=== PATIENT | male | born 1970 | race African-American/Black ===

== ENCOUNTER 2020-08-20 17:23 | Emergency (ER) | payer MEDICAID, SELFPAY ==
[2020-08-20 17:31] VITALS: BP 126/77; PULSE 124; RESP 17; O2SAT 98
--- NOTE | 2020-08-20 17:53 | XRR_ITS ---
PROCEDURE INFORMATION: Exam: XR Chest Exam date and time: 08/20/2020 5:56 PM Age: 49 years old Clinical indication: Cough and dyspnea; Additional info: Dyspnea/cough TECHNIQUE: Imaging protocol: XR of the chest. Views: 1 view. COMPARISON: CR Chest 1 [place] [id number] 09/06/2016 5:40 AM FINDINGS: Lungs: Well inflated and clear. Pleural spaces: Unremarkable. No pleural effusion. No pneumothorax. Heart/Mediastinum: The cardiac shadow is normal in size. Bones/joints: No acute abnormality. XR/XR chest 1V portable [id number] IMPRESSION: No acute findings.
--- NOTE | 2020-08-20 17:53 | ECG_ITS ---
[facility] Test Date: 2020-08-20 Pat Name: Alessandro Bradshaw Department: Room: Gender: Male [employer]: : 1970 Requested By: Harry Hendrickson Order Number: [id number] Gagan MD: Shawn Lee M.D. Measurements Intervals [place] Rate: 106 P: 72 IA: 144 QRS: -44 QRSD: 108 T: 68 QT: 380 QTc: 505 Interpretive Statements SINUS TACHYCARDIA LEFT AXIS DEVIATION [QRS AXIS < -30] Compared to ECG 09/06/2016 12:01:06 Left-axis deviation now present Sinus rhythm no longer present Myocardial infarct finding no longer present Electronically Signed On 08-22-2020 8:00:27 CDT by Shawn Lee M.D. [email or web address]
--- NOTE | 2020-08-20 17:54 | ED_ITS ---
Documented by User: Harry Cárdenas DO 08/27/20 06:17 HPI - Altered Mental Status General: Chief Complaint: Altered Mental Status Stated Complaint: STROKE SYS Time Seen by Provider: 08/20/20 17:35 History of Present Illness: HPI narrative: 49-year-old black male presents emergency room with altered mental status he is confused he is unable to answer any questions he has no focal neurologic deficits he was dropped off evidently by someone else who thought he had a stroke. But he is able to walk to the room he is able to answer some questions. He is very disoriented. I have previously met this man in my office practice I took care of his mother he was able to tell me his mother's name correctly. MD complaint: altered mental status and confusion Onset (ago): hour(s) Severity: moderate Consistency of symptoms: Getting Worse Associated symptoms: Deny auditory hallucinations, visual hallucinations, delusions, depression, homicidal ideation, racing thoughts or suicidal ideation Review of Systems General: Reports: ROS unobtainable due to mental status Psych: Denies: depression, visual hallucinations, auditory hallucinations, suicidal ideation or homicidal ideation Physical Exam Const: COMMON NORMALS: no acute distress GENERAL APPEARANCE: cooperative and comfortable HENMT: COMMON NORMALS: normocephalic, atraumatic and hearing grossly normal bilaterally HEAD & SCALP: normocephalic and atraumatic Eye: COMMON NORMALS: Equal, round and reactive pupils present, EOMs intact bilaterally, conjunctivae normal and no scleral icterus CONJUNCTIVA: Yes conjunctivae normal PUPIL: Yes Equal, round and reactive pupils present Neck/C-Spine: COMMON NORMALS: full ROM, no lymphadenopathy, supple and no JVD Lymph: LYMPHATIC: no lymphadenopathy noted and no lymphedema noted Resp: COMMON NORMALS: normal respiratory effort, No retractions, No use of accessory muscles and clear to auscultation bilaterally AUSCULTATION: clear to auscultation bilaterally Cardio: COMMON NORMALS: no JVD, regular rate, regular rhythm and No murmurs present (Cardio) RATE: regular rate RHYTHM: regular rhythm GI: COMMON NORMALS: Soft to palpation and No hepatosplenomegaly present AUSCULTATION: Yes normoactive bowel sounds PALPATION: Yes Soft to palpation, No Tenderness to palpation present (GI), No Guarding due to palpation present (GI) and Yes No hepatosplenomegaly present Extremity: COMMON NORMALS: normal to inspection, capillary refill normal, no clubbing, cyanosis or edema, no calf tenderness and no pedal edema Psych: THOUGHT CONTENT: No delusions Skin: COMMON NORMALS: no rashes or lesions noted GENERAL SKIN EXAM: no rashes or lesions noted Course Vital Signs: Vital signs: Vital Signs Temperature 98.3 F 08/21/20 00:27 Pulse Rate 102 H 08/21/20 00:27 Respiratory Rate 16 08/21/20 00:27 Blood Pressure 122/93 08/21/20 00:27 Pulse Oximetry 96 08/21/20 00:27 MDM - Altered Mental Status MDM Narrative: Medical decision making narrative: Turned over to Dr. Gtz at change of shift Lab Data: Labs: Lab Results 08/20/20 08/20/20 08/20/20 Range/Units 18:15 18:17 18:17 WBC 5.6 (4.0-10.0) 10^3/ uL RBC 5.85 H (4.1-5.3) 10^6/u L Hgb 15.9 (11.7-16.6) g/dL Hct 49.2 (42.0-52.0) % MCV 84.1 (80-94) fL MCH 27.2 L (28.0-34.0) pg MCHC 32.3 (30.0-36.0) g/dL RDW 13.2 (12.1-15.1) % Plt Count 212 (130-400) 10^3/c mm MPV 13.8 H (7.4-10.4) fL Neut % (Auto) 67.6 % Lymph % (Auto) 16.7 % Monona % (Auto) 14.4 % Eos % (Auto) 0.0 % Baso % (Auto) 0.9 % Neut # (Auto) 3.76 (1.8-7.7) 10^3/u L Lymph # (Auto) 0.9 (0.8-4.8) 10^3/u L Monona # (Auto) 0.8 (0.2-0.9) 10^3/u L Eos # (Auto) 0.0 (0.0-0.8) 10^3/u L Baso # (Auto) 0.1 (0.0-0.1) 10^3/u L Nucleated RBC % (a uto) 0 % Nucleated RBCs # 0.0 /100WBC Specimen Type Arterial Sample Site Radial, left ABG pH 7.42 (7.35-7.45) ABG pCO2 34.6 L (35-45) mmHg ABG pO2 77.0 L (80.0-100.0) mmH g ABG HCO3 22.2 (22-26) mmol/L ABG O2 Saturation 95.8 ABG Base Excess -1.6 (-2.0-2.0) mmol/ L Glenn Test Pos A-a O2 Gradient 3.6 L (5-10) mmHg Hematocrit 49.4 (42-52) % Hgb O2 Saturation 94.6 L (95-100) % Carboxyhemoglobin 0.5 (0.4-20.1) %THgb Methemoglobin 0.8 (0.4-1.5) % Total Hemoglobin 16.1 (14-18) g/dL Sodium 150.0 H 144 (131-143) mmol/L Potassium 3.7 4.1 (3.5-5.0) mmol/L Glucose 117.0 H 111 (70-115) mg/dL Ionized Calcium 1.2 (1.1-1.4) mmol/L O2 Delivery Device Room air FiO2 21.0 % Insulation Nozzleman ID Cak Chloride 108 H (98-107) mmol/L Carbon Dioxide 20 L (22-29) mmol/L Anion Gap 20.1 H (5-19) BUN 25 H (6-20) mg/dL Creatinine 1.7 H (0.7-1.2) mg/dL GFR Calculation 51.7 L (90-130) mL/min Calculated Osmolal ity 303 H (285-295) mOsm/k g Calcium 9.6 (8.5-10.5) mg/dL Magnesium 2.3 (1.7-2.3) mg/dL Total Bilirubin 1.4 H (0.15-1.2) mg/dL AST 80 H (0-40) U/L ALT 38 (0-41) U/L Alkaline Phosphata se 89 (40-130) IU/L Ammonia (16-60) umol/L Total Protein 7.8 (6.6-8.7) g/dL Albumin 4.6 (3.5-5.2) g/dL Globulin 3.2 (1.3-4.6) g/dL Lipase 100 H (13-60) U/L Urine Color (Yellow) Urine Appearance (CLEAR) Urine pH (5-7) Ur Specific Gravit y (1.005-1.030) Urine Protein (Negative) Urine Glucose (UA) (Normal) Urine Ketones (Negative) Urine Blood (Negative) Urine Nitrate (Negative) Urine Bilirubin (Negative) Urine Urobilinogen (Negative) mg/dL Ur Leukocyte Tyesha ase (Negative) Urine RBC (0-2) /hpf Urine WBC (0-5) /hpf Ur Squamous Epith Cells (0-5) /hpf Amorphous Sediment Urine Bacteria (NONE) /hpf Hyaline Casts /lpf Salicylates < 0.3 L (3-10) mg/dL Urine Opiates Scre en (Negative) ng/mL Acetaminophen < 5.0 L (10-30) ug/mL Ur Barbiturates Sc reen (Negative) ng/mL Ur Phencyclidine S crn (Negative) ng/mL Ur Amphetamines Sc reen (Negative) ng/mL U Benzodiazepines Scrn (Negative) ng/mL Urine Cocaine Scre en (Negative) ng/mL U Marijuana (THC) Screen (Negative) ng/mL Ethyl Alcohol < 10 (0-10) mg/dL SARS-CoV-2 Ag (Rap id) (Negative) 08/20/20 08/20/20 08/20/20 Range/Units 18:40 21:49 21:49 WBC (4.0-10.0) 10^3/ uL RBC (4.1-5.3) 10^6/u L Hgb (11.7-16.6) g/dL Hct (42.0-52.0) % MCV (80-94) fL MCH (28.0-34.0) pg MCHC (30.0-36.0) g/dL RDW (12.1-15.1) % Plt Count (130-400) 10^3/c mm MPV (7.4-10.4) fL Neut % (Auto) % Lymph % (Auto) % Monona % (Auto) % Eos % (Auto) % Baso % (Auto) % Neut # (Auto) (1.8-7.7) 10^3/u L Lymph # (Auto) (0.8-4.8) 10^3/u L Monona # (Auto) (0.2-0.9) 10^3/u L Eos # (Auto) (0.0-0.8) 10^3/u L Baso # (Auto) (0.0-0.1) 10^3/u L Nucleated RBC % (a uto) % Nucleated RBCs # /100WBC Specimen Type Sample Site ABG pH (7.35-7.45) ABG pCO2 (35-45) mmHg ABG pO2 (80.0-100.0) mmH g ABG HCO3 (22-26) mmol/L ABG O2 Saturation ABG Base Excess (-2.0-2.0) mmol/ L Glenn Test A-a O2 Gradient (5-10) mmHg Hematocrit (42-52) % Hgb O2 Saturation (95-100) % Carboxyhemoglobin (0.4-20.1) %THgb Methemoglobin (0.4-1.5) % Total Hemoglobin (14-18) g/dL Sodium (131-143) mmol/L Potassium (3.5-5.0) mmol/L Glucose (70-115) mg/dL Ionized Calcium (1.1-1.4) mmol/L O2 Delivery Device FiO2 % Insulation Nozzleman ID Chloride (98-107) mmol/L Carbon Dioxide (22-29) mmol/L Anion Gap (5-19) BUN (6-20) mg/dL Creatinine (0.7-1.2) mg/dL GFR Calculation (90-130) mL/min Calculated Osmolal ity (285-295) mOsm/k g Calcium (8.5-10.5) mg/dL Magnesium (1.7-2.3) mg/dL Total Bilirubin (0.15-1.2) mg/dL AST (0-40) U/L ALT (0-41) U/L Alkaline Phosphata se (40-130) IU/L Ammonia 35 (16-60) umol/L Total Protein (6.6-8.7) g/dL Albumin (3.5-5.2) g/dL Globulin (1.3-4.6) g/dL Lipase (13-60) U/L Urine Color Dark yellow (Yellow) Urine Appearance Hazy A (CLEAR) Urine pH 5 (5-7) Ur Specific Gravit y 1.030 (1.005-1.030) Urine Protein 1+ H (Negative) Urine Glucose (UA) Norm (Normal) Urine Ketones 1+ H (Negative) Urine Blood 2+ H (Negative) Urine Nitrate Negative (Negative) Urine Bilirubin 1+ H (Negative) Urine Urobilinogen 4 H (Negative) mg/dL Ur Leukocyte Tyseha ase Negative (Negative) Urine RBC 5-10 H (0-2) /hpf Urine WBC 0-4 H (0-5) /hpf Ur Squamous Epith Cells 0-4 H (0-5) /hpf Amorphous Sediment Not Reportable Urine Bacteria 1+ H (NONE) /hpf Hyaline Casts 15-25 H /lpf Salicylates (3-10) mg/dL Urine Opiates Scre en Negative (Negative) ng/mL Acetaminophen (10-30) ug/mL Ur Barbiturates Sc reen Negative (Negative) ng/mL Ur Phencyclidine S crn Negative (Negative) ng/mL Ur Amphetamines Sc reen Positive H (Negative) ng/mL U Benzodiazepines Scrn Negative (Negative) ng/mL Urine Cocaine Scre en Negative (Negative) ng/mL U Marijuana (THC) Screen Negative (Negative) ng/mL Ethyl Alcohol (0-10) mg/dL SARS-CoV-2 Ag (Rap id) (Negative) 08/20/20 Range/Units 22:00 WBC (4.0-10.0) 10^3/ uL RBC (4.1-5.3) 10^6/u L Hgb (11.7-16.6) g/dL Hct (42.0-52.0) % MCV (80-94) fL MCH (28.0-34.0) pg MCHC (30.0-36.0) g/dL RDW (12.1-15.1) % Plt Count (130-400) 10^3/c mm MPV (7.4-10.4) fL Neut % (Auto) % Lymph % (Auto) % Monona % (Auto) % Eos % (Auto) % Baso % (Auto) % Neut # (Auto) (1.8-7.7) 10^3/u L Lymph # (Auto) (0.8-4.8) 10^3/u L Monona # (Auto) (0.2-0.9) 10^3/u L Eos # (Auto) (0.0-0.8) 10^3/u L Baso # (Auto) (0.0-0.1) 10^3/u L Nucleated RBC % (a uto) % Nucleated RBCs # /100WBC Specimen Type Sample Site ABG pH (7.35-7.45) ABG pCO2 (35-45) mmHg ABG pO2 (80.0-100.0) mmH g ABG HCO3 (22-26) mmol/L ABG O2 Saturation ABG Base Excess (-2.0-2.0) mmol/ L Glenn Test A-a O2 Gradient (5-10) mmHg Hematocrit (42-52) % Hgb O2 Saturation (95-100) % Carboxyhemoglobin (0.4-20.1) %THgb Methemoglobin (0.4-1.5) % Total Hemoglobin (14-18) g/dL Sodium (131-143) mmol/L Potassium (3.5-5.0) mmol/L Glucose (70-115) mg/dL Ionized Calcium (1.1-1.4) mmol/L O2 Delivery Device FiO2 % Insulation Nozzleman ID Chloride (98-107) mmol/L Carbon Dioxide (22-29) mmol/L Anion Gap (5-19) BUN (6-20) mg/dL Creatinine (0.7-1.2) mg/dL GFR Calculation (90-130) mL/min Calculated Osmolal ity (285-295) mOsm/k g Calcium (8.5-10.5) mg/dL Magnesium (1.7-2.3) mg/dL Total Bilirubin (0.15-1.2) mg/dL AST (0-40) U/L ALT (0-41) U/L Alkaline Phosphata se (40-130) IU/L Ammonia (16-60) umol/L Total Protein (6.6-8.7) g/dL Albumin (3.5-5.2) g/dL Globulin (1.3-4.6) g/dL Lipase (13-60) U/L Urine Color (Yellow) Urine Appearance (CLEAR) Urine pH (5-7) Ur Specific Gravit y (1.005-1.030) Urine Protein (Negative) Urine Glucose (UA) (Normal) Urine Ketones (Negative) Urine Blood (Negative) Urine Nitrate (Negative) Urine Bilirubin (Negative) Urine Urobilinogen (Negative) mg/dL Ur Leukocyte Tyesha ase (Negative) Urine RBC (0-2) /hpf Urine WBC (0-5) /hpf Ur Squamous Epith Cells (0-5) /hpf Amorphous Sediment Urine Bacteria (NONE) /hpf Hyaline Casts /lpf Salicylates (3-10) mg/dL Urine Opiates Scre en (Negative) ng/mL Acetaminophen (10-30) ug/mL Ur Barbiturates Sc reen (Negative) ng/mL Ur Phencyclidine S crn (Negative) ng/mL Ur Amphetamines Sc reen (Negative) ng/mL U Benzodiazepines Scrn (Negative) ng/mL Urine Cocaine Scre en (Negative) ng/mL U Marijuana (THC) Screen (Negative) ng/mL Ethyl Alcohol (0-10) mg/dL SARS-CoV-2 Ag (Rap id) Negative (Negative) Discharge Plan Discharge Patient Disposition: Home Clinical Impression: Dehydration, Methamphetamine abuse Altered mental status Qualifiers: Altered mental status type: transient alteration of awareness Qualified Code(s): R40.4 - Transient alteration of awareness Condition: Stable Prescriptions: No Action Advair Diskus 500-50 mcg/dose Blister With Device 1 inh INHALATION BID RF: 0 fluticasone propionate 50 mcg/actuation [place],Suspension 1 spray INTRANASAL BID PRN (Reason: Allergy Symptoms) RF: 0 Discharge Orders: Discharge ED (Routine); Ordered 08/20/20 Ordered By: Craig Tariq Discharge Diet: Advance as tolerated Discharge Activity: Resume usual activity Patient Instructions: Opioid Safety Activity Restrictions/Additional Instructions: Increase noncaffeine/nonalcoholic fluids. Follow-up with your primary care physician. Discontinue use of any illegal drugs. Coding Level of Care Code ED Manager Sustainability for Gaelg Fwd Exam Comprehensive Documented by User: Craig Tariq 08/20/20 19:21 HPI - Altered Mental Status General: Chief Complaint: Altered Mental Status Stated Complaint: STROKE SYS Time Seen by Provider: 08/20/20 17:35 History of Present Illness: HPI narrative: Discussed with Dr. Cárdenas. Chart reviewed. Patient was noted to be talking on the phone. The nurses stated that he seemed to be making sense. I went back and and reevaluated the patient. He was able to answer most of the questions appropriately. He continues to follow commands. Patient states he is not in any pain. He denies fever or chills. He states that he is not having any trouble breathing or cough at this time. States he does have a history of asthma. Patient does admit that he drinks a lot of alcohol. He also admits at times he does methamphetamines. Patient states that he has done methamphetamines in the past 1-2 days. Course Vital Signs: Vital signs: Vital Signs Temperature 98.3 F 08/21/20 00:27 Pulse Rate 102 H 08/21/20 00:27 Respiratory Rate 16 08/21/20 00:27 Blood Pressure 122/93 08/21/20 00:27 Pulse Oximetry 96 08/21/20 00:27 MDM - Altered Mental Status Lab Data: Labs: Lab Results 08/20/20 08/20/20 08/20/20 Range/Units 18:15 18:17 18:17 WBC 5.6 (4.0-10.0) 10^3/ uL RBC 5.85 H (4.1-5.3) 10^6/u L Hgb 15.9 (11.7-16.6) g/dL Hct 49.2 (42.0-52.0) % MCV 84.1 (80-94) fL MCH 27.2 L (28.0-34.0) pg MCHC 32.3 (30.0-36.0) g/dL RDW 13.2 (12.1-15.1) % Plt Count 212 (130-400) 10^3/c mm MPV 13.8 H (7.4-10.4) fL Neut % (Auto) 67.6 % Lymph % (Auto) 16.7 % Monona % (Auto) 14.4 % Eos % (Auto) 0.0 % Baso % (Auto) 0.9 % Neut # (Auto) 3.76 (1.8-7.7) 10^3/u L Lymph # (Auto) 0.9 (0.8-4.8) 10^3/u L Monona # (Auto) 0.8 (0.2-0.9) 10^3/u L Eos # (Auto) 0.0 (0.0-0.8) 10^3/u L Baso # (Auto) 0.1 (0.0-0.1) 10^3/u L Nucleated RBC % (a uto) 0 % Nucleated RBCs # 0.0 /100WBC Specimen Type Arterial Sample Site Radial, left ABG pH 7.42 (7.35-7.45) ABG pCO2 34.6 L (35-45) mmHg ABG pO2 77.0 L (80.0-100.0) mmH g ABG HCO3 22.2 (22-26) mmol/L ABG O2 Saturation 95.8 ABG Base Excess -1.6 (-2.0-2.0) mmol/ L Glenn Test Pos A-a O2 Gradient 3.6 L (5-10) mmHg Hematocrit 49.4 (42-52) % Hgb O2 Saturation 94.6 L (95-100) % Carboxyhemoglobin 0.5 (0.4-20.1) %THgb Methemoglobin 0.8 (0.4-1.5) % Total Hemoglobin 16.1 (14-18) g/dL Sodium 150.0 H 144 (131-143) mmol/L Potassium 3.7 4.1 (3.5-5.0) mmol/L Glucose 117.0 H 111 (70-115) mg/dL Ionized Calcium 1.2 (1.1-1.4) mmol/L O2 Delivery Device Room air FiO2 21.0 % Insulation Nozzleman ID Cak Chloride 108 H (98-107) mmol/L Carbon Dioxide 20 L (22-29) mmol/L Anion Gap 20.1 H (5-19) BUN 25 H (6-20) mg/dL Creatinine 1.7 H (0.7-1.2) mg/dL GFR Calculation 51.7 L (90-130) mL/min Calculated Osmolal ity 303 H (285-295) mOsm/k g Calcium 9.6 (8.5-10.5) mg/dL Magnesium 2.3 (1.7-2.3) mg/dL Total Bilirubin 1.4 H (0.15-1.2) mg/dL AST 80 H (0-40) U/L ALT 38 (0-41) U/L Alkaline Phosphata se 89 (40-130) IU/L Ammonia (16-60) umol/L Total Protein 7.8 (6.6-8.7) g/dL Albumin 4.6 (3.5-5.2) g/dL Globulin 3.2 (1.3-4.6) g/dL Lipase 100 H (13-60) U/L Urine Color (Yellow) Urine Appearance (CLEAR) Urine pH (5-7) Ur Specific Gravit y (1.005-1.030) Urine Protein (Negative) Urine Glucose (UA) (Normal) Urine Ketones (Negative) Urine Blood (Negative) Urine Nitrate (Negative) Urine Bilirubin (Negative) Urine Urobilinogen (Negative) mg/dL Ur Leukocyte Tyesha ase (Negative) Urine RBC (0-2) /hpf Urine WBC (0-5) /hpf Ur Squamous Epith Cells (0-5) /hpf Amorphous Sediment Urine Bacteria (NONE) /hpf Hyaline Casts /lpf Salicylates < 0.3 L (3-10) mg/dL Urine Opiates Scre en (Negative) ng/mL Acetaminophen < 5.0 L (10-30) ug/mL Ur Barbiturates Sc reen (Negative) ng/mL Ur Phencyclidine S crn (Negative) ng/mL Ur Amphetamines Sc reen (Negative) ng/mL U Benzodiazepines Scrn (Negative) ng/mL Urine Cocaine Scre en (Negative) ng/mL U Marijuana (THC) Screen (Negative) ng/mL Ethyl Alcohol < 10 (0-10) mg/dL SARS-CoV-2 Ag (Rap id) (Negative) 08/20/20 08/20/20 08/20/20 Range/Units 18:40 21:49 21:49 WBC (4.0-10.0) 10^3/ uL RBC (4.1-5.3) 10^6/u L Hgb (11.7-16.6) g/dL Hct (42.0-52.0) % MCV (80-94) fL MCH (28.0-34.0) pg MCHC (30.0-36.0) g/dL RDW (12.1-15.1) % Plt Count (130-400) 10^3/c mm MPV (7.4-10.4) fL Neut % (Auto) % Lymph % (Auto) % Monona % (Auto) % Eos % (Auto) % Baso % (Auto) % Neut # (Auto) (1.8-7.7) 10^3/u L Lymph # (Auto) (0.8-4.8) 10^3/u L Monona # (Auto) (0.2-0.9) 10^3/u L Eos # (Auto) (0.0-0.8) 10^3/u L Baso # (Auto) (0.0-0.1) 10^3/u L Nucleated RBC % (a uto) % Nucleated RBCs # /100WBC Specimen Type Sample Site ABG pH (7.35-7.45) ABG pCO2 (35-45) mmHg ABG pO2 (80.0-100.0) mmH g ABG HCO3 (22-26) mmol/L ABG O2 Saturation ABG Base Excess (-2.0-2.0) mmol/ L Glenn Test A-a O2 Gradient (5-10) mmHg Hematocrit (42-52) % Hgb O2 Saturation (95-100) % Carboxyhemoglobin (0.4-20.1) %THgb Methemoglobin (0.4-1.5) % Total Hemoglobin (14-18) g/dL Sodium (131-143) mmol/L Potassium (3.5-5.0) mmol/L Glucose (70-115) mg/dL Ionized Calcium (1.1-1.4) mmol/L O2 Delivery Device FiO2 % Insulation Nozzleman ID Chloride (98-107) mmol/L Carbon Dioxide (22-29) mmol/L Anion Gap (5-19) BUN (6-20) mg/dL Creatinine (0.7-1.2) mg/dL GFR Calculation (90-130) mL/min Calculated Osmolal ity (285-295) mOsm/k g Calcium (8.5-10.5) mg/dL Magnesium (1.7-2.3) mg/dL Total Bilirubin (0.15-1.2) mg/dL AST (0-40) U/L ALT (0-41) U/L Alkaline Phosphata se (40-130) IU/L Ammonia 35 (16-60) umol/L Total Protein (6.6-8.7) g/dL Albumin (3.5-5.2) g/dL Globulin (1.3-4.6) g/dL Lipase (13-60) U/L Urine Color Dark yellow (Yellow) Urine Appearance Hazy A (CLEAR) Urine pH 5 (5-7) Ur Specific Gravit y 1.030 (1.005-1.030) Urine Protein 1+ H (Negative) Urine Glucose (UA) Norm (Normal) Urine Ketones 1+ H (Negative) Urine Blood 2+ H (Negative) Urine Nitrate Negative (Negative) Urine Bilirubin 1+ H (Negative) Urine Urobilinogen 4 H (Negative) mg/dL Ur Leukocyte Tyesha ase Negative (Negative) Urine RBC 5-10 H (0-2) /hpf Urine WBC 0-4 H (0-5) /hpf Ur Squamous Epith Cells 0-4 H (0-5) /hpf Amorphous Sediment Not Reportable Urine Bacteria 1+ H (NONE) /hpf Hyaline Casts 15-25 H /lpf Salicylates (3-10) mg/dL Urine Opiates Scre en Negative (Negative) ng/mL Acetaminophen (10-30) ug/mL Ur Barbiturates Sc reen Negative (Negative) ng/mL Ur Phencyclidine S crn Negative (Negative) ng/mL Ur Amphetamines Sc reen Positive H (Negative) ng/mL U Benzodiazepines Scrn Negative (Negative) ng/mL Urine Cocaine Scre en Negative (Negative) ng/mL U Marijuana (THC) Screen Negative (Negative) ng/mL Ethyl Alcohol (0-10) mg/dL SARS-CoV-2 Ag (Rap id) (Negative) 08/20/20 Range/Units 22:00 WBC (4.0-10.0) 10^3/ uL RBC (4.1-5.3) 10^6/u L Hgb (11.7-16.6) g/dL Hct (42.0-52.0) % MCV (80-94) fL MCH (28.0-34.0) pg MCHC (30.0-36.0) g/dL RDW (12.1-15.1) % Plt Count (130-400) 10^3/c mm MPV (7.4-10.4) fL Neut % (Auto) % Lymph % (Auto) % Monona % (Auto) % Eos % (Auto) % Baso % (Auto) % Neut # (Auto) (1.8-7.7) 10^3/u L Lymph # (Auto) (0.8-4.8) 10^3/u L Monona # (Auto) (0.2-0.9) 10^3/u L Eos # (Auto) (0.0-0.8) 10^3/u L Baso # (Auto) (0.0-0.1) 10^3/u L Nucleated RBC % (a uto) % Nucleated RBCs # /100WBC Specimen Type Sample Site ABG pH (7.35-7.45) ABG pCO2 (35-45) mmHg ABG pO2 (80.0-100.0) mmH g ABG HCO3 (22-26) mmol/L ABG O2 Saturation ABG Base Excess (-2.0-2.0) mmol/ L Glenn Test A-a O2 Gradient (5-10) mmHg Hematocrit (42-52) % Hgb O2 Saturation (95-100) % Carboxyhemoglobin (0.4-20.1) %THgb Methemoglobin (0.4-1.5) % Total Hemoglobin (14-18) g/dL Sodium (131-143) mmol/L Potassium (3.5-5.0) mmol/L Glucose (70-115) mg/dL Ionized Calcium (1.1-1.4) mmol/L O2 Delivery Device FiO2 % Insulation Nozzleman ID Chloride (98-107) mmol/L Carbon Dioxide (22-29) mmol/L Anion Gap (5-19) BUN (6-20) mg/dL Creatinine (0.7-1.2) mg/dL GFR Calculation (90-130) mL/min Calculated Osmolal ity (285-295) mOsm/k g Calcium (8.5-10.5) mg/dL Magnesium (1.7-2.3) mg/dL Total Bilirubin (0.15-1.2) mg/dL AST (0-40) U/L ALT (0-41) U/L Alkaline Phosphata se (40-130) IU/L Ammonia (16-60) umol/L Total Protein (6.6-8.7) g/dL Albumin (3.5-5.2) g/dL Globulin (1.3-4.6) g/dL Lipase (13-60) U/L Urine Color (Yellow) Urine Appearance (CLEAR) Urine pH (5-7) Ur Specific Gravit y (1.005-1.030) Urine Protein (Negative) Urine Glucose (UA) (Normal) Urine Ketones (Negative) Urine Blood (Negative) Urine Nitrate (Negative) Urine Bilirubin (Negative) Urine Urobilinogen (Negative) mg/dL Ur Leukocyte Tyesha ase (Negative) Urine RBC (0-2) /hpf Urine WBC (0-5) /hpf Ur Squamous Epith Cells (0-5) /hpf Amorphous Sediment Urine Bacteria (NONE) /hpf Hyaline Casts /lpf Salicylates (3-10) mg/dL Urine Opiates Scre en (Negative) ng/mL Acetaminophen (10-30) ug/mL Ur Barbiturates Sc reen (Negative) ng/mL Ur Phencyclidine S crn (Negative) ng/mL Ur Amphetamines Sc reen (Negative) ng/mL U Benzodiazepines Scrn (Negative) ng/mL Urine Cocaine Scre en (Negative) ng/mL U Marijuana (THC) Screen (Negative) ng/mL Ethyl Alcohol (0-10) mg/dL SARS-CoV-2 Ag (Rap id) Negative (Negative) Discharge Plan Discharge Patient Disposition: Home Clinical Impression: Dehydration, Methamphetamine abuse Altered mental status Qualifiers: Altered mental status type: transient alteration of awareness Qualified Code(s): R40.4 - Transient alteration of awareness Condition: Stable Prescriptions: No Action Advair Diskus 500-50 mcg/dose Blister With Device 1 inh INHALATION BID RF: 0 fluticasone propionate 50 mcg/actuation [place],Suspension 1 spray INTRANASAL BID PRN (Reason: Allergy Symptoms) RF: 0 Discharge Orders: Discharge ED (Routine); Ordered 08/20/20 Ordered By: Craig Tariq Discharge Diet: Advance as tolerated Discharge Activity: Resume usual activity Patient Instructions: Opioid Safety Activity Restrictions/Additional Instructions: Increase noncaffeine/nonalcoholic fluids. Follow-up with your primary care physician. Discontinue use of any illegal drugs. Coding Level of Care Code ED Manager Sustainability for Chg Fwd Exam Comprehensive
[2020-08-20 18:18] VITALS: BP 129/81; PULSE 119; RESP 18; O2SAT 96
[2020-08-20] MEDS: LORazepam 2 mg/mL INJ 1 mL 1 MG IVP (18:23)
[2020-08-20 18:26] LABS: Basophils # 0.1 10^3/uL (0.0-0.1); Basophils % 0.9 %; Hematocrit 49.2 % (42.0-52.0); Hemoglobin 15.9 g/dL (11.7-16.6); Lymphocytes # 0.9 10^3/uL (0.8-4.8); Lymphocytes % 16.7 %; Mean Corpuscular HGB Conc 32.3 g/dL (30.0-36.0); Mean Corpuscular Hemoglobin 27.2 pg (28.0-34.0); Mean Corpuscular Volume 84.1 fL (80-94); Mean Platelet Volume 13.8 fL (7.4-10.4); Monocytes # 0.8 10^3/uL (0.2-0.9); Monocytes % 14.4 %; Neutrophils # 3.76 10^3/uL (1.8-7.7); Neutrophils % 67.6 %; Nucleated Red Blood Cells % 0 %; Platelet Count 212 10^3/cmm (130-400); Red Blood Count 5.85 10^6/uL (4.1-5.3); Red Cell Distribution Width 13.2 % (12.1-15.1); White Blood Count 5.6 10^3/uL (4.0-10.0)
[2020-08-20 18:27] LABS: ABG PCO2 34.6 mmHg (35-45); ABG PH Result 7.42 (7.35-7.45); Alveolar-Arterial Oxygen Gradi 3.6 mmHg (5-10); Arterial Blood Gas Hematocrit 49.4 % (42-52); Base Excess ABG -1.6 mmol/L (-2.0-2.0); Blood Gas Allen Test Pos; Blood Gas Operator Identificat CAK; Blood Gas Sample Site Radial, left; Blood Gas Sample Type Arterial; Carboxyhemoglobin 0.5 %THgb (0.4-20.1); HCO3 ABG 22.2 mmol/L (22-26); HGB O2 Sat 94.6 % (95-100); Ionized Calcium Level - ABG 1.2 mmol/L (1.1-1.4); Methemoglobin 0.8 % (0.4-1.5); Oxygen Device ROOM AIR; Oxygen Saturation ABG 95.8; Potassium Level - ABG 3.7 mmol/L (3.5-5.0); Total Hemoglobin 16.1 g/dL (14-18)
[2020-08-20 18:30] VITALS: BP 129/81; PULSE 118; RESP 18; O2SAT 97
[2020-08-20 18:43] LABS: Acetaminophen < 5.0 ug/mL (10-30); Alanine Aminotransferase 38 U/L (0-41); Albumin Level 4.6 g/dL (3.5-5.2); Alcohol Level < 10 mg/dL (0-10); Alkaline Phosphatase 89 IU/L (40-130); Anion Gap 20.1 (5-19); Aspartate Amino Transferase 80 U/L (0-40); Blood Urea Nitrogen 25 mg/dL (6-20); Calcium 9.6 mg/dL (8.5-10.5); Carbon Dioxide 20 mmol/L (22-29); Chloride 108 mmol/L (98-107); Globulin 3.2 g/dL (1.3-4.6); Glomerular Filtration Rate 51.7 mL/min (90-130); Glucose 111 mg/dL (65-115); Lipase 100 U/L (13-60); Magnesium 2.3 mg/dL (1.7-2.3); Osmolality Calculated 303 mOsm/kg (285-295); Potassium 4.1 mmol/L (3.5-5.1); Salicylate < 0.3 mg/dL (3-10); Sodium 144 mmol/L (136-145); Total Bilirubin 1.4 mg/dL (0.15-1.2); Total Protein 7.8 g/dL (6.6-8.7)
[2020-08-20 19:00] VITALS: BP 136/87
[2020-08-20 19:01] LABS: Ammonia 35 umol/L (16-60)
[2020-08-20 22:00] VITALS: BP 156/87; PULSE 111; RESP 17; O2SAT 96
[2020-08-20 22:03] LABS: Blood Urine 2+ (Negative); Glucose Urine UA Norm (Normal); Ketones Urine 1+ (Negative); Nitrate Urine Negative (Negative); Protein Urine 1+ (Negative); Urine Appearance Hazy (CLEAR); Urine Color Dark Yellow (Yellow); pH Urine 5 (5-7)
[2020-08-20 22:04] LABS: Add Urine Microscopic? YES; Bilirubin Urine 1+ (Negative); Leukocyte Esterase Urine Negative (Negative); Squamous Epithelial Cell Urine 0-4 /hpf (0-5); Urobilinogen Urine 4 mg/dL (Negative); WBC Urine 0-4 /hpf (0-5)
[2020-08-20 22:05] LABS: Add Urine Culture? No; Bacteria Urine 1+ /hpf; Hyaline Casts Urine 15-25 /lpf
[2020-08-20 22:08] LABS: Amphetamines Screen Urine Positive (Negative); Barbiturates Screen Urine Negative (Negative); Benzodiazepines Screen Urine Negative (Negative); Cocaine Screen Urine Negative (Negative); Opiate Screen Urine Negative (Negative); PCP Screen Urine Negative (Negative); THC Screen Urine Negative (Negative)
[2020-08-20 22:25] LABS: SARS Covid-2 Antigen Negative (Negative)
[2020-08-21 00:27] VITALS: BP 122/93; PULSE 102; RESP 16; TEMP 36.8; O2SAT 96
== END 2020-08-21 00:42 | disposition home or self-care (01) ==
PROVIDERS: Family Medicine; Emergency Provider Emergency Medicine
DX: R40.4 Transient alteration of awareness (principal); E86.0 Dehydration; F15.10 Other stimulant abuse, uncomplicated
CPT/HCPCS: 36600; 71045; 80051; 80053; 80306; 80307; 81001; 82140; 82330; 82805; 83690; 83735; 85025; 87426; 93005; 96374; 99284; J2060

== ENCOUNTER 2020-11-13 09:24 | Outpatient (CLI) | payer MEDICAID, SELFPAY ==
--- NOTE | 2020-11-13 09:30 | MR_ITS ---
WS: [id number] MRI HEAD WITH CONTRAST TECHNIQUE: Sagittal T1, T2 axial, T2 axial FLAIR, axial susceptibility weighted imaging, axial diffus ion weighted images, and coronal T2 images were obtained. Pre and post-T1 axial and post T1 coronal i mages. ADC and FSPGR images. CLINICAL INFORMATION: EXPRESSIVE APHASIA COMPARISON: CT 2017 FINDINGS: No evidence of restricted diffusion to suggest acute ischemia. Ventricular system and basal cisterns are patent. Moderate supratentorial periventricular and subcortical white matter changes advanced for patient this age. This is nonspecific in a patient this age but can be seen with hypertension, diabe andres, and small vessel disease. Normal corpus callosum. Normal posterior fossa. Normal vascular flow v oids at the skull base. No extra axial fluid collections. Paranasal sinuses are well aerated. Mastoid air cells are well aerated. No significant parenchymal volume loss. Chronic lacunar infarcts right c erebellum. No hemosiderin on susceptibly weighted images. Normal optic chiasm and pituitary infundibulum. Tempor al lobes and hippocampal formations are normal in appearance. Normal dural venous sinuses. Normal cav ernous sinuses and Meckel's cave. No abnormal intracranial enhancement. MR/MR head wo/w con [id number] IMPRESSION: 1. No evidence of restricted diffusion to suggest acute ischemia. 2. Moderate patchy supratentorial white matter changes nonspecific in a patien t this age but can be seen with hypertension, diabetes, and small vessel diseas e. No significant parenchymal volume loss. This is advanced for patient this ag e. 3. Tiny chronic lacunar infarcts right cerebellum. 4. No hemosiderin on susceptibly weighted images. 5. Temporal lobes and hippocampal formations are normal in appearance. 6. No abnormal gadolinium enhancement. 7. No other significant findings.
[2020-11-13] MEDS: gadobenate dimeglumine 20 mL vial IV (12:02)
== END 2020-11-13 09:25 | disposition home or self-care (01) ==
PROVIDERS: PCP Physician Assistant; Visit Provider Physician Assistant
DX: R47.01 Aphasia (principal); I63.81 Other cerebral infarction due to occlusion or stenosis of small artery
CPT/HCPCS: 70553; A9577

== ENCOUNTER 2022-03-13 20:09 | Inpatient (IN) | payer MEDICAID, SELFPAY ==
[2022-03-13] VITALS (8 sets, daily range): BP systolic 102–183; BP diastolic 82–129; PULSE 104–133; RESP 24–40; TEMP 37.1; O2SAT 95–100; BMI 33.5
--- NOTE | 2022-03-13 20:10 | XRR_ITS ---
PROCEDURE INFORMATION: Exam: XR Chest Exam date and time: 03/13/2022 9:39 PM Age: 51 years old Clinical indication: Shortness of breath; Additional info: SOB TECHNIQUE: Imaging protocol: Radiologic exam of the chest. Views: 1 view. COMPARISON: CR XR chest 2V* [id number] 10/16/2020 2:26 PM FINDINGS: Lungs: Bibasilar atelectasis. Pleural spaces: Moderate volume bilateral pleural effusions. No pneumothorax. Heart/Mediastinum: Moderate cardiomegaly. Bones/joints: Unremarkable. XR/XR chest 1V portable [id number] IMPRESSION: Moderate cardiomegaly with moderate volume bilateral pleural effusions. Bibasilar atelectasis.
[2022-03-13 20:16] LABS: Basophils % 0.5 %; Hematocrit 50.1 % (42.0-52.0); Hemoglobin 14.6 g/dL (11.7-16.6); Lymphocytes # 1.2 10^3/uL (0.8-4.8); Lymphocytes % 15.6 %; Mean Corpuscular HGB Conc 29.1 g/dL (30.0-36.0); Mean Corpuscular Hemoglobin 21.8 pg (28.0-34.0); Mean Corpuscular Volume 74.7 fl (80-94); Monocytes # 0.9 10^3/uL (0.2-0.9); Monocytes % 10.7 %; Neutrophils # 5.78 10^3/uL (1.8-7.7); Neutrophils % 72.7 %; Nucleated Red Blood Cells % 0 %; Platelet Count 339 10^3/cmm (130-400); Red Blood Count 6.71 10^6/uL (4.1-5.3); Red Cell Distribution Width 18.8 % (12.1-15.1)
--- NOTE | 2022-03-13 20:16 | ECG_ITS ---
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 Measurements Intervals [place] Rate: 130 P: 0 MT: 0 QRS: 7 QRSD: 105 T: 54 QT: 320 QTc: 471 Interpretive Statements ATRIAL FLUTTER/TACHYCARDIA WITH RAPID VENTRICULAR RESPONSE MINIMAL VOLTAGE CRITERIA FOR LVH, CONSIDER NORMAL VARIANT [MEETS CRITERIA IN ONE OF: R(aVL), S(V1), R(V5), R(V5/V6)+S(V1)] POSSIBLE LATERAL MYOCARDIAL INFARCTION , PROBABLY OLD [30 ms Q WAVE IN I/aVL/V5/V6] ABNORMAL RHYTHM ECG Compared to ECG 08/20/2020 18:22:31 Myocardial infarct finding now present Sinus tachycardia no longer present Left-axis deviation no longer present Electronically Signed On 03-14-2022 11:10:06 AGER TENDER by Shawn Lee M.D. [email or web address].Threefold Photos/store/NU/[id number] [place]
--- NOTE | 2022-03-13 20:20 | ED_ITS ---
HPI - SOB/Dyspnea General: Chief Complaint: Shortness of Breath/Dyspnea Stated Complaint: SOB Source: patient and EMS Mode of arrival: EMS Limitations: no limitations History of Present Illness: HPI Narrative: 51-year-old male states that last week he has been having increasing shortness of breath and weakness per EMS patient was the satting into the 80s they have him on 4 L of oxygen here he is also tachycardic in A. fib he does have a history of COPD he denies any history of A. fib denies any pain he is very disheveled. Associated symptoms: Reports palpitations; Deny abdominal pain, nausea or vomiting Review of Systems Const: Reports: fatigue and malaise Eyes: Denies: blurry vision or eye discomfort ENMT: Denies: throat pain or dental pain Card: Reports: palpitations and irregular heart rhythm Resp: Reports: dyspnea GI: Denies: abdominal pain, nausea, vomiting or diarrhea : Denies: dysuria Musc: Denies: neck pain or back pain Skin/Breast: Denies: rash Neuro: Denies: headache(s) Psych: Denies: depression Grant/Lymph: Denies: easy bruising All/Imm: Denies: urticaria PFSH ED PFSH: Medical History (Updated 03/13/22 @ 23:41 by Gillian Wheeler MD) COPD (chronic obstructive pulmonary disease) Social History (Updated 03/13/22 @ 20:22 by Gillian Wheeler MD) Smoking and tobacco status: current some day smoker Physical Exam Const: COMMON NORMALS: patient oriented x3 GENERAL APPEARANCE: disheveled, ill appearing and frail appearing HENMT: COMMON NORMALS: normocephalic and atraumatic HEAD & SCALP: normoceph alic and atraumatic Eye: COMMON NORMALS: Equal, round and reactive pupils present and EOMs intact bilaterally PUPIL: Yes Equal, round and reactive pupils present Neck/C-Spine: COMMON NORMALS: full ROM and supple Chest: COMMONS NORMALS: normal inspection of the chest and normal palpation of entire chest wall Resp: EFFORT & INSPECTION: Yes tachypneic, Yes respiratory distress and Yes labored AUSCULTATION: diminished lung sounds Cardio: COMMON NORMALS: No murmurs present (Cardio) RATE: tachycardic RHYTHM: abnormal rhythm irregularly irregular GI: COMMON NORMALS: Normal to inspection, nondistended, normoactive bowel sounds present, Soft to palpation, non-tender and no masses PALPATION: Yes Soft to palpation Extremity: COMMON NORMALS: normal to inspection and full ROM Neuro: COMMON NORMALS: patient oriented x3, moves all extremities and no focal motor deficits Psych: COMMON NORMALS: mental status grossly normal, Normal thought process present and cooperative THOUGHT PROCESS: Normal thought process present Skin: COMMON NORMALS: no rashes or lesions noted and no wounds GENERAL SKIN EXAM: no rashes or lesions noted Course Vital Signs: Vital signs: Vital Signs Temperature 98.8 F 03/13/22 20:10 Pulse Rate 117 H 03/13/22 21:36 Respiratory Rate 38 H 03/13/22 21:36 Blood Pressure 102/82 03/13/22 21:36 Pulse Oximetry 99 03/13/22 21:36 Oxygen Delivery Me thod 03/13/22 21:36 Oxygen Flow Rate 4 03/13/22 20:10 MDM - SOB/Dyspnea Medical Decision Making Patient presents here with shortness of breath he is in respiratory distress here I did have to place him on BiPAP x-ray CT shows large pleural effusions with a possible pneumonia as well. Patient is also in A. fib with RVR patient is on a Cardizem drip and BiPAP will admit to the cardiac stepdown. Lab Data 03/13/22 20:11 03/13/22 20:11 Labs/Radiology: Radiology Impressions Chest X-Ray 03/13/22 20:10 IMPRESSION: Moderate cardiomegaly with moderate volume bilateral pleural effusions. Bibasilar atelectasis. Chest CTA 03/13/22 21:07 IMPRESSION: 1. Negative for pulmonary embolus. 2. Moderate right and large left pleural effusions. 3. Bilateral largely dependent airspace infiltrates. Laboratory Results WBC 8.0 10^3/uL (4.0-10.0) 03/13/22 20:11 RBC 6.71 10^6/uL (4.1-5.3) H 03/13/22 20:11 Hgb 14.6 g/dL (11.7-16.6) 03/13/22 20:11 Hct 50.1 % (42.0-52.0) 03/13/22 20:11 MCV 74.7 fl (80-94) L 03/13/22 20:11 MCH 21.8 pg (28.0-34.0) L 03/13/22 20:11 MCHC 29.1 g/dL (30.0-36.0) L 03/13/22 20:11 RDW 18.8 % (12.1-15.1) H 03/13/22 20:11 Plt Count 339 10^3/cmm (130-400) 03/13/22 20:11 MPV 12.3 fL (7.4-10.4) H 03/13/22 20:11 Neut % (Auto) 72.7 % 03/13/22 20:11 Lymph % (Auto) 15.6 % 03/13/22 20:11 [place] % (Auto) 10.7 % 03/13/22 20:11 Eos % (Auto) 0.0 % 03/13/22 20:11 Baso % (Auto) 0.5 % 03/13/22 20:11 Neut # (Auto) 5.78 10^3/uL (1.8-7.7) 03/13/22 20:11 Lymph # (Auto) 1.2 10^3/uL (0.8-4.8) 03/13/22 20:11 Stanly # (Auto) 0.9 10^3/uL (0.2-0.9) 03/13/22 20:11 Eos # (Auto) 0.0 10^3/uL (0.0-0.8) 03/13/22 20:11 Baso # (Auto) 0.0 10^3/uL (0.0-0.1) 03/13/22 20:11 Nucleated RBC % (auto) 0 % 03/13/22 20:11 Nucleated RBCs # 0.0 /100WBC 03/13/22 20:11 PT 14.30 SECONDS (12.1-14.9) 03/13/22 20:30 INR 1.08 (0.8-1.2) 03/13/22 20:30 Specimen Type Arterial 03/13/22 21:06 Sample Site Radial, left 03/13/22 21:06 ABG pH 7.41 (7.35-7.45) 03/13/22 21:06 ABG pCO2 39.7 mmHg (35-45) 03/13/22 21:06 ABG pO2 41.7 mmHg (80.0-100.0) L 03/13/22 21:06 ABG HCO3 25.2 mmol/L (22-26) 03/13/22 21:06 ABG Base Excess 0.6 mmol/L (-2.0-2.0) 03/13/22 21:06 Glenn Test Pos 03/13/22 21:06 Hematocrit 41.6 % (42-52) L 03/13/22 21:06 Hgb O2 Saturation 70.0 % (95-100) L 03/13/22 21:06 Carboxyhemoglobin 1.4 %THgb (0.4-20.1) 03/13/22 21:06 Methemoglobin 0.4 % (0.4-1.5) 03/13/22 21:06 Total Hemoglobin 13.6 g/dL (14-18) L 03/13/22 21:06 O2 Delivery Device Bipap 03/13/22 21:06 FiO2 50.0 % 03/13/22 21:06 PEEP 8.0 cmH20 03/13/22 21:06 Benefits Consultant ID [email or web address] 03/13/22 21:06 Sodium 137 mmol/L (136-145) 03/13/22 20:30 Potassium 4.3 mmol/L (3.5-5.1) 03/13/22 20:30 Chloride 97 mmol/L (98-107) L 03/13/22 20:30 Carbon Dioxide 23 mmol/L (22-29) 03/13/22 20:30 Anion Gap 21.3 (5-19) H 03/13/22 20:30 BUN 18 mg/dL (6-20) 03/13/22 20:30 Creatinine 0.6 mg/dL (0.7-1.2) L 03/13/22 20:30 GFR Calculation 170.5 mL/min (90-130) H 03/13/22 20:30 Glucose 120 mg/dL (65-115) H 03/13/22 20:30 Calculated Osmolality 287 mOsm/kg (285-295) 03/13/22 20:30 Calcium 9.5 mg/dL (8.5-10.5) 03/13/22 20:30 Total Bilirubin 0.8 mg/dL (0.15-1.2) 03/13/22 20:30 AST 29 U/L (0-40) 03/13/22 20:30 ALT 13 U/L (0-41) 03/13/22 20:30 Alkaline Phosphatase 101 U/L (40-130) 03/13/22 20:30 Troponin T Baseline 17 ng/L (0-15) H 03/13/22 20:30 NT-Pro-B Natriuret Pep 276 pg/mL (0-125) H 03/13/22 20:30 Total Protein 8.5 g/dL (6.6-8.7) 03/13/22 20:30 Albumin 3.7 g/dL (3.5-5.2) 03/13/22 20:30 Globulin 4.8 g/dL (1.3-4.6) H 03/13/22 20:30 Influenza Type A Ag negative (Negative) 03/13/22 20:30 Influenza Type B Ag negative (Negative) 03/13/22 20:30 EKG Data EKG 1: I personally reviewed and interpreted this EKG as follows: EKG Interpretation Date: 03/13/22 EKG interpretation time: 20:16 Interpretation: atrial fluter hr [address] or t wave abnormalities qrs 105 qtc 397 Critical Care Time Critical Care Time: Critical Care Time: Yes Total Critical Care Time: 45 Attestation: The high probability of a clinically significant, sudden or life threatening deterioration of the patient's cv/resp system(s) required my full and direct attention, intervention and personal management. The critical care time is as shown. This time is in addition to time spent performing any reported procedures but includes the following: [x] Data and vital sign review and interpretation [x] Patient assessment, examination and intervention [x] Documentation [x] Medication orders and management Discharge Plan Discharge Patient Disposition: Admitted As Inpatient Clinical Impression: Community acquired pneumonia, Pleural effusion, Atrial fibrillation with RVR, Acute respiratory failure with hypoxia Prescriptions: No Action Advair Diskus 500-50 mcg/dose Blister With Device 1 inh INHALATION BID fluticasone propionate 50 mcg/actuation [place],Suspension 1 spray INTRANASAL BID PRN (Reason: Allergy Symptoms) Referrals: Leonela Colby PA [Primary Care Provider] - Coding Level of Care Code ED Compensation Vice President for Chg Fwd Exam Comprehensive
[2022-03-13 20:27] LABS: Mean Platelet Volume 12.3 fL (7.4-10.4); Slide Review Slide Review Perform
[2022-03-13] MEDS: dilTIAZem 5 mg/mL SDV 5 mL 20 MG IVP (20:32)
[2022-03-13] MEDS: ipratropium-albuterol 3 mL Neb INHALATION (20:38)
[2022-03-13 20:51] LABS: INR 1.08 (0.8-1.2); Influenza A by IFA negative (Negative); Influenza B by IFA negative (Negative)
[2022-03-13 21:05] LABS: Alanine Aminotransferase 13 U/L (0-41); Albumin Level 3.7 g/dL (3.5-5.2); Alkaline Phosphatase 101 U/L (40-130); Anion Gap 21.3 (5-19); Aspartate Amino Transferase 29 U/L (0-40); Blood Urea Nitrogen 18 mg/dL (6-20); Calcium 9.5 mg/dL (8.5-10.5); Carbon Dioxide 23 mmol/L (22-29); Chloride 97 mmol/L (98-107); Globulin 4.8 g/dL (1.3-4.6); Glomerular Filtration Rate 170.5 mL/min (90-130); Glucose 120 mg/dL (65-115); NT Pro B Type Natriuretic Pept 276 pg/mL (0-125); Osmolality Calculated 287 mOsm/kg (285-295); Potassium 4.3 mmol/L (3.5-5.1); Sodium 137 mmol/L (136-145); Total Bilirubin 0.8 mg/dL (0.15-1.2); Total Protein 8.5 g/dL (6.6-8.7)
[2022-03-13] MEDS: dilTIAZem 100 MG in sodium chloride 0.9% (add-van) 100 ML IV (21:06)
--- NOTE | 2022-03-13 21:07 | CTR_ITS ---
PROCEDURE INFORMATION: Exam: CTA Chest With Contrast Exam date and time: 03/13/2022 10:55 PM Age: 51 years old Clinical indication: Shortness of breath; Additional info: SOB TECHNIQUE: Imaging protocol: Computed tomographic angiography of the chest with contrast. 3D rendering (Not supervised by radiologist): MIP and/or 3D reconstructed images were created by the technologist. Radiation optimization: All CT scans at this facility use at least one of these dose optimization techniques: automated exposure control; mA and/or kV adjustment per patient size (includes targeted exams where dose is matched to clinical indication); or iterative reconstruction. Contrast material: OMNI 350; Contrast volume: 100 ml; Contrast route: INTRAVENOUS (IV); COMPARISON: CR (CHEST, ) 03/13/2022 9:39 PM RADIATION DOSE METRICS: Total DLP (mGy-cm): 537.71 FINDINGS: Pulmonary arteries: Normal. No pulmonary emboli. Aorta: Unremarkable. No aortic aneurysm. No aortic dissection. Lungs: Bilateral largely dependent airspace infiltrates. Pleural spaces: Moderate right and large left pleural effusions. Heart: Unremarkable. No cardiomegaly. No pericardial effusion. Lymph nodes: Unremarkable. No enlarged lymph nodes. Bones/joints: Unremarkable. No acute fracture. Soft tissues: Unremarkable. CT/CT angio chest PE protcl [id number] IMPRESSION: 1. Negative for pulmonary embolus. 2. Moderate right and large left pleural effusions. 3. Bilateral largely dependent airspace infiltrates.
[2022-03-13 21:17] LABS: ABG PCO2 39.7 mmHg (35-45); ABG PH Result 7.41 (7.35-7.45); Arterial Blood Gas Hematocrit 41.6 % (42-52); Base Excess ABG 0.6 mmol/L (-2.0-2.0); Blood Gas Allen Test Pos; Blood Gas Sample Site Radial, left; Blood Gas Sample Type Arterial; Carboxyhemoglobin 1.4 %THgb (0.4-20.1); HCO3 ABG 25.2 mmol/L (22-26); Methemoglobin 0.4 % (0.4-1.5); Oxygen Device BIPAP; PO2 ABG 41.7 mmHg (80.0-100.0); Total Hemoglobin 13.6 g/dL (14-18)
[2022-03-13 21:17] LABS: Troponin(5th) Baseline 17 ng/L (0-15)
[2022-03-13] MEDS: cefTRIAXone 1,000 MG in sodium chloride 0.9% (plus) 50 ML 100 MG IV (22:34)
[2022-03-13] MEDS: LORazepam 1 mg Tablet PO (22:35)
--- NOTE | 2022-03-13 22:52 | ECG_ITS ---
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 Measurements Intervals [place] Rate: 110 P: 38 ND: 137 QRS: 4 QRSD: 103 T: 33 QT: 360 QTc: 488 Interpretive Statements SINUS TACHYCARDIA MINIMAL VOLTAGE CRITERIA FOR LVH, CONSIDER NORMAL VARIANT [MEETS CRITERIA IN ONE OF: R(aVL), S(V1), R(V5), R(V5/V6)+S(V1)] Compared to ECG 03/13/2022 20:16:40 Atrial flutter no longer present Myocardial infarct finding no longer present Electronically Signed On 03-14-2022 11:11:39 CASTING AND PASTING SUPERVISOR by Shawn Lee M.D. [email or web address] [email or web address] river gulfportEnishmercy health st[facility].[employer]/store/OM/[id number]/[id number]
[2022-03-13] MEDS: iohexol 350 mg/mL 500 mL Btl (per mL) IV (23:07)
[2022-03-13] MEDS: FUROsemide 10 mg/mL SDV 4mL 40 MG IVP (23:24)
[2022-03-13] MEDS: azithromycin 500 MG in sodium chloride 0.9% 250 ML 250 MG IV (23:25)
[2022-03-13 23:49] LABS: Troponin 5 2HR 15.88 ng/L (0-15)
[2022-03-13 23:50] LABS: Troponin 5 2HR Delta -1.12 ABS# (0-10)
--- NOTE | 2022-03-13 23:51 | P.HP_ITS ---
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 Patient states he is unable to do anything due to shortness of breath. He has been progressively worsening over the last few weeks. He has not showered in last few weeks either. He states that he moved to [place] in June 2010 but prior to that was not duloxetine. 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 Unable to give me much information regarding location or name. Also states he used to be on albuterol, Spiriva, Advair, DuoNeb but was taken off of everything by his doctors. He states at this time he does not take any medications. He has not had any cardiac issues in the past and has never had a cardiac work-up. He has been healthy except having issues with COPD. At this time does not take any medications. He is somewhat of a poor historian and answer some questions very vaguely. Says lives at home with his mother. Has not had much to eat in weeks. Mom does cook at home. Does not have a loss of appetite. Says he is starving. Denies cough, fever, abdominal pain, nausea, vomiting, diarrhea, recent illness or any other symptoms at this time. His only complaint is shortness of breath. At this time on BiPAP, not in any respiratory distress, not tachypneic. Respiratory rate 15-16. In ED patient placed on 4 L nasal cannula then transitioned onto BiPAP. BNP 300. Chest x-ray shows bilateral pleural effusions. CTA chest ruled out pulmonary embolism but showed dependent area infiltrates and bilateral pleural effusions medium to large. Patient given Lasix 40 IV x1. He was also found to be in atrial fibrillation on arrival to ER and received Cardizem pushes and started on a drip. Patient also started on ceftriaxone and azithromycin. Previous ER visit shows patient admitted to using methamphetamines. Medications/Allergies Allergies Allergy/AdvReac Type Severity Reaction Status Date / Time fluoxetine [From Prozac] Allergy Unknown Verified 03/13/22 20:18 quetiapine [From Seroquel] Allergy Unknown Verified 03/13/22 20:18 PFSH Acute PFSH: Medical History (Updated 03/14/22 @ 01:15 by Rupali Syed MD) COPD (chronic obstructive pulmonary disease) Social History (Updated 03/13/22 @ 20:22 by Gillian Wheeler MD) Smoking and tobacco status: current some day smoker Vitals/I&O/Wt Last Vital Signs Temp 98.8 F 03/13/22 20:10 Pulse 108 H 03/14/22 00:04 Resp 20 H 03/14/22 00:04 BP 106/78 03/14/22 00:04 Pulse Ox 99 03/14/22 00:04 O2 Del Method 03/13/22 23:49 O2 Flow Rate 4 03/13/22 20:10 03/13/22 03/13/22 03/14/22 14:59 22:59 06:59 Intake Total 61.75 / 61.75 Balance 61.75 / 61.75 Weight last 48 hrs Weight 108.862 kg Physical Exam Narrative: General: Alert oriented x3, patient seen sitting up in bed wearing BiPAP. No acute respiratory distress. Respiratory rate 15-16. Appears quite comfortable at this time. Not tachypneic. Appears disheveled. HEENT: Normocephalic, atraumatic, EOMI, edentulous Cardio: Slightly sinus tachycardic, normal S1-S2, no gross murmurs on auscultation however transmitted sounds from BiPAP make it hard to auscultate. Respiratory: Bilateral crackles up to mid lung restrepo. GI: Abdomen soft, slightly distended, nontender abdomen. Extremities: 2+ pitting edema bilateral lower extremities. Left foot up to ankle appears erythematous with scaly flaking of. Darkened toes with fungal appearing nails. Data 03/13/22 20:11 03/13/22 20:30 Micro: Microbiology 03/13/22 23:15 Blood Culture - Preliminary Blood SPECIMEN COLLECTED 03/13/22 21:30 Blood Culture - Preliminary Blood SPECIMEN COLLECTED A&P Assessment and plan (1) Community acquired pneumonia: (2) Pleural effusion: (3) Atrial fibrillation with RVR: (4) Acute respiratory failure with hypoxia: (5) COPD (chronic obstructive pulmonary disease): (6) Cellulitis: Plan #Moderate to large bilateral pleural effusions. Right side greater than left side #Bilateral pneumonia #Shortness of breath secondary to above #Possible new onset heart failure #Atrial flutter #History of congenital murmur?? #Alcohol abuse #Cellulitis of left ankle #History of COPD, asthma #History of osteoarthritis #Poor historian -Continue patient on BiPAP for now ? Lasix 40 IV twice daily ? Strict I's and O's, daily weights - Order thoracentesis for diagnostic and therapeutic purposes. - Establish etiology of pleural effusion ? Check echo. Rule out heart failure. Troponins negative. ? 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 Check urine drug screen ? Continue ceftriaxone azithromycin. Ceftriaxone will cover for cellulitis as well. ? Check MRSA nares, Legionella, strep antigens ? Check procalcitonin ? Check hemoglobin A1c, lipid panel, TSH ? Wean off Cardizem drip. Start on metoprolol 25 twice daily. ? Check hepatitis profile ? Check KUB. May consider CT abdomen pelvis -DuoNeb every 4 hourly as needed -Says he does not drink anymore and has quit for quite some time ago. Last drink was months ago. Full code DVT prophylaxis: Heparin 5000 twice daily Attestations Medical Necessity Statement*: Patient requires greater than 2 midnight stay for management of bilateral pleural effusions and showed out heart failure. Coding Level of Care Code Acute Ice Rink Attendant for [facility] Fwd Diagnoses Community acquired pneumonia J18.9 Pleural effusion J90 Atrial fibrillation with RVR I48.91 Acute respiratory failure with hypoxia J96.01 COPD (chronic obstructive pulmonary disease) J44.9 Cellulitis L03.90
[2022-03-14] VITALS (22 sets, daily range): BP systolic 106–154; BP diastolic 78–113; PULSE 74–108; RESP 15–34; TEMP 36.4–36.7; O2SAT 96–100
--- NOTE | 2022-03-14 00:10 | USCV_ITS ---
Alessandro Bradshaw Age: 51 Gender: M : 1970 Exam Date: 03/14/2022 03:31 Ordering Phys: Rupali Syed MD Technologist: Ruthie Leger [place] [facility] [place]: New onset heart failure BP: / HR: 85 Rhythm: Sinus Technical Quality: Very technically difficult study MEASUREMENTS (Male / Female) Normal Values 2D ECHO LV Diastolic Diameter PLAX 2.9 cm 4.2 - 5.9 / 3.9 - 5.3 cm LV Systolic Diameter PLAX 1.5 cm LV Chamber Size 4.4 cm IVS Diastolic Thickness 0.9 cm 0.6 - 1.0 / 0.6 - 0.9 cm IVS Systolic Thickness 1.6 cm LVPW Diastolic Thickness 1.0 cm 0.6 - 1.0 / 0.6 - 0.9 cm LVPW Systolic Thickness 1.4 cm RV Chamber Size 2.9 cm LVOT Diameter 2.1 cm LV Ejection Fraction 2D Teich 83.0 % LV Ejection Fraction MOD 2C 18.6 % LV Ejection Fraction 2C AL 15.5 % LA Diameter 3.0 cm LA Width 3.3 cm LA Height 3.1 cm RA Width 3.6 cm RA Height 3.4 cm Aorta at Sinotubular Diameter 1.9 cm IVC Diameter 1.9 cm M-MODE Aortic Annulus Diameter 3.1 cm LA Ao Ratio MM 1.4 DOPPLER AV Peak Velocity 119.0 cm/s LVOT Peak Velocity 92.0 cm/s AV Area Cont Eq vti 2.8 cm squared AV Area Cont Eq pk 2.6 cm squared MV Area PHT 8.5 cm squared Mitral E to A Ratio 0.6 MV E' Velocity 36.5 cm/s Mitral E to MV E' Ratio 10.2 Mitral E to LV E' Lateral Ratio 9.6 Mitral E to LV E' Septal Ratio 10.9 Right Atrial Pressure 15.0 mmHg RV Acceleration Time 0.1 s RV Ejection Time 0.3 s RV AcT/ET 0.4 FINDINGS Left Ventricle Normal left ventricular size and systolic function, EF 60 %. No regional wall motion abnormalities. Right Ventricle Possibly of normal size ejection fraction Right Atrium Possibly of normal size Left Atrium Possibly of normal size Mitral Valve No gross abnormalities noted Aortic Valve Thickened aortic valve. Tricuspid Valve No gross abnormalities noted Pulmonic Valve Pulmonic valve not well visualized. Pericardium Trace of pericardial effusion Aorta Large left-sided pleural effusion IVC Normal inferior vena cava. CONCLUSIONS Normal left ventricular size and systolic function, EF 60 %. No regional wall motion abnormalities. Thickened aortic valve. Large left-sided pleural effusion. Trace of pericardial effusion. Technically difficult study Dr Paula Serrato MD FACC (Electronically Signed) Final Date: 15 March 2022 10:57 S
--- NOTE | 2022-03-14 01:09 | US_ITS ---
WS: [id number] ULTRASOUND-GUIDED THORACENTESIS CLINICAL INFORMATION: b/l pleural effusions COMPARISON: None. PROCEDURE: Informed consent: The risks, benefits, and alternatives of the procedure were discussed with the nadia ent. Verbal and written consent was obtained. Timeout: A timeout was performed to confirm the correct patient, procedure, and site. Site: LEFT Preparation: A suitable skin site was identified. The patient was prepped and draped in usual sterile fashion. Lidocaine 1% was used for local anesthesia. Catheter: 4 Portuguese One-Step catheter. Fluid Volume: 1000 ml Color: Dark cola 50 cc sent to the laboratory for further analysis. Complications: No pneumothorax on the following ra diograph US/US thoracentesis [id number] IMPRESSION: Uncomplicated ultrasound-guided LEFT thoracentesis with removal of 1000 cc.
--- NOTE | 2022-03-14 01:12 | XRR_ITS ---
PROCEDURE INFORMATION: Exam: XR Abdomen Exam date and time: 03/14/2022 1:19 AM Age: 51 years old Clinical indication: Bloating; Additional info: Distention TECHNIQUE: Imaging protocol: Radiologic exam of the abdomen. Views: Frontal supine view of the abdomen. 1 View. COMPARISON: CR XR abdomen 1V* [id number] 10/16/2020 2:27 PM FINDINGS: Pleural spaces: Bilateral pleural effusions partially visualized left greater than right. Gastrointestinal tract: Dilated colonic loops suspected measuring up to 9.5 cm, perhaps reflecting ileus or Alcides's syndrome, obstruction is also a consideration, CT abdomen and pelvis could further evaluate this. Moderate constipation. Bones/joints: Unremarkable. XR/XR KUB portable [id number] IMPRESSION: 1. Dilated colonic loops suspected measuring up to 9.5 cm, perhaps reflecting ileus or Alcides's syndrome, obstruction is also a consideration, CT abdomen and pelvis could further evaluate this. 2. Moderate constipation. 3. Bilateral pleural effusions partially visualized left greater than right.
[2022-03-14] MEDS: pantoprazole 40 mg SDV IVP ×2 (01:26→23:37)
[2022-03-14 01:28] LABS: Amphetamines Screen Urine Negative (Negative); Barbiturates Screen Urine Negative (Negative); Benzodiazepines Screen Urine Negative (Negative); Cocaine Screen Urine Negative (Negative); Opiate Screen Urine Negative (Negative); PCP Screen Urine Negative (Negative); THC Screen Urine Negative (Negative)
[2022-03-14] MEDS: heparin 5,000 unit/mL INJ 1 mL 5000 UNIT SUBCUT ×2 (01:28→23:37)
[2022-03-14 01:36] LABS: Add Urine Microscopic? NO; Charge for UA Resulting for Rev
--- NOTE | 2022-03-14 01:39 | CTR_ITS ---
PROCEDURE INFORMATION: Exam: CT Abdomen And Pelvis Without Contrast Exam date and time: 03/14/2022 2:44 AM Age: 51 years old Clinical indication: Bloating; Additional info: R/O obstruction TECHNIQUE: Imaging protocol: Computed tomography of the abdomen and pelvis without contrast. Radiation optimization: All CT scans at this facility use at least one of these dose optimization techniques: automated exposure control; mA and/or kV adjustment per patient size (includes targeted exams where dose is matched to clinical indication); or iterative reconstruction. COMPARISON: CR (ABDOMEN, ) 03/14/2022 1:19 AM RADIATION DOSE METRICS: Total DLP (mGy-cm): 904.33 FINDINGS: Tubes, catheters and devices: Ardon catheter is present. Pleural spaces: There are bilateral pleural effusions, left larger than right. Strandy and patchy opacities and consolidation superimposed over the pleural effusions likely representing atelectasis although bilateral basilar pneumonia cannot be excluded as well. Liver: Normal. No mass. Gallbladder and bile ducts: Normal. No calcified stones. No ductal dilation. Pancreas: Normal. No ductal dilation. Spleen: Normal. No splenomegaly. Adrenal glands: Normal. No mass. Kidneys and ureters: The there is residual contrast material present within the renal calices pelvis sees and ureters bilaterally . Stomach and bowel: Moderate stool is present within the ascending colon and within the rectal vault and there is some gaseous distension of the transverse colon seen. There is no evidence for obstructing colonic masses. Appendix: No evidence of appendicitis. Intraperitoneal space: Unremarkable. No free air. No significant fluid collection. Vasculature: Unremarkable. No abdominal aortic aneurysm. Lymph nodes: Unremarkable. No enlarged lymph nodes. Urinary bladder: Residual contrast is seen within the bladder lumen. Some intraluminal gas is present within the urinary bladder likely secondary to catheterization. Reproductive: Unremarkable as visualized. Bones/joints: Unremarkable. No acute fracture. Soft tissues: Subcutaneous intermediate and air densities are seen in the left anterior flank. CT/CT abdomen pelvis wo con [id number] IMPRESSION: 1. Moderate stool is seen within the ascending colon and within the rectal vault with gaseous distension seen within the transverse colon. There are no obstructing colonic masses. Alcides syndrome is a consideration. 2. Bilateral pleural effusions, left larger than right. 3. Strandy and patchy opacities and consolidation superimposes over the pleural effusions likely representing bilateral basilar atelectasis although infiltrates and pneumonia cannot be entirely excluded in the appropriate clinical setting.
[2022-03-14 01:50] LABS: Bilirubin Urine Neg (Negative); Blood Urine Neg (Negative); Glucose Urine UA Norm (Normal); Ketones Urine 1+ (Negative); Leukocyte Esterase Urine Negative (Negative); Nitrate Urine Negative (Negative); Protein Urine Neg (Negative); Specific Gravity, Urine 1.005 (1.005-1.030); Urine Appearance Clear (CLEAR); Urine Color Yellow (Yellow); Urobilinogen Urine Norm (Negative); pH Urine 5 (5-7)
--- NOTE | 2022-03-14 02:52 | ECG_ITS ---
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 Measurements Intervals [place] Rate: 103 P: 28 MS: 126 QRS: 35 QRSD: 109 T: 26 QT: 368 QTc: 484 Interpretive Statements SINUS TACHYCARDIA MINIMAL VOLTAGE CRITERIA FOR LVH, CONSIDER NORMAL VARIANT [MEETS CRITERIA IN ONE OF: R(aVL), S(V1), R(V5), R(V5/V6)+S(V1)] PROBABLE LATERAL MYOCARDIAL INFARCTION , OF INDETERMINATE AGE [35 ms Q WAVE IN I/aVL/V5/V6] PROBABLE INFERIOR MYOCARDIAL INFARCTION , PROBABLY OLD [35 ms Q WAVE IN II/aVF] Compared to ECG 03/13/2022 23:11:38 Myocardial infarct finding now present Electronically Signed On 03-14-2022 11:11:29 ELIGIBILITY MANAGER by Shawn Lee M.D. [id number]
[2022-03-14] MEDS: ipratropium-albuterol 3 mL Neb INHALATION ×3 (03:37→15:17)
[2022-03-14 04:08] LABS: Lactic Sepsis W/Reflex 2.2 mmol/L (0.5-2.2)
[2022-03-14 04:11] LABS: Estmated Average Glucose 111; Hemoglobin A1C 5.5 % (4.0-6.0)
[2022-03-14 04:21] LABS: Thyroid Stimulating Hormone 0.88 uIU/mL (0.27-4.20)
[2022-03-14 04:32] LABS: Chol HDL Ratio 6.33 mg/dL (1.0-5.00); Cholesterol 190 mg/dL (0-200); HDL Cholesterol 30 mg/dL (60-100); LDL Cholesterol Calculated 134 mg/dL (50-129); LDL HDL Ratio 4.47 RATIO (0.00-3.22); Triglycerides 130 mg/dL (0-150)
[2022-03-14 04:59] LABS: Hepatitis A Antibody IgM Non-Reactive (Nonreactive); Hepatitis B Core AB, Total Non-Reactive (Nonreactive); Hepatitis B Surface AB 3.5 (11.5-1000); Hepatitis B Surface Antigen Non-Reactive (Nonreactive); Hepatitis C Virus Antibody Non-Reactive (Nonreactive)
[2022-03-14 05:19] LABS: Reflex Lactate Order REFLEX LACTIC ORDERD
--- NOTE | 2022-03-14 09:11 | PC.PHAR ---
PT UNABLE TO VERIFY- SPOKE TO PTS PHARMACY CHRIS CUTTER- PHARMACY HAS NOT FILLED FOR THIS PT SINCE 09/2021
[2022-03-14 09:16] LABS: Basophils % 0.2 %; Hematocrit 41.8 % (42.0-52.0); Hemoglobin 12.2 g/dL (11.7-16.6); Lymphocytes # 0.4 10^3/uL (0.8-4.8); Lymphocytes % 7.2 %; Mean Corpuscular HGB Conc 29.2 g/dL (30.0-36.0); Mean Corpuscular Hemoglobin 21.9 pg (28.0-34.0); Mean Corpuscular Volume 74.9 fl (80-94); Mean Platelet Volume 12.4 fL (7.4-10.4); Monocytes # 0.1 10^3/uL (0.2-0.9); Monocytes % 2.8 %; Neutrophils # 4.47 10^3/uL (1.8-7.7); Neutrophils % 89.4 %; Nucleated Red Blood Cells % 0 %; Platelet Count 301 10^3/cmm (130-400); Red Blood Count 5.58 10^6/uL (4.1-5.3); Red Cell Distribution Width 17.9 % (12.1-15.1)
[2022-03-14 09:39] LABS: Alanine Aminotransferase 11 U/L (0-41); Albumin Level 3.1 g/dL (3.5-5.2); Alkaline Phosphatase 82 U/L (40-130); Anion Gap 18.3 (5-19); Aspartate Amino Transferase 25 U/L (0-40); Blood Urea Nitrogen 20 mg/dL (6-20); Calcium 9.1 mg/dL (8.5-10.5); Carbon Dioxide 23 mmol/L (22-29); Chloride 101 mmol/L (98-107); Globulin 4.5 g/dL (1.3-4.6); Glomerular Filtration Rate 210.5 mL/min (90-130); Glucose 134 mg/dL (65-115); Osmolality Calculated 291 mOsm/kg (285-295); Potassium 4.3 mmol/L (3.5-5.1); Sodium 138 mmol/L (136-145); Total Bilirubin 0.6 mg/dL (0.15-1.2); Total Protein 7.6 g/dL (6.6-8.7)
[2022-03-14 09:40] LABS: Lactic Acid level (Lactate) 1.4 mmol/L (0.5-2.2)
--- NOTE | 2022-03-14 09:45 | PC.CHAP ---
Pastoral Care Encounter/Spiritual Assessment Type of Contact [] Declined program professional visit [] Patient/Family/Request visit [] Outpatient visit [] Follow-up visit [] Physician referral [] Code/Alert [x] Routine visit [] Staff referral [] Actively dying [x] Patient sleeping [] Family support [] [] Out of room [] Palliative care [] [] Receiving care in room [] Pre-surgical visit [] Trauma [] Long length of stay [] ICU visit [] Other: Relational/Emotional Strength [] Patient feels connected with others/family/visitors/staff [] Distress [] Loneliness/isolation [] Abandonment Spirituality of Patient [] Person of Brittney [] Attends Shinto of their Brittney [] Believes in Prayer [] Reads Bible or Buddhism materials [] There are Spiritual issues to be addressed Preschool Substitute Teacher Interventions [x] Prayer [] Active listening [] Non-anxious presence [] Spiritual/emotional support [] Crisis/trauma care [] Spiritual counseling [] Bereavement support [] Provided bereavement packet [] Provided Bible/devotional materials [] Provided toy/stuffed animal, coloring book to patient or family member [] Provided Communion [] Anointing/[place] [] Salvation [] Completed spiritual assessment [] Other: Impact on Illness or Injury [] Angry [] Fearful [] Anxious [] Often cries [] Exhaustion [] Unable to work [] Unable to attend faith [] Unable to walk/stand [] Unable to read [] Unable to drive [] Unable to eat/drink [] Unable to sleep [] Unable to be with family [] Patient intubated [] Other: Summary Time spent with patient
[2022-03-14] MEDS: metoprolol tartrate 25 mg Tablet PO ×2 (09:48→20:40)
[2022-03-14] MEDS: Fleet Enema 133 mL Enema PR (11:19)
--- NOTE | 2022-03-14 11:24 | PM.CONSULT ---
Providers/Reason For Consult Consulting Physician/Specialty*: Dr. Presley Doss, DO/General surgery Reason for Consult*: Colonic distention Attending Physician: Wilbert Knott Primary Care Provider: Leonela Colby History of Present Illness History of Present Illness Alessandro Bradshaw is a 51 year old male, who is somewhat disheveled, reported to the emergency room with a several week history of progressive dyspnea. While in the hospital he was found to have bilateral pleural effusions that are moderate to large and abdominal CT identified transverse colon distention. He reports that he was febrile prior to arrival. Denies any nausea or vomiting. Denies any diarrhea or constipation. Denies any hematochezia and/or melena. He does report some epigastric abdominal pain. Nothing makes pain better or worse. Pain does not radiate. He reports that he has a bowel movement every day. Review of Systems General: Reports: 10 or more systems reviewed and unremarkable except in HPI and below Medications/Allergies Home Medications Medication Instructions Recorded Confirmed Last Taken Type Unable to Assess 03/14/22 03/14/22 Unknown History Allergies Allergy/AdvReac Type Severity Reaction Status Date / Time fluoxetine [From Prozac] Allergy Unknown Verified 03/14/22 09:11 quetiapine [From Seroquel] Allergy Unknown Verified 03/14/22 09:11 Current Medications Generic Name Dose Route Start Last Admin Trade Name Freq PRN Reason Stop Dose Admin Albuterol/Ipratropium 3 ml 03/14/22 01:15 03/14/22 11:06 Ipratropium-Albuterol 3 Ml Neb INHALATION 3 ml Q4H PRN Administration SHORTNESS OF BREATH Heparin Sodium (Porcine) 5,000 unit 03/14/22 00:30 03/14/22 11:14 Heparin 5,000 Unit/Ml Inj 1 Ml SUBCUT Not Given Q12H DELL Diltiazem HCl 50 mg/ Sodium 50 mls @ 0 mls/hr 03/14/22 02:00 03/14/22 06:34 Chloride IV Infused .Q0M DELL Titration Protocol Per Protocol Metoprolol Tartrate 25 mg 03/14/22 09:00 03/14/22 09:48 Metoprolol Tartrate 25 Mg Tablet PO 25 mg BID@0900,2100 DELL Administration Pantoprazole Sodium 40 mg 03/14/22 00:15 03/14/22 01:26 Pantoprazole 40 Mg Sdv IVP 40 mg Q24H DELL Administration PFSH Acute PFSH: Medical History COPD (chronic obstructive pulmonary disease) Social History Smoking and tobacco status: current some day smoker Vitals/I&O/Wt Last Vital Signs Temp 97.6 F 03/14/22 07:22 Pulse 74 03/14/22 11:06 Resp 22 H 03/14/22 11:06 BP 150/102 03/14/22 07:22 Pulse Ox 100 03/14/22 11:06 O2 Del Method 03/14/22 11:06 O2 Flow Rate 4 03/13/22 20:10 FiO2 30 03/14/22 11:06 03/13/22 03/14/22 03/14/22 22:59 06:59 14:59 Intake Total 450.000 / 450.000 Output Total 300 / 300 Balance 150.000 / 150.000 Weight last 48 hrs Weight 186 lb 9.6 oz Weight 240 lb Physical Exam Narrative: General : Patient is well developed , no acute distress, oriented x3 Head : Normal cephalic, a-traumatic. Ears : Pinnae and external canal are normal. Hearing is normal. Eyes : PERRLA, Sclera and injection are normal. No conjunctival discharge. Nose : Mucous membranes are without erythema. Throat : buccal mucosa is normal, gums are without significant recession or hypertrophy. Lungs : Equal chest rise bilaterally, no use of accessory muscles, trachea is midline. Cor : Rate and rhythm are normal. Abdomen : Soft, mild distention, mild tenderness to palpation epigastrically, no g/r/m Extremities : No edema, no cyanosis or clubbing, dorsalis pedis pulses are present bilaterally, non-tender to palpation of calves. Upper extremities are normal bilaterally. Back : non-tender to palpation, no CVA tenderness. Neuro : CN II - XII intact, Upper and lower extremities have equal and full strength Urinary Catheter Management: Ardon: Cath Placed During This Visit: yes Reason for Continuing Indwelling Catheter: Accurate Measurement of Urinary Output in Critically Ill Patients Urinary Catheter Date of Insertion: 03/14/22 Urinary Catheter Time of Insertion: 00:35 Data 03/14/22 08:40 03/14/22 08:40 Micro: Microbiology 03/14/22 00:45 Legionella Urinary Antigen - Final Urine Catheterized 03/14/22 00:45 Bacterial Antigens - Final Urine,Clean Catch 03/13/22 23:15 Blood Culture - Preliminary Blood SPECIMEN COLLECTED 03/13/22 21:30 Blood Culture - Preliminary Blood SPECIMEN COLLECTED A&P Assessment and plan (1) Constipation: (2) Colon distention: Plan Okay with regular diet Fleets enema x1 Milk of mag every 12 hours x3 doses No acute surgical intervention Medical management per hospitalist Thank you for this consultation Coding Level of Care Code Acute Lead Python Developer for [employer] Diagnoses Constipation K59.00 Colon distention K63.89
[2022-03-14] MEDS: FUROsemide 10 mg/mL SDV 4mL 40 MG IVP ×2 (11:35→22:30)
--- NOTE | 2022-03-14 13:29 | XRR_ITS ---
PROCEDURE INFORMATION: Exam: XR Chest Exam date and time: 03/14/2022 1:33 PM Age: 51 years old Clinical indication: Shortness of breath; Additional info: Post thoracentesis TECHNIQUE: Imaging protocol: Radiologic exam of the chest. Views: 1 view. COMPARISON: CR (CHEST, ) 03/13/2022 9:39 PM FINDINGS: Lungs: Unremarkable. No consolidation. Pleural spaces: Large volume bilateral lower lobe pleural effusion. Otherwise No pneumothorax. Heart/Mediastinum: Unremarkable. No cardiomegaly. Bones/joints: Unremarkable. Other findings: Comparison to prior examination similar findings seen XR/XR chest 1V portable [id number] IMPRESSION: 1. Stable bilateral lower lobe pleural effusions 2. No acute findings.
[2022-03-14 14:04] LABS: Body Fluid Polynuclear #Cells 0.043; Body Fluid WBC 365 /uL; Monocytes # Body Fluid 0.322
--- NOTE | 2022-03-14 14:06 | PC.NURSE ---
This nurse agrees with medication administration by exceptional student education aide Fransisco norton
[2022-03-14 14:09] LABS: Apprearance, Body Fluid CLOUDY; Color, Body Fluid YELLOW
[2022-03-14 14:19] LABS: Hematocrit Body Fluid 0.1 %
[2022-03-14 14:44] LABS: Albumin Body Fluid 2.9 g/dL; Creatinine Body Fluid 0.6 (0.7-1.2); LDH Pleural Fluid 461 U/L; Total Protein Pleural Fluid 6.1 g/dL; Triglycerides, Pleural Fluid 63 mg/dL
[2022-03-14 14:58] LABS: Cyto Order Verification Order Verified
[2022-03-14] MEDS: magnesium hydroxide 30 mL UDC PO (17:41)
--- NOTE | 2022-03-14 18:40 | P.PN_ITS ---
Subjective Subjective: He is feeling slightly better. He states that recently has been very weak when trying to get up and walk. Feels like he has no strength. Denies abdominal pain. Denies vomiting. States last bowel movement yesterday. Vitals/I&O/Wt Last Vital Signs Temp 97.6 F 03/14/22 07:22 Pulse 88 03/14/22 18:26 Resp 21 H 03/14/22 18:26 BP 126/87 03/14/22 18:26 Pulse Ox 96 03/14/22 18:26 O2 Del Method 03/14/22 15:18 O2 Flow Rate 3 03/14/22 15:18 FiO2 30 03/14/22 11:06 03/14/22 03/14/22 03/14/22 06:59 14:59 22:59 Intake Total 450.000 / 450.000 Output Total 300 / 300 800 / 800 Balance 150.000 / 150.000 -800 / -800 Weight last 48 hrs Weight 84.64 kg Weight 108.862 kg Physical Exam Narrative: BiPAP on this morning Const: COMMON NORMALS: patient oriented x3 and alert GENERAL APPEARANCE: cooperative ORIENTATION/CONSCIOUSNESS: Yes awake HENMT: COMMON NORMALS: oropharynx normal Neck/C-Spine: COMMON NORMALS: no JVD Resp: COMMON NORMALS: normal respiratory effort AUSCULTATION: diminished lung sounds bilateral in the lower lung restrepo Cardio: COMMON NORMALS: no JVD, regular rhythm, S1 normal heart sound present, S2 normal heart sound present and No murmurs present (Cardio) RHYTHM: regular rhythm HEART SOUNDS: S1 normal heart sound present and S2 normal heart sound present GI: COMMON NORMALS: Normal to inspection, nondistended, normoactive bowel sounds present, Soft to palpation and non-tender PALPATION: Yes Soft to palpation Extremity: COMMON NORMALS: no joint enlargement GENERAL: Yes edema (2+) Neuro: COMMON NORMALS: patient oriented x3 and moves all extremities SENSORIUM/ORIENTATION: Yes alert Urinary Catheter Management: Ardon: Cath Placed During This Visit: yes Reason for Continuing Indwelling Catheter: Other Urinary Catheter Date of Insertion: 03/14/22 Urinary Catheter Time of Insertion: 00:35 Data 03/14/22 08:40 03/14/22 08:40 Micro: Microbiology 03/14/22 10:38 MRSA Culture - Final Nose 03/14/22 00:45 Legionella Urinary Antigen - Final Urine Catheterized 03/14/22 00:45 Bacterial Antigens - Final Urine,Clean Catch 03/13/22 23:15 Blood Culture - Preliminary Blood SPECIMEN COLLECTED 03/13/22 21:30 Blood Culture - Preliminary Blood SPECIMEN COLLECTED A&P Assessment and plan (1) Community acquired pneumonia: Complicated community-acquired pneumonia with parapneumonic effusions large left and moderate right. With respiratory failure on presentation, requiring BiPAP s upport. Underwent thoracentesis with removal of 1 L, complicated left pleural effusion. Gram stain pending. Cytology also sent out. Fluid studies so far appear to be indicating exudative effusion. Not empyema. Continue ceftriaxone, azithromycin. Urine bacterial antigens negative. MRSA PCR negative. Would benefit from serial thoracentesis or small bore chest tube depending on availability. Following thoracentesis with improvement in hypoxic respiratory failure. Weaned off BiPAP down to 3 L nasal cannula. Resume diet. (2) Pleural effusion: Underwent thoracentesis with removal of 1 L, complicated left pleural effusion. Gram stain pending. Cytology also sent out. Fluid studies so far appear to be indicating exudative effusion. Not empyema. Would benefit from serial thoracentesis or small bore chest tube depending on availability. Continue treatment of pneumonia. Follow-up with gram stain and culture. Follow-up cytology. (3) Atrial fibrillation with RVR: Heart rates improved. Weaned off Cardizem drip. Continue metoprolol 25 mg twice daily. Continue to treat pneumonia. (4) Acute respiratory failure with hypoxia: As above. Continue oxygen support. Wean down as tolerating. Additionally concern for possible acute CHF. Follow-up TTE. Continue Lasix for now. (5) COPD (chronic obstructive pulmonary disease): (6) Cellulitis: Continue ceftriaxone, vancomycin. (7) Acute CHF: Type unknown, with lower extremity edema. Effusions do appear to be parapneumonic with studies coming back so far. Follow-up TTE. Troponin with mild elevation. No chest pain. No suggestion of acute MA. (8) Colon distention: With consideration of possible Giurgius syndrome/chronic pseudoobstruction appreciate surgical assessment. Bowel regimen escalated. No surgical intervention at this time. Okay for diet. (9) Constipation: Plan #History of congenital murmur?? #Alcohol abuse: -Says he does not drink anymore and has quit for quite some time ago. Last drink was months ago. #Cellulitis of left ankle #History of COPD, asthma: DuoNebs #History of osteoarthritis #Poor historian Full code DVT prophylaxis: Heparin 5000 twice daily Attestations Medical Necessity Statement*: Continue admission for assessment of management of hypoxic respiratory failure, complicated pneumonia, possible acute CHF, cellulitis, and a gentleman with underlying COPD, additional comorbid conditions as above. Coding Level of Care Code Acute Housekeeping Aide for [facility] Diagnoses Community acquired pneumonia J18.9 Pleural effusion J90 Atrial fibrillation with RVR I48.91 Acute respiratory failure with hypoxia J96.01 COPD (chronic obstructive pulmonary disease) J44.9 Cellulitis L03.90 Acute CHF I50.9 Colon distention K63.89 Constipation K59.00
[2022-03-14 19:05] LABS: Lactate Dehydrogenase 334 U/L (135-225)
[2022-03-14] MEDS: cefTRIAXone 1,000 MG in sodium chloride 0.9% (plus) 50 ML 100 MG IV (21:56)
[2022-03-14] MEDS: azithromycin 500 MG in sodium chloride 0.9% 250 ML 250 MG IV (22:30)
[2022-03-15] VITALS (15 sets, daily range): BP systolic 109–133; BP diastolic 83–93; PULSE 78–106; RESP 14–38; TEMP 36.8–37.4; O2SAT 95–99
[2022-03-15 05:18] LABS: Hematocrit 42.6 % (42.0-52.0); Hemoglobin 12.2 g/dL (11.7-16.6); Lymphocytes # 0.2 10^3/uL (0.8-4.8); Lymphocytes % 3.2 %; Mean Corpuscular HGB Conc 28.6 g/dL (30.0-36.0); Mean Corpuscular Hemoglobin 21.7 pg (28.0-34.0); Mean Corpuscular Volume 75.9 fl (80-94); Mean Platelet Volume 12.9 fL (7.4-10.4); Monocytes # 0.8 10^3/uL (0.2-0.9); Monocytes % 11.3 %; Neutrophils # 5.79 10^3/uL (1.8-7.7); Neutrophils % 84.8 %; Nucleated Red Blood Cells % 0 %; Platelet Count 257 10^3/cmm (130-400); Red Blood Count 5.61 10^6/uL (4.1-5.3); Red Cell Distribution Width 17.8 % (12.1-15.1); White Blood Count 6.8 10^3/uL (4.0-10.0)
[2022-03-15 06:02] LABS: Alanine Aminotransferase 11 U/L (0-41); Albumin Level 3.1 g/dL (3.5-5.2); Alkaline Phosphatase 76 U/L (40-130); Anion Gap 16.2 (5-19); Aspartate Amino Transferase 22 U/L (0-40); Blood Urea Nitrogen 24 mg/dL (6-20); Calcium 9.1 mg/dL (8.5-10.5); Carbon Dioxide 28 mmol/L (22-29); Chloride 100 mmol/L (98-107); Creatinine Clr Calc Pharmacy 136.4312; Globulin 4.1 g/dL (1.3-4.6); Glomerular Filtration Rate 142.7 mL/min (90-130); Glucose 106 mg/dL (65-115); Magnesium 2.3 mg/dL (1.7-2.3); Osmolality Calculated 294 mOsm/kg (285-295); Potassium 4.2 mmol/L (3.5-5.1); Sodium 140 mmol/L (136-145); Total Bilirubin 0.4 mg/dL (0.15-1.2); Total Protein 7.2 g/dL (6.6-8.7)
[2022-03-15 06:18] LABS: Slide Review Slide Review Perform
[2022-03-15 07:05] LABS: Cyto Order Verification Order Verified
[2022-03-15] MEDS: magnesium hydroxide 30 mL UDC PO (09:06)
[2022-03-15] MEDS: metoprolol tartrate 25 mg Tablet PO ×2 (09:09→21:28)
[2022-03-15] MEDS: heparin 5,000 unit/mL INJ 1 mL 5000 UNIT SUBCUT (11:14)
[2022-03-15] MEDS: FUROsemide 10 mg/mL SDV 4mL 40 MG IVP (11:16)
--- NOTE | 2022-03-15 14:48 | P.PN_ITS ---
Subjective Subjective: Hospital course, labs appreciated. Examination patient lying comfortably in bed. States he is feeling fairly weak which has been ongoing for last few weeks. States he lives at home with his mother and grandmother. Requesting Ardon do not be removed. We discussed with Reva there is a high risk of him getting a UTI. He is finally agreeable. Discussed with him further need of physical therapy and getting out of bed to chair. Patient is agreeable to do that. Currently denies any nausea, vomiting, headache. On 2 L oxygen supplementation saturating 95%. Vitals/I&O/Wt Last Vital Signs Temp 98.3 F 03/15/22 11:28 Pulse 83 03/15/22 11:50 Resp 16 03/15/22 11:28 BP 133/93 03/15/22 11:50 Pulse Ox 95 03/15/22 11:50 O2 Del Method 03/15/22 11:28 O2 Flow Rate 2 03/15/22 11:28 FiO2 30 03/15/22 11:28 03/14/22 03/15/22 03/15/22 22:59 06:59 14:59 Intake Total 890 / 890 550 / 1440 490 / 490 Output Total 1050 / 1050 600 / 1650 Balance -160 / -160 -50 / -210 490 / 490 Weight last 48 hrs Weight 86.778 kg Weight 84.64 kg Weight 108.862 kg Physical Exam Narrative: Nasal cannula on this morning Const: COMMON NORMALS: patient oriented x3 and alert GENERAL APPEARANCE: cooperative ORIENTATION/CONSCIOUSNESS: Yes awake HENMT: COMMON NORMALS: oropharynx normal Neck/C-Spine: COMMON NORMALS: no JVD Resp: COMMON NORMALS: normal respiratory effort and clear to auscultation bilaterally AUSCULTATION: clear to auscultation bilaterally and diminished lung sounds bilateral in the lower lung restrepo Cardio: COMMON NORMALS: no JVD, regular rhythm, S1 normal heart sound present, S2 normal heart sound present and No murmurs present (Cardio) RHYTHM: regular rhythm HEART SOUNDS: S1 normal heart sound present and S2 normal heart sound present GI: COMMON NORMALS: Normal to inspection, nondistended, normoactive bowel sounds present, Soft to palpation and non-tender PALPATION: Yes Soft to palpation Extremity: COMMON NORMALS: no joint enlargement and no pedal edema GENERAL: Yes edema (2+) Neuro: COMMON NORMALS: patient oriented x3 and moves all extremities SENSO RIUM/ORIENTATION: Yes alert Skin: COMMON NORMALS: no rashes or lesions noted GENERAL SKIN EXAM: no rashes or lesions noted Urinary Catheter Management: Ardon: Cath Placed During This Visit: yes, but has since been removed by the nurse Reason for Continuing Indwelling Catheter: Decision to DC Catheter Urinary Catheter Date of Insertion: 03/14/22 Urinary Catheter Time of Insertion: 00:35 Date Urinary Catheter Removed: 03/15/22 Time Urinary Catheter Discontinued: 10:15 Data 03/15/22 03:00 03/15/22 03:00 Micro: Microbiology 03/14/22 13:30 Gram Stain - Final Pleural Fluid Body Fluid Culture - Preliminary 03/13/22 23:15 Blood Culture - Preliminary Blood NEGATIVE TO DATE 03/13/22 21:30 Blood Culture - Preliminary Blood NEGATIVE TO DATE 03/14/22 10:38 MRSA Culture - Final Nose 03/14/22 00:45 Legionella Urinary Antigen - Final Urine Catheterized 03/14/22 00:45 Bacterial Antigens - Final Urine,Clean Catch A&P Assessment and plan (1) Community acquired pneumonia: Complicated community-acquired pneumonia with parapneumonic effusions large left and moderate right. Seems to be improving. Fluid studies appreciated. Indicating to with exudative. Not empyema. We will follow-up cultures. MRSA PCR negative. For now we will continue with ceftriaxone and vancomycin. Sputum culture still awaited. Blood cultures so far negative. Will plan for further ultrasound-guided thoracentesis bilaterally and a repeat CT scan to rule out underlying mass. Unfortunately s urgery/pulmonology/radiology not available over the weekend further thoracentesis. (2) Pleural effusion: Post 1 L thoracentesis on left side. As above. Follow-up cytology and Gram culture. (3) Atrial fibrillation with RVR: Rate controlled. Continue with metoprolol 25 mg twice daily. Will discuss with patient regarding full dose anticoagulation. Echocardiogram result shows an EF of 60%, thickened aortic valve without regional wall motion normality. (4) Acute respiratory failure with hypoxia: Secondary to as above. Slight component of diastolic congestive heart failure as well. Switch to oral Lasix 40 mg daily. Patient is net equal urine output. Fluid restriction up to 1500 cc. Strict daily weight check. Remove Ardon. (5) COPD (chronic obstructive pulmonary disease): (6) Cellulitis: Continue ceftriaxone, vancomycin. Improving. (7) Acute CHF: Echocardiogram results appreciated. Diastolic in nature. Qualifiers: Heart failure type: diastolic Qualified Code(s): I50.31 - Acute diastolic (congestive) heart failure (8) Colon distention: Continue with aggressive bowel regimen. Appreciate surgical recommendations. Colace twice daily. (9) Constipation: Plan Analgesia: Tylenol as needed Glycemic control: Not needed Nutrition: Cardiac diet, fluid restriction CODE STATUS: 1500 PUD prophylaxis: Famotidine DVT prophylaxis: Full dose Lovenox will suffice for DVT prophylaxis. Stop heparin 5000 every 8 hourly Discharge planning: Home with home health versus SNF placement as per physical therapy evaluation. Patient himself is fairly weak. Continue with care at [facility]. This documentation was created by [employer] estate planner software. Every effort was made to ensure accuracy of estate planner. Any obvious errors or omissions should be clarified with the author of the document. Attestations Medical Necessity Statement*: Requires further hospitalization for management of hypoxia secondary community-acquired pneumonia, bilateral moderate to large pleural effusion, atrial fibrillation Time Spent in Patient Care: Greater than 35 minutes Coding Level of Care Code Acute Mixer Operator Helper Hot Metal for [facility] Fwd Diagnoses Community acquired pneumonia J18.9 Pleural effusion J90 Atrial fibrillation with RVR I48.91 Acute respiratory failure with hypoxia J96.01 COPD (chronic obstructive pulmonary disease) J44.9 Cellulitis L03.90 Acute CHF I50.31 Heart failure type: diastolic Colon distention K63.89 Constipation K59.00
[2022-03-15 15:12] LABS: Iron 42 ug/dL (59-158); Percent Saturation 22.3 % (20-50); Total Iron Binding Capacity 188 mcg/dl; Unsaturated Iron Binding 146 ug/dL (112-347)
[2022-03-15] MEDS: enoxaparin 80 mg/0.8 mL Syringe SUBCUT (15:14)
[2022-03-15 15:57] LABS: HIV 1 & 2 Antibody Non-Reactive (Non-Reactiv); HIV 1 & 2 Antigen Non-Reactive (Non-Reactiv)
[2022-03-15] MEDS: morphine 4 mg/mL SDV 1 mL 1 MG IVP (17:26)
[2022-03-15] MEDS: docusate sodium 100 mg Capsule PO (17:28)
[2022-03-15] MEDS: famotidine 20 mg Tablet PO (17:28)
[2022-03-15 19:33] LABS: Vancomycin Trough 17.3 ug/mL (10-15)
[2022-03-15] MEDS: vancomycin 1,250 MG/250 ML PIGGYBACK 250 MG IV (20:34)
[2022-03-15] MEDS: cefTRIAXone 1,000 MG in sodium chloride 0.9% (plus) 50 ML 100 MG IV (22:01)
[2022-03-15] MEDS: diphenhydrAMINE 25 mg Capsule PO (23:30)
[2022-03-16] VITALS (14 sets, daily range): BP systolic 123–147; BP diastolic 80–101; PULSE 82–98; RESP 16–29; TEMP 36.3–37.8; O2SAT 92–98
[2022-03-16] MEDS: enoxaparin 80 mg/0.8 mL Syringe SUBCUT ×2 (03:45→16:54)
[2022-03-16] MEDS: vancomycin 1,250 MG/250 ML PIGGYBACK 250 MG IV ×3 (03:45→19:45)
[2022-03-16 04:23] LABS: Basophils % 0.2 %; Hematocrit 41.5 % (42.0-52.0); Hemoglobin 12.1 g/dL (11.7-16.6); Lymphocytes # 0.5 10^3/uL (0.8-4.8); Lymphocytes % 11.1 %; Mean Corpuscular HGB Conc 29.2 g/dL (30.0-36.0); Mean Corpuscular Hemoglobin 21.8 pg (28.0-34.0); Mean Corpuscular Volume 74.9 fl (80-94); Mean Platelet Volume 12.5 fL (7.4-10.4); Monocytes # 0.6 10^3/uL (0.2-0.9); Monocytes % 15.3 %; Neutrophils # 2.92 10^3/uL (1.8-7.7); Neutrophils % 72.2 %; Nucleated Red Blood Cells % 0 %; Platelet Count 270 10^3/cmm (130-400); Red Blood Count 5.54 10^6/uL (4.1-5.3); Red Cell Distribution Width 17.5 % (12.1-15.1); White Blood Count 4.1 10^3/uL (4.0-10.0)
[2022-03-16 04:39] LABS: Alanine Aminotransferase 10 U/L (0-41); Albumin Level 2.9 g/dL (3.5-5.2); Alkaline Phosphatase 74 U/L (40-130); Anion Gap 12.6 (5-19); Aspartate Amino Transferase 23 U/L (0-40); Blood Urea Nitrogen 22 mg/dL (6-20); Calcium 8.7 mg/dL (8.5-10.5); Carbon Dioxide 28 mmol/L (22-29); Chloride 95 mmol/L (98-107); Glomerular Filtration Rate 170.5 mL/min (90-130); Glucose 96 mg/dL (65-115); Osmolality Calculated 277 mOsm/kg (285-295); Potassium 3.6 mmol/L (3.5-5.1); Sodium 132 mmol/L (136-145); Total Bilirubin 0.4 mg/dL (0.15-1.2); Total Protein 6.9 g/dL (6.6-8.7)
[2022-03-16 05:04] LABS: Slide Review Slide Review Perform
--- NOTE | 2022-03-16 08:41 | P.PN_ITS ---
Subjective Subjective: Patient passing large bowel movements. Reports that his abdominal pain is improved but he still has some epigastric tenderness. Denies any nausea or vomiting. Vitals/I&O/Wt Last Vital Signs Temp 98 F 03/16/22 08:00 Pulse 93 03/16/22 08:00 Resp 22 H 03/16/22 08:00 BP 134/96 03/16/22 08:00 Pulse Ox 92 03/16/22 08:00 O2 Del Method 03/16/22 08:00 O2 Flow Rate 2 03/16/22 08:00 FiO2 30 03/16/22 05:13 03/15/22 03/16/22 03/16/22 22:59 06:59 14:59 Intake Total 640 / 1130 250 / 1380 Output Total 625 / 625 Balance 15 / 505 250 / 755 Weight last 48 hrs Weight 187 lb Weight 191 lb 5 oz Physical Exam Narrative: General: No acute distress, awake alert and oriented x3 Abdomen: Soft, moderately distended, mild tenderness to palpation epigastrically, no guarding rebound or masses Urinary Catheter Management: Ardon: Cath Placed During This Visit: yes, but has since been removed by the nurse Reason for Continuing Indwelling Catheter: Decision to DC Catheter Urinary Catheter Date of Insertion: 03/14/22 Urinary Catheter Time of Insertion: 00:35 Date Urinary Catheter Removed: 03/15/22 Time Urinary Catheter Discontinued: 10:15 Data 03/16/22 02:48 03/16/22 02:45 Micro: Microbiology 03/14/22 13:30 Gram Stain - Final Pleural Fluid Body Fluid Culture - Preliminary A&P Assessment and plan (1) Colon distention: (2) Constipation: Plan Continue with daily laxatives No acute surgical intervention Medical management per hospitalist Attestations Medical Necessity Statement*: Patient requires at least 1 more night in the hospital prior to thoracentesis tomorrow Coding Level of Care Code Acute And Rescue Fire Fighter Crash Fire for [facility] Diagnoses Colon distention K63.89 Constipation K59.00
[2022-03-16] MEDS: metoprolol tartrate 25 mg Tablet PO ×2 (09:13→10:13)
[2022-03-16] MEDS: docusate sodium 100 mg Capsule PO ×2 (09:13→17:00)
[2022-03-16] MEDS: FUROsemide 40 mg Tablet PO (09:13)
[2022-03-16] MEDS: famotidine 20 mg Tablet PO ×2 (09:13→17:00)
[2022-03-16 10:09] LABS: C Reactive Protein 43.8 mg/L (0.0-4.9)
[2022-03-16] MEDS: ipratropium 0.5 mg/2.5 mL Neb INHALATION ×3 (10:20→21:19)
[2022-03-16] MEDS: levalbuterol 0.63 mg/3 mL Neb INHALATION ×3 (10:20→21:19)
[2022-03-16] MEDS: budesonide 0.5 mg/2 mL Neb INHALATION ×2 (10:20→21:19)
[2022-03-16 10:24] LABS: Folate Level 2.8 ng/mL (4.5-32.2)
[2022-03-16 10:24] LABS: Vitamin B12 746 pg/mL (232-1245)
--- NOTE | 2022-03-16 12:49 | PM.PN ---
Subjective Subjective: No acute events overnight. Patient denies any nausea, vomiting, headache. On examination patient is lying comfortably in bed. On 2 L saturating more than 95%. Patient states he started having panic attack because not able to breathe on minimal ambulation. Heart rates have been trending more than 100 yesterday. T-max in last 24 hours 99.2 Fahrenheit. Vitals/I&O/Wt Last Vital Signs Temp 100.1 F H 03/16/22 12:00 Pulse 94 03/16/22 12:00 Resp 24 H 03/16/22 12:00 BP 127/90 03/16/22 12:00 Pulse Ox 98 03/16/22 12:00 O2 Del Method 03/16/22 10:22 O2 Flow Rate 2 03/16/22 10:22 FiO2 30 03/16/22 05:13 03/15/22 03/16/22 03/16/22 22:59 06:59 14:59 Intake Total 640 / 1130 250 / 1380 Output Total 625 / 625 200 / 200 Balance 15 / 505 250 / 755 -200 / -200 Weight last 48 hrs Weight 84.822 kg Weight 86.778 kg Physical Exam Narrative: Nasal cannula on this morning Const: COMMON NORMALS: patient oriented x3 and alert GENERAL APPEARANCE: cooperative ORIENTATION/CONSCIOUSNESS: Yes awake HENMT: COMMON NORMALS: oropharynx normal Neck/C-Spine: COMMON NORMALS: no JVD Resp: COMMON NORMALS: normal respiratory effort and clear to auscultation bilaterally AUSCULTATION: clear to auscultation bilaterally and diminished lung sounds bilateral in the lower lung restrepo Cardio: COMMON NORMALS: no JVD, regular rhythm, S1 normal heart sound present, S2 normal heart sound present and No murmurs present (Cardio) RHYTHM: regular rhythm HEART SOUNDS: S1 normal heart sound present and S2 normal heart sound present GI: COMMON NORMALS: Normal to inspection, nondistended, normoactive bowel sounds present, Soft to palpation and non-tender PALPATION: Yes Soft to palpation Extremity: COMMON NORMALS: no joint enlargement and no pedal edema GENERAL: Yes edema (2+) Neuro: COMMON NORMALS: patient oriented x3 and moves all extremities SENSORIUM/ORIENTATION: Yes alert Skin: COMMON NORMALS: no rashes or lesions noted GENERAL SKIN EXAM: no rashes or lesions noted Urinary Catheter Management: Ardon: Cath Placed During This Visit: yes, but has since been removed by the nurse Reason for Continuing Indwelling Catheter: Decision to DC Catheter Urinary Catheter Date of Insertion: 03/14/22 Urinary Catheter Time of Insertion: 00:35 Date Urinary Catheter Removed: 03/15/22 Time Urinary Catheter Discontinued: 10:15 Data 03/16/22 02:48 03/16/22 02:45 Micro: Microbiology 03/14/22 13:30 Gram Stain - Final Pleural Fluid Body Fluid Culture - Preliminary A&P Assessment and plan (1) Community acquired pneumonia: Complicated community-acquired pneumonia with parapneumonic effusions large left and moderate right. Seems to be improving. Fluid studies appreciated. Indicating to with exudative. Not empyema. We will follow-up cultures. MRSA PCR negative. For now we will continue with ceftriaxone and vancomycin. Sputum culture still awaited. Blood cultures so far negative. Will plan for further ultrasound-guided thoracentesis bilaterally and a repeat CT scan to rule out underlying mass. Unfortunately surgery/pulmonology/radiology not available over the weekend further thoracentesis. (2) Pleural effusion: Post 1 L thoracentesis on left side. As above. Follow-up cytology and Gram culture. (3) Atrial fibrillation with RVR: Rate controlled. Continue with metoprolol 25 mg twice daily. Will discuss with patient regarding full dose anticoagulation. Echocardiogram result shows an EF of 60%, thickened aortic valve without regional wall motion normality. (4) Acute respiratory failure with hypoxia: Secondary to as above. Slight component of diastolic congestive heart failure as well. Switch to oral Lasix 40 mg daily. Patient is net equal urine output. Fluid restriction up to 1500 cc. Strict daily weight check. Remove Ardon. (5) COPD (chronic obstructive pulmonary disease): (6) Cellulitis: Continue ceftriaxone, vancomycin. Improving. (7) Acute CHF: Echocardiogram results appreciated. Diastolic in nature. Qualifiers: Heart failure type: diastolic Qualified Code(s): I50.31 - Acute diastolic (congestive) heart failure (8) Colon distention: Continue with aggressive bowel regimen. Appreciate surgical recommendations. Colace twice daily. (9) Constipation: Plan Analgesia: Tylenol as needed Glycemic control: Not needed Nutrition: Cardiac diet, fluid restriction CODE STATUS: 1500 PUD prophylaxis: Famotidine DVT prophylaxis: Full dose Lovenox will suffice for DVT prophylaxis. Stop heparin 5000 every 8 hourly Discharge planning: Home with home health versus SNF placement as per physical therapy evaluation. Patient himself is fairly weak. Continue with care at [facility]. Plan for the day: Continue with IV ceftriaxone and vancomycin. Follow-up fluid cultures. So far fluid cultures growing gram-positive cocci in chains. Plan for ultrasonogram guided bilateral thoracentesis tomorrow once radiology is available. We will repeat fluid studies tomorrow. Increased dose of metoprolol to 50 mg twice daily. Start on ipratropium, Xopenex every 6 hour, budesonide twice daily. Continue with physical therapy, out of bed to chair. Again discussed in detail with the patient regarding safe discharge planning. 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 Continue with cardiac diet with fluid restrictions. Add protein shakes with each meal. This documentation was created by [employer] beverage manager software. Every effort was made to ensure accuracy of beverage manager. Any obvious errors or omissions should be clarified with the author of the document. Attestations Medical Necessity Statement*: Requires further hospitalization for management of bilateral pneumonia along with bilateral parapneumonic effusions leading to hypoxic respiratory failure Time Spent in Patient Care: Greater than 35 minutes Coding Level of Care Code Acute Carpet Layer for [facility] Fwd Exam Comprehensive Diagnoses Community acquired pneumonia J18.9 Pleural effusion J90 Atrial fibrillation with RVR I48.91 Acute respiratory failure with hypoxia J96.01 COPD (chronic obstructive pulmonary disease) J44.9 Cellulitis L03.90 Acute CHF I50.31 Heart failure type: diastolic Colon distention K63.89 Constipation K59.00
[2022-03-16] MEDS: metoprolol tartrate 50 mg Tablet PO (21:14)
[2022-03-16] MEDS: magnesium hydroxide 30 mL UDC PO (21:14)
[2022-03-16] MEDS: cefTRIAXone 1,000 MG in sodium chloride 0.9% (plus) 50 ML 100 MG IV (22:36)
[2022-03-17] VITALS (13 sets, daily range): BP systolic 123–151; BP diastolic 91–106; PULSE 84–101; RESP 14–30; TEMP 36.5–37.3; O2SAT 94–98
--- NOTE | 2022-03-17 | US_ITS ---
WS: [id number] ULTRASOUND-GUIDED THORACENTESIS, RIGHT HISTORY: Complex RIGHT pleural effusion. Procedure, risks, and complications were explained to the patient. With the patient in an upright pos ition, the skin over the RIGHT posterior thorax was cleansed with ChloraPrep and anesthetized with 1% buffered lidocaine. A 5 [place] Alertseh needle is inserted into the pleural fluid without complication. Approximately 400 cc of mildly viscous yellow pleural fluid is removed without difficulty. After 400 cc of fluid removed patient started having right-sided chest pain. This may be due to poor expansion of the lung after removal of the fluid. The thoracentesis terminated at that time. / thoracentesis [id number] IMPRESSION: 1. RIGHT thoracentesis yielding 400 cc of fluid. 2. Chest radiograph to follow to evaluate for pneumothorax. 3. RIGHT pleural fluid collected for analysis as requested.
[2022-03-17] MEDS: levalbuterol 0.63 mg/3 mL Neb INHALATION ×5 (02:02→19:52)
[2022-03-17] MEDS: ipratropium 0.5 mg/2.5 mL Neb INHALATION ×6 (03:29→19:52)
[2022-03-17] MEDS: vancomycin 1,250 MG/250 ML PIGGYBACK 250 MG IV (04:21)
[2022-03-17 04:48] LABS: Basophils % 0.4 %; Eosinophils % 0.7 %; Hematocrit 41.5 % (42.0-52.0); Lymphocytes # 0.6 10^3/uL (0.8-4.8); Lymphocytes % 12.6 %; Mean Corpuscular HGB Conc 28.9 g/dL (30.0-36.0); Mean Corpuscular Hemoglobin 21.6 pg (28.0-34.0); Mean Corpuscular Volume 74.6 fl (80-94); Mean Platelet Volume 12.2 fL (7.4-10.4); Monocytes # 0.8 10^3/uL (0.2-0.9); Monocytes % 17.5 %; Neutrophils # 2.98 10^3/uL (1.8-7.7); Nucleated Red Blood Cells % 0 %; Platelet Count 232 10^3/cmm (130-400); Red Blood Count 5.56 10^6/uL (4.1-5.3); Red Cell Distribution Width 17.8 % (12.1-15.1); White Blood Count 4.5 10^3/uL (4.0-10.0)
[2022-03-17 05:12] LABS: Alanine Aminotransferase 13 U/L (0-41); Albumin Level 2.7 g/dL (3.5-5.2); Alkaline Phosphatase 75 U/L (40-130); Anion Gap 12.9 (5-19); Aspartate Amino Transferase 25 U/L (0-40); Blood Urea Nitrogen 15 mg/dL (6-20); Calcium 8.6 mg/dL (8.5-10.5); Carbon Dioxide 27 mmol/L (22-29); Chloride 96 mmol/L (98-107); Globulin 3.9 g/dL (1.3-4.6); Glomerular Filtration Rate 170.5 mL/min (90-130); Glucose 106 mg/dL (65-115); Osmolality Calculated 275 mOsm/kg (285-295); Potassium 3.9 mmol/L (3.5-5.1); Sodium 132 mmol/L (136-145); Total Bilirubin 0.4 mg/dL (0.15-1.2); Total Protein 6.6 g/dL (6.6-8.7)
[2022-03-17 05:20] LABS: Add RBC Morph Yes
[2022-03-17 05:21] LABS: RBC Morph Comp No
[2022-03-17 05:22] LABS: Ovalocytes 1+; Poikilocytosis 1+
[2022-03-17 05:24] LABS: Anisocytosis 1+; Microcytosis Trace
[2022-03-17] MEDS: budesonide 0.5 mg/2 mL Neb INHALATION ×2 (08:05→19:52)
--- NOTE | 2022-03-17 09:17 | US_ITS ---
WS: [id number] Ultrasound RIGHT chest. Ultrasound performed to evaluate for fluid prior to thoracentesis. COMPARISON: 03/14/2022. There is a small effusion present. Low level echoes throughout the small effusion and there is marked wall pleural thickening and adjacent atelectatic lung. Septations are noted within the fluid. During breathing this pocket collapsed and was very mobile. US/US chest [id number] IMPRESSION: Mildly complex fluid with marked pleural thickening. Insufficient fluid for RIG HT thoracentesis to be performed. The effusion does appear significantly smalle r as compared to 03/14/2022. The consolidation seen on the radiograph is probab ly pleural thickening and atelectasis. Today's ultrasound findings do correspon d to the chest CT that was on 03/14/2022.
[2022-03-17] MEDS: docusate sodium 100 mg Capsule PO ×2 (09:30→17:43)
[2022-03-17] MEDS: metoprolol tartrate 50 mg Tablet PO ×2 (09:30→21:15)
[2022-03-17] MEDS: famotidine 20 mg Tablet PO ×2 (09:31→17:43)
--- NOTE | 2022-03-17 10:33 | CT_ITS ---
WS: [id number] CTA OF THE CHEST WITH PULMONARY EMBOLISM PROTOCOL TECHNIQUE: High-resolution contrast enhanced CTA of the chest with coronal and sagittal reformatted i mages with pulmonary embolism protocol. MIP images are also reviewed. CLINICAL INFORMATION: b/l pna, with syn pneumonic effusion COMPARISON: March 13, 2022 DLP: 370.[address] scans at [facility] use at least one of these dose optimization techniques: automated e xposure control; mA and/or kV adjustment per patient size (includes targeted exams where dose is matc hed to clinical indication); or iterative reconstruction. FINDINGS: Multiple filling defects in the LEFT upper lobe and the LEFT lower lobe segmental and subsegmental pu lmonary arteries compatible with pulmonary embolus. Additional filling defects in the RIGHT upper lob e and RIGHT middle lobe pulmonary arteries. Normal caliber thoracic aorta. Small pericardial effusion. Small amount pleural fluid along the anter ior mediastinum. No mediastinal or hilar lymphadenopathy. Moderate LEFT and small RIGHT pleural effus ions unchanged. Circumferential thickened RIGHT pleura suspicious for empyema or complex effusion ez ears unchanged. Compressive atelectasis RIGHT lower lobe. Hypertrophic changes thoracic spine. CT/CT angio chest PE protcl [id number] IMPRESSION: 1. Multiple filling defects bilaterally segmental and subsegmental pulmonary a rteries compatible with pulmonary embolus. 2. Moderate LEFT and small RIGHT pleural effusions with suspected RIGHT empyem a or complex effusion unchanged. Diffuse pleural thickening and enhancement RIG HT lower lobe. 3. Compressive atelectasis in the lung bases similar to previous. 4. Small pericardial effusion. Notified Govind Haile MD at 03/17/2022 1:34 PM.
--- NOTE | 2022-03-17 11:09 | P.PN_ITS ---
Subjective Subjective: Patient seen and examined. He reports he did not have a bowel movement yesterday. No nausea or vomiting Vitals/I&O/Wt Last Vital Signs Temp 98.9 F 03/17/22 07:46 Pulse 94 03/17/22 08:07 Resp 22 H 03/17/22 08:07 BP 143/106 03/17/22 07:46 Pulse Ox 94 03/17/22 08:07 O2 Del Method 03/17/22 08:07 O2 Flow Rate 2 03/17/22 08:07 FiO2 30 03/16/22 05:13 03/16/22 03/17/22 03/17/22 22:59 06:59 14:59 Intake Total 600 / 1150 400 / 1550 Output Total 275 / 1075 Balance 325 / 75 400 / 475 Weight last 48 hrs Weight 190 lb Weight 187 lb Physical Exam Narrative: General: No acute distress, awake alert and oriented x3 Abdomen: Soft, moderately distended, mild tenderness to palpation epigastrically, no guarding rebound or masses Urinary Catheter Management: Ardon: Cath Placed During This Visit: yes, but has since been removed by the nurse Reason for Continuing Indwelling Catheter: Decision to DC Catheter Urinary Catheter Date of Insertion: 03/14/22 Urinary Catheter Time of Insertion: 00:35 Date Urinary Catheter Removed: 03/15/22 Time Urinary Catheter Discontinued: 10:15 Data 03/17/22 04:25 03/17/22 04:25 Micro: Microbiology 03/14/22 13:30 Gram Stain - Final Pleural Fluid Body Fluid Culture - Final 03/14/22 13:30 Mycobacterial Smear - Preliminary Body Fluids - Pleura A&P Assessment and plan (1) Colon distention: (2) Constipation: Plan Continue with daily laxatives No acute surgical intervention Medical management per hospitalist Surgically stable for discharge Attestations Medical Necessity Statement*: Further hospitalization per hospitalist Coding Level of Care Code Acute Screw Machine Hand for [facility] Diagnoses Colon distention K63.89 Constipation K59.00
[2022-03-17 11:34] LABS: Vancomycin Trough 13.8 ug/mL (10-15)
[2022-03-17] MEDS: iohexol 350 mg/mL 500 mL Btl (per mL) IV (11:45)
--- NOTE | 2022-03-17 13:22 | PM.PN ---
Subjective Subjective: No acute events overnight. Patient denies any nausea, vomiting, headache. Patient states he is getting frustrated of not being able to get out of bed. He states he gets into panic attack whenever he is trying to walk around because of difficulty in breathing. Though with physical therapy he walked around today without oxygen with saturation dropping down only to 88% and according to mother 94% on 2 L at rest. Patient does have to take slow gait during walking. States he is not able to sleep at night for last 3 to 4 weeks. T-max in last 24 hours 100.1 Fahrenheit. Urine output within last 24 hours around 975 cc. Vitals/I&O/Wt Last Vital Signs Temp 99.1 F 03/17/22 11:18 Pulse 93 03/17/22 13:19 Resp 30 H 03/17/22 13:19 BP 123/91 03/17/22 11:18 Pulse Ox 98 03/17/22 13:19 O2 Del Method 03/17/22 13:19 O2 Flow Rate 2 03/17/22 13:19 FiO2 30 03/16/22 05:13 03/16/22 03/17/22 03/17/22 22:59 06:59 14:59 Intake Total 600 / 1150 400 / 1550 Output Total 275 / 1075 Balance 325 / 75 400 / 475 Weight last 48 hrs Weight 86.183 kg Weight 84.822 kg Physical Exam Narrative: Nasal cannula on this morning Const: COMMON NORMALS: patient oriented x3 and alert GENERAL APPEARANCE: cooperative ORIENTATION/CONSCIOUSNESS: Yes awake HENMT: COMMON NORMALS: oropharynx normal Neck/C-Spine: COMMON NORMALS: no JVD Resp: COMMON NORMALS: normal respiratory effort and clear to auscultation bilaterally AUSCULTATION: clear to auscultation bilaterally and diminished lung sounds bilateral in the lower lung restrepo Cardio: COMMON NORMALS: no JVD, regular rhythm, S1 normal heart sound present, S2 normal heart sound present and No murmurs present (Cardio) RHYTHM: regular rhythm HEART SOUNDS: S1 normal heart sound present and S2 normal heart sound present GI: COMMON NORMALS: Normal to inspection, nondistended, normoactive bowel sounds present, Soft to palpation and non-tender PALPATION: Yes Soft to palpation Extremity: COMMON NORMALS: no joint enlargement and no pedal edema GENERAL: Yes edema (2+) Neuro: COMMON NORMALS: patient oriented x3 and moves all extremities SENSORIUM/ORIENTATION: Yes alert Skin: COMMON NORMALS: no rashes or lesions noted GENERAL SKIN EXAM: no rashes or lesions noted Urinary Catheter Management: Ardon: Cath Placed During This Visit: yes, but has since been removed by the nurse Reason for Continuing Indwelling Catheter: Decision to DC Catheter Urinary Catheter Date of Insertion: 03/14/22 Urinary Catheter Time of Insertion: 00:35 Date Urinary Catheter Removed: 03/15/22 Time Urinary Catheter Discontinued: 10:15 Data 03/17/22 04:25 03/17/22 04:25 Micro: Microbiology 03/14/22 13:30 Gram Stain - Final Pleural Fluid Body Fluid Culture - Final 03/14/22 13:30 Mycobacterial Smear - Preliminary Body Fluids - Pleura A&P Assessment and plan (1) Community acquired pneumonia: Complicated community-acquired pneumonia with parapneumonic effusions large left and moderate right. Seems to be improving. Fluid studies appreciated. Indicating to with exudative. Not empyema. We will follow-up cultures. MRSA PCR negative. Attempted ultrasound-guided thoracentesis today. As per radiologist patient does not have too much fluid to be drained rather than has pleural thickening. Will repeat CTA to further examine for underlying mass or consolidation and to have a further look for possible empyema. 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 Continue with IV ceftriaxone. Stop vancomycin. Check histoplasma antigen urine, cryptococcal serum antigen, sputum culture x3 for MTB PCR. Patient does not need to be under isolation for TB process for now. Follow-up sputum culture and fluid culture. (2) Pleural effusion: Post 1 L thoracentesis on left side. As above. Follow-up cytology and Gram culture. (3) Pulmonary embolism: Seen on CTA today. Without right sided strain. Continue with anticoagulation. (4) Atrial fibrillation with RVR: Rate controlled. Continue with metoprolol 50 mg twice daily. C/w full dose lovenox. Plan to transition to Eliquis on discharge. Echocardiogram result shows an EF of 60%, thickened aortic valve without regional wall motion normality. (5) Acute respiratory failure with hypoxia: Secondary to as above. Slight component of diastolic congestive heart failure as well. C/w oral Lasix 40 mg daily. Fluid restriction up to 1500 cc. Strict daily weight check. Remove Ardon. (6) COPD (chronic obstructive pulmonary disease): (7) Cellulitis: Continue with ceftriaxone. Patient is MRSA negative. Hold off on vancomycin. (8) Acute CHF: Echocardiogram results appreciated. Diastolic in nature. Qualifiers: Heart failure type: diastolic Qualified Code(s): I50.31 - Acute diastolic (congestive) heart failure (9) Colon distention: Continue with aggressive bowel regimen. Appreciate surgical recommendations. Colace twice daily. (10) Constipation: Plan Analgesia: Tylenol as needed Glycemic control: Not needed Nutrition: Cardiac diet, fluid restriction CODE STATUS: Full code PUD prophylaxis: Famotidine DVT prophylaxis: Full dose Lovenox will suffice for DVT prophylaxis. Hold off on Lovenox for now given need for possible thoracentesis today Discharge planning: Home with home health versus SNF placement as per physical therapy evaluation. Patient himself is fairly weak. Continue with care at [facility]. This documentation was created by [employer] webmethods consultant software. Every effort was made to ensure accuracy of webmethods consultant. Any obvious errors or omissions should be clarified with the author of the document. Attestations Medical Necessity Statement*: Requires further hospitalization for further management of hypoxia secondary to pneumonia with a possible empyema, bilateral pulmonary emboli Time Spent in Patient Care: Greater than 35 minutes Coding Level of Care Code Acute Nutrition Teacher for [facility] Fwd Diagnoses Community acquired pneumonia J18.9 Pleural effusion J90 Pulmonary embolism I26.99 Atrial fibrillation with RVR I48.91 Acute respiratory failure with hypoxia J96.01 COPD (chronic obstructive pulmonary disease) J44.9 Cellulitis L03.90 Acute CHF I50.31 Heart failure type: diastolic Colon distention K63.89 Constipation K59.00
--- NOTE | 2022-03-17 16:23 | XR_ITS ---
WS: [id number] PORTABLE CHEST HISTORY: post thoracentesis, RIGHT COMPARISON: 03/14/2022 No right-sided pneumothorax status post thoracentesis. Just slightly better aeration of the RIGHT lung. There is pleural thickening and fluid extending yohana g the fissure of the RIGHT lower lung. Small LEFT pleural effusion. Cardiac size: Mildly enlarged cardiac silhouette. Mediastinum/Aorta: Normal mediastinum. No osseous abnormality seen. XR/XR chest 1V portable [id number] IMPRESSION: 1. No pneumothorax status post RIGHT thoracentesis. 2. Pleural thickening, atelectatic lung and a small amount of RIGHT pleural ef fusion persists.
[2022-03-17] MEDS: sodium chloride 3.5% neb 4 mL Neb INHALATION (17:09)
[2022-03-17 17:20] LABS: Apprearance, Body Fluid CLOUDY; Color, Body Fluid AMBER; Cyto Order Verification Order Verified
--- NOTE | 2022-03-17 17:25 | PC.NURSE ---
Order from physician PO xanax 0.5mg ONCE
--- NOTE | 2022-03-17 17:27 | PC.NURSE ---
This nurse agrees with all documentation and medication demonstrations by Student Nurse
[2022-03-17 17:34] LABS: Body Fluid Total Cells Counted 153; Body Fluid WBC 149 /uL; RBC, Body Fluid 2 10^3/uL
[2022-03-17] MEDS: ALPRAZolam 0.5 mg Tablet PO (17:43)
[2022-03-17 17:46] LABS: PATH Referral YES
[2022-03-17 17:59] LABS: Albumin Body Fluid 1.4 g/dL; Creatinine Body Fluid 0.53 (0.7-1.2); LDH Pleural Fluid 201 U/L; Total Protein Pleural Fluid 2.6 g/dL; Triglycerides, Pleural Fluid 21 mg/dL
--- NOTE | 2022-03-17 18:45 | PC.RESP ---
NT suctioned pt for sputum sample
[2022-03-17] MEDS: trazodone 150 mg Tablet 75 MG PO (21:15)
[2022-03-17] MEDS: sennosides 8.6 mg Tablet 17.2 MG PO (21:16)
[2022-03-17] MEDS: magnesium hydroxide 30 mL UDC PO (21:16)
--- NOTE | 2022-03-17 21:37 | PC.RESP ---
Patient handed cup and encouraged to cough. Pt coughed 3 times, very dry, no specimen obtained.
[2022-03-17] MEDS: cefTRIAXone 1,000 MG in sodium chloride 0.9% (plus) 50 ML 100 MG IV (22:08)
[2022-03-18] VITALS (15 sets, daily range): BP systolic 123–141; BP diastolic 78–109; PULSE 85–113; RESP 18–40; TEMP 36.8–38.6; O2SAT 92–99
[2022-03-18 00:26] LABS: Lactate Dehydrogenase 405 U/L (135-225)
[2022-03-18] MEDS: levalbuterol 0.63 mg/3 mL Neb INHALATION ×4 (02:22→21:53)
[2022-03-18] MEDS: ipratropium 0.5 mg/2.5 mL Neb INHALATION ×3 (02:22→21:53)
[2022-03-18] MEDS: acetaminophen 500 mg Tablet PO (04:25)
[2022-03-18 05:58] LABS: Basophils % 0.6 %; Eosinophils % 0.4 %; Hematocrit 40.8 % (42.0-52.0); Hemoglobin 11.9 g/dL (11.7-16.6); Lymphocytes # 0.6 10^3/uL (0.8-4.8); Lymphocytes % 10.8 %; Mean Corpuscular HGB Conc 29.2 g/dL (30.0-36.0); Mean Corpuscular Hemoglobin 22.2 pg (28.0-34.0); Mean Corpuscular Volume 76.3 fl (80-94); Mean Platelet Volume 12.4 fL (7.4-10.4); Monocytes # 0.8 10^3/uL (0.2-0.9); Monocytes % 15.8 %; Neutrophils % 71.2 %; Nucleated Red Blood Cells % 0 %; Platelet Count 206 10^3/cmm (130-400); Red Blood Count 5.35 10^6/uL (4.1-5.3); Red Cell Distribution Width 18.4 % (12.1-15.1); White Blood Count 5.2 10^3/uL (4.0-10.0)
[2022-03-18 06:04] LABS: Alanine Aminotransferase 16 U/L (0-41); Albumin Level 2.6 g/dL (3.5-5.2); Alkaline Phosphatase 71 U/L (40-130); Aspartate Amino Transferase 28 U/L (0-40); Blood Urea Nitrogen 13 mg/dL (6-20); Calcium 8.5 mg/dL (8.5-10.5); Carbon Dioxide 25 mmol/L (22-29); Chloride 100 mmol/L (98-107); Globulin 3.9 g/dL (1.3-4.6); Glomerular Filtration Rate 210.5 mL/min (90-130); Glucose 101 mg/dL (65-115); Osmolality Calculated 278 mOsm/kg (285-295); Sodium 134 mmol/L (136-145); Total Bilirubin 0.4 mg/dL (0.15-1.2); Total Protein 6.5 g/dL (6.6-8.7)
[2022-03-18 06:06] LABS: Anion Gap 13.6 (5-19); Potassium 4.6 mmol/L (3.5-5.1)
[2022-03-18] MEDS: budesonide 0.5 mg/2 mL Neb INHALATION ×2 (08:54→21:53)
[2022-03-18] MEDS: sodium chloride 3.5% neb 4 mL Neb INHALATION (08:54)
[2022-03-18 09:35] LABS: Cyto Order Verification Order Verified
[2022-03-18] MEDS: docusate sodium 100 mg Capsule PO ×2 (10:06→19:03)
[2022-03-18] MEDS: metoprolol tartrate 50 mg Tablet PO ×2 (10:07→21:30)
[2022-03-18] MEDS: piperacillin-tazobactam 3.375 GM in sodium chloride 0.9% (plus) 50 ML IV ×2 (10:07→17:27)
[2022-03-18] MEDS: famotidine 20 mg Tablet PO ×2 (10:07→19:04)
--- NOTE | 2022-03-18 13:11 | P.PN_ITS ---
Subjective Subjective: On examination patient continues to remain on 2 L of oxygen supplementation. T-max in last 24 hours 101.5 Fahrenheit. Patient himself denies any nausea, vomiting, headache. States he is feeling the same. States he thinks he has had blood in the ongoing for last few weeks on and off. Denies any abdominal pain. States he does think he has hemorrhoids. Vitals/I&O/Wt Last Vital Signs Temp 99.7 F H 03/18/22 05:01 Pulse 94 03/18/22 09:08 Resp 20 H 03/18/22 08:56 BP 125/98 03/18/22 08:19 Pulse Ox 95 03/18/22 08:56 O2 Del Method 03/18/22 08:56 O2 Flow Rate 2 03/18/22 08:56 FiO2 30 03/17/22 16:00 03/17/22 03/18/22 03/18/22 22:59 06:59 14:59 Intake Total 290 / 770 150 / 920 620 / 620 Output Total 1025 / 1025 300 / 1325 Balance -735 / -255 -150 / -405 620 / 620 Weight last 48 hrs Weight 87.09 kg Weight 86.183 kg Physical Exam Narrative: Nasal cannula on this morning Const: COMMON NORMALS: patient oriented x3 and alert GENERAL APPEARANCE: cooperative ORIENTATION/CONSCIOUSNESS: Yes awake HENMT: COMMON NORMALS: oropharynx normal Neck/C-Spine: COMMON NORMALS: no JVD Resp: COMMON NORMALS: normal respiratory effort and clear to auscultation thu aterally AUSCULTATION: clear to auscultation bilaterally and diminished lung sounds bilateral in the lower lung restrepo Cardio: COMMON NORMALS: no JVD, regular rhythm, S1 normal heart sound present, S2 normal heart sound present and No murmurs present (Cardio) RHYTHM: regular rhythm HEART SOUNDS: S1 normal heart sound present and S2 normal heart sound present GI: COMMON NORMALS: Normal to inspection, nondistended, normoactive bowel sounds present, Soft to palpation and non-tender PALPATION: Yes Soft to palpation Extremity: COMMON NORMALS: no joint enlargement and no pedal edema GENERAL: Yes edema (2+) Neuro: COMMON NORMALS: patient oriented x3 and moves all extremities SENSORIUM/ORIENTATION: Yes alert Skin: COMMON NORMALS: no rashes or lesions noted GENERAL SKIN EXAM: no rashes or lesions noted Urinary Catheter Management: Ardon: Cath Placed During This Visit: yes, but has since been removed by the nurse Reason for Continuing Indwelling Catheter: Decision to DC Catheter Urinary Catheter Date of Insertion: 03/14/22 Urinary Catheter Time of Insertion: 00:35 Date Urinary Catheter Removed: 03/15/22 Time Urinary Catheter Discontinued: 10:15 Data 03/18/22 04:50 03/18/22 04:50 Micro: Microbiology 03/18/22 10:33 Blood Culture - Preliminary Blood SPECIMEN COLLECTED 03/18/22 10:33 Blood Culture - Preliminary Blood SPECIMEN COLLECTED 03/17/22 18:10 Gram Stain - Final Sputum - Expectorated Sputum 03/14/22 13:30 Gram Stain - Final Pleural Fluid Body Fluid Culture - Final A&P Assessment and plan (1) Community acquired pneumonia: Complicated community-acquired pneumonia with parapneumonic effusions large left and moderate right. Seems to be improving. Fluid studies appreciated. Indicating to with exudative. Not empyema. We will follow-up cultures. MRSA PCR negative. Right-sided thoracentesis done on 03/17. Fluid studies appreciated. Not consistent with empyema though patient has been on antibiotics. We will follow- up fluid cultures. 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 Histoplasma antigen, cryptococcal antigen so far pending. Repeat sputum culture so far pending. MTB PCR and AFB culture 2 out of 3 sent. Patient is again been febrile to 101.5 Fahrenheit. Switch from ceftriaxone to Zosyn. Repeat blood culture. Check COVID-19 swab. Stool studies to rule out C. difficile and enteric panel. Continue with IV ceftriaxone. Stop vancomycin. (2) Pleural effusion: Post 1 L thoracentesis on left side? 03/14, right-sided 500 cc thoracentesis 03/17 As above. Follow-up cytology and Gram culture. (3) Pulmonary embolism: Seen on CTA today. Without right sided strain. Continue with anticoagulation. (4) Atrial fibrillation with RVR: Rate controlled. Continue with metoprolol 50 mg twice daily. C/w full dose lovenox. Plan to transition to Eliquis on discharge. Echocardiogram result shows an EF of 60%, thickened aortic valve without reg ional wall motion normality. (5) Acute respiratory failure with hypoxia: Secondary to as above. Slight component of diastolic congestive heart failure as well. C/w oral Lasix 40 mg daily. Fluid restriction up to 1500 cc. Strict daily weight check. (6) COPD (chronic obstructive pulmonary disease): (7) Cellulitis: Improving. (8) Acute CHF: Echocardiogram results appreciated. Diastolic in nature. Qualifiers: Heart failure type: diastolic Qualified Code(s): I50.31 - Acute diastolic (congestive) heart failure (9) Colon distention: Continue with aggressive bowel regimen. Appreciate surgical recommendations. Colace twice daily. Having few episodes of blood mixed in bowel movements. Hemoglobin stable. Check stool studies. Will confirm with surgical team. (10) Constipation: Plan Analgesia: Tylenol as needed Glycemic control: Not needed Nutrition: Cardiac diet, fluid restriction CODE STATUS: Full code PUD prophylaxis: Famotidine DVT prophylaxis: Full dose Lovenox will suffice for DVT prophylaxis. Hold off on Lovenox for now given need for possible thoracentesis today Discharge planning: Home with home health. SNF placement discussed multiple times in detail with the patient. Patient did not want to consider SNF and is adamantly asking for home health. Continue with care at [facility]. This documentation was created by [employer] assembler latches and springs software. Every effort was made to ensure accuracy of assembler latches and springs. Any obvious errors or omissions should be clarified with the author of the document. Attestations Medical Necessity Statement*: Requires further hospitalization for management of hypoxia secondary to bilateral pneumonia with pleural effusion, while in primaries ruled out, bilateral PE Time Spent in Patient Care: Greater than 35 minutes Coding Level of Care Code Acute Space Systems Operations Superintendent for [facility] Fwd Diagnoses Community acquired pneumonia J18.9 Pleural effusion J90 Pulmonary embolism I26.99 Atrial fibrillation with RVR I48.91 Acute respiratory failure with hypoxia J96.01 COPD (chronic obstructive pulmonary disease) J44.9 Cellulitis L03.90 Acute CHF I50.31 Heart failure type: diastolic Colon distention K63.89 Constipation K59.00
[2022-03-18] MEDS: ipratropium-albuterol 3 mL Neb INHALATION (13:55)
--- NOTE | 2022-03-18 14:16 | PM.PN ---
Subjective Subjective: Patient seen and examined. He reports he did have a bowel movement yesterday. Denies any abdominal pain today. No nausea or vomiting Vitals/I&O/Wt Last Vital Signs Temp 99.7 F H 03/18/22 05:01 Pulse 85 03/18/22 13:55 Resp 18 03/18/22 13:55 BP 125/98 03/18/22 08:19 Pulse Ox 95 03/18/22 13:55 O2 Del Method 03/18/22 13:55 O2 Flow Rate 2 03/18/22 13:55 FiO2 30 03/17/22 16:00 03/17/22 03/18/22 03/18/22 22:59 06:59 14:59 Intake Total 290 / 770 150 / 920 620 / 620 Output Total 1025 / 1025 300 / 1325 Balance -735 / -255 -150 / -405 620 / 620 Weight last 48 hrs Weight 192 lb Weight 190 lb Physical Exam Narrative: General: No acute distress, awake alert and oriented x3 Abdomen: Soft, moderately distended, mild tenderness to palpation epigastrically, no guarding rebound or masses Urinary Catheter Management: Ardon: Cath Placed During This Visit: yes, but has since been removed by the nurse Reason for Continuing Indwelling Catheter: Decision to DC Catheter Urinary Catheter Date of Insertion: 03/14/22 Urinary Catheter Time of Insertion: 00:35 Date Urinary Catheter Removed: 03/15/22 Time Urinary Catheter Discontinued: 10:15 Data 03/18/22 04:50 03/18/22 04:50 Micro: Microbiology 03/18/22 10:33 Blood Culture - Preliminary Blood SPECIMEN COLLECTED 03/18/22 10:33 Blood Culture - Preliminary Blood SPECIMEN COLLECTED 03/17/22 18:10 Gram Stain - Final Sputum - Expectorated Sputum 03/14/22 13:30 Gram Stain - Final Pleural Fluid Body Fluid Culture - Final A&P Assessment and plan (1) Colon distention: (2) Constipation: Plan Continue with daily laxatives No acute surgical intervention Medical management per hospitalist Surgically stable for discharge Attestations Medical Necessity Statement*: Further hospitalization per hospitalist Coding Level of Care Code Acute Director Cardiology for [facility] Fwd Diagnoses Colon distention K63.89 Constipation K59.00
[2022-03-18 15:19] LABS: Adenovirus Not Detected (NOT DETECT); Chlamydia Pneumoniae Not Detected (NOT DETECT); Coronavirus 229E,HKU1,NL63,OC4 Not Detected (NOT DETECT); Human Metapneumovirus Not Detected (NOT DETECT); Human Rhinovirus/Enterovirus Not Detected (NOT DETECT); Influenza A Not Detected (NOT DETECT); Influenza A H1 Not Detected (NOT DETECT); Influenza A H1-2009 Not Detected (NOT DETECT); Influenza A H3 Not Detected (NOT DETECT); Influenza B Not Detected (NOT DETECT); Mycoplasma Pneumoniae Not Detected (NOT DETECT); Parainfluenza Virus Type 1 Not Detected (NOT DETECT); Parainfluenza Virus Type 2 Not Detected (NOT DETECT); Parainfluenza Virus Type 3 Not Detected (NOT DETECT); Parainfluenza Virus Type 4 Not Detected (NOT DETECT); Respiratory Syncytial Virus A Not Detected (NOT DETECT); Respiratory Syncytial Virus B Not Detected (NOT DETECT); SARS-COV-2 Not Detected (NOT DETECT)
[2022-03-18] MEDS: enoxaparin 80 mg/0.8 mL Syringe SUBCUT (16:30)
[2022-03-18 20:09] LABS: Pleural Fld Adenosine Deami 99.5 U/L (<9.2)
[2022-03-18] MEDS: sennosides 8.6 mg Tablet 17.2 MG PO (21:29)
[2022-03-18] MEDS: magnesium hydroxide 30 mL UDC PO (21:29)
[2022-03-18] MEDS: trazodone 150 mg Tablet 75 MG PO (21:30)
[2022-03-19] VITALS (12 sets, daily range): BP systolic 102–143; BP diastolic 80–92; PULSE 83–109; RESP 16–31; TEMP 36.4–37.5; O2SAT 91–100
[2022-03-19] MEDS: piperacillin-tazobactam 3.375 GM in sodium chloride 0.9% (plus) 50 ML IV ×3 (00:09→20:07)
[2022-03-19] MEDS: enoxaparin 80 mg/0.8 mL Syringe SUBCUT ×2 (02:13→15:49)
[2022-03-19] MEDS: ipratropium 0.5 mg/2.5 mL Neb INHALATION ×3 (07:50→23:02)
[2022-03-19] MEDS: budesonide 0.5 mg/2 mL Neb INHALATION ×2 (07:50→23:02)
[2022-03-19] MEDS: levalbuterol 0.63 mg/3 mL Neb INHALATION ×3 (07:50→23:03)
[2022-03-19] MEDS: docusate sodium 100 mg Capsule PO ×2 (09:25→17:36)
[2022-03-19] MEDS: metoprolol tartrate 50 mg Tablet PO ×2 (09:25→20:07)
[2022-03-19] MEDS: famotidine 20 mg Tablet PO ×2 (09:26→17:37)
--- NOTE | 2022-03-19 11:56 | P.PN_ITS ---
Subjective Subjective: No acute events overnight. Patient has remained hemodynamically stable and afebrile. On 2 L oxygen supplementation. Today morning on examination patient is looking a little depressed. Denies any nausea, vomiting, headache. Vitals/I&O/Wt Last Vital Signs Temp 97.6 F 03/19/22 11:24 Pulse 83 03/19/22 11:24 Resp 20 H 03/19/22 11:24 BP 102/80 03/19/22 11:24 Pulse Ox 98 03/19/22 11:24 O2 Del Method 03/19/22 07:55 O2 Flow Rate 2 03/19/22 07:55 FiO2 30 03/19/22 08:00 03/18/22 03/19/22 03/19/22 22:59 06:59 14:59 Intake Total 100 / 720 43.125 / 763.125 480 / 480 Output Total 500 / 500 200 / 700 Balance -400 / 220 -156.875 / 63.125 480 / 480 Weight last 48 hrs Weight 87.725 kg Weight 87.09 kg Physical Exam Narrative: EXAM NARRATIVE: General: No acute distress, AO x3, NC oxygen supplementation, cachectic, chronically sick appearing, HEENT: PERRLA, pupils bilaterally equal and reactive Chest:Bronchial breath sounds b/l ,decreased air entry, equal good air entry bilaterally, no more fine basal crackles CVS: S1-S2 regular, no murmurs, no tachycardia, no gallops, no rubs Abdomen: Soft, nontender, no organomegaly, bowel sounds present, morbidly obese Neuro: No focal deficits, no facial deformity, AO x3, power 5/5 in all limbs Psych: COMMON NORMALS: mental status grossly normal, Normal thought process present, cooperative and speech normal SPEECH: Yes normal speech MOOD & AFFECT: Yes depressed mood and Yes tearful THOUGHT PROCESS: Normal thought process present Urinary Catheter Management: Ardon: Cath Placed During This Visit: yes, but has since been removed by the nurse Reason for Continuing Indwelling Catheter: Decision to DC Catheter Urinary Catheter Date of Insertion: 03/14/22 Urinary Catheter Time of Insertion: 00:35 Date Urinary Catheter Removed: 03/15/22 Time Urinary Catheter Discontinued: 10:15 Data 03/18/22 04:50 03/18/22 04:50 Micro: Microbiology 03/17/22 18:10 Gram Stain - Final Sputum - Expectorated Sputum Sputum Culture - Preliminary Coag positive Staphylococcus 03/18/22 10:33 Blood Culture - Preliminary Blood NEGATIVE TO DATE 03/18/22 10:33 Blood Culture - Preliminary Blood NEGATIVE TO DATE 03/18/22 21:00 Gram Stain - Final Sputum - Expectorated Sputum 03/13/22 23:15 Blood Culture - Final Blood NO GROWTH AFTER 5 DAYS 03/13/22 21:30 Blood Culture - Final Blood NO GROWTH AFTER 5 DAYS A&P Assessment and plan (1) Community acquired pneumonia: Complicated community-acquired pneumonia with parapneumonic effusions large left and moderate right. History of latent TB around 30 years ago for which he was treated with oral meds from 6 months. Fluid studies appreciated from left thoracentesis. Indicating to with exudative. Not empyema. We will follow-up cultures. MRSA PCR negative. Right-sided thoracentesis done on 03/17. Fluid studies appreciated. Not consistent with empyema though patient has been on antibiotics. We will follow- up fluid cultures. Fluid ADA positive up to 99.5. High concerns for tuberculosis. Histoplasma antigen, cryptococcal antigen pending, MTB PCR and AFB culture 2 out of 3 sent and pending. Will consult ID for further recommendations. Check DEMETRIUS, DONTA levels. No concerns for lymphoma for now as per differentials. Sputum culture today growing coag positive staph. Patient already on Zosyn. We will continue the same. COVID-19 PCR negative. C. difficile pending. (2) Tuberculosis: As above. Further treatment as per ID recommendations. Will discuss case with National tuberculosis board. (3) Pleural effusion: Post 1 L thoracentesis on left side? 03/14, right-sided 500 cc thoracentesis 03/17 As above. Follow-up cytology and Gram culture. (4) Pulmonary embolism: Seen on CTA today. Without right sided strain. Continue with anticoagulation. (5) Atrial fibrillation with RVR: Rate controlled. Continue with metoprolol 50 mg twice daily. C/w full dose lovenox. Plan to transition to Eliquis on discharge. Echocardiogram result shows an EF of 60%, thickened aortic valve without regional wall motion normality. (6) Acute respiratory failure with hypoxia: Secondary to as above. Slight component of diastolic congestive heart failure as well. C/w oral Lasix 40 mg daily. Fluid restriction up to 1500 cc. Strict daily weight check. (7) COPD (chronic obstructive pulmonary disease): (8) Cellulitis: Improving. (9) Acute CHF: Echocardiogram results appreciated. Diastolic in nature. Qualifiers: Heart failure type: diastolic Qualified Code(s): I50.31 - Acute diastolic (congestive) heart failure (10) Colon distention: Continue with aggressive bowel regimen. Appreciate surgical recommendations. Colace twice daily. Having few episodes of blood mixed in bowel movements. Hemoglobin stable. Check stool studies. Plan for colonoscopy after bowel prep. (11) Constipation: (12) Blood in stool: (13) Depression: Patient is a documented allergy to duloxetine and Seroquel. Start on mirtazapine 30 mg p.o. bedtime. Plan Analgesia: Tylenol as needed Glycemic control: Not needed Nutrition: Cardiac diet, fluid restriction CODE STATUS: Full code PUD prophylaxis: Famotidine DVT prophylaxis: Full dose Lovenox will suffice for DVT prophylaxis. Hold off on Lovenox for now given need for possible thoracentesis today Discharge planning: Home with home health. SNF placement discussed multiple times in detail with the patient. Patient did not want to consider SNF and is adamantly asking for home health. Continue with care at [facility]. This documentation was created by [employer] medical anthropologist software. Every effort was made to ensure accuracy of medical anthropologist. Any obvious errors or omissions should be clarified with the author of the document. Attestations Medical Necessity Statement*: Requires further hospitalization for management of acute hypoxic respiratory failure in setting of community-acquired pneumonia, possible tuberculosis, bilateral pulmonary emboli Time Spent in Patient Care: Greater than 35 minutes Coding Level of Care Code Acute Supervisor Of Officials for [facility] Fwd Diagnoses Community acquired pneumonia J18.9 Tuberculosis A15.9 Pleural effusion J90 Pulmonary embolism I26.99 Atrial fibrillation with RVR I48.91 Acute respiratory failure with hypoxia J96.01 COPD (chronic obstructive pulmonary disease) J44.9 Cellulitis L03.90 Acute CHF I50.31 Heart failure type: diastolic Colon distention K63.89 Constipation K59.00 Blood in stool K92.1 Depression F32.A
[2022-03-19] MEDS: sodium chloride 3.5% neb 4 mL Neb INHALATION (13:29)
--- NOTE | 2022-03-19 13:37 | PM.PN ---
Subjective Subjective: Patient seen and examined. He reports he did have a bowel movement yesterday. Denies any abdominal pain today. No nausea or vomiting. He is now reporting that he had blood in his bowel movement a couple days ago Vitals/I&O/Wt Last Vital Signs Temp 97.6 F 03/19/22 11:24 Pulse 83 03/19/22 11:24 Resp 20 H 03/19/22 11:24 BP 102/80 03/19/22 11:24 Pulse Ox 98 03/19/22 11:24 O2 Del Method 03/19/22 07:55 O2 Flow Rate 2 03/19/22 07:55 FiO2 30 03/19/22 08:00 03/18/22 03/19/22 03/19/22 22:59 06:59 14:59 Intake Total 100 / 720 43.125 / 763.125 480 / 480 Output Total 500 / 500 200 / 700 Balance -400 / 220 -156.875 / 63.125 480 / 480 Weight last 48 hrs Weight 193 lb 6.4 oz Weight 192 lb Physical Exam Narrative: General: No acute distress, awake alert and oriented x3 Abdomen: Soft, moderately distended, mild tenderness to palpation epigastrically, no guarding rebound or masses Urinary Catheter Management: Ardon: Cath Placed During This Visit: yes, but has since been removed by the nurse Reason for Continuing Indwelling Catheter: Decision to DC Catheter Urinary Catheter Date of Insertion: 03/14/22 Urinary Catheter Time of Insertion: 00:35 Date Urinary Catheter Removed: 03/15/22 Time Urinary Catheter Discontinued: 10:15 Data 03/18/22 04:50 03/18/22 04:50 Micro: Microbiology 03/17/22 18:10 Gram Stain - Final Sputum - Expectorated Sputum Sputum Culture - Preliminary Coag positive Staphylococcus 03/18/22 10:33 Blood Culture - Preliminary Blood NEGATIVE TO DATE 03/18/22 10:33 Blood Culture - Preliminary Blood NEGATIVE TO DATE 03/18/22 21:00 Gram Stain - Final Sputum - Expectorated Sputum 03/13/22 23:15 Blood Culture - Final Blood NO GROWTH AFTER 5 DAYS 03/13/22 21:30 Blood Culture - Final Blood NO GROWTH AFTER 5 DAYS A&P Assessment and plan (1) Colon distention: (2) Constipation: (3) Blood in stool: Plan Continue with daily laxatives Bowel Prep and clear liquids tomorrow for EGD and Colonoscopy Thursday The risks and benefits of the procedure, including bleeding, infection, intestinal perforation requiring surgery, missed lesion, or explained to the patient. He is understanding of the risks and wishes to proceed. Attestations Medical Necessity Statement*: Further hospitalization per hospitalist Coding Level of Care Code Acute Electrical Development Engineer for [facility] Fwd Diagnoses Colon distention K63.89 Constipation K59.00 Blood in stool K92.1
--- NOTE | 2022-03-19 17:00 | P.CONIM_ITS ---
Providers/Reason For Consult Consulting Physician/Specialty*: Farideh Shanks MD/Infectious disease Reason for Consult*: suspected pleural TB Requesting Physician: Govind Haile MD Attending Physician: Govind Haile MD Primary Care Provider: Leonela Colby History of Present Illness History of Present Illness Alessandro Bradshaw is a 51 year old male with a past medical history of asthma and A. fib who presented to the hospital complaining of worsening shortness of breath over the past 4 weeks. Patient states that he has been experiencing low-grade fever, chills, subjective weight loss and a generalized sense of ill being over the last 4 to 5 months. He has also been experiencing worsening dyspnea over this time frame. Initially he states that his dyspnea was brought on by strenuous activity, however more recently over the past 4 weeks he has been dyspneic even with walking to and fro from the bathroom and trying to conduct his daily activities. He presented to the hospital and was diagnosed with bilateral pleural effusions. He has undergone bilateral thoracentesis. Pleural is noted to be significantly thickened. Pleural fluid analysis was suggestive of a lymphocyte predominant exudative effusion. Gram stain from the left thoracentesis showed some gram- positive cocci in pairs and chains, however culture remained negative eventually. He has had some cough with expectoration. Sputum culture is cur rently showing respiratory bashir and some staph aureus. As part of the pleural fluid analysis adenosine deaminase level returned elevated at 99.5. Patient reports a past medical history of latent TB for which she was treated about 30 years ago when he was incarcerated. Patient states that a PPD was checked on him after an exposure to unknown TB patient in a correctional facility. PPD was positive as he clearly recalls he was instructed never to have a PPD again as it will always be positive. He states he took some treatment for 6 months but then discontinued treatment once he left the correctional facility. He has never been incarcerated since. He has had no past respiratory symptoms except being diagnosed with asthma for which she takes as needed inhalers over the last 20 years. He has no known TB contacts. 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 Denies any past history of IV drug use. HIV serial status is negative. He is not currently sexually active. Review of Systems General: Reports: 10 or more systems reviewed and unremarkable except in HPI and below Const: Denies: fever(s), chills or body aches Eyes: Denies: change in vision, blurry vision or photophobia ENMT: Reports: hoarseness; Denies: throat pain, enlarged tonsils, odynophagia or nasal congestion Card: Denies: chest pain, palpitations, irregular heart rhythm, edema, swelling of feet/ankles, lightheadedness, pre-syncope, dyspnea on exertion or orthopnea Resp: Reports: dyspnea, productive cough and wheezing; Denies: non-productive cough, stridor, pain on inspiration, change in phlegm color, hemoptysis or chest congestion GI: Denies: abdominal pain, nausea, vomiting, hematemesis, coffee ground emesis, dysphagia, heartburn, diarrhea, constipation, GI cramping, change in stool character, hematochezia or melena : Denies: flank pain, dysuria, urinary frequency, urinary urgency, urinary hesitancy or hematuria Musc: Denies: neck pain, back pain, extremity pain, joint swelling, joint warmth or deformity Neuro: Denies: headache(s), numbness in extremities, weakness in extremities, sensory changes, difficulty walking, frequent falls, dizziness, vertigo, behavioral changes, Slurred speech present or seizure-like activity Psych: Denies: anxiety, depression, suicidal ideation or homicidal ideation Endo: Denies: polyuria, polydipsia, tired all the time, cold intolerance or hot flashes Grant/Lymph: Denies: easy bruising or easy bleeding Medications/Allergies Home Medications Medication Instructions Recorded Confirmed Last Taken Type ethambutol 400 mg tablet 1,600 mg PO DAILY 60 days #240 tabs 03/20/22 Unknown Rx (Myambutol) isoniazid 300 mg tablet 300 mg PO DAILY 60 days #60 tabs 03/20/22 Unknown Rx pyrazinamide 500 mg tablet 2,000 mg PO DAILY 60 days #240 tabs 03/20/22 Unknown Rx pyridoxine (vitamin B6) 500 mg 500 mg PO DAILY 60 days #60 tabs 03/20/22 Unknown Rx tablet rifabutin 150 mg capsule 300 mg PO DAILY 60 days #120 caps 03/20/22 Unknown Rx (Mycobutin) Allergies Allergy/AdvReac Type Severity Reaction Status Date / Time fluoxetine [From Prozac] Allergy Unknown Verified 03/14/22 09:11 quetiapine [From Seroquel] Allergy Unknown Verified 03/14/22 09:11 Current Medications Generic Name Dose Route Start Last Admin Trade Name Mireille PRN Reason Stop Dose Admin Acetaminophen 500 mg 03/18/22 03:55 03/18/22 04:25 Acetaminophen 500 Mg Tablet PO 500 mg Q4H PRN Administration MILD PAIN OR INCREASE TEMP Albuterol/Ipratropium 3 ml 03/14/22 01:15 03/18/22 13:55 Ipratropium-Albuterol 3 Ml Neb INHALATION 3 ml Q4H PRN Administration SHORTNESS OF BREATH Alprazolam 0.5 mg 03/19/22 15:40 03/20/22 10:54 Alprazolam 0.5 Mg Tablet PO 0.5 mg TID PRN Administration ANXIETY Budesonide 0.5 mg 03/17/22 20:00 03/20/22 10:04 Budesonide 0.5 Mg/2 Ml Neb INHALATION 0.5 mg BID.RESPIRATORY DELL Administration Docusate Sodium 100 mg 03/15/22 18:00 03/20/22 10:54 Docusate Sodium 100 Mg Capsule PO 100 mg BID DELL Administration Enoxaparin Sodium 80 mg 03/15/22 15:00 03/20/22 02:59 Enoxaparin 80 Mg/0.8 Ml Syringe SUBCUT 80 mg Q12H DELL Administration Famotidine 20 mg 03/15/22 18:00 03/20/22 10:54 Famotidine 20 Mg Tablet PO 20 mg BID DELL Administration Piperacillin Sod/Tazobactam 50 mls @ 12.5 mls/hr 03/18/22 09:00 03/20/22 10:55 Sod 3.375 gm/ Sodium Chloride IV 12.5 mls/hr Q8H DELL Administration Protocol Ipratropium [place] 0.5 mg 03/18/22 02:00 03/20/22 15:18 Ipratropium 0.5 Mg/2.5 Ml Neb INHALATION 0.5 mg Q6H.RESP DELL Administration Levalbuterol HCl 0.63 mg 03/17/22 21:42 03/20/22 15:18 Levalbuterol 0.63 Mg/3 Ml Neb INHALATION 0.63 mg Q6H.RESP DELL Administration Magnesium Hydroxide 30 ml 03/16/22 21:00 03/19/22 20:07 Magnesium Hydroxide 30 Ml Udc PO 30 ml BEDTIME DELL Administration Metoprolol Tartrate 50 mg 03/16/22 09:15 03/20/22 10:54 Metoprolol Tartrate 50 Mg Tablet PO 50 mg BID@0900,2100 DELL Administration Mirtazapine 30 mg 03/19/22 21:00 03/19/22 20:07 Mirtazapine 30 Mg Tablet PO 30 mg BEDTIME DELL Administration Senna 17.2 mg 03/17/22 21:00 03/19/22 20:07 Sennosides 8.6 Mg Tablet PO 17.2 mg BEDTIME DELL Administration Sodium Chloride 4 ml 03/17/22 16:34 03/19/22 13:29 Sodium Chloride 3.5% Neb 4 Ml Neb INHALATION 4 ml Q4H.RESPIRATORY PRN Administration SPUTUM INDUCTION PFSH Acute PFSH: Medical History COPD (chronic obstructive pulmonary disease) Latent tuberculosis Spinal stenosis Social History Smoking and tobacco status: current some day smoker Vitals/I&O/Wt Last Vital Signs Temp 100.8 F H 03/20/22 12:04 Pulse 101 H 03/20/22 15:16 Resp 30 H 03/20/22 15:15 BP 131/86 03/20/22 15:16 Pulse Ox 94 03/20/22 15:16 O2 Del Method 03/20/22 15:15 O2 Flow Rate 2 03/20/22 15:15 FiO2 30 03/19/22 08:00 03/20/22 03/20/22 03/20/22 06:59 14:59 22:59 Intake Total 100 / 750 400 / 400 300 / 700 Output Total 200 / 300 525 / 525 1000 / 1525 Balance -100 / 450 -125 / -125 -700 / -825 Weight last 48 hrs Weight 88.677 kg Weight 87.725 kg Physical Exam Narrative: General: No acute distress, AO x3, disheveled male lying in bed. HEENT: PERRLA, pupils bilaterally equal and reactive, pallors not present Chest: Bilateral reduced air entry to auscultation with scattered crackles. CVS: S1-S2 regular, no murmurs, no tachycardia, no gallops, no rubs Abdomen: Soft, nontender, no organomegaly, bowel sounds present Neuro: No focal deficits, no facial deformity, AO x3, power 5/5 in all limbs Extremities: No edema clubbing or cyanosis. Urinary Catheter Management: Ardon: Cath Placed During This Visit: yes, but has since been removed by the nurse Reason for Continuing Indwelling Catheter: Decision to DC Catheter Urinary Catheter Date of Insertion: 03/14/22 Urinary Catheter Time of Insertion: 00:35 Date Urinary Catheter Removed: 03/15/22 Time Urinary Catheter Discontinued: 10:15 Data 03/20/22 04:05 03/20/22 04:05 Other Labs: Radiology Impressions KUB X-Ray 03/14/22 01:12 IMPRESSION: 1. Dilated colonic loops suspected measuring up to 9.5 cm, perhaps reflecting ileus or Culver's syndrome, obstruction is also a consideration, CT abdomen and pelvis could further evaluate this. 2. Moderate constipation. 3. Bilateral pleural effusions partially visualized left greater than right. Abdomen/Pelvis CT 03/14/22 01:39 IMPRESSION: 1. Moderate stool is seen within the ascending colon and within the rectal vault with gaseous distension seen within the transverse colon. There are no obstructing colonic masses. Culver syndrome is a consideration. 2. Bilateral pleural effusions, left larger than right. 3. Strandy and patchy opacities and consolidation superimposes over the pleural effusions likely representing bilateral basilar atelectasis although infiltrates and pneumonia cannot be entirely excluded in the appropriate clinical setting. Thoracentesis Ultrasound 03/17/22 00:00 IMPRESSION: 1. RIGHT thoracentesis yielding 400 cc of fluid. 2. Chest radiograph to follow to evaluate for pneumothorax. 3. RIGHT pleural fluid collected for analysis as requested. Chest Ultrasound 03/17/22 09:17 IMPRESSION: Mildly complex fluid with marked pleural thickening. Insufficient fluid for RIGHT thoracentesis to be performed. The effusion does appear significantly smaller as compared to 03/14/2022. The consolidation seen on the radiograph is probably pleural thickening and atelectasis. Today's ultrasound findings do sharon espond to the chest CT that was on 03/14/2022. Chest CTA 03/17/22 10:33 IMPRESSION: 1. Multiple filling defects bilaterally segmental and subsegmental pulmonary arteries compatible with pulmonary embolus. 2. Moderate LEFT and small RIGHT pleural effusions with suspected RIGHT empyema or complex effusion unchanged. Diffuse pleural thickening and enhancement RIGHT lower lobe. 3. Compressive atelectasis in the lung bases similar to previous. 4. Small pericardial effusion. Notified Govind Haile MD at 03/17/2022 1:34 PM. Chest X-Ray 03/17/22 16:23 IMPRESSION: 1. No pneumothorax status post RIGHT thoracentesis. 2. Pleural thickening, atelectatic lung and a small amount of RIGHT pleural effusion persists. Laboratory Results WBC 4.7 10^3/uL (4.0-10.0) 03/20/22 04:05 RBC 5.01 10^6/uL (4.1-5.3) 03/20/22 04:05 Hgb 11.1 g/dL (11.7-16.6) L 03/20/22 04:05 Hct 38.7 % (42.0-52.0) L 03/20/22 04:05 MCV 77.2 fl (80-94) L 03/20/22 04:05 MCH 22.2 pg (28.0-34.0) L 03/20/22 04:05 MCHC 28.7 g/dL (30.0-36.0) L 03/20/22 04:05 RDW 18.3 % (12.1-15.1) H 03/20/22 04:05 Plt Count 248 10^3/cmm (130-400) 03/20/22 04:05 MPV 12.6 fL (7.4-10.4) H 03/20/22 04:05 Neut % (Auto) 61.2 % 03/20/22 04:05 Lymph % (Auto) 14.6 % 03/20/22 04:05 [place] % (Auto) 20.6 % 03/20/22 04:05 Eos % (Auto) 1.3 % 03/20/22 04:05 Baso % (Auto) 0.8 % 03/20/22 04:05 Neut # (Auto) 2.89 10^3/uL (1.8-7.7) 03/20/22 04:05 Lymph # (Auto) 0.7 10^3/uL (0.8-4.8) L 03/20/22 04:05 [place] # (Auto) 1.0 10^3/uL (0.2-0.9) H 03/20/22 04:05 Eos # (Auto) 0.1 10^3/uL (0.0-0.8) 03/20/22 04:05 Baso # (Auto) 0.0 10^3/uL (0.0-0.1) 03/20/22 04:05 Nucleated RBC % (auto) 0 % 03/20/22 04:05 Nucleated RBCs # 0.0 /100WBC 03/20/22 04:05 Differential Comment Yes 03/17/22 16:15 Poikilocytosis 1+ H 03/17/22 04:25 Anisocytosis 1+ H 03/17/22 04:25 Microcytosis Trace 03/17/22 04:25 Ovalocytes 1+ H 03/17/22 04:25 PT 14.30 SECONDS (12.1-14.9) 03/13/22 20:30 INR 1.08 (0.8-1.2) 03/13/22 20:30 Specimen Type Arterial 03/13/22 21:06 Sample Site Radial, left 03/13/22 21:06 ABG pH 7.41 (7.35-7.45) 03/13/22 21:06 ABG pCO2 39.7 mmHg (35-45) 03/13/22 21:06 ABG pO2 41.7 mmHg (80.0-100.0) L 03/13/22 21:06 ABG HCO3 25.2 mmol/L (22-26) 03/13/22 21:06 ABG Base Excess 0.6 mmol/L (-2.0-2.0) 03/13/22 21:06 Glenn Test Pos 03/13/22 21:06 Hematocrit 41.6 % (42-52) L 03/13/22 21:06 Hgb O2 Saturation 70.0 % (95-100) L 03/13/22 21:06 Carboxyhemoglobin 1.4 %THgb (0.4-20.1) 03/13/22 21:06 Methemoglobin 0.4 % (0.4-1.5) 03/13/22 21:06 Total Hemoglobin 13.6 g/dL (14-18) L 03/13/22 21:06 O2 Delivery Device Bipap 03/13/22 21:06 FiO2 50.0 % 03/13/22 21:06 PEEP 8.0 cmH20 03/13/22 21:06 Supply Requirements Officer ID [email or web address] 03/13/22 21:06 Sodium 139 mmol/L (136-145) 03/20/22 04:05 Potassium 4.1 mmol/L (3.5-5.1) 03/20/22 04:05 Chloride 102 mmol/L (98-107) 03/20/22 04:05 Carbon Dioxide 26 mmol/L (22-29) 03/20/22 04:05 Anion Gap 15.1 (5-19) 03/20/22 04:05 BUN 11 mg/dL (6-20) 03/20/22 04:05 Creatinine 0.6 mg/dL (0.7-1.2) L 03/20/22 04:05 GFR Calculation 170.5 mL/min (90-130) H 03/20/22 04:05 Glucose 103 mg/dL (65-115) 03/20/22 04:05 Estimat Average Glucose 111 03/14/22 03:10 Hemoglobin A1c 5.5 % (4.0-6.0) 03/14/22 03:10 Calculated Osmolality 288 mOsm/kg (285-295) 03/20/22 04:05 Lactic Acid 2.2 mmol/L (0.5-2.2) 03/14/22 03:10 Lactic Acid (Sepsis) 1.4 mmol/L (0.5-2.2) 03/14/22 08:40 Calcium 8.6 mg/dL (8.5-10.5) 03/20/22 04:05 Magnesium 2.3 mg/dL (1.7-2.3) 03/15/22 03:00 Iron 42 ug/dL (59-158) L 03/15/22 03:00 TIBC 188 mcg/dl 03/15/22 03:00 % Saturation 22.3 % (20-50) 03/15/22 03:00 Unsat Iron Binding 146 ug/dL (112-347) 03/15/22 03:00 Total Bilirubin 0.4 mg/dL (0.15-1.2) 03/20/22 04:05 AST 30 U/L (0-40) 03/20/22 04:05 ALT 20 U/L (0-41) 03/20/22 04:05 Alkaline Phosphatase 73 U/L (40-130) 03/20/22 04:05 Lactate Dehydrogenase 405 U/L (135-225) H 03/17/22 11:10 Troponin T Baseline 17 ng/L (0-15) H 03/13/22 20:30 Troponin T 120 Minute 15.88 ng/L (0-15) H 03/13/22 23:15 Delta Troponin T -1.12 ABS# (0-10) L 03/13/22 23:15 Troponin T Hi Sens 6Hr 14.80 ng/L (0-15) 03/14/22 03:10 Troponin T Hi Sens 6Hr Delta -2.20 ng/L (0-12) L 03/14/22 03:10 C-Reactive Protein 43.8 mg/L (0.0-4.9) H 03/16/22 02:45 NT-Pro-B Natriuret Pep 276 pg/mL (0-125) H 03/13/22 20:30 Total Protein 6.4 g/dL (6.6-8.7) L 03/20/22 04:05 Albumin 2.6 g/dL (3.5-5.2) L 03/20/22 04:05 Globulin 3.8 g/dL (1.3-4.6) 03/20/22 04:05 Triglycerides 130 mg/dL (0-150) 03/14/22 03:10 Cholesterol 190 mg/dL (0-200) 03/14/22 03:10 LDL Cholesterol, Calc 134 mg/dL (50-129) H 03/14/22 03:10 HDL Cholesterol 30 mg/dL (60-100) L 03/14/22 03:10 LDL/HDL Ratio 4.47 RATIO (0.00-3.22) H 03/14/22 03:10 Cholesterol/HDL Ratio 6.33 mg/dL (1.0-5.00) H 03/14/22 03:10 Angiotensin Convert Enz 89 U/L (9-67) H 03/19/22 01:47 Vitamin B12 746 pg/mL (232-1245) 03/16/22 02:45 Folate 2.8 ng/mL (4.5-32.2) L 03/15/22 15:10 Procalcitonin Cancelled 03/15/22 03:00 TSH 0.88 uIU/mL (0.27-4.20) 03/14/22 03:10 Urine Color Yellow (Yellow) 03/14/22 00:45 Urine Appearance Clear (CLEAR) 03/14/22 00:45 Urine pH 5 (5-7) 03/14/22 00:45 Ur Specific [place] 1.005 (1.005-1.030) 03/14/22 00:45 Urine Protein Neg (Negative) 03/14/22 00:45 Urine Glucose (UA) Norm (Normal) 03/14/22 00:45 Urine Ketones 1+ (Negative) H 03/14/22 00:45 Urine Blood Neg (Negative) 03/14/22 00:45 Urine Nitrate Negative (Negative) 03/14/22 00:45 Urine Bilirubin Neg (Negative) 03/14/22 00:45 Urine Urobilinogen Norm mg/dL (Negative) 03/14/22 00:45 Ur Leukocyte Esterase Negative (Negative) 03/14/22 00:45 Fluid Color [place] 03/17/22 16:15 Fluid Appearance Cloudy 03/17/22 16:15 Fluid WBC 149 /uL 03/17/22 16:15 Fluid RBC 2 10^3/uL 03/17/22 16:15 Fluid Hematocrit Not Reportable 03/17/22 16:15 Fluid Tot Cell Count 153 03/17/22 16:15 Fld Polynuclear WBCs # 9.000 03/17/22 16:15 Fld Polynuclear WBCs % 6.000 % 03/17/22 16:15 Fl Mononucl WBCs #(Auto) 140.000 03/17/22 16:15 Fl Mononuclear % Auto 94.000 % 03/17/22 16:15 Fluid Albumin 1.4 g/dL 03/17/22 16:15 Fluid Creatinine 0.53 (0.7-1.2) L 03/17/22 16:15 Pleural pH 9.00 (6.5-7.5) H 03/17/22 16:15 Pleural Total Protein 2.6 g/dL 03/17/22 16:15 Pleural LDH 201 U/L 03/17/22 16:15 Pleural Glucose 64.0 mg/dL 03/17/22 16:15 Pleural Amylase 31.0 U/L 03/17/22 16:15 Pleural Triglycerides 21 mg/dL 03/17/22 16:15 Pleur Adenosine Deamin 99.5 U/L (<9.2) H 03/14/22 13:30 Vancomycin Trough 13.8 ug/mL (10-15) 03/17/22 11:10 Urine Opiates Screen Negative ng/mL (Negative) 03/14/22 00:45 Ur Barbiturates Screen Negative ng/mL (Negative) 03/14/22 00:45 Ur Phencyclidine Scrn Negative ng/mL (Negative) 03/14/22 00:45 Ur Amphetamines Screen Negative ng/mL (Negative) 03/14/22 00:45 U Benzodiazepines Scrn Negative ng/mL (Negative) 03/14/22 00:45 Urine Cocaine Screen Negative ng/mL (Negative) 03/14/22 00:45 U Marijuana (THC) Screen Negative ng/mL (Negative) 03/14/22 00:45 ALEKS-1 Antibody <1.0 neg AI (<1.0 NEG) 03/19/22 01:47 SS-A/Ro IgG Antibody <1.0 neg AI (<1.0 NEG) 03/19/22 01:47 SS-B/La IgG Antibody <1.0 neg AI (<1.0 NEG) 03/19/22 01:47 Anti-nRNP/Sm IgG Ab <1.0 neg AI (<1.0 NEG) 03/19/22 01:47 Scl-70 Scleroderma Ab 1.1 pos AI (<1.0 NEG) A 03/19/22 01:47 Anti-ds DNA IgG Ab <1 IU/mL 03/19/22 01:47 Coronavirus 229E (PCR) Not detected (NOT DETECT) 03/18/22 13:30 Hepatitis A IgM Ab Non-reactive (Nonreactive) 03/14/22 03:10 Hep Bs Antigen Non-reactive (Nonreactive) 03/14/22 03:10 Hep Bs Antibody 3.5 (11.5-1000) L 03/14/22 03:10 Hep B Core Total Ab Non-reactive (Nonreactive) 03/14/22 03:10 Hepatitis C Antibody Non-reactive (Nonreactive) 03/14/22 03:10 Histoplasma Antigen Urine 03/17/22 14:40 Histoplasma Ag (Qnt) None detected ng/mL 03/17/22 14:40 Histoplasma Ag Interp Negative 03/17/22 14:40 HIV 1&2 Ab & HIV 1 Ag Non-reactive (Non-Reactiv) 03/15/22 15:10 HIV 1&2 Antibody Non-reactive (Non-Reactiv) 03/15/22 15:10 Influenza Type A Ag negative (Negative) 03/13/22 20:30 Influenza Type B Ag negative (Negative) 03/13/22 20:30 SARS-CoV-2 (PCR) Not detected (NOT DETECT) 03/18/22 13:30 Micro: Microbiology 03/19/22 21:45 MRSA Culture - Final Nose 03/18/22 21:00 Gram Stain - Final Sputum - Expectorated Sputum Sputum Culture - Preliminary Yeast species Coag positive Staphylococcus 03/18/22 04:40 Mycobacterial Smear - Preliminary Sputum - Expectorated Sputum 03/17/22 18:10 Mycobacterial Smear - Preliminary Sputum - Expectorated Sputum 03/17/22 16:15 Mycobacterial Smear - Preliminary Body Fluids - Pleura 03/14/22 13:30 Fungal Smear - Preliminary Pleural Fluid 03/17/22 18:10 Gram Stain - Final Sputum - Expectorated Sputum Sputum Culture - Preliminary Coag positive Staphylococcus A&P Assessment and plan (1) Tuberculosis: 51-year-old male with a past medical history of LTBI, uncertain treatment history, admitted to the hospital currently with worsening dyspnea over the past 4 weeks with subjective symptoms lasting over the past 3 to 4 months. He has constitutional symptoms including weight loss, persistent low-grade fever, poor appetite, generalized malaise. Bilateral pleural effusions upon initial admission. Exudative by pleural fluid analysis. Lymphocyte predominant. Parameters as listed above. Concern for TB given elevated adenosine deaminse levels at 99.5 from left side thoracentesis. Thus far AFB smear from left-sided thoracentesis is negative. Culture is pending. Has been sent out to [facility]. AFB smear pending from right-sided thoracentesis. Recommend to obtain sputum AFB smear and MTB PCR on 3 sputum specimens taken 8 hours apart. Preferably obtain induced sputum rather than expectorated sputum to ensure greater yield. Ideally a diagnosis of tuberculosis requires positive AFB smears and cultures, however from pleural source, cultures are noted to be +20 to 30% of the times. A negative smear and culture would not necessarily rule out tuberculosis. An ADA level of greater than 70 is concerning for pleural tuberculosis especially given his past history of LTBI with uncertain treatment history and constitutional symptoms. No other source for pleural effusion is otherwise evident at this time. Less likely to be an empyema from an alternate bacterial cause as exudate is mostly lymphocyte predominant. pH is elevated. Fungal cultures are negative. Gram stain from pleural fluid showed some gram-positive cocci however had no growth further work-up. Blood cultures. Sputum culture is showing coagulase positive cocci, likely to be staph aureus, however I do not expect staff aureus pneumonia to have chronic course such as with this patient lasting over several months. Will obtain expert consultation from [facility] and decide further course of treatment for the patient. Consult Attestations Medical Necessity Statement: Per admitting Coding Level of Care Code Acute Grade Foreman for juan francisco Hendrix Diagnoses Tuberculosis A15.9
[2022-03-19] MEDS: sennosides 8.6 mg Tablet 17.2 MG PO (20:07)
[2022-03-19] MEDS: mirtazapine 30 mg Tablet PO (20:07)
[2022-03-19] MEDS: magnesium hydroxide 30 mL UDC PO (20:07)
[2022-03-20] VITALS (11 sets, daily range): BP systolic 117–146; BP diastolic 86–114; PULSE 91–108; RESP 16–34; TEMP 36.9–38.2; O2SAT 92–98
[2022-03-20] MEDS: piperacillin-tazobactam 3.375 GM in sodium chloride 0.9% (plus) 50 ML IV ×3 (02:59→20:08)
[2022-03-20] MEDS: enoxaparin 80 mg/0.8 mL Syringe SUBCUT ×2 (02:59→17:01)
[2022-03-20 04:39] LABS: Basophils % 0.8 %; Eosinophils # 0.1 10^3/uL (0.0-0.8); Eosinophils % 1.3 %; Hematocrit 38.7 % (42.0-52.0); Hemoglobin 11.1 g/dL (11.7-16.6); Lymphocytes # 0.7 10^3/uL (0.8-4.8); Lymphocytes % 14.6 %; Mean Corpuscular HGB Conc 28.7 g/dL (30.0-36.0); Mean Corpuscular Hemoglobin 22.2 pg (28.0-34.0); Mean Corpuscular Volume 77.2 fl (80-94); Mean Platelet Volume 12.6 fL (7.4-10.4); Monocytes % 20.6 %; Neutrophils # 2.89 10^3/uL (1.8-7.7); Neutrophils % 61.2 %; Nucleated Red Blood Cells % 0 %; Platelet Count 248 10^3/cmm (130-400); Red Blood Count 5.01 10^6/uL (4.1-5.3); Red Cell Distribution Width 18.3 % (12.1-15.1); White Blood Count 4.7 10^3/uL (4.0-10.0)
[2022-03-20 05:14] LABS: Alanine Aminotransferase 20 U/L (0-41); Albumin Level 2.6 g/dL (3.5-5.2); Alkaline Phosphatase 73 U/L (40-130); Anion Gap 15.1 (5-19); Aspartate Amino Transferase 30 U/L (0-40); Blood Urea Nitrogen 11 mg/dL (6-20); Calcium 8.6 mg/dL (8.5-10.5); Carbon Dioxide 26 mmol/L (22-29); Chloride 102 mmol/L (98-107); Globulin 3.8 g/dL (1.3-4.6); Glomerular Filtration Rate 170.5 mL/min (90-130); Glucose 103 mg/dL (65-115); Osmolality Calculated 288 mOsm/kg (285-295); Potassium 4.1 mmol/L (3.5-5.1); Sodium 139 mmol/L (136-145); Total Bilirubin 0.4 mg/dL (0.15-1.2); Total Protein 6.4 g/dL (6.6-8.7)
[2022-03-20] MEDS: ipratropium 0.5 mg/2.5 mL Neb INHALATION ×3 (10:04→21:33)
[2022-03-20] MEDS: levalbuterol 0.63 mg/3 mL Neb INHALATION ×3 (10:04→21:33)
[2022-03-20] MEDS: budesonide 0.5 mg/2 mL Neb INHALATION ×2 (10:04→21:33)
[2022-03-20] MEDS: peg /e-lyte soln 4,000 mL Btl 4000 ML PO (10:53)
[2022-03-20] MEDS: docusate sodium 100 mg Capsule PO ×2 (10:54→17:01)
[2022-03-20] MEDS: metoprolol tartrate 50 mg Tablet PO ×2 (10:54→20:08)
[2022-03-20] MEDS: FUROsemide 10 mg/mL SDV 4mL 40 MG IVP (10:54)
[2022-03-20] MEDS: ALPRAZolam 0.5 mg Tablet PO (10:54)
[2022-03-20] MEDS: famotidine 20 mg Tablet PO ×2 (10:54→17:01)
[2022-03-20 10:55] LABS: Anti-Double Strand DNA AB <1 IU/mL; Jo-1 Antibody <1.0 NEG AI (<1.0 NEG); SM/RNP Antibodies <1.0 NEG AI (<1.0 NEG); SS-B/LA IGG <1.0 NEG AI (<1.0 NEG); Scleroderma Ab(Scl-70) Ab 1.1 POS AI (<1.0 NEG); Ss-A/Ro Igg <1.0 NEG AI (<1.0 NEG)
--- NOTE | 2022-03-20 12:21 | P.PN_ITS ---
Subjective Subjective: No acute events overnight. Patient lying comfortably in bed. On 2 L. Saturating well. Still complaining of weakness. During the day patient was able to get up and get out of bed by himself. Denies any nausea, vomiting, headache. Plan to start on antitubercular medications today. Vitals/I&O/Wt Last Vital Signs Temp 100.8 F H 03/20/22 12:04 Pulse 98 03/20/22 12:04 Resp 28 H 03/20/22 09:30 BP 146/114 03/20/22 12:04 Pulse Ox 97 03/20/22 12:04 O2 Del Method 03/20/22 09:30 O2 Flow Rate 2 03/20/22 12:04 FiO2 30 03/19/22 08:00 03/19/22 03/20/22 03/20/22 22:59 06:59 14:59 Intake Total 120 / 650 100 / 750 400 / 400 Output Total 100 / 100 200 / 300 525 / 525 Balance 20 / 550 -100 / 450 -125 / -125 Weight last 48 hrs Weight 88.677 kg Weight 87.725 kg Physical Exam Narrative: EXAM NARRATIVE: General: No acute distress, AO x3, NC oxygen supplementation, cachectic, chronically sick appearing, HEENT: PERRLA, pupils bilaterally equal and reactive Chest:Bronchial breath sounds b/l ,decreased air entry, equal good air entry bilaterally, no more fine basal crackles CVS: S1-S2 regular, no murmurs, no tachycardia, no gallops, no rubs Abdomen: Soft, nontender, no organomegaly, bowel sounds present, morbidly obese Neuro: No focal deficits, no facial deformity, AO x3, power 5/5 in all limbs Psych: COMMON NORMALS: mental status grossly normal, Normal thought process present, cooperative and speech normal SPEECH: Yes normal speech MOOD & AFFECT: Yes depressed mood and Yes tearful THOUGHT PROCESS: Normal thought process present Urinary Catheter Management: Ardon: Cath Placed During This Visit: yes, but has since been removed by the nurse Reason for Continuing Indwelling Catheter: Decision to DC Catheter Urinary Catheter Date of Insertion: 03/14/22 Urinary Catheter Time of Insertion: 00:35 Date Urinary Catheter Removed: 03/15/22 Time Urinary Catheter Discontinued: 10:15 Data 03/20/22 04:05 03/20/22 04:05 Micro: Microbiology 03/18/22 04:40 Mycobacterial Smear - Preliminary Sputum - Expectorated Sputum 03/17/22 18:10 Mycobacterial Smear - Preliminary Sputum - Expectorated Sputum 03/17/22 16:15 Mycobacterial Smear - Preliminary Body Fluids - Pleura 03/14/22 13:30 Fungal Smear - Preliminary Pleural Fluid 03/17/22 18:10 Gram Stain - Final Sputum - Expectorated Sputum Sputum Culture - Preliminary Coag positive Staphylococcus 03/18/22 10:33 Blood Culture - Preliminary Blood NEGATIVE TO DATE 03/18/22 10:33 Blood Culture - Preliminary Blood NEGATIVE TO DATE 03/18/22 21:00 Gram Stain - Final Sputum - Expectorated Sputum A&P Assessment and plan (1) Community acquired pneumonia: Complicated community-acquired pneumonia with parapneumonic effusions large left and moderate right. History of latent TB around 30 years ago for which he was treated with oral meds from 6 months. Fluid studies appreciated from left thoracentesis. Indicating to with exudative. Not empyema. We will follow-up cultures. MRSA PCR negative. Right-sided thoracentesis done on 03/17. Fluid studies appreciated. Not consistent with empyema though patient has been on antibiotics. We will follow- up fluid cultures. Fluid ADA positive up to 99.5. High concerns for tuberculosis. Histoplasma antigen, cryptococcal antigen pending, MTB PCR and AFB culture 2 out of 3 sent and pending. Will consult ID for further recommendations. DEMETRIUS panel positive for scleroderma, DONTA levels pending. No concerns for lymphoma for now as per differentials. Sputum culture today growing coag positive staph. Patient already on Zosyn. We will continue the same. COVID-19 PCR negative. C. difficile pending. 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 Will need a pleural biopsy. Discussed with radiology and plan for early next week. Further treatment as per ID recommendations. Will discuss case with National tuberculosis board. (3) Pleural effusion: Post 1 L thoracentesis on left side? 03/14, right-sided 500 cc thoracentesis 03/17 As above. Follow-up cytology and Gram culture. (4) Pulmonary embolism: Seen on CTA today. Without right sided strain. Continue with anticoagulation. (5) Atrial fibrillation with RVR: Rate controlled. Continue with metoprolol 50 mg twice daily. C/w full dose lovenox. Plan to transition to [facility] on discharge. Echocardiogram result shows an EF of 60%, thickened aortic valve without regional wall motion normality. (6) Acute respiratory failure with hypoxia: Secondary to as above. Slight component of diastolic congestive heart failure as well. C/w oral Lasix 40 mg daily. Fluid restriction up to 1500 cc. Strict daily weight check. (7) COPD (chronic obstructive pulmonary disease): (8) Cellulitis: Improving. (9) Acute CHF: Echocardiogram results appreciated. Diastolic in nature. Qualifiers: Heart failure type: diastolic Qualified Code(s): I50.31 - Acute diastolic (congestive) heart failure (10) Colon distention: Continue with aggressive bowel regimen. Appreciate surgical recommendations. Colace twice daily. Having few episodes of blood mixed in bowel movements. Hemoglobin stable. Check stool studies. Plan for colonoscopy after bowel prep. (11) Constipation: (12) Blood in stool: (13) Depression: Patient is a documented allergy to duloxetine and Seroquel. Start on mirtazapine 30 mg p.o. bedtime. Plan Analgesia: Tylenol as needed Glycemic control: Not needed Nutrition: Cardiac diet, fluid restriction CODE STATUS: Full code PUD prophylaxis: Famotidine DVT prophylaxis: Full dose Lovenox will suffice for DVT prophylaxis. Hold off on Lovenox for now given need for possible thoracentesis today Discharge planning: Home with home health. SNF placement discussed multiple times in detail with the patient. Patient did not want to consider SNF and is adamantly asking for home health. Continue with care at [facility]. Plan for the day: Continue with Zosyn. Lasix 40 mg 1 time daily. Repeat BMP in evening. Start on antitubercular medications today. Appreciate ID recommendations. Patient will most likely need a pleural biopsy with as per radiology can be done early next week. We will hold off Lovenox 1 day prior to pleural biopsy. Still having on and off bloody bowel movements though hemoglobin has remained stable. Plan for bowel prep today and colonoscopy in a.m. tomorrow. Clear liquid diet today, n.p.o. after midnight. Continue with full dose Lovenox for now. Hold off in a.m. for colonoscopy. This documentation was created by [employer] commercial carpenter software. Every effort was made to ensure accuracy of commercial carpenter. Any obvious errors or omissions should be clarified with the author of the document. Attestations Medical Necessity Statement*: Requires further hospitalization for management of extrapulmonary tuberculosis while antitubercular medication was started, requirement of pleural biopsy, colonoscopy for bright red blood in bowel movement requiring colonoscopy Time Spent in Patient Care: Greater than 35 minutes Coding Level of Care Code Acute Laboratory Aide for [facility] Diagnoses Community acquired pneumonia J18.9 Tuberculosis A15.9 Pleural effusion J90 Pulmonary embolism I26.99 Atrial fibrillation with RVR I48.91 Acute respiratory failure with hypoxia J96.01 COPD (chronic obstructive pulmonary disease) J44.9 Cellulitis L03.90 Acute CHF I50.31 Heart failure type: diastolic Colon distention K63.89 Constipation K59.00 Blood in stool K92.1 Depression F32.A
[2022-03-20 12:54] LABS: Angiotensin Converting Enzyme 89 U/L (9-67)
[2022-03-20 14:33] LABS: Histoplasma Antigen (Quant) NONE DETECTED; Histoplasma Antigen Interpreta NEGATIVE; Histoplasma Antigen Specimen URINE
--- NOTE | 2022-03-20 14:42 | PM.PN ---
Subjective Subjective: Patient seen and examined. Denies any abdominal pain today. No nausea or vomiting. Vitals/I&O/Wt Last Vital Signs Temp 100.8 F H 03/20/22 12:04 Pulse 98 03/20/22 12:04 Resp 28 H 03/20/22 09:30 BP 146/114 03/20/22 12:04 Pulse Ox 97 03/20/22 12:04 O2 Del Method 03/20/22 09:30 O2 Flow Rate 2 03/20/22 12:04 FiO2 30 03/19/22 08:00 03/19/22 03/20/22 03/20/22 22:59 06:59 14:59 Intake Total 120 / 650 100 / 750 400 / 400 Output Total 100 / 100 200 / 300 525 / 525 Balance 20 / 550 -100 / 450 -125 / -125 Weight last 48 hrs Weight 195 lb 8 oz Weight 193 lb 6.4 oz Physical Exam Narrative: General: No acute distress, awake alert and oriented x3 Abdomen: Soft, moderately distended, mild tenderness to palpation epigastrically, no guarding rebound or masses Urinary Catheter Management: Ardon: Cath Placed During This Visit: yes, but has since been removed by the nurse Reason for Continuing Indwelling Catheter: Decision to DC Catheter Urinary Catheter Date of Insertion: 03/14/22 Urinary Catheter Time of Insertion: 00:35 Date Urinary Catheter Removed: 03/15/22 Time Urinary Catheter Discontinued: 10:15 Data 03/20/22 04:05 03/20/22 04:05 Micro: Microbiology 03/19/22 21:45 MRSA Culture - Final Nose 03/18/22 21:00 Gram Stain - Final Sputum - Expectorated Sputum Sputum Culture - Preliminary Yeast species Coag positive Staphylococcus 03/18/22 04:40 Mycobacterial Smear - Preliminary Sputum - Expectorated Sputum 03/17/22 18:10 Mycobacterial Smear - Preliminary Sputum - Expectorated Sputum 03/17/22 16:15 Mycobacterial Smear - Preliminary Body Fluids - Pleura 03/14/22 13:30 Fungal Smear - Preliminary Pleural Fluid 03/17/22 18:10 Gram Stain - Final Sputum - Expectorated Sputum Sputum Culture - Preliminary Coag positive Staphylococcus 03/18/22 10:33 Blood Culture - Preliminary Blood NEGATIVE TO DATE 03/18/22 10:33 Blood Culture - Preliminary Blood NEGATIVE TO DATE A&P Assessment and plan (1) Colon distention: (2) Constipation: (3) Blood in stool: Plan Continue with daily laxatives Bowel Prep and clear liquids tomorrow for EGD and Colonoscopy Thursday The risks and benefits of the procedure, including bleeding, infection, intestinal perforation requiring surgery, missed lesion, or explained to the patient. He is understanding of the risks and wishes to proceed. Attestations Medical Necessity Statement*: Patient requires at least 1 more night in the hospital as he is getting endoscopy tomorrow for blood in stool Coding Level of Care Code Acute Technical Training Specialist for [facility] Diagnoses Colon distention K63.89 Constipation K59.00 Blood in stool K92.1
--- NOTE | 2022-03-20 17:17 | PM.PN ---
Subjective Subjective: Infectious disease progress note. Expert consultation was obtained from [facility]. Recommended to start RIPE. Patient continues to have low-grade fever. No other new symptoms in the interim. Medications: Reviewed: Yes Vitals/I&O/Wt Last Vital Signs Temp 100.8 F H 03/20/22 12:04 Pulse 101 H 03/20/22 15:16 Resp 30 H 03/20/22 15:15 BP 131/86 03/20/22 15:16 Pulse Ox 94 03/20/22 15:16 O2 Del Method 03/20/22 15:15 O2 Flow Rate 2 03/20/22 15:15 FiO2 30 03/19/22 08:00 03/20/22 03/20/22 03/20/22 06:59 14:59 22:59 Intake Total 100 / 750 400 / 400 300 / 700 Output Total 200 / 300 525 / 525 1000 / 1525 Balance -100 / 450 -125 / -125 -700 / -825 Weight last 48 hrs Weight 88.677 kg Weight 87.725 kg Physical Exam Narrative: General: No acute distress, AO x3, disheveled male lying in bed. HEENT: PERRLA, pupils bilaterally equal and reactive, pallors not present Chest: Bilateral reduced air entry to auscultation with scattered crackles. CVS: S1-S2 regular, no murmurs, no tachycardia, no gallops, no rubs Abdomen: Soft, nontender, no organomegaly, bowel sounds present Neuro: No focal deficits, no facial deformity, AO x3, power 5/5 in all limbs Extremities: No edema clubbing or cyanosis. Urinary Catheter Management: Ardon: Cath Placed During This Visit: yes, but has since been removed by the nurse Reason for Continuing Indwelling Catheter: Decision to DC Catheter Urinary Catheter Date of Insertion: 03/14/22 Urinary Catheter Time of Insertion: 00:35 Date Urinary Catheter Removed: 03/15/22 Time Urinary Catheter Discontinued: 10:15 Data 03/20/22 04:05 03/20/22 04:05 Micro: Microbiology 03/19/22 21:45 MRSA Culture - Final Nose 03/18/22 21:00 Gram Stain - Final Sputum - Expectorated Sputum Sputum Culture - Preliminary Yeast species Coag positive Staphylococcus 03/18/22 04:40 Mycobacterial Smear - Preliminary Sputum - Expectorated Sputum 03/17/22 18:10 Mycobacterial Smear - Preliminary Sputum - Expectorated Sputum 03/17/22 16:15 Mycobacterial Smear - Preliminary Body Fluids - Pleura 03/14/22 13:30 Fungal Smear - Preliminary Pleural Fluid 03/17/22 18:10 Gram Stain - Final Sputum - Expectorated Sputum Sputum Culture - Preliminary Coag positive Staphylococcus Left-sided thoracentesis: March 14, 2022. Pleural fluid analysis: Fluid WBC 365, 11% neutrophils, 88% mononuclear cells, fluid albumin 2.9, pleural pH 8, total protein 6.1, pleural adenosine deaminase 99.5. Gram stain: Gram-positive cocci in chains. No growth on culture. Negative AFB smear. Culture pending. Negative for fungal elements. PATH: Benign reactive mesothelial cells, neutrophils, histiocytes and proteinaceous debris. No malignant cells. Right-sided thoracentesis: March 17, 2022 Pleural fluid analysis: WBC 149, 9% PMN else, 94% mononuclear cells, pH 9, total protein 2.6, LDH 201, ADA pending. AFP smear negative. Culture pending. 03/17/2022. Sputum AFB 1: negative AFB smear. Culture pending. MTB PCR : pending 03/18: Sputum AFB 2: Negative AFB smear. Culture pending. sputum AFB 3 : pending. PCR pending Sputum culture and gram stain: Coag positive Staphylococcus. : Sputum culture and gram stain: Coag positive Staphylococcus, heavy yeast. 1130: MRSA nares negative 1129: Blood culture negative to date A&P Assessment and plan (1) Tuberculosis: 51-year-old male with a past medical history of LTBI, uncertain treatment history, admitted to the hospital currently with worsening dyspnea over the past 4 weeks with subjective symptoms lasting over the past 3 to 4 months. He has constitutional symptoms including weight loss, persistent low-grade fever, poor appetite, generalized malaise. HIV serostatus is negative. Bilateral pleural effusions upon initial admission. Exudative by pleural fluid analysis. Lymphocyte predominant. Parameters as listed above. Concern for TB given elevated adenosine deaminse levels at 99.5 from left side thoracentesis. And clinical symptoms compatible with Mycobacterium tuberculosis. Thus far AFB smear negative left and right-sided thoracentesis, sputum AFB smear negative x2. Pending pleural and sputum AFB culture. Pending sputum AFB PCR. Pleural fluid MTB PCR declined by reference lab as not currently FDA approved to be performed on pleural fluid. Ideally a diagnosis of tuberculosis requires positive AFB smears and cultures, however from pleural source, cultures are known to be paucilacillary, positivity ranges between 20-50%. A negative smear and culture would not necessarily rule out tuberculosis. An ADA level of greater than 70 is concerning for pleural tuberculosis especially given his past history of LTBI with uncertain treatment history and constitutional symptoms. No other source for pleural effusion is otherwise evident at this time. Less likely to be an empyema from an alternate bacterial cause as exudate is mostly lymphocyte predominant. pH is elevated. Fungal cultures are negative. Gram stain from pleural fluid showed some gram-positive cocci however had no growth further work-up. Blood cultures. Sputum culture is showing coagulase positive cocci, likely to be staph aureus, however I do not expect staff aureus pneumonia to have chronic course such as with this patient lasting over several months. Expert consultation was obtained from [facility] with Dr. Constantino. Based on available clinical data, plan patient to start on anti-TB therapy with RIPE. Start rifampin 600 mg p.o. daily, isoniazid 300 mg daily, pyrazinamide 2000 mg daily, ethambutol 1600 mg daily along with supplemental pyridoxine. Patient updated regarding natural course of TB infection, benefits and risks of starting medication, potential side effect of all above medications. He is agreeable to start therapy. Also recommend to obtain pleural biopsy as presence of classical granulomas on pleural biopsy may help as an adjunct to diagnosis. Additionally pleural tissue could be stained for AFB. (2) Pulmonary embolism: Patient has also been diagnosed with pulmonary embolism. Currently okay to continue ripe with rifampin has no interaction with Lovenox. At the time of discharge patient will transition likely to Eliquis, which is contraindicated alongside of rifampin. Therefore as outpatient we will plan to substitute rifampin for rifabutin 300 mg daily. This will be discussed with the TB expert. Attestations Medical Necessity Statement*: Per admitting Coding Level of Care Code Acute Solar Sales Consultant for [facility] Diagnoses Tuberculosis A15.9 Pulmonary embolism I26.99
--- NOTE | 2022-03-20 17:56 | PC.NURSE ---
SHift Summary: Uneventful shift. Patient has been up to a chair for all of the day. Up frequently to the bedside commode due to frequent bowel movements. Patient was started on golytley. Has been alert and oriented to person, place, time, and situation. Multiple loose bowel movements today. Has been on clear liquid diet, changing to NPO at midnight. TB meds not started today due to unavailability. Pharmacy will likely have them tommorow.
--- NOTE | 2022-03-20 18:56 | PC.NURSE ---
Last BM during day shift was blood streaked.
[2022-03-20 19:31] LABS: Anion Gap 15.1 (5-19); Blood Urea Nitrogen 10 mg/dL (6-20); Carbon Dioxide 30 mmol/L (22-29); Chloride 95 mmol/L (98-107); Glomerular Filtration Rate 142.7 mL/min (90-130); Glucose 109 mg/dL (65-115); Osmolality Calculated 282 mOsm/kg (285-295); Potassium 4.1 mmol/L (3.5-5.1); Sodium 136 mmol/L (136-145)
[2022-03-20] MEDS: magnesium hydroxide 30 mL UDC PO (20:08)
[2022-03-20] MEDS: sennosides 8.6 mg Tablet 17.2 MG PO (20:08)
[2022-03-20] MEDS: mirtazapine 30 mg Tablet PO (20:08)
[2022-03-21] VITALS (31 sets, daily range): BP systolic 107–142; BP diastolic 67–103; PULSE 78–109; RESP 10–37; TEMP 36.4–37.7; O2SAT 91–100
[2022-03-21] MEDS: levalbuterol 0.63 mg/3 mL Neb INHALATION ×4 (02:21→20:28)
[2022-03-21] MEDS: ipratropium 0.5 mg/2.5 mL Neb INHALATION ×4 (02:21→20:28)
[2022-03-21] MEDS: piperacillin-tazobactam 3.375 GM in sodium chloride 0.9% (plus) 50 ML IV (03:51)
[2022-03-21] MEDS: enoxaparin 80 mg/0.8 mL Syringe SUBCUT ×2 (03:52→16:03)
[2022-03-21] MEDS: famotidine 20 mg Tablet PO ×2 (09:23→18:45)
[2022-03-21] MEDS: metoprolol tartrate 50 mg Tablet PO ×2 (09:23→20:14)
[2022-03-21] MEDS: budesonide 0.5 mg/2 mL Neb INHALATION ×2 (09:24→20:28)
--- NOTE | 2022-03-21 11:26 | W.PM.OPSUD ---
Surgery/Procedure H&P Update DATE OF PROCEDURE: March 21, 2022 DATE H&P PERFORMED: 03/14/22 PLANNED PROCEDURE: Operation Date: 03/21/22 11:30 Proposed Procedures p EGD/COLON(Not Applicable) - DO cindy Vanegas Colonoscopy(Not Applicable) - Presley Doss DO
[2022-03-21 11:58] LABS: Quantiferon Mitogen >10.00 IU/mL; Quantiferon Nil 0.14 IU/mL; Quantiferon Plus TB1 1.36 IU/mL; Quantiferon Plus TB2 1.49 IU/mL; Quantiferon TB Gold POSITIVE (NEGATIVE)
[2022-03-21] MEDS: sodium chloride 0.9% 1,000 ML 30 ML IV (12:29)
--- NOTE | 2022-03-21 13:54 | ANE.PACU2 ---
Inpatient post-anesthesia follow up: Airway intact: Yes Vital signs: Temperature 99.9 F Pulse Rate 98 Respiratory Rate 18 Blood Pressure 110/67 Pulse Oximetry 96 Oxygen Delivery Me thod Nasal Cannula Oxygen Flow Rate 2 Fraction of Inspir ed Oxygen 30 Hydration adequate: Yes Nausea and vomiting: No Pain level: 1 Mental status: Baseline
--- NOTE | 2022-03-21 15:39 | P.PN_ITS ---
Subjective Subjective: no new complaints today, intermittent fever ongoing. Planned for colonoscopy today. Medications: Reviewed: Yes Vitals/I&O/Wt Last Vital Signs Temp 99.9 F H 03/21/22 12:18 Pulse 103 H 03/21/22 15:30 Resp 31 H 03/21/22 15:30 BP 119/87 03/21/22 15:30 Pulse Ox 94 03/21/22 14:58 O2 Del Method 03/21/22 14:58 O2 Flow Rate 2 03/21/22 14:58 FiO2 30 03/19/22 08:00 03/21/22 03/21/22 03/21/22 06:59 14:59 22:59 Intake Total 50 / 1640 550 / 550 Output Total 300 / 1825 300 / 300 Balance -250 / -185 250 / 250 Weight last 48 hrs Weight 88.677 kg Physical Exam 2 Narrative: General: No acute distress, AO x3 HEENT: PERRLA, pupils bilaterally equal and reactive, pallors not present Chest: Normal vesicular breath sounds, no added sounds, equal good air entry bilaterally CVS: S1-S2 regular, no murmurs, no tachycardia, no gallops, no rubs Abdomen: Soft, nontender, no organomegaly, bowel sounds present Neuro: No focal deficits, no facial deformity, AO x3, power 5/5 in all limbs Urinary Catheter Management: Ardon: Cath Placed During This Visit: yes, but has since been removed by the nurse Reason for Continuing Indwelling Catheter: Decision to DC Catheter Urinary Catheter Date of Insertion: 03/14/22 Urinary Catheter Time of Insertion: 00:35 Date Urinary Catheter Removed: 03/15/22 Time Urinary Catheter Discontinued: 10:15 Data 03/20/22 04:05 03/20/22 18:58 Micro: Microbiology 03/21/22 04:00 Stool Lactoferrin - Final Stool Enteric Pathogens (PCR) - Final Parasite Antigen Panel - Final C.difficile Toxin B Gene (PCR) - Final Occult Blood (FIT) - Final 03/17/22 18:10 Gram Stain - Final Sputum - Expectorated Sputum Sputum Culture - Final Staphylococcus aureus 03/19/22 21:45 MRSA Culture - Final Nose 03/18/22 21:00 Gram Stain - Final Sputum - Expectorated Sputum Sputum Culture - Preliminary Yeast species Coag positive Staphylococcus Left-sided thoracentesis: March 14, 2022. Pleural fluid analysis: Fluid WBC 365, 11% neutrophils, 88% mononuclear cells, fluid albumin 2.9, pleural pH 8, total protein 6.1, pleural adenosine deaminase 99.5. Gram stain: Gram-positive cocci in chains.? No growth on culture. Negative AFB smear.? Culture pending. Negative for fungal elements. PATH: Benign reactive mesothelial cells, neutrophils, histiocytes and proteinaceous debris.? No malignant cells. Right-sided thoracentesis: March 17, 2022 Pleural fluid analysis: WBC 149, 9% PMN else, 94% mononuclear cells, pH 9, total protein 2.6, LDH 201, ADA pending. AFP smear negative.? Culture pending. 03/17/2022. Sputum AFB 1:??negative AFB smear.? Culture pending. MTB PCR : pending 03/18:?Sputum AFB 2:?Negative AFB smear.? Culture pending. sputum AFB 3?: pending. PCR pending Sputum culture and gram stain: Coag positive Staphylococcus. : Sputum culture and gram stain: Coag positive Staphylococcus, heavy yeast. 1130: MRSA nares negative 1129: Blood culture negative to date 03/19: Quantiferon + A&P Assessment and plan (1) Tuberculosis: 51-year-old male with a past medical history of LTBI, uncertain treatment history, admitted to the hospital currently with worsening dyspnea over the past 4 weeks with subjective symptoms lasting over the past 3 to 4 months. He has constitutional symptoms including weight loss, persistent low-grade fever, poor appetite, generalized malaise. HIV serostatus is negative. Bilateral pleural effusions upon initial admission.? Exudative by pleural fluid analysis.? Lymphocyte predominant.? Parameters as listed above. Concern for TB given elevated adenosine deaminse levels at 99.5 from left side thoracentesis.? And clinical symptoms compatible with Mycobacterium tuberculosis. Thus far AFB smear negative left and right-sided thoracentesis, sputum AFB smear negative x2.? Pending pleural and sputum AFB culture.? Pending sputum AFB PCR. Pleural fluid MTB PCR declined by reference lab as not currently FDA approved to be performed on pleural fluid. Ideally a diagnosis of tuberculosis requires positive AFB smears and cultures, however from pleural source, cultures are known to be paucilacillary, positivity ranges between 20-50%.? A negative smear and culture would not necessarily rule out tuberculosis.? 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 No other source for pleural effusion is otherwise evident at this time.? Less likely to be an empyema from an alternate bacterial cause as exudate is mostly lymphocyte predominant.? pH is elevated.? Fungal cultures are negative.? Gram stain from pleural fluid showed some gram- positive cocci however had no growth further work-up.? Blood cultures.? Sputum culture is showing coagulase positive cocci, likely to be staph aureus, however I do not expect staff aureus pneumonia to have chronic course such as with this patient lasting over several months. Expert consultation was obtained from [facility] with Dr. Constantino. Based on available clinical data, plan patient to start on anti-TB therapy with RIPE. Start rifampin 600 mg p.o. daily, isoniazid 300 mg daily, pyrazinamide 2000 mg daily, ethambutol 1600 mg daily along with supplemental pyridoxine. Patient updated regarding natural course of TB infection, benefits and risks of starting medication, potential side effect of all above medications.? He is agreeable to start therapy. Also recommend to obtain pleural biopsy as presence of classical granulomas on pleural biopsy may help as an adjunct to diagnosis.? Additionally pleural tissue could be stained for AFB. (2) Pulmonary embolism: Patient has also been diagnosed with pulmonary embolism.? Currently okay to continue ripe with rifampin has no interaction with Lovenox. At the time of discharge patient will transition likely to Eliquis, which is contraindicated alongside of rifampin.? Therefore as outpatient we will plan to substitute rifampin for rifabutin 300 mg daily.? This will be discussed with the TB expert. Attestations Medical Necessity Statement*: per admitting Coding Level of Care Code Acute Family Law Mediator for [facility] Diagnoses Tuberculosis A15.9 Pulmonary embolism I26.99
--- NOTE | 2022-03-21 16:53 | P.PN_ITS ---
Subjective Subjective: No acute events overnight. Patient has continued and finish the bowel prep for colonoscopy. Colonoscopy was consistent with hemorrhoids. No active bleeding. Patient otherwise states his breathing is stable. Currently saturating more than 90% on 2 L. T-max in last 24 hours 99.9 Fahrenheit. P atient able to go back and forth from bathroom by himself. Vitals/I&O/Wt Last Vital Signs Temp 99.9 F H 03/21/22 12:18 Pulse 103 H 03/21/22 15:30 Resp 31 H 03/21/22 15:30 BP 119/87 03/21/22 15:30 Pulse Ox 94 03/21/22 14:58 O2 Del Method 03/21/22 14:58 O2 Flow Rate 2 03/21/22 14:58 FiO2 30 03/19/22 08:00 03/21/22 03/21/22 03/21/22 06:59 14:59 22:59 Intake Total 50 / 1640 550 / 550 Output Total 300 / 1825 300 / 300 Balance -250 / -185 250 / 250 Weight last 48 hrs Weight 88.677 kg Physical Exam Narrative: EXAM NARRATIVE: General: No acute distress, AO x3, NC oxygen supplementation, cachectic, chronically sick appearing, HEENT: PERRLA, pupils bilaterally equal and reactive Chest:Bronchial breath sounds b/l ,decreased air entry, equal good air entry bilaterally, no more fine basal crackles CVS: S1-S2 regular, no murmurs, no tachycardia, no gallops, no rubs Abdomen: Soft, nontender, no organomegaly, bowel sounds present, morbidly obese Neuro: No focal deficits, no facial deformity, AO x3, power 5/5 in all limbs Psych: COMMON NORMALS: mental status grossly normal, Normal thought process present, cooperative and speech normal SPEECH: Yes normal speech MOOD & AFFECT: Yes depressed mood and Yes tearful THOUGHT PROCESS: Normal thought process present Urinary Catheter Management: Ardon: Cath Placed During This Visit: yes, but has since been removed by the nurse Reason for Continuing Indwelling Catheter: Decision to DC Catheter Urinary Catheter Date of Insertion: 03/14/22 Urinary Catheter Time of Insertion: 00:35 Date Urinary Catheter Removed: 03/15/22 Time Urinary Catheter Discontinued: 10:15 Data 03/20/22 04:05 03/20/22 18:58 Micro: Microbiology 03/21/22 04:00 Stool Lactoferrin - Final Stool Enteric Pathogens (PCR) - Final Parasite Antigen Panel - Final C.difficile Toxin B Gene (PCR) - Final Occult Blood (FIT) - Final 03/17/22 18:10 Gram Stain - Final Sputum - Expectorated Sputum Sputum Culture - Final Staphylococcus aureus 03/19/22 21:45 MRSA Culture - Final Nose 03/18/22 21:00 Gram Stain - Final Sputum - Expectorated Sputum Sputum Culture - Preliminary Yeast species Coag positive Staphylococcus A&P Assessment and plan (1) Community acquired pneumonia: Complicated community-acquired pneumonia with parapneumonic effusions large left and moderate right. History of latent TB around 30 years ago for which he was treated with oral meds from 6 months. Fluid studies appreciated from left thoracentesis. Indicating to with exudative. Not empyema. We will follow-up cultures. MRSA PCR negative. Right-sided thoracentesis done on 03/17. Fluid studies appreciated. Not consistent with empyema though patient has been on antibiotics. We will follow- up fluid cultures. Fluid ADA positive up to 99.5. High concerns for tuberculosis. Histoplasma antigen, cryptococcal antigen pending, MTB PCR and AFB culture 2 out of 3 sent and pending. Will consult ID for further recommendations. DEMETRIUS panel positive for scleroderma, DONTA levels pending. No concerns for lymphoma for now as per differentials. Sputum culture today growing coag positive staph. Patient already on Zosyn. We will continue the same. COVID-19 PCR negative. C. difficile pending. 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 Will need a pleural biopsy. Discussed with radiology and plan for early next week. Further treatment as per ID recommendations. Will discuss case with National tuberculosis board. (3) Pleural effusion: Post 1 L thoracentesis on left side? 03/14, right-sided 500 cc thoracentesis 03/17 As above. Follow-up cytology and Gram culture. (4) Pulmonary embolism: Seen on CTA today. Without right sided strain. Continue with anticoagulation. (5) Atrial fibrillation with RVR: Rate controlled. Continue with metoprolol 50 mg twice daily. C/w full dose lovenox. Plan to transition to Eliquis on discharge. Echocardiogram result shows an EF of 60%, thickened aortic valve without regional wall motion normality. (6) Acute respiratory failure with hypoxia: Secondary to as above. Slight component of diastolic congestive heart failure as well. C/w oral Lasix 40 mg daily. Fluid restriction up to 1500 cc. Strict daily weight check. (7) COPD (chronic obstructive pulmonary disease): (8) Cellulitis: Improving. (9) Acute CHF: Echocardiogram results appreciated. Diastolic in nature. Qualifiers: Heart failure type: diastolic Qualified Code(s): I50.31 - Acute gabriella stolic (congestive) heart failure (10) Colon distention: Continue with aggressive bowel regimen. Appreciate surgical recommendations. Colace twice daily. Having few episodes of blood mixed in bowel movements. Hemoglobin stable. Check stool studies. Plan for colonoscopy after bowel prep. (11) Constipation: (12) Blood in stool: (13) Depression: Patient is a documented allergy to duloxetine and Seroquel. Start on mirtazapine 30 mg p.o. bedtime. Plan Analgesia: Tylenol as needed Glycemic control: Not needed Nutrition: Cardiac diet, fluid restriction CODE STATUS: Full code PUD prophylaxis: Famotidine DVT prophylaxis: Full dose Lovenox will suffice for DVT prophylaxis. Hold off on Lovenox for now given need for possible thoracentesis today Discharge planning: Home with home health. SNF placement discussed multiple times in detail with the patient. Patient did not want to consider SNF and is adamantly asking for home health. Continue with care at [facility]. Plan for the day: Switch from Zosyn to ceftriaxone to finish a 7-day course. Sputum culture growing MSSA. Hold off on Lasix. Start on regular diet post colonoscopy. QuantiFERON-TB gold positive. Antitubercular medications still not available. Will start tomorrow once all 4 available together. Appreciate ID recommendations. Continue rifampin while in hospital. On discharge we will switch to rifabutin as patient will be on Eliquis. Hold off on Lovenox after Thursday morning for possibility of pleural biopsy on Thursday. This documentation was created by [employer] personal lines account executive software. Every effort was made to ensure accuracy of personal lines account executive. Any obvious errors or omissions should be clarified with the author of the document. Attestations Medical Necessity Statement*: Requires further hospitalization for management of hypoxia secondary to presumed tuberculosis, pulmonary embolism while further work-up was done. Time Spent in Patient Care: Greater than 35 minutes Coding Level of Care Code Acute Cluster Bore Operator for g [facility] Diagnoses Community acquired pneumonia J18.9 Tuberculosis A15.9 Pleural effusion J90 Pulmonary embolism I26.99 Atrial fibrillation with RVR I48.91 Acute respiratory failure with hypoxia J96.01 COPD (chronic obstructive pulmonary disease) J44.9 Cellulitis L03.90 Acute CHF I50.31 Heart failure type: diastolic Colon distention K63.89 Constipation K59.00 Blood in stool K92.1 Depression F32.A
[2022-03-21] MEDS: cefTRIAXone 1,000 MG in sodium chloride 0.9% (plus) 50 ML 100 MG IV (16:55)
[2022-03-21] MEDS: sodium chloride 0.9% 1,000 ML 75 ML IV (18:49)
[2022-03-21] MEDS: mirtazapine 30 mg Tablet PO (20:13)
[2022-03-21 22:05] LABS: Cryptococcal Source SERUM
[2022-03-22] VITALS (14 sets, daily range): BP systolic 130–164; BP diastolic 87–120; PULSE 93–124; RESP 16–40; TEMP 36.8–37.6; O2SAT 92–97
[2022-03-22] MEDS: enoxaparin 80 mg/0.8 mL Syringe SUBCUT ×2 (03:22→16:28)
[2022-03-22 03:49] LABS: Basophils % 0.9 %; Eosinophils # 0.1 10^3/uL (0.0-0.8); Eosinophils % 1.3 %; Hematocrit 39.7 % (42.0-52.0); Lymphocytes # 0.7 10^3/uL (0.8-4.8); Lymphocytes % 14.9 %; Mean Corpuscular HGB Conc 27.7 g/dL (30.0-36.0); Mean Corpuscular Hemoglobin 21.7 pg (28.0-34.0); Mean Corpuscular Volume 78.1 fl (80-94); Mean Platelet Volume 12.1 fL (7.4-10.4); Monocytes % 20.7 %; Neutrophils # 2.86 10^3/uL (1.8-7.7); Neutrophils % 61.6 %; Nucleated Red Blood Cells % 0 %; Platelet Count 274 10^3/cmm (130-400); Red Blood Count 5.08 10^6/uL (4.1-5.3); Red Cell Distribution Width 17.7 % (12.1-15.1); White Blood Count 4.6 10^3/uL (4.0-10.0)
[2022-03-22 04:12] LABS: Alanine Aminotransferase 31 U/L (0-41); Albumin Level 2.6 g/dL (3.5-5.2); Alkaline Phosphatase 83 U/L (40-130); Anion Gap 9.7 (5-19); Aspartate Amino Transferase 45 U/L (0-40); Blood Urea Nitrogen 11 mg/dL (6-20); Calcium 8.7 mg/dL (8.5-10.5); Carbon Dioxide 31 mmol/L (22-29); Chloride 98 mmol/L (98-107); Globulin 4.3 g/dL (1.3-4.6); Glomerular Filtration Rate 142.7 mL/min (90-130); Glucose 121 mg/dL (65-115); Osmolality Calculated 281 mOsm/kg (285-295); Potassium 3.7 mmol/L (3.5-5.1); Sodium 135 mmol/L (136-145); Total Bilirubin 0.5 mg/dL (0.15-1.2); Total Protein 6.9 g/dL (6.6-8.7)
[2022-03-22] MEDS: budesonide 0.5 mg/2 mL Neb INHALATION ×2 (07:36→21:37)
[2022-03-22] MEDS: levalbuterol 0.63 mg/3 mL Neb INHALATION ×3 (07:36→21:38)
[2022-03-22] MEDS: ipratropium 0.5 mg/2.5 mL Neb INHALATION ×3 (07:36→21:37)
[2022-03-22] MEDS: docusate sodium 100 mg Capsule PO (08:54)
[2022-03-22] MEDS: famotidine 20 mg Tablet PO ×2 (08:54→17:20)
[2022-03-22] MEDS: ALPRAZolam 0.5 mg Tablet PO ×2 (08:54→19:55)
[2022-03-22] MEDS: metoprolol tartrate 50 mg Tablet PO ×2 (08:54→20:01)
[2022-03-22] MEDS: cefTRIAXone 1,000 MG in sodium chloride 0.9% (plus) 50 ML 100 MG IV (10:15)
[2022-03-22] MEDS: pyridoxine 50 mg Tablet PO (10:15)
[2022-03-22] MEDS: rifAMPin 300 mg Capsule 600 MG PO (10:54)
--- NOTE | 2022-03-22 16:04 | PM.PN ---
Subjective Subjective: He got more dyspneic this morning, currently doing better. Reports orthopnea. Request for a back wrap to help support his back while he is sitting up, but discussed with him this would risk constricting his chest, making him more short of breath. Vitals/I&O/Wt Last Vital Signs Temp 98.2 F 03/22/22 08:38 Pulse 93 03/22/22 15:23 Resp 22 H 03/22/22 15:23 BP 130/96 03/22/22 15:23 Pulse Ox 96 03/22/22 15:23 O2 Del Method 03/22/22 14:00 O2 Flow Rate 2 03/22/22 14:00 FiO2 30 03/19/22 08:00 03/22/22 03/22/22 03/22/22 06:59 14:59 22:59 Intake Total 480 / 1700 1410 / 1410 Output Total 300 / 800 175 / 175 Balance 180 / 900 1235 / 1235 Physical Exam Narrative: Nasal cannula. Sitting up at edge of bed. Const: COMMON NORMALS: patient oriented x3 and alert GENERAL APPEARANCE: cooperative ORIENTATION/CONSCIOUSNESS: Yes awake HENMT: COMMON NORMALS: oropharynx normal Neck/C-Spine: COMMON NORMALS: no JVD Resp: COMMON NORMALS: normal respiratory effort AUSCULTATION: rhonchi and other (Coarse breath sounds) Cardio: COMMON NORMALS: no JVD, regular rhythm, S1 normal heart sound present, S2 normal heart sound present and No murmurs present (Cardio) RHYTHM: regular rhythm HEART SOUNDS: S1 normal heart sound present and S2 normal heart sound present GI: COMMON NORMALS: Normal to inspection, nondistended, normoactive bowel sounds present, Soft to palpation and non-tender PALPATION: Yes Soft to palpation Extremity: COMMON NORMALS: no joint enlargement and no pedal edema GENERAL: Yes edema (2+) Neuro: COMMON NORMALS: patient oriented x3 and moves all extremities SENSORIUM/ORIENTATION: Yes alert Skin: COMMON NORMALS: no rashes or lesions noted GENERAL SKIN EXAM: no rashes or lesions noted Urinary Catheter Management: Ardon: Cath Placed During This Visit: yes, but has since been removed by the nurse Reason for Continuing Indwelling Catheter: Decision to DC Catheter Urinary Catheter Date of Insertion: 03/14/22 Urinary Catheter Time of Insertion: 00:35 Date Urinary Catheter Removed: 03/15/22 Time Urinary Catheter Discontinued: 10:15 Data 03/22/22 03:40 03/22/22 03:40 Micro: Microbiology 03/18/22 21:00 Gram Stain - Final Sputum - Expectorated Sputum Sputum Culture - Final Staphylococcus aureus 03/21/22 04:00 Stool Lactoferrin - Final Stool Enteric Pathogens (PCR) - Final Parasite Antigen Panel - Final C.difficile Toxin B Gene (PCR) - Final Occult Blood (FIT) - Final A&P Assessment and plan (1) Community acquired pneumonia: Sputum culture growing MSSA. Both from 03/17 and 03/18 continue ceftriaxone. Follow-up chest x-ray. Complicated community-acquired pneumonia with parapneumonic effusions large left and moderate right. History of latent TB around 30 years ago for which he was treated with oral meds from 6 months. Fluid studies appreciated from left thoracentesis. Indicating to with exudative. Not empyema. We will follow-up cultures. MRSA PCR negative. Right-sided thoracentesis done on 03/17. Fluid studies appreciated. Not consistent with empyema though patient has been on antibiotics. No growth on fluid cultures. Fluid ADA positive up to 99.5. High concerns for tuberculosis. Histoplasma antigen, cryptococcal antigen pending, MTB PCR and AFB culture 2 out of 3 sent and pending. Appreciate ID recommendations. DEMETRIUS panel positive for scleroderma, DONTA levels pending. No concerns for lymphoma for now as per differentials. Sputum culture today growing coag positive staph. COVID-19 PCR negative. C. difficile pending. 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 Will need a pleural biopsy. Once discussed with radiology and plan for early next week. Further treatment as per ID recommendations. Case was discussed with National tuberculosis board. (3) Pleural effusion: Post 1 L thoracentesis on left side? 03/14, right-sided 500 cc thoracentesis 03/17 As above. Follow-up cytology and Gram culture. (4) Pulmonary embolism: Seen on CTA. Without right sided strain. Continue with anticoagulation. (5) Atrial fibrillation with RVR: Rate controlled. Continue with metoprolol 50 mg twice daily. C/w full dose lovenox. Plan to transition to Eliquis on discharge. Echocardiogram result shows an EF of 60%, thickened aortic valve without regional wall motion normality. (6) Acute respiratory failure with hypoxia: Secondary to above. Slight component of diastolic congestive heart failure as well. Received Lasix, currently on hold. Fluid restriction up to 1500 cc. Strict daily weight check. (7) COPD (chronic obstructive pulmonary disease): (8) Cellulitis: Improving. (9) Acute CHF: Echocardiogram results appreciated. Diastolic in nature. Qualifiers: Heart failure type: diastolic Qualified Code(s): I50.31 - Acute diastolic (congestive) heart failure (10) Colon distention: Continue with aggressive bowel regimen. Appreciate surgical recommendations. Colace twice daily. (11) Constipation: (12) Blood in stool: Status post colonoscopy. (13) Depression: Patient is a documented allergy to duloxetine and Seroquel. Mirtazapine 30 mg p.o. bedtime. Plan Analgesia: Tylenol as needed Glycemic control: Not needed Nutrition: Cardiac diet, fluid restriction CODE STATUS: Full code Discharge planning: Home with home health. SNF placement discussed multiple times in detail with the patient. Patient did not want to consider SNF and is adamantly asking for home health. Continue with care at [facility]. This documentation was created by [employer] recreation therapy aides teacher software. Every effort was made to ensure accuracy of recreation therapy aides teacher. Any obvious errors or omissions should be clarified with the author of the document. Attestations Medical Necessity Statement*: Continue admission for assessment and management of complicated pneumonia, PE, suspected tuberculosis. Coding Level of Care Code Acute Supply Chain Logistics Manager for [facility] Fwd Exam Comprehensive Diagnoses Community acquired pneumonia J18.9 Tuberculosis A15.9 Pleural effusion J90 Pulmonary embolism I26.99 Atrial fibrillation with RVR I48.91 Acute respiratory failure with hypoxia J96.01 COPD (chronic obstructive pulmonary disease) J44.9 Cellulitis L03.90 Acute CHF I50.31 Heart failure type: diastolic Colon distention K63.89 Constipation K59.00 Blood in stool K92.1 Depression F32.A
[2022-03-22] MEDS: acetaminophen 500 mg Tablet PO (19:55)
[2022-03-22] MEDS: mirtazapine 30 mg Tablet PO (20:01)
--- NOTE | 2022-03-22 20:52 | PC.NURSE ---
Spoke with regarding patient complaint of back pain not relieved with PRN Tylenolol. Dr Lou ordered PRN Morphine PO.
[2022-03-22] MEDS: morphine IR 15 mg Tablet PO (21:50)
[2022-03-23] VITALS (41 sets, daily range): BP systolic 105–154; BP diastolic 74–108; PULSE 79–105; RESP 14–49; TEMP 36.4–36.9; O2SAT 92–100
[2022-03-23] MEDS: enoxaparin 80 mg/0.8 mL Syringe SUBCUT (03:17)
--- NOTE | 2022-03-23 06:00 | XRR_ITS ---
PROCEDURE INFORMATION: Exam: XR Chest Exam date and time: 03/23/2022 8:35 AM Age: 51 years old Clinical indication: Shortness of breath; Additional info: Hypoxia TECHNIQUE: Imaging protocol: Radiologic exam of the chest. Views: 1 view. COMPARISON: CR XR chest 1V portable [id number] 03/17/2022 4:28 PM FINDINGS: Lungs: There are unchanged small lung volumes. Mildly increased bilateral basilar airspace opacities are seen. Increased medium to large sized left and small to medium-sized right pleural effusions. Pleural spaces: No pneumothorax. Heart/Mediastinum: Unchanged heart size. Mildly tortuous thoracic aorta. Midline trachea. Bones/joints: No acute osseous abnormalities seen. XR/XR chest 1V portable [id number] IMPRESSION: Unchanged small lung volumes. Mildly increased bilateral basilar airspace opacities. Increased medium to large sized left and small to medium-sized right pleural effusions.
[2022-03-23] MEDS: morphine IR 15 mg Tablet PO (06:27)
[2022-03-23] MEDS: ipratropium 0.5 mg/2.5 mL Neb INHALATION ×3 (08:35→20:11)
[2022-03-23] MEDS: budesonide 0.5 mg/2 mL Neb INHALATION ×2 (08:35→20:11)
[2022-03-23] MEDS: levalbuterol 0.63 mg/3 mL Neb INHALATION ×3 (08:35→20:11)
[2022-03-23] MEDS: rifAMPin 300 mg Capsule 600 MG PO (09:37)
[2022-03-23] MEDS: metoprolol tartrate 50 mg Tablet PO ×2 (09:39→21:19)
[2022-03-23] MEDS: famotidine 20 mg Tablet PO ×2 (09:39→18:15)
[2022-03-23] MEDS: cefTRIAXone 1,000 MG in sodium chloride 0.9% (plus) 50 ML 100 MG IV (10:31)
--- NOTE | 2022-03-23 15:20 | PM.CONSULT ---
Providers/Reason For Consult Consulting Physician/Specialty*: Dr. Cleaning/cardiothoracic surgery Reason for Consult*: Recurrent pleural effusions Attending Physician: Wilbert Knott Primary Care Provider: Leonela Colby History of Present Illness History of Present Illness Alessandro Bradshaw is a 51 year old male whom I been consulted today by Dr. Knott for surgical opinion concerning recurrent bilateral pleural effusions left greater than right with prior thoracenteses. Mr. Bradshaw was admitted on March 13 with presentation of increasing dyspnea which has been worsening for the 2 to 3 weeks prior to presentation. He also complained of weight loss, low-grade fever, poor appetite, and generalized malaise. He was a rather poor historian but appears to have had a past history including COPD and asthma. Prior medication have included albuterol, Spiriva, Advair, and DuoNeb. He has not been taking any medications at the time of his presentation. Initial BNP was 300. He did require BiPAP initially upon presentation. Chest x-ray at admission revealed bilateral pleural effusions. Initial CTA was negative for pulmonary embolism, though follow-up study on March 17 was positive with multiple filling defects bilaterally and segmental and subsegmental pulmonary arteries. He was initially treated with diuresis as well as being started on Rocephin and azithromycin. There is a past history of methamphetamine use. Transthoracic echocardiogram performed the following day revealed normal LV function without regional wall motion abnormalities. Large left pleural effusion was again noted. Presenting CT scan revealed transverse colon distention. Consultation was made with Dr. Doss and it was felt the patient could be treated medically without evidence for surgical abdomen. Initial thoracentesis on March 14 return to 1 L. Analysis revealed this to be exudative. Gram stain revealed some gram-positive cocci in pairs and chains have a culture remain negative. Subsequent sputum culture has revealed normal bashir with some staff aureus. Mr. Bradshaw does report a latent past history for TB for which he was treated approximately 30 years ago while he was incarcerated. He is not certain if he received full treatment, as he stated once he was released, no further treatment occurred. Of interest, is that his pleural fluid analysis revealed an elevated adenosine deaminase level of 99.5. A second thoracentesis on the right side was performed on March 17 and returned 400 cc. Quantitative TB Gold test was positive Following Dr. Shanks's consultation with [facility] [place], [place] treatment has been recommended. I have reviewed available imaging studies and laboratory data. Review of Systems Const: Reports: fever(s), body aches, change in weight and malaise Eyes: Denies: change in vision ENMT: Denies: throat pain or odynophagia Resp: Reports: dyspnea and productive cough GI: Reports: constipation; Denies: abdominal pain or coffee ground emesis : Denies: difficulty urinating or dysuria Musc: Reports: joint stiffness Neuro: Reports: headache(s); Denies: numbness in extremities or sensory changes Medications/Allergies Home Medications Medication Instructions Recorded Confirmed Last Taken Type ethambutol 400 mg tablet 1,600 mg PO DAILY 60 days #240 tabs 03/20/22 Unknown Rx (Myambutol) isoniazid 300 mg tablet 300 mg PO DAILY 60 days #60 tabs 03/20/22 Unknown Rx pyrazinamide 500 mg tablet 2,000 mg PO DAILY 60 days #240 tabs 03/20/22 Unknown Rx rifabutin 150 mg capsule 300 mg PO DAILY 60 days #120 caps 03/20/22 Unknown Rx (Mycobutin) Allergies Allergy/AdvReac Type Severity Reaction Status Date / Time fluoxetine [From Prozac] Allergy Unknown Verified 03/14/22 09:11 quetiapine [From Seroquel] Allergy Unknown Verified 03/14/22 09:11 Current Medications Generic Name Dose Route Start Last Admin Trade Name Freq PRN Reason Stop Dose Admin Acetaminophen 500 mg 03/18/22 03:55 03/22/22 19:55 Acetaminophen 500 Mg Tablet PO 500 mg Q4H PRN Administration MILD PAIN OR INCREASE TEMP Albuterol/Ipratropium 3 ml 03/14/22 01:15 03/18/22 13:55 Ipratropium-Albuterol 3 Ml Neb INHALATION 3 ml Q4H PRN Administration SHORTNESS OF BREATH Alprazolam 0.5 mg 03/19/22 15:40 03/22/22 19:55 Alprazolam 0.5 Mg Tablet PO 0.5 mg TID PRN Administration ANXIETY Budesonide 0.5 mg 03/17/22 20:00 03/23/22 08:35 Budesonide 0.5 Mg/2 Ml Neb INHALATION 0.5 mg BID.RESPIRATORY DELL Administration Docusate Sodium 100 mg 03/15/22 18:00 03/23/22 09:39 Docusate Sodium 100 Mg Capsule PO Not Given BID DELL Enoxaparin Sodium 80 mg 03/15/22 15:00 03/23/22 03:17 Enoxaparin 80 Mg/0.8 Ml Syringe SUBCUT 80 mg Q12H DELL Administration Ethambutol HCl 1,600 mg 03/22/22 10:30 03/23/22 09:35 Ethambutol 400 Mg Tablet PO 1,600 mg DAILY DELL Administration Famotidine 20 mg 03/15/22 18:00 03/23/22 09:39 Famotidine 20 Mg Tablet PO 20 mg BID DELL Administration Ceftriaxone Sodium 1,000 mg/ 50 mls @ 100 mls/hr 03/21/22 10:45 03/23/22 12:05 Sodium Chloride IV 03/28/22 10:44 Infused Q24H DELL Infusion Protocol Ipratropium [place] 0.5 mg 03/18/22 02:00 03/23/22 14:39 Ipratropium 0.5 Mg/2.5 Ml Neb INHALATION 0.5 mg Q6H.RESP DELL Administration Levalbuterol HCl 0.63 mg 03/17/22 21:42 03/23/22 14:39 Levalbuterol 0.63 Mg/3 Ml Neb INHALATION 0.63 mg Q6H.RESP DELL Administration Magnesium Hydroxide 30 ml 03/16/22 21:00 03/22/22 20:01 Magnesium Hydroxide 30 Ml Udc PO Not Given BEDTIME DELL Metoprolol Tartrate 50 mg 03/16/22 09:15 03/23/22 09:39 Metoprolol Tartrate 50 Mg Tablet PO 50 mg BID@0900,2100 DELL Administration Mirtazapine 30 mg 03/19/22 21:00 03/22/22 20:01 Mirtazapine 30 Mg Tablet PO 30 mg BEDTIME DELL Administration Morphine Sulfate 15 mg 03/22/22 20:51 03/23/22 06:27 Morphine Ir 15 Mg Tablet PO 15 mg Q6H PRN Administration SEVERE PAIN Non-Formulary 0 each 03/21/22 09:00 03/23/22 09:37 Medication PO 4 each Pyrazinamide 500 Mg DAILY DELL Administration Non-Formulary 0 each 03/21/22 09:00 03/23/22 09:39 Medication Isoniazid PO 1 each 300 Mg Tablet DAILY DELL Administration Patient Own Med - 0 each 03/23/22 09:00 03/23/22 09:38 Pyridoxine 100 Mg PO 5 each Tablet DAILY EDLL Administration Rifampin 600 mg 03/22/22 09:00 03/23/22 09:37 Rifampin 300 Mg Capsule PO 600 mg DAILY DELL Administration Senna 17.2 mg 03/17/22 21:00 03/22/22 20:01 Sennosides 8.6 Mg Tablet PO Not Given BEDTIME DELL Sodium Chloride 4 ml 03/17/22 16:34 03/19/22 13:29 Sodium Chloride 3.5% Neb 4 Ml Neb INHALATION 4 ml Q4H.RESPIRATORY PRN Administration SPUTUM INDUCTION PFSH Acute PFSH: Medical History COPD (chronic obstructive pulmonary disease) Latent tuberculosis Spinal stenosis Social History Smoking and tobacco status: current some day smoker Vitals/I&O/Wt Last Vital Signs Temp 98.3 F 03/23/22 03:31 Pulse 96 03/23/22 14:42 Resp 25 H 03/23/22 14:23 BP 146/108 03/23/22 08:04 Pulse Ox 100 03/23/22 14:42 O2 Del Method 03/23/22 14:00 O2 Flow Rate 2 03/23/22 08:00 FiO2 35 03/23/22 14:42 03/23/22 03/23/22 03/23/22 06:59 14:59 22:59 Intake Total / 2010 290 / 290 Output Total 200 / 675 1500 / 1500 Balance 40 / 1335 -1210 / -1210 Weight last 48 hrs Weight 190 lb 2 oz Physical Exam Const: COMMON NORMALS: patient oriented x3 HENMT: COMMON NORMALS: normocephalic, atraumatic, hearing grossly normal bilaterally and external ears normal HEAD & SCALP: normocephalic and atraumatic EXTERNAL EAR: Yes external ears normal Neck/C-Spine: COMMON NORMALS: full ROM and no lymphadenopathy Chest: COMMONS NORMALS: normal inspection of the chest Resp: AUSCULTATION: diminished lung sounds on the left throughout and bilateral in the lower lung restrepo Cardio: COMMON NORMALS: regular rate and regular rhythm RATE: regular rate RHYTHM: regular rhythm GI: COMMON NORMALS: Normal to inspection, nondistended, normoactive bowel sounds present AUSCULTATION: Yes Hypoactive bowel sounds present Extremity: OTHER: 2+ lower extremity edema Neuro: COMMON NORMALS: patient oriented x3, moves all extremities, no focal motor deficits and no sensory deficits noted Urinary Catheter Management: Ardon: Cath Placed During This Visit: yes, but has since been removed by the nurse Reason for Continuing Indwelling Catheter: Decision to DC Catheter Urinary Catheter Date of Insertion: 03/14/22 Urinary Catheter Time of Insertion: 00:35 Date Urinary Catheter Removed: 03/15/22 Time Urinary Catheter Discontinued: 10:15 Data 03/22/22 03:40 03/22/22 03:40 Micro: Microbiology 03/18/22 10:33 Blood Culture - Final Blood NO GROWTH AFTER 5 DAYS 03/18/22 10:33 Blood Culture - Final Blood NO GROWTH AFTER 5 DAYS A&P Assessment and plan (1) Pleural effusion: Recurrent bilateral pleural effusions, status post bilateral thoracenteses earlier during this admission. Given the substantial nature of his left effusion along with his worsening pulmonary status, I recommend left sided chest tube be placed. Rationale for this was carefully discussed with Mr. Bradshaw. I have conferred with my colleague Dr. Knott. Details and risks of the procedure were carefully and frankly discussed. Risks reviewed include the possibility of , stroke, heart attack, major bleeding, infection, pneumonia, organ failure, injury to heart, lung, diaphragm, or intra-abdominal organs, failure to benefit, prolonged hospital stay, pain after the procedure, need for further procedures, inability to complete the procedure, and possible need for long-term followup. All questions were answered. Appropriate consents have been provided for review and signature. Consult Attestations Medical Necessity Statement: 51-year-old gentleman with recurrent bilateral pleural effusions and worsening respiratory status, now requiring BiPAP. He is now a large left pleural effusion with prior history for bilateral thoracenteses earlier during this admission. Given that his prior studies have revealed exudative fluid, I recommend a left-sided chest tube. Coding Level of Care Code Acute Compositor Apprentice for [facility] [place] Diagnoses Pleural effusion J90
--- NOTE | 2022-03-23 16:30 | PC.NURSE ---
Report given to [facility] ICU. Patient transferred via wheelchair on 2L NC. Patient stable at this time. Respiratory aware and transported Bipap with patient. TB medications taken along with all patient belongings.
--- NOTE | 2022-03-23 16:45 | PC.NURSE ---
Pt arrives to ICU from [facility]. Pt on 2lpm/NC. Iv noted in left hand. Dr Cleaning notified of his arrival to unit.
--- NOTE | 2022-03-23 16:46 | P.PN_ITS ---
Subjective Subjective: Today having more dyspnea. Worse orthopnea. Shortly before my visit complaining of significant dyspnea due to which he started on BiPAP support. Repeat chest x-ray shows return with worsening of pleural effusions, large sized effusion on the left, small to medium on the right. Medications: Reviewed: Yes Vitals/I&O/Wt Last Vital Signs Temp 98.3 F 03/23/22 03:31 Pulse 96 03/23/22 14:42 Resp 25 H 03/23/22 14:23 BP 146/108 03/23/22 08:04 Pulse Ox 100 03/23/22 14:42 O2 Del Method 03/23/22 14:00 O2 Flow Rate 2 03/23/22 08:00 FiO2 35 03/23/22 14:42 03/23/22 03/23/22 03/23/22 06:59 14:59 22:59 Intake Total / 2010 290 / 290 Output Total 200 / 675 1500 / 1500 Balance 40 / 1335 -1210 / -1210 Weight last 48 hrs Weight 86.239 kg Physical Exam Narrative: Sitting upright in the chair. Doing well with BiPAP. Const: COMMON NORMALS: patient oriented x3 and alert ORIENTATION/CONSCIOUSNESS: Yes awake HENMT: COMMON NORMALS: oropharynx normal Neck/C-Spine: COMMON NORMALS: no JVD Resp: COMMON NORMALS: normal respiratory effort and clear to auscultation bilaterally AUSCULTATION: clear to auscultation bilaterally, rhonchi and diminished lung sounds bilateral in the lower lung restrepo Cardio: COMMON NORMALS: no JVD, regular rhythm, S1 normal heart sound present, S2 normal heart sound present and No murmurs present (Cardio) RHYTHM: regular rhythm HEART SOUNDS: S1 normal heart sound present and S2 normal heart sound present GI: COMMON NORMALS: Normal to inspection, nondistended, normoactive bowel sounds present, Soft to palpation and non-tender PALPATION: Yes Soft to palpation Extremity: COMMON NORMALS: no joint enlargement and no pedal edema GENERAL: Yes edema (1+) Neuro: COMMON NORMALS: patient oriented x3 and moves all extremities SENSORIUM/ORIENTATION: Yes alert Skin: COMMON NORMALS: no rashes or lesions noted GENERAL SKIN EXAM: no rashes or lesions noted Urinary Catheter Management: Ardon: Cath Placed During This Visit: yes, but has since been removed by the nurse Reason for Continuing Indwelling Catheter: Decision to DC Catheter Urinary Catheter Date of Insertion: 03/14/22 Urinary Catheter Time of Insertion: 00:35 Date Urinary Catheter Removed: 03/15/22 Time Urinary Catheter Discontinued: 10:15 Data 03/22/22 03:40 03/22/22 03:40 Micro: Microbiology 03/18/22 10:33 Blood Culture - Final Blood NO GROWTH AFTER 5 DAYS 03/18/22 10:33 Blood Culture - Final Blood NO GROWTH AFTER 5 DAYS A&P Assessment and plan (1) Community acquired pneumonia: Worsening dyspnea today, required starting BiPAP support. Chest x-ray returning with return and worsening of pleural effusion, large sized left, mild to moderate sized on the right. Appreciate thoracic surgery consultation as he is quite symptomatic. Plan for left-sided chest tube appreciated. Held NPO. Lo venox was held after this morning's dose. 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 Suspected MSSA pneumonia. Sputum culture growing MSSA. Both from 03/17 and 03/18 continue ceftriaxone. Blood cultures have been negative both 03/13 and 03/18. Complicated community-acquired pneumonia with parapneumonic effusions large left and moderate right. 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 Fluid studies appreciated from left thoracentesis. Indicating to with exudative. Not empyema. Cultures have been negative. MRSA PCR negative. Right-sided thoracentesis done on 03/17. Fluid studies appreciated. Not consistent with empyema though patient has been on antibiotics. No growth on fluid cultures. Fluid ADA positive up to 99.5. High concerns for tuberculosis. MTB PCR and AFB culture 2 out of 3 sent and pending. Histoplasma antigen negative, cryptococcal serum antigen negative Appreciate ID recommendations. DEMETRIUS panel positive for scleroderma, DONTA levels elevated at 89. Arrangements for pleural biopsy. No concerns for lymphoma for now as per differentials. Sputum culture today growing coag positive staph. COVID-19 PCR negative. C. difficile pending. 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 Will need a pleural biopsy. Once discussed with radiology and plan for early next week. Further treatment as per ID recommendations. Case was discussed with National tuberculosis board. (3) Pleural effusion: Post 1 L thoracentesis on left side? 03/14, right-sided 500 cc thoracentesis 03/17 As above. Follow-up cytology and Gram culture. (4) Pulmonary embolism: Seen on CTA. Without right sided strain. Continue with anticoagulation. (5) Atrial fibrillation with RVR: Rate controlled. Continue with metoprolol 50 mg twice daily. C/w full dose lovenox. Plan to transition to Eliquis on discharge. Echocardiogram result shows an EF of 60%, thickened aortic valve without regional wall motion normality. (6) Acute respiratory failure with hypoxia: Secondary to above. Slight component of diastolic congestive heart failure as well. Received Lasix, currently on hold. Fluid restriction up to 1500 cc. Strict daily weight check. (7) COPD (chronic obstructive pulmonary disease): (8) Cellulitis: Improving. (9) Acute CHF: Echocardiogram results appreciated. Diastolic in nature. Qualifiers: Heart failure type: diastolic Qualified Code(s): I50.31 - Acute diastolic (congestive) heart failure (10) Colon distention: Continue with aggressive bowel regimen. Appreciate surgical recommendations. Colace twice daily. (11) Constipation: (12) Blood in stool: Status post colonoscopy. (13) Depression: Patient is a documented allergy to duloxetine and Seroquel. Mirtazapine 30 mg p.o. bedtime. Plan Analgesia: Tylenol as needed Glycemic control: Not needed Nutrition: Cardiac diet, fluid restriction CODE STATUS: Full code Discharge planning: Home with home health. SNF placement discussed multiple times in detail with the patient. Patient did not want to consider SNF and is adamantly asking for home health. [facility] with care [facility]. This documentation was created by [employer] student affairs vice president software. Every effort was made to ensure accuracy of student affairs vice president. Any obvious errors or omissions should be clarified with the author of the document. Attestations Medical Necessity Statement*: Continue admission for this management of hypoxic failure, complicated pneumonia with recurrent parapneumonic effusions, suspected tuberculosis with extrapulmonary disease. 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
--- NOTE | 2022-03-23 17:57 | XRR_ITS ---
PROCEDURE INFORMATION: Exam: XR Chest Exam date and time: 03/23/2022 6:09 PM Age: 51 years old Clinical indication: Device placement; Chest tube TECHNIQUE: Imaging protocol: Radiologic exam of the chest. Views: 1 view. COMPARISON: CR (CHEST, ) 03/23/2022 8:35 AM FINDINGS: Tubes, catheters and devices: There is a large bore left chest tube. The tip projects over the base centrally. Lungs: There is opacification of both lung bases, decreased on the left. Pleural spaces: No pneumothorax. Heart/Mediastinum: Cardiomediastinal contours are unremarkable. Diaphragm: The lateral costophrenic sulci are blunted and the hemidiaphragms are obscured bilaterally. There is increased aeration of the left lung since the prior chest radiograph this morning. Bones/joints: Bones are unremarkable. XR/XR chest 1V portable [id number] IMPRESSION: Decreased left pleural effusion and increased aeration of the left lung status post chest tube placement. No pneumothorax.
--- NOTE | 2022-03-23 18:00 | PC.NURSE ---
Chest tube: Dr Cleaning and anesthesia at bedside. 28 fr. Chest tube inserted. 2chest tube chambers used, as there was copious amount of drainage. Frist ws [place] ( wet seal 0 The second ws [place] ( dry seal). 3400ml total of drainage, it started out yellow the became darker and more serosangiousness. Pt tolerated well.
--- NOTE | 2022-03-23 18:04 | ANES.PREANE2 ---
Pre-Anesthetic Assessment Height/Weight: Height 1.8 m Weight 86.239 kg Temp Pulse Resp BP Pulse Ox O2 Del Method O2 Flow Rate 98.3 F 96 25 H 146/108 100 2 03/23/22 03:31 03/23/22 14:42 03/23/22 14:23 03/23/22 08:04 03/23/22 14:42 03/23/22 14:00 03/23/22 08:00 FiO2 35 03/23/22 14:42 Preop Diagnosis: pleural effusion Operation Date: 03/21/22 11:30 Proposed Procedures p EGD/COLON(Not Applicable) - Presley Doss DO s Colonoscopy(Not Applicable) - Presley Doss DO Familial anesthetic complications: none Was Beta Ramon taken within 24 hours: N/A Was Clonidine taken within 24 hours: N/A Social Tobacco Exam alert, oriented x 3, clear to auscultation bilaterally and regular rate & rhythm Airway Submandibular: within normal limits Cervical ROM: within normal limits Mallampati: Class II Pulmonary Chronic Obstructive Pulmonary Disease tuberculosis CV/HEM Congestive Heart Failure None reported Hepatic None reported GI None reported Metabolic None reported Musc/skel None reported Anesthetic Plan ASA status: 3 Anesthesia: MAC Risk of > 500 ml blood loss (7ml/kg in children): No Medications/Allergies Home Medications Medication Instructions Recorded Confirmed Last Taken Type ethambutol 400 mg tablet 1,600 mg PO DAILY 60 days #240 tabs 03/20/22 Unknown Rx (Myambutol) isoniazid 300 mg tablet 300 mg PO DAILY 60 days #60 tabs 03/20/22 Unknown Rx pyrazinamide 500 mg tablet 2,000 mg PO DAILY 60 days #240 tabs 03/20/22 Unknown Rx rifabutin 150 mg capsule 300 mg PO DAILY 60 days #120 caps 03/20/22 Unknown Rx (Mycobutin) Allergies Allergy/AdvReac Type Severity Reaction Status Date / Time fluoxetine [From Prozac] Allergy Unknown Verified 03/14/22 09:11 quetiapine [From Seroquel] Allergy Unknown Verified 03/14/22 09:11 Current Medications Generic Name Dose Route Start Last Admin Trade Name Freq PRN Reason Stop Dose Admin Acetaminophen 500 mg 03/18/22 03:55 03/22/22 19:55 Acetaminophen 500 Mg Tablet PO 500 mg Q4H PRN Administration MILD PAIN OR INCREASE TEMP Albuterol/Ipratropium 3 ml 03/14/22 01:15 03/18/22 13:55 Ipratropium-Albuterol 3 Ml Neb INHALATION 3 ml Q4H PRN Administration SHORTNESS OF BREATH Alprazolam 0.5 mg 03/19/22 15:40 03/22/22 19:55 Alprazolam 0.5 Mg Tablet PO 0.5 mg TID PRN Administration ANXIETY Budesonide 0.5 mg 03/17/22 20:00 03/23/22 08:35 Budesonide 0.5 Mg/2 Ml Neb INHALATION 0.5 mg BID.RESPIRATORY DELL Administration Docusate Sodium 100 mg 03/15/22 18:00 03/23/22 09:39 Docusate Sodium 100 Mg Capsule PO Not Given BID DELL Enoxaparin Sodium 80 mg 03/15/22 15:00 03/23/22 03:17 Enoxaparin 80 Mg/0.8 Ml Syringe SUBCUT 80 mg Q12H DELL Administration Ethambutol HCl 1,600 mg 03/22/22 10:30 03/23/22 09:35 Ethambutol 400 Mg Tablet PO 1,600 mg DAILY DELL Administration Famotidine 20 mg 03/15/22 18:00 03/23/22 09:39 Famotidine 20 Mg Tablet PO 20 mg BID DELL Administration Ceftriaxone Sodium 1,000 mg/ 50 mls @ 100 mls/hr 03/21/22 10:45 03/23/22 12:05 Sodium Chloride IV 03/28/22 10:44 Infused Q24H DELL Infusion Protocol Ipratropium [place] 0.5 mg 03/18/22 02:00 03/23/22 14:39 Ipratropium 0.5 Mg/2.5 Ml Neb INHALATION 0.5 mg Q6H.RESP DELL Administration Levalbuterol HCl 0.63 mg 03/17/22 21:42 03/23/22 14:39 Levalbuterol 0.63 Mg/3 Ml Neb INHALATION 0.63 mg Q6H.RESP DELL Administration Magnesium Hydroxide 30 ml 03/16/22 21:00 03/22/22 20:01 Magnesium Hydroxide 30 Ml Udc PO Not Given BEDTIME DELL Metoprolol Tartrate 50 mg 03/16/22 09:15 03/23/22 09:39 Metoprolol Tartrate 50 Mg Tablet PO 50 mg BID@0900,2100 DELL Administration Mirtazapine 30 mg 03/19/22 21:00 03/22/22 20:01 Mirtazapine 30 Mg Tablet PO 30 mg BEDTIME DELL Administration Morphine Sulfate 15 mg 03/22/22 20:51 03/23/22 06:27 Morphine Ir 15 Mg Tablet PO 15 mg Q6H PRN Administration SEVERE PAIN Non-Formulary 0 each 03/21/22 09:00 03/23/22 09:37 Medication PO 4 each Pyrazinamide 500 Mg DAILY DELL Administration Non-Formulary 0 each 03/21/22 09:00 03/23/22 09:39 Medication Isoniazid PO 1 each 300 Mg Tablet DAILY DELL Administration Patient Own Med - 0 each 03/23/22 09:00 03/23/22 09:38 Pyridoxine 100 Mg PO 5 each Tablet DAILY DELL Administration Rifampin 600 mg 03/22/22 09:00 03/23/22 09:37 Rifampin 300 Mg Capsule PO 600 mg DAILY DELL Administration Senna 17.2 mg 03/17/22 21:00 03/22/22 20:01 Sennosides 8.6 Mg Tablet PO Not Given BEDTIME DELL Sodium Chloride 4 ml 03/17/22 16:34 03/19/22 13:29 Sodium Chloride 3.5% Neb 4 Ml Neb INHALATION 4 ml Q4H.RESPIRATORY PRN Administration SPUTUM INDUCTION PFSH Anesthesia Medical History COPD (chronic obstructive pulmonary disease) Latent tuberculosis Spinal stenosis Social History Smoking and tobacco status: current some day smoker Data Anesthesia 03/22/22 03:40 03/22/22 03:40 Short CBC 03/22/22 Range/Units 03:40 WBC 4.6 (4.0-10.0) 10^3/uL Hgb 11.0 L (11.7-16.6) g/dL Hct 39.7 L (42.0-52.0) % MCV 78.1 L (80-94) fl Plt Count 274 (130-400) 10^3/cmm Neut % (Auto) 61.6 % Neut # (Auto) 2.86 (1.8-7.7) 10^3/uL BMP 03/22/22 03:40 Sodium 135 L Potassium 3.7 Chloride 98 Carbon Dioxide 31 H BUN 11 Creatinine 0.7 Glucose 121 H Calcium 8.7 Liver Function 03/22/22 Range/Units 03:40 Total Bilirubin 0.5 (0.15-1.2) mg/dL AST 45 H (0-40) U/L ALT 31 (0-41) U/L Alkaline Phosphatase 83 (40-130) U/L Albumin 2.6 L (3.5-5.2) g/dL Microbiology 03/18/22 10:33 Blood Culture - Final Blood NO GROWTH AFTER 5 DAYS 03/18/22 10:33 Blood Culture - Final Blood NO GROWTH AFTER 5 DAYS Cardiac Studies: Echocardiogram 03/14/22
--- NOTE | 2022-03-23 18:06 | ANE.PACU2 ---
Inpatient post-anesthesia follow up: Airway intact: Yes Vital signs: Temperature 98.3 F Pulse Rate 96 Respiratory Rate 25 Blood Pressure 146/108 Pulse Oximetry 100 Oxygen Delivery Me thod BiPAP Oxygen Flow Rate 2 Fraction of Inspir ed Oxygen 35 Hydration adequate: Yes Nausea and vomiting: No Pain level: 1 Mental status: Baseline
--- NOTE | 2022-03-23 18:10 | PM.OP ---
Operative Report Date of procedure: March 23, 2022 Pre-op diagnosis: Preop Diagnosis recurrent left pleural effusion Post-op diagnosis: same Procedure done: Left 28 [place] thoracostomy tube placement Implants: 28 [place] thoracostomy tube Specimens removed/disposition: 3400 cc of serous/slightly sanguinous pleural fluid Surgeon: [place] Cleaning Anesthesia: MAC and Local Complications: None Findings: 3400 cc of serous/slightly sanguinous pleural fluid recovered Disposition: ICU Brief History: Mr. Bradshaw is a 51-year-old gentleman who presented with lethargy, dyspnea, low-grade temperature, and prior history for tuberculosis with treatment. He had bilateral pleural effusions underwent thoracentesis on the left and right sides several days ago. He has had recurrence substantially of his left pleural effusion and to a lesser degree the right side. He has had progressive respiratory difficulties now requiring BiPAP. I have recommended left thoracostomy tube placement and have conferred with my colleague Dr. Knott. Details of risk the procedure were carefully and frankly discussed with Mr. Bradshaw. Appropriate consents have been reviewed and signed. Procedure: Procedure: Mr. Bradshaw was placed in the upright position with the left chest slightly elevated. IV conscious sedation using propofol by our anesthesia colleagues was given with continous monitoring of heart rate, rhythm, ekg, and O2 saturation. The entire left chest was thoroughly prepped and draped. 1% lidocaine was infiltrated in the midaxillary line over the seventh rib. A #15 scalpel blade was used to incise the skin, silk stay suture was placed, followed by utilizing a small hemostat to enter the pleural space with return of mostly serous fluid. A 28 [place] thoracostomy tube was placed. A total of 3400 mL of serous/slightly sanguinous fluid was collected. Chest tube was secured to the skin followed by placement of sterile dressings. Chest tube is placed to Pleur-evac suction. The patient tolerated the procedure well and chest x-ray is currently pending. We will leave chest tube to suction with planned serial chest x-rays. Vital signs remained stable at the completion of the procedure with current O2 saturation at 100%.
[2022-03-23] MEDS: docusate sodium 100 mg Capsule PO (18:15)
[2022-03-23] MEDS: lidocaine 1% INJ 20 mL MDV (mL) INJECTION (18:15)
[2022-03-23] MEDS: HYDROcodone-acetaminophen 5-325 mg Tablet 1 TAB PO (19:39)
--- NOTE | 2022-03-23 19:45 | PC.NURSE ---
Bedside report completed with JOZEF Koo. Frequent position changes and pillow placement changed until pt was satisfied.
--- NOTE | 2022-03-23 20:30 | PC.NURSE ---
Shift Note: Pt talkative and slightly anxious. He asks frequent questions, eager to learn about his progress and care. Pt tolerated chest tube placement. Bipap using during procedure, after he was more alert switched to 3lpm/NC. Voice clear and strong with no hesitant or gasping while conversing. Urine orange. Frequent safety and comfort rounds continue. Orders and/or nursing care completed as indicated. Patient monitored for response to intervention and treatment(s). Education provided includes chest tube, propofol and lidocaine. Patient verbalized understanding after questions answered of need of chest tube and placement procedure. . Will continue to monitor.
[2022-03-23] MEDS: mirtazapine 30 mg Tablet PO (21:19)
[2022-03-23] MEDS: TRAMadol 50 mg Tablet PO (23:21)
[2022-03-23] MEDS: ALPRAZolam 0.5 mg Tablet PO (23:21)
[2022-03-24] VITALS (99 sets, daily range): BP systolic 90–188; BP diastolic 59–121; PULSE 74–105; RESP 0–39; TEMP 36.3–37.4; O2SAT 76–100
[2022-03-24] MEDS: enoxaparin 80 mg/0.8 mL Syringe SUBCUT (02:16)
[2022-03-24 03:03] LABS: Basophils % 0.9 %; Eosinophils # 0.1 10^3/uL (0.0-0.8); Eosinophils % 2.4 %; Hematocrit 46.2 % (42.0-52.0); Hemoglobin 12.8 g/dL (11.7-16.6); Lymphocytes # 0.7 10^3/uL (0.8-4.8); Lymphocytes % 15.4 %; Mean Corpuscular HGB Conc 27.7 g/dL (30.0-36.0); Mean Corpuscular Hemoglobin 21.9 pg (28.0-34.0); Mean Platelet Volume 12.4 fL (7.4-10.4); Monocytes # 0.7 10^3/uL (0.2-0.9); Neutrophils # 3.06 10^3/uL (1.8-7.7); Neutrophils % 65.2 %; Nucleated Red Blood Cells % 0 %; Platelet Count 260 10^3/cmm (130-400); Red Blood Count 5.85 10^6/uL (4.1-5.3); Red Cell Distribution Width 18.4 % (12.1-15.1); White Blood Count 4.7 10^3/uL (4.0-10.0)
[2022-03-24] MEDS: levalbuterol 0.63 mg/3 mL Neb INHALATION ×4 (03:20→20:27)
[2022-03-24] MEDS: ipratropium 0.5 mg/2.5 mL Neb INHALATION ×2 (03:20→09:18)
[2022-03-24 03:26] LABS: Alanine Aminotransferase 39 U/L (0-41); Albumin Level 2.7 g/dL (3.5-5.2); Alkaline Phosphatase 94 U/L (40-130); Blood Urea Nitrogen 8 mg/dL (6-20); Carbon Dioxide 27 mmol/L (22-29); Chloride 103 mmol/L (98-107); Globulin 4.6 g/dL (1.3-4.6); Glomerular Filtration Rate 210.5 mL/min (90-130); Glucose 97 mg/dL (65-115); Osmolality Calculated 290 mOsm/kg (285-295); Sodium 141 mmol/L (136-145); Total Bilirubin 0.6 mg/dL (0.15-1.2); Total Protein 7.3 g/dL (6.6-8.7)
[2022-03-24 03:32] LABS: Anion Gap 15.4 (5-19); Aspartate Amino Transferase 54 U/L (0-40); Potassium 4.4 mmol/L (3.5-5.1)
[2022-03-24 03:35] LABS: Slide Review Slide Review Perform
--- NOTE | 2022-03-24 06:00 | XRR_ITS ---
PROCEDURE INFORMATION: Exam: XR Chest Exam date and time: 03/24/2022 6:36 AM Age: 51 years old Clinical indication: Device placement; Chest tube; Additional info: Pod#1 S/P chest tube to pleuravac suction TECHNIQUE: Imaging protocol: Radiologic exam of the chest. Views: 1 view. COMPARISON: CR (CHEST, ) 03/23/2022 6:09 PM FINDINGS: Tubes, catheters and devices: Left thoracostomy tube in place unchanged in position. Monitor leads project over the chest. Lungs: Persistent bilateral lower lung zone and bibasilar atelectasis versus pneumonia. Pleural spaces: Persistent bilateral pleural effusions versus empyemas right greater than left. No definite or significant pneumothorax demonstrated. Heart/Mediastinum: Obscured cardiac borders. Bones/joints: No acute osseous abnormality. XR/XR chest 1V portable [id number] IMPRESSION: 1. Left thoracostomy tube in place unchanged in position. 2. Persistent bilateral pleural effusions versus empyemas right greater than left. 3. Persistent bilateral lower lung zone and bibasilar atelectasis versus pneumonia.
--- NOTE | 2022-03-24 06:12 | PM.PN ---
Subjective Subjective: Postop day #1 status post right thoracostomy tube placement. Chest tube output just under 200 cc since original drainage of 3400 cc. Now only requiring 2 L nasal cannula and maintaining O2 saturation of 100%. Resting well. Nursing service reports no concerns overnight. This morning's chest x-ray is pending. Vitals/I&O/Wt Last Vital Signs Temp 97.9 F 03/23/22 20:00 Pulse 99 03/24/22 05:45 Resp 16 03/24/22 05:45 BP 142/90 03/24/22 05:45 Pulse Ox 98 03/24/22 05:45 O2 Del Method 03/24/22 05:45 O2 Flow Rate 3 03/24/22 05:45 FiO2 35 03/23/22 14:42 03/23/22 03/23/22 03/24/22 14:59 22:59 06:59 Intake Total 290 / 290 Output Total 1500 / 1500 3630 / 5130 275 / 5405 Balance -1210 / -1210 -3630 / -4840 -275 / -5115 Weight last 48 hrs Weight 190 lb 2 oz Physical Exam Chest: OTHER: Surgical dressing clean and dry. Chest tube remains in position. Connected to Pleur-evac suction. Urinary Catheter Management: Ardon: Cath Placed During This Visit: yes, but has since been removed by the nurse Reason for Continuing Indwelling Catheter: Decision to DC Catheter Urinary Catheter Date of Insertion: 03/14/22 Urinary Catheter Time of Insertion: 00:35 Date Urinary Catheter Removed: 03/15/22 Time Urinary Catheter Discontinued: 10:15 Data 03/24/22 02:22 03/24/22 02:22 Micro: Microbiology 03/18/22 10:33 Blood Culture - Final Blood NO GROWTH AFTER 5 DAYS 03/18/22 10:33 Blood Culture - Final Blood NO GROWTH AFTER 5 DAYS A&P Assessment and plan (1) Status post thoracostomy tube placement: ChestPostop day #1 status post left chest tube placement. Plan: X-ray this morning is pending. I would recommend leaving chest tube to suction at least for another 24 hours and assess output. Regards to the small to modest right pleural effusion, I believe this would be best addressed at this time with ultrasound-guided thoracentesis, to avoid placing bilateral chest tubes which would hinder mobility. Recommend follow-up chest x-ray in a.[facility] Necessity Statement*: Status post chest tube placement on the left for recurrent large left pleural effusion. Coding Level of Care Code Acute Public Relations Counselor for Chg Fwd Diagnoses Status post thoracostomy tube placement Z93.8
[2022-03-24] MEDS: docusate sodium 100 mg Capsule PO ×2 (09:08→17:38)
[2022-03-24] MEDS: metoprolol tartrate 50 mg Tablet PO ×2 (09:09→20:45)
[2022-03-24] MEDS: famotidine 20 mg Tablet PO ×2 (09:09→17:38)
[2022-03-24] MEDS: rifAMPin 300 mg Capsule 600 MG PO (09:10)
[2022-03-24] MEDS: budesonide 0.5 mg/2 mL Neb INHALATION ×2 (09:18→20:27)
[2022-03-24] MEDS: cefTRIAXone 1,000 MG in sodium chloride 0.9% (plus) 50 ML 100 MG IV (12:11)
--- NOTE | 2022-03-24 12:20 | CT_ITS ---
WS: [id number] CT-GUIDED PLEURAL BIOPSY. CLINICAL INFORMATION: CT guided pleural biopsy COMPARISON: None. DLP: 2631.66 mGy.cm TECHNIQUE: The procedure including risk, benefits, and complications were discussed with the patient who agreed to proceed. Using sterile technique, the patient was prepped and draped in the usual steri le fashion. Patient was positioned [id number] and CT images were obtained through the RIGHT lung. The lower RIGHT lung pleura was selected. After 1% lidocaine using fluoroscopic guidance, a 19-gauge coaxial needle was advanced into the RIGHT pleura. Approximately 4 samples were obtained. Next a 4 [place] catheter was advanced into the RIGHT pleural fluid and approximately 100 pleural fluid was drained. CT/CT guided biopsy [id number] IMPRESSION: 1. Multiple 20-gauge core samples were obtained of the RIGHT lung pleura.. No immediate complications. 2. 90 minute chest x-ray demonstrates no significant pneumothorax. 3. In addition, approximately 100 cc of pleural fluid was drained. Pleural flu id was complex and viscous
[2022-03-24] MEDS: midazolam 1 mg/mL INJ 2 mL 4 MG IVP (13:40)
[2022-03-24] MEDS: fentaNYL 50 mcg/mL INJ 2mL 75 MCG IVP (13:41)
[2022-03-24] MEDS: midazolam 1 mg/mL INJ 2 mL IVP (14:15)
[2022-03-24] MEDS: fentaNYL 50 mcg/mL INJ 2mL 25 MCG IVP (14:16)
--- NOTE | 2022-03-24 14:32 | XR_ITS ---
WS: [id number] EXAMINATION: XR chest 1V portable [id number] REASON FOR EXAM: post procedure COMPARISON: 03/24/2022 ORDER DATE: 03/24/2022 3:52 PM TECHNIQUE: A single, portable frontal chest x-ray was obtained. X-RAY FINDINGS: Tubes, catheters and devices: Left thoracostomy tube in place unchanged in position. Monitor leads project over the chest. Lungs: Persistent bilateral lower lung zone and bibasilar atelectasis with Infiltrate possibly slightly decreasing on the left. Pleural spaces: Persistent bilateral pleural effusions versus empyemas right greater than left. No definite or significant pneumothorax demonstrated. Heart/Mediastinum: Obscured cardiac borders. Bones/joints: No acute osseous abnormality. XR/XR chest 1V portable [id number] IMPRESSION: 1. Left thoracostomy tube in place unchanged in position. 2. Persistent bilateral pleural effusions versus empyemas right greater than left. 3. Bibasal infiltrates with slightly decreasing infiltrate on the left
--- NOTE | 2022-03-24 15:29 | PC.NURSE ---
Patient taken to CT for CT guided biopsy and thoracentesis. Procedure was uneventful. 50mcg of fentanyl given, 2mg of versed given. See OR nurse charting in worklist for vitals.
--- NOTE | 2022-03-24 16:03 | P.PN_ITS ---
Subjective Subjective: Today he states he is still not doing very well. However, admits that he is breathing somewhat better. He is upset that he is able to use the remote to try to reposition his bed. Denies any new problems today but is also upset that he could not eat. Discussed with him additionally again regarding pleural biopsy and the reasoning why no oral intake is important before the procedure. Medications: Reviewed: Yes Vitals/I&O/Wt Last Vital Signs Temp 97.6 F 03/24/22 14:25 Pulse 76 03/24/22 14:25 Resp 24 H 03/24/22 14:25 BP 118/79 03/24/22 14:25 Pulse Ox 97 03/24/22 14:16 O2 Del Method 03/24/22 14:00 O2 Flow Rate 2 03/24/22 14:00 FiO2 2 03/24/22 12:00 03/24/22 03/24/22 03/24/22 06:59 14:59 22:59 Output Total 275 / 5405 350 / 350 Balance -275 / -5115 -350 / -350 Weight last 48 hrs Weight 86.183 kg Weight 86.239 kg Physical Exam Narrative: Sitting upright in the chair. Doing well with BiPAP. Const: COMMON NORMALS: patient oriented x3 and alert GENERAL APPEARANCE: cooperative ORIENTATION/CONSCIOUSNESS: Yes awake HENMT: COMMON NORMALS: oropharynx normal Neck/C-Spine: COMMON NORMALS: no JVD Resp: COMMON NORMALS: normal respiratory effort and clear to auscultation bilaterally AUSCULTATION: clear to auscultation bilaterally, rhonchi, diminished lung sounds bilateral in the lower lung restrepo and other (Coarse breath sounds) Cardio: COMMON NORMALS: no JVD, regular rhythm, S1 normal heart sound present, S2 normal heart sound present and No murmurs present (Cardio) RHYTHM: regular rhythm HEART SOUNDS: S1 normal heart sound present and S2 normal heart sound present GI: COMMON NORMALS: Normal to inspection, nondistended, normoactive bowel sounds present, Soft to palpation and non-tender PALPATION: Yes Soft to palpation Extremity: COMMON NORMALS: no joint enlargement and no pedal edema GENERAL: Yes edema (1+) Neuro: COMMON NORMALS: patient oriented x3 and moves all extremities SENSORIUM/ORIENTATION: Yes alert Skin: COMMON NORMALS: no rashes or lesions noted GENERAL SKIN EXAM: no rashes or lesions noted Urinary Catheter Management: Ardon: Cath Placed During This Visit: yes, but has since been removed by the nurse Reason for Continuing Indwelling Catheter: Decision to DC Catheter Urinary Catheter Date of Insertion: 03/14/22 Urinary Catheter Time of Insertion: 00:35 Date Urinary Catheter Removed: 03/15/22 Time Urinary Catheter Discontinued: 10:15 Data 03/24/22 02:22 03/24/22 02:22 Micro: Microbiology 03/18/22 10:33 Blood Culture - Final Blood NO GROWTH AFTER 5 DAYS 03/18/22 10:33 Blood Culture - Final Blood NO GROWTH AFTER 5 DAYS A&P Assessment and plan (1) Community acquired pneumonia: Status post chest tube on the left with evacuation of large amount of fluid 3400 mL, additional drainage subsequently about 310 mL. He underwent right-sided pleural biopsy, additional thoracentesis, small amount 100-150 mL evacuated on the right, but with concern for loculations. Suspected MSSA pneumonia. Sputum culture growing MSSA. Both from 03/17 and 03/18 continue ceftriaxone. Blood cultures have been negative both 03/13 and 03/18. Complicated community-acquired pneumonia with parapneumonic effusions large left and moderate right. 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 AFB smears so far negative, including sample from 03/18. Cultures pending. PCR pending. Fluid studies appreciated from left thoracentesis. Indicating to with exudative. Not empyema. Cultures have been negative. MRSA PCR negative. Right-sided thoracentesis done on 03/17. Fluid studies appreciated. Not consistent with empyema though patient has been on antibiotics. No growth on fluid cultures. Fluid ADA positive up to 99.5. High concerns for tuberculosis. MTB PCR and AFB culture 2 out of 3 sent and pending. Histoplasma antigen negative, cryptococcal serum antigen negative Appreciate ID recommendations. DEMETRIUS panel positive for scleroderma, DONTA levels elevated at 89. Arrangements for pleural biopsy. No concerns for lymphoma for now as per differentials. Sputum culture today growing coag positive staph. COVID-19 PCR negative. C. difficile negative. Per discussion with CT surgery okay to continue care on CSU, if airborne isolation bed available. 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 Status post pleural biopsy today on the right side, formalin samples for evaluation for caseating granuloma, AFB samples obtained also to be forwarded to state. Further treatment as per ID recommendations. Case was discussed with National tuberculosis board. (3) Pleural effusion: Post 1 L thoracentesis on left side? 03/14, right-sided 500 cc thoracentesis 03/17. Chest tube placed 03/23, 3400 evaluated at time of appointment, additional drainage 310 mL today. Additional thoracentesis attempted on the right side, small amount 100-150 mL obtained. Concern for loculation. Persistent effusion on chest x-ray. As above. Follow-up cytology and Gram culture. (4) Pulmonary embolism: Seen on CTA. Without right sided strain. Continue with anticoagulation. (5) Atrial fibrillation with RVR: Rate controlled. Continue with metoprolol 50 mg twice daily. C/w full dose lovenox. Plan to transition to Eliquis on discharge. Echocardiogram result shows an EF of 60%, thickened aortic valve without regional wall motion normality. (6) Acute respiratory failure with hypoxia: Secondary to above. Slight component of diastolic congestive heart failure as well. Received Lasix, currently on hold. Fluid restriction up to 1500 cc. Strict daily weight check. (7) COPD (chronic obstructive pulmonary disease): (8) Cellulitis: Improving. (9) Acute CHF: Echocardiogram results appreciated. Diastolic in nature. Diuretic on hold. Pleural effusions are parapneumonic. Qualifiers: Heart failure type: diastolic Qualified Code(s): I50.31 - Acute diastolic (congestive) heart failure (10) Colon distention: Continue with aggressive bowel regimen. Appreciate surgical recommendations. Colace twice daily. (11) Constipation: (12) Blood in stool: Status post colonoscopy. (13) Depression: Patient is a documented allergy to duloxetine and Seroquel. Mirtazapine 30 mg p.o. bedtime. Plan Analgesia: Tylenol as needed Glycemic control: Not needed Nutrition: Cardiac diet, fluid restriction CODE STATUS: Full code Discharge planning: Home with home health. SNF placement discussed multiple times in detail with the patient. Patient did not want to consider SNF and is adamantly asking for home health. Continue with care at [facility]. This documentation was created by [employer] electromatic typist software. Every effort was made to ensure accuracy of electromatic typist. Any obvious errors or omissions should be clarified with the author of the document. Attestations Medical Necessity Statement*: Continue admission for assessment of management of complicated pneumonia, parapneumonic effusion, extrapulmonary TB Coding Level of Care Code Acute Wax Machine Operator for g Fwd Exam Comprehensive Diagnoses Community acquired pneumonia J18.9 Tuberculosis A15.9 Pleural effusion J90 Pulmonary embolism I26.99 Atrial fibrillation with RVR I48.91 Acute respiratory failure with hypoxia J96.01 COPD (chronic obstructive pulmonary disease) J44.9 Cellulitis L03.90 Acute CHF I50.31 Heart failure type: diastolic Colon distention K63.89 Constipation K59.00 Blood in stool K92.1 Depression F32.A
--- NOTE | 2022-03-24 17:52 | PC.NURSE ---
Shift Summary: Uneventful shift. Patient Went for a CT guided biopsy and thoracentesis without complications. Was up to a chair for the majority of the shift. Total chest tube output has been 130mL and serosanguinous. Has been compliant with fluid restriction during shift with approximately 700mL remaining for shift nurse manager. Total urine output for shift has been 350mL. Lung sounds have been clear in the upper lobes and diminished in lower lobes, no changes to this throughout the day.
[2022-03-24] MEDS: magnesium hydroxide 30 mL UDC PO (20:45)
[2022-03-24] MEDS: sennosides 8.6 mg Tablet 17.2 MG PO (20:45)
[2022-03-24] MEDS: mirtazapine 30 mg Tablet PO (20:45)
--- NOTE | 2022-03-24 23:00 | PC.NURSE ---
Patient transferred from ICU and settled in room 102. Chest tube was marked at this time, 60ml output since change of shift. The patient requesting medication for pain and to help him sleep. call triplett within reach.
[2022-03-24] MEDS: ALPRAZolam 0.5 mg Tablet PO (23:22)
[2022-03-24] MEDS: HYDROcodone-acetaminophen 5-325 mg Tablet 1 TAB PO (23:23)
[2022-03-25] VITALS (15 sets, daily range): BP systolic 98–134; BP diastolic 68–94; PULSE 70–96; RESP 16–28; TEMP 36.6–37.2; O2SAT 90–99
[2022-03-25] MEDS: HYDROcodone-acetaminophen 5-325 mg Tablet 1 TAB PO ×3 (03:38→16:56)
--- NOTE | 2022-03-25 06:00 | XR_ITS ---
WS: [id number] EXAMINATION: XR chest 1V portable [id number] REASON FOR EXAM: POD#2 left chest tube COMPARISON: 03/24/2022 ORDER DATE: 03/25/2022 6:00 AM TECHNIQUE: A single, portable frontal chest x-ray was obtained. X-RAY FINDINGS: Tubes, catheters and devices: Left thoracostomy tube in place unchanged in position. Monitor leads project over the chest. Lungs: Persistent bilateral lower lung zone opacities greater on the right unchanged. Pleural spaces: Persistent bilateral pleural effusions versus empyemas right greater than left. No definite or significant pneumothorax demonstrated. Heart/Mediastinum: Obscured cardiac borders. Bones/joints: No acute osseous abnormality. XR/XR chest 1V portable [id number] Impression: 1. Left thoracostomy tube in place unchanged in position. 2. Persistent bilateral pleural effusions versus empyemas right greater than left. 3. Bibasal infiltrates unchanged
[2022-03-25 06:42] LABS: Basophils % 0.9 %; Eosinophils # 0.1 10^3/uL (0.0-0.8); Eosinophils % 2.2 %; Hemoglobin 10.5 g/dL (11.7-16.6); Lymphocytes # 0.6 10^3/uL (0.8-4.8); Lymphocytes % 13.9 %; Mean Corpuscular HGB Conc 28.4 g/dL (30.0-36.0); Mean Corpuscular Volume 77.6 fl (80-94); Monocytes # 0.9 10^3/uL (0.2-0.9); Monocytes % 19.1 %; Neutrophils # 2.91 10^3/uL (1.8-7.7); Nucleated Red Blood Cells % 0 %; Platelet Count 303 10^3/cmm (130-400); Red Blood Count 4.77 10^6/uL (4.1-5.3); Red Cell Distribution Width 17.9 % (12.1-15.1); White Blood Count 4.6 10^3/uL (4.0-10.0)
[2022-03-25 06:53] LABS: Alanine Aminotransferase 23 U/L (0-41); Albumin Level 2.2 g/dL (3.5-5.2); Alkaline Phosphatase 76 U/L (40-130); Anion Gap 9.8 (5-19); Aspartate Amino Transferase 28 U/L (0-40); Blood Urea Nitrogen 8 mg/dL (6-20); Calcium 8.4 mg/dL (8.5-10.5); Carbon Dioxide 28 mmol/L (22-29); Chloride 103 mmol/L (98-107); Globulin 3.5 g/dL (1.3-4.6); Glomerular Filtration Rate 272.3 mL/min (90-130); Glucose 82 mg/dL (65-115); Osmolality Calculated 281 mOsm/kg (285-295); Potassium 3.8 mmol/L (3.5-5.1); Sodium 137 mmol/L (136-145); Total Bilirubin 0.3 mg/dL (0.15-1.2); Total Protein 5.7 g/dL (6.6-8.7)
[2022-03-25] MEDS: levalbuterol 0.63 mg/3 mL Neb INHALATION ×2 (07:36→15:20)
[2022-03-25] MEDS: budesonide 0.5 mg/2 mL Neb INHALATION (07:36)
[2022-03-25] MEDS: docusate sodium 100 mg Capsule PO ×2 (09:26→16:55)
[2022-03-25] MEDS: rifAMPin 300 mg Capsule 600 MG PO (09:27)
[2022-03-25] MEDS: metoprolol tartrate 50 mg Tablet PO ×2 (09:27→20:46)
[2022-03-25] MEDS: famotidine 20 mg Tablet PO ×2 (09:28→16:56)
[2022-03-25] MEDS: cefTRIAXone 1,000 MG in sodium chloride 0.9% (plus) 50 ML 100 MG IV (09:28)
--- NOTE | 2022-03-25 17:42 | PM.PN ---
Subjective Subjective: He is overall feeling better. He is breathing easier. He is wondering about when the chest tube might be able to come out. Medications: Reviewed: Yes Vitals/I&O/Wt Last Vital Signs Temp 97.9 F 03/25/22 04:00 Pulse 91 03/25/22 15:25 Resp 24 H 03/25/22 15:09 BP 109/84 03/25/22 12:00 Pulse Ox 97 03/25/22 15:09 O2 Del Method 03/25/22 15:09 O2 Flow Rate 1 03/25/22 15:09 FiO2 2 03/24/22 20:00 03/25/22 03/25/22 03/25/22 06:59 14:59 22:59 Intake Total 120 / 770 450 / 450 Output Total 360 / 1140 300 / 300 Balance -240 / -370 150 / 150 Weight last 48 hrs Weight 87.345 kg Weight 86.183 kg Physical Exam Const: COMMON NORMALS: patient oriented x3 and alert GENERAL APPEARANCE: cooperative ORIENTATION/CONSCIOUSNESS: Yes awake HENMT: COMMON NORMALS: oropharynx normal Neck/C-Spine: COMMON NORMALS: no JVD Resp: COMMON NORMALS: normal respiratory effort and clear to auscultation bilaterally AUSCULTATION: clear to auscultation bilaterally Cardio: COMMON NORMALS: no JVD, regular rhythm, S1 normal heart sound present, S2 normal heart sound present and No murmurs present (Cardio) RHYTHM: regular rhythm HEART SOUNDS: S1 normal heart sound present and S2 normal heart sound present GI: COMMON NORMALS: Normal to inspection, nondistended, normoactive bowel sounds present, Soft to palpation and non-tender PALPATION: Yes Soft to palpation Extremity: COMMON NORMALS: no joint enlargement and no pedal edema GENERAL: Yes edema (Trace) Neuro: COMMON NORMALS: patient oriented x3 and moves all extremities SENSORIUM/ORIENTATION: Yes alert Skin: COMMON NORMALS: no rashes or lesions noted GENERAL SKIN EXAM: no rashes or lesions noted Urinary Catheter Management: Ardon: Cath Placed During This Visit: yes, but has since been removed by the nurse Reason for Continuing Indwelling Catheter: Decision to DC Catheter Urinary Catheter Date of Insertion: 03/14/22 Urinary Catheter Time of Insertion: 00:35 Date Urinary Catheter Removed: 03/15/22 Time Urinary Catheter Discontinued: 10:15 Data 03/25/22 06:24 03/25/22 06:24 Micro: Microbiology 03/18/22 04:40 Mycobacterial Smear - Preliminary Sputum - Expectorated Sputum 03/17/22 18:10 M. tuberculosis Complex (PCR) - Final Sputum - Expectorated Sputum 03/19/22 13:35 Mycobacterial Smear - Preliminary Sputum - Expectorated Sputum 03/18/22 04:40 M. tuberculosis Complex (PCR) - Final Sputum - Expectorated Sputum A&P Assessment and plan (1) Community acquired pneumonia: Decreasing output from CT. Changed to waterseal. Status post chest tube on the left with evacuation of large amount of fluid 3400 mL, additional drainage subsequently about 310 mL. He underwent right-sided pleural biopsy, additional thoracentesis, small amount 100-150 mL evacuated on the right, but with concern for loculations. Suspected MSSA pneumonia. Sputum culture growing MSSA. Both from 03/17 and 03/18 continue ceftriaxone. Blood cultures have been negative both 03/13 and 03/18. Complicated community-acquired pneumonia with parapneumonic effusions large left and moderate right. 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 AFB smears so far negative, including sample from 03/18. Cultures pending. PCR pending. Fluid studies appreciated from left thoracentesis. Indicating to with exudative. Not empyema. Cultures have been negative. MRSA PCR negative. Right-sided thoracentesis done on 03/17. Fluid studies appreciated. Not consistent with empyema though patient has been on antibiotics. No growth on fluid cultures. Fluid ADA positive up to 99.5. High concerns for tuberculosis. MTB PCR and AFB culture 2 out of 3 sent and pending. Histoplasma antigen negative, cryptococcal serum antigen negative Appreciate ID recommendations. DEMETRIUS panel positive for scleroderma, DONTA levels elevated at 89. Arrangements for pleural biopsy. No concerns for lymphoma for now as per differentials. Sputum culture today growing coag positive staph. COVID-19 PCR negative. C. difficile negative. Per discussion with CT surgery okay to continue care on CSU, if airborne isolation bed available. (2) Tuberculosis: Discussed with [facility]. They will be also Following up with him with regards to setting up medication monitoring after discharge. Scription's have been entered. Discussed with case management will need meds to beds at discharge. Extrapulmonary in nature. Status post pleural biopsy today on the right side, formalin samples for evaluation for caseating granuloma, AFB samples obtained also to be forwarded to state. Further treatment as per ID recommendations. Case was discussed with National tuberculosis board. (3) Pleural effusion: Post 1 L thoracentesis on left side? 03/14, right-sided 500 cc thoracentesis 03/17. Chest tube placed 03/23, 3400 evaluated at time of appointment, additional drainage 310 mL today. Additional thoracentesis attempted on the right side, small amount 100-150 mL obtained. Concern for loculation. Persistent effusion on chest x-ray. As above. Follow-up cytology and Gram culture. (4) Pulmonary embolism: Seen on CTA. Without right sided strain. Continue with anticoagulation. (5) Atrial fibrillation with RVR: Rate controlled. Continue with metoprolol 50 mg twice daily. C/w full dose lovenox. Plan to transition to Eliquis on discharge. Echocardiogram result shows an EF of 60%, thickened aortic valve without regional wall motion normality. (6) Acute respiratory failure with hypoxia: Secondary to above. Slight component of diastolic congestive heart failure as well. Received Lasix, currently on hold. Fluid restriction up to 1500 cc. Strict daily weight check. (7) COPD (chronic obstructive pulmonary disease): (8) Cellulitis: Improving. (9) Acute CHF: Echocardiogram results appreciated. Diastolic in nature. Diuretic on hold. Pleural effusions are parapneumonic. Qualifiers: Heart failure type: diastolic Qualified Code(s): I50.31 - Acute diastolic (congestive) heart failure (10) Colon distention: Continue with aggressive bowel regimen. Appreciate surgical recommendations. Colace twice daily. (11) Constipation: (12) Blood in stool: Status post colonoscopy. (13) Depression: Patient is a documented allergy to duloxetine and Seroquel. Mirtazapine 30 mg p.o. bedtime. Plan Analgesia: Tylenol as needed Glycemic control: Not needed Nutrition: Cardiac diet, fluid restriction CODE STATUS: Full code Discharge planning: Home with home health. SNF placement discussed multiple times in detail with the patient. Patient did not want to consider SNF and is adamantly asking for home health. Continue with care at [facility]. This documentation was created by [employer] reading assistant software. Every effort was made to ensure accuracy of reading assistant. Any obvious errors or omissions should be clarified with the author of the document. Attestations Medical Necessity Statement*: Continue admission for assessment of management of complicated pneumonia parapneumonic effusion requiring chest tube, continue arrangements for postdischarge treatment of tuberculosis with suspected extrapulmonary component. Coding Level of Care Code Acute Biofuels Product Manager for g Fwd Diagnoses Community acquired pneumonia J18.9 Tuberculosis A15.9 Pleural effusion J90 Pulmonary embolism I26.99 Atrial fibrillation with RVR I48.91 Acute respiratory failure with hypoxia J96.01 COPD (chronic obstructive pulmonary disease) J44.9 Cellulitis L03.90 Acute CHF I50.31 Heart failure type: diastolic Colon distention K63.89 Constipation K59.00 Blood in stool K92.1 Depression F32.A
[2022-03-25] MEDS: mirtazapine 30 mg Tablet PO (20:46)
--- NOTE | 2022-03-25 23:08 | PC.NURSE ---
Patient to be transferred to [facility] at this time. Report called to JOZEF Villatoro.
[2022-03-26] VITALS (14 sets, daily range): BP systolic 104–129; BP diastolic 64–85; PULSE 77–94; RESP 16–28; TEMP 36.4–37.2; O2SAT 93–97
[2022-03-26] MEDS: HYDROcodone-acetaminophen 5-325 mg Tablet 1 TAB PO (00:12)
[2022-03-26] MEDS: levalbuterol 0.63 mg/3 mL Neb INHALATION ×4 (02:58→21:23)
[2022-03-26 05:16] LABS: Basophils # 0.1 10^3/uL (0.0-0.1); Basophils % 0.9 %; Eosinophils # 0.1 10^3/uL (0.0-0.8); Hematocrit 37.3 % (42.0-52.0); Hemoglobin 10.7 g/dL (11.7-16.6); Lymphocytes # 0.9 10^3/uL (0.8-4.8); Lymphocytes % 15.2 %; Mean Corpuscular HGB Conc 28.7 g/dL (30.0-36.0); Mean Corpuscular Hemoglobin 22.2 pg (28.0-34.0); Mean Corpuscular Volume 77.5 fl (80-94); Mean Platelet Volume 11.9 fL (7.4-10.4); Monocytes # 0.8 10^3/uL (0.2-0.9); Monocytes % 13.8 %; Neutrophils # 3.93 10^3/uL (1.8-7.7); Neutrophils % 67.9 %; Nucleated Red Blood Cells % 0 %; Platelet Count 339 10^3/cmm (130-400); Red Blood Count 4.81 10^6/uL (4.1-5.3); Red Cell Distribution Width 17.7 % (12.1-15.1); White Blood Count 5.8 10^3/uL (4.0-10.0)
[2022-03-26 05:38] LABS: Alanine Aminotransferase 23 U/L (0-41); Albumin Level 2.3 g/dL (3.5-5.2); Alkaline Phosphatase 81 U/L (40-130); Anion Gap 11.7 (5-19); Aspartate Amino Transferase 30 U/L (0-40); Blood Urea Nitrogen 7 mg/dL (6-20); Calcium 8.4 mg/dL (8.5-10.5); Carbon Dioxide 28 mmol/L (22-29); Chloride 103 mmol/L (98-107); Globulin 3.6 g/dL (1.3-4.6); Glomerular Filtration Rate 210.5 mL/min (90-130); Glucose 84 mg/dL (65-115); Osmolality Calculated 285 mOsm/kg (285-295); Potassium 3.7 mmol/L (3.5-5.1); Sodium 139 mmol/L (136-145); Total Bilirubin 0.3 mg/dL (0.15-1.2); Total Protein 5.9 g/dL (6.6-8.7)
--- NOTE | 2022-03-26 06:00 | XR_ITS ---
WS: [id number] EXAMINATION: XR chest 1V portable [id number] REASON FOR EXAM: chest tube to water seal COMPARISON: 03/25/2022 ORDER DATE: 03/26/2022 6:00 AM TECHNIQUE: A single, portable frontal chest x-ray was obtained. X-RAY FINDINGS: Left thoracostomy tube has been removed. Very tiny residual pneumothorax. Monitor leads project over the chest. Lungs: Persistent bilateral lower lung zone opacities greater on the right unchanged. Pleural spaces: Persistent bilateral pleural effusions versus empyemas right greater than left. Heart/Mediastinum: Obscured cardiac borders. Bones/joints: No acute osseous abnormality. XR/XR chest 1V portable [id number] Impression: 1. Left thoracostomy tube has been removed with a very tiny residual pneumothor ax. 2. Persistent bilateral pleural effusions versus empyemas right greater than left.
--- NOTE | 2022-03-26 06:56 | PM.PN ---
Subjective Subjective: Postop day #3 status post left thoracostomy tube insertion. Resting comfortably on the medical/surgical mishra. Decreased drain output. I have conferred with Dr. Knott yesterday. Vitals/I&O/Wt Last Vital Signs Temp 98.9 F 03/26/22 04:11 Pulse 86 03/26/22 06:26 Resp 17 03/26/22 04:11 BP 129/85 03/26/22 04:11 Pulse Ox 96 03/26/22 04:11 O2 Del Method 03/26/22 04:11 O2 Flow Rate 2 03/26/22 04:11 FiO2 2 03/24/22 20:00 03/25/22 03/25/22 03/26/22 14:59 22:59 06:59 Intake Total 450 / 450 200 / 650 Output Total 300 / 300 200 / 500 580 / 1080 Balance 150 / 150 0 / 150 -580 / -430 Weight last 48 hrs Weight 190 lb 11.198 oz Weight 192 lb 9 oz Physical Exam Chest: OTHER: Left thoracostomy tube discontinued with occlusive dressing applied. He tolerated well. Urinary Catheter Management: Ardon: Cath Placed During This Visit: yes, but has since been removed by the nurse Reason for Continuing Indwelling Catheter: Decision to DC Catheter Urinary Catheter Date of Insertion: 03/14/22 Urinary Catheter Time of Insertion: 00:35 Date Urinary Catheter Removed: 03/15/22 Time Urinary Catheter Discontinued: 10:15 Data 03/26/22 05:04 03/26/22 05:04 A&P Assessment and plan (1) Pleural effusion: Postop day #3 status post left sided chest tube. Chest tube was discontinued due to low drain output. Overall, Mr. Bradshaw is improved. He was happy to have the chest tube removed. He is discussing what his plans are after hospital discharge. Attestations Medical Necessity Statement*: Recurrent left pleural effusion status post chest tube Coding Level of Care Code Acute Ultrasound Sonographer for Enrique Hendrix Diagnoses Pleural effusion J90
--- NOTE | 2022-03-26 06:57 | PC.NURSE ---
Dr. Caro here this am on rounds. Pt seen and referred for eval of chest tube. Physician removed chest tube at this time. Nguyeng applied via physician. Pt tolerated procedure well.
[2022-03-26] MEDS: budesonide 0.5 mg/2 mL Neb INHALATION ×2 (08:10→21:22)
[2022-03-26] MEDS: docusate sodium 100 mg Capsule PO ×2 (08:38→17:00)
[2022-03-26] MEDS: famotidine 20 mg Tablet PO ×2 (08:39→17:00)
[2022-03-26] MEDS: metoprolol tartrate 50 mg Tablet PO ×2 (08:39→21:01)
[2022-03-26] MEDS: rifAMPin 300 mg Capsule 600 MG PO (08:57)
[2022-03-26] MEDS: cefTRIAXone 1,000 MG in sodium chloride 0.9% (plus) 50 ML 100 MG IV (09:58)
--- NOTE | 2022-03-26 20:25 | P.PN_ITS ---
Subjective Subjective: He states he is overall feeling tired. He is feeling better now that chest tube has been removed. Not bothered by pain. Vitals/I&O/Wt Last Vital Signs Temp 98 F 03/26/22 16:00 Pulse 91 03/26/22 16:00 Resp 17 03/26/22 16:00 BP 122/76 03/26/22 16:00 Pulse Ox 93 03/26/22 16:00 O2 Del Method 03/26/22 13:50 O2 Flow Rate 2 03/26/22 13:50 FiO2 2 03/26/22 08:00 03/26/22 03/26/22 03/26/22 06:59 14:59 22:59 Intake Total 1130 / 1130 360 / 1490 Output Total 580 / 1080 175 / 175 Balance -580 / -430 955 / 955 360 / 1315 Weight last 48 hrs Weight 86.5 kg Weight 87.345 kg Physical Exam Const: COMMON NORMALS: patient oriented x3 and alert GENERAL APPEARANCE: cooperative ORIENTATION/CONSCIOUSNESS: Yes awake HENMT: COMMON NORMALS: oropharynx normal Neck/C-Spine: COMMON NORMALS: no JVD Resp: COMMON NORMALS: normal respiratory effort and clear to auscultation bilaterally AUSCULTATION: clear to auscultation bilaterally and diminished lung sounds bilateral in the lower lung restrepo Cardio: COMMON NORMALS: no JVD, regular rhythm, S1 normal heart sound present, S2 normal heart sound present and No murmurs present (Cardio) RHYTHM: regular rhythm HEART SOUNDS: S1 normal heart sound present and S2 normal heart sound present GI: COMMON NORMALS: Normal to inspection, nondistended, normoactive bowel sounds present, Soft to palpation and non-tender PALPATION: Yes Soft to palpation Extremity: COMMON NORMALS: no joint enlargement and no pedal edema GENERAL: Yes edema (Trace) Neuro: COMMON NORMALS: patient oriented x3 and moves all extremities SENSORIUM/ORIENTATION: Yes alert Skin: COMMON NORMALS: no rashes or lesions noted GENERAL SKIN EXAM: no rashes or lesions noted Urinary Catheter Management: Ardon: Cath Placed During This Visit: yes, but has since been removed by the nurse Reason for Continuing Indwelling Catheter: Decision to DC Catheter Urinary Catheter Date of Insertion: 03/14/22 Urinary Catheter Time of Insertion: 00:35 Date Urinary Catheter Removed: 03/15/22 Time Urinary Catheter Discontinued: 10:15 Data 12/07/22 05:04 03/26/22 05:04 A&P Assessment and plan (1) Community acquired pneumonia: Chest tube removed, tiny left pneumothorax. Follow-up x-ray in the morning. He underwent right-sided pleural biopsy 03/24 with additional thoracentesis, small amount 100-150 mL evacuated on the right, but with concern for loculations. Suspected MSSA pneumonia. Sputum culture growing MSSA. Both from 03/17 and 03/18 continue ceftriaxone. Blood cultures have been negative both 03/13 and 03/18. Complicated community-acquired pneumonia with parapneumonic effusions large left and moderate right. 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 AFB smears so far negative, including sample from 03/18. Cultures pending. PCR pending. Fluid studies appreciated from left thoracentesis. Indicating to with exudative. Not empyema. Cultures have been negative. MRSA PCR negative. Right-sided thoracentesis done on 03/17. Fluid studies appreciated. Not consistent with empyema though patient has been on antibiotics. No growth on fluid cultures. Fluid ADA positive up to 99.5. High concerns for tuberculosis. MTB PCR and AFB culture 2 out of 3 sent and pending. Histoplasma antigen negative, cryptococcal serum antigen negative Appreciate ID recommendations. DEMETRIUS panel positive for scleroderma, DONTA levels elevated at 89. Arrangements for pleural biopsy. No concerns for lymphoma for now as per differentials. Sputum culture today growing coag positive staph. COVID-19 PCR negative. C. difficile negative. Per discussion with CT surgery okay to continue care on CSU, if airborne isolation bed available. (2) Tuberculosis: Discussed with [facility] department. They will be also following up with him with regards to setting up medication monitoring after discharge. Prescriptions have been entered. Discussed with case management will need meds to beds at discharge. Extrapulmonary in nature. Status post pleural biopsy today on the right side, formalin samples for evaluation for caseating granuloma, AFB samples obtained also to be forwarded to state. Further treatment as per ID recommendations. Case was discussed with National tuberculosis board. (3) Pleural effusion: Post 1 L thoracentesis on left side? 03/14, right-sided 500 cc thoracentesis 03/17. Chest tube placed 03/23, 3400 evaluated at time of appointment, additional drainage 310 mL today. Additional thoracentesis attempted on the right side, small amount 100-150 mL obtained. Concern for loculation. Persistent effusion on chest x-ray. As above. Follow-up cytology and Gram culture. (4) Pulmonary embolism: Seen on CTA. Without right sided strain. Continue with anticoagulation. (5) Atrial fibrillation with RVR: Rate controlled. Continue with metoprolol 50 mg twice daily. C/w full dose lovenox. Plan to transition to Eliquis on discharge. Echocardiogram result shows an EF of 60%, thickened aortic valve without regional wall motion normality. (6) Acute respiratory failure with hypoxia: Secondary to above. Slight component of diastolic congestive heart failure as well. Received Lasix, currently on hold. Fluid restriction up to 1500 cc. Strict daily weight check. (7) COPD (chronic obstructive pulmonary disease): (8) Cellulitis: Improved. (9) Acute CHF: Echocardiogram results appreciated. Diastolic in nature. Diuretic on hold. Pleural effusions are parapneumonic. Qualifiers: Heart failure type: diastolic Qualified Code(s): I50.31 - Acute diastolic (congestive) heart failure (10) Colon distention: Improved. Continue with aggressive bowel regimen. Appreciate surgical recommendations. Colace twice daily. (11) Constipation: (12) Blood in stool: Status post colonoscopy. (13) Depression: Patient is a documented allergy to duloxetine and Seroquel. Mirtazapine 30 mg p.o. bedtime. Plan Analgesia: Tylenol as needed Glycemic control: Not needed Nutrition: Cardiac diet, fluid restriction CODE STATUS: Full code Discharge planning: Home with home health. SNF placement discussed multiple times in detail with the patient. Patient did not want to consider SNF and is adamantly asking for home health. Continue with care at [facility]. This documentation was created by [employer] transmission and protection engineer software. Every effort was made to ensure accuracy of transmission and protection engineer. Any obvious errors or omissions should be clarified with the author of the document. Attestations Medical Necessity Statement*: Continue admission for assessment of terminal chest tube, treatment of pneumonia, tuberculosis, arrangements for postdischarge continue treatment and monitoring. Coding Level of Care Code Acute Workers Compensation Adjuster for Gaelg Fwd Diagnoses Community acquired pneumonia J18.9 Tuberculosis A15.9 Pleural effusion J90 Pulmonary embolism I26.99 Atrial fibrillation with RVR I48.91 Acute respiratory failure with hypoxia J96.01 COPD (chronic obstructive pulmonary disease) J44.9 Cellulitis L03.90 Acute CHF I50.31 Heart failure type: diastolic Colon distention K63.89 Constipation K59.00 Blood in stool K92.1 Depression F32.A
--- NOTE | 2022-03-26 20:25 | XRR_ITS ---
PROCEDURE INFORMATION: Exam: XR Chest Exam date and time: 03/26/2022 8:30 PM Age: 51 years old Clinical indication: Other: CT removal; Prior surgery; Surgery date: Post-operative (0-2 days); Additional info: After CT removal TECHNIQUE: Imaging protocol: Radiologic exam of the chest. Views: 1 view. COMPARISON: CR XR chest 1V portable [id number] 03/26/2022 7:03 AM FINDINGS: Lungs: Bibasilar infiltrates or atelectasis not significantly changed. No new pulmonary infiltrate is identified. There is no pulmonary vascular congestion. Pleural spaces: Bilateral pleural effusions and rounded atelectasis at the right lung base not significantly changed. There is small residual left pneumothorax is smaller than on the previous examination. Heart/Mediastinum: Heart is within normal limits of size. Bones/joints: Unremarkable. XR/XR chest 1V portable [id number] IMPRESSION: 1. Left pneumothorax smaller 2. Pleural effusions and basilar atelectasis and infiltrates not significantly changed.
[2022-03-26] MEDS: magnesium hydroxide 30 mL UDC PO (21:00)
[2022-03-26] MEDS: mirtazapine 30 mg Tablet PO (21:01)
[2022-03-26] MEDS: sennosides 8.6 mg Tablet 17.2 MG PO (21:01)
[2022-03-26] MEDS: ipratropium-albuterol 3 mL Neb INHALATION (21:23)
[2022-03-27] VITALS (14 sets, daily range): BP systolic 123–151; BP diastolic 69–90; PULSE 77–93; RESP 15–22; TEMP 36.8–37.4; O2SAT 91–96
[2022-03-27 04:34] LABS: Basophils % 0.7 %; Eosinophils # 0.1 10^3/uL (0.0-0.8); Eosinophils % 1.4 %; Hematocrit 36.1 % (42.0-52.0); Hemoglobin 10.3 g/dL (11.7-16.6); Lymphocytes # 0.9 10^3/uL (0.8-4.8); Lymphocytes % 15.9 %; Mean Corpuscular HGB Conc 28.5 g/dL (30.0-36.0); Mean Corpuscular Volume 77.1 fl (80-94); Mean Platelet Volume 11.6 fL (7.4-10.4); Monocytes # 0.8 10^3/uL (0.2-0.9); Monocytes % 13.3 %; Neutrophils # 3.99 10^3/uL (1.8-7.7); Neutrophils % 67.3 %; Nucleated Red Blood Cells % 0 %; Platelet Count 344 10^3/cmm (130-400); Red Blood Count 4.68 10^6/uL (4.1-5.3); Red Cell Distribution Width 18.1 % (12.1-15.1); White Blood Count 5.9 10^3/uL (4.0-10.0)
[2022-03-27 04:52] LABS: Alanine Aminotransferase 28 U/L (0-41); Albumin Level 2.3 g/dL (3.5-5.2); Alkaline Phosphatase 81 U/L (40-130); Anion Gap 12.6 (5-19); Aspartate Amino Transferase 39 U/L (0-40); Blood Urea Nitrogen 6 mg/dL (6-20); Calcium 8.2 mg/dL (8.5-10.5); Carbon Dioxide 27 mmol/L (22-29); Chloride 104 mmol/L (98-107); Globulin 3.6 g/dL (1.3-4.6); Glomerular Filtration Rate 210.5 mL/min (90-130); Glucose 94 mg/dL (65-115); Osmolality Calculated 287 mOsm/kg (285-295); Potassium 3.6 mmol/L (3.5-5.1); Sodium 140 mmol/L (136-145); Total Bilirubin 0.2 mg/dL (0.15-1.2); Total Protein 5.9 g/dL (6.6-8.7)
--- NOTE | 2022-03-27 06:00 | XR_ITS ---
WS: [id number] EXAMINATION: XR chest 1V portable [id number] REASON FOR EXAM: Hypoxia COMPARISON: 03/26/2022. ORDER DATE: 03/27/2022 6:00 AM TECHNIQUE: A single, portable frontal chest x-ray was obtained. X-RAY FINDINGS: Lungs: Bibasilar infiltrates or atelectasis not significantly changed. No new pulmonary infiltrate is identified. There is no pulmonary vascular congestion. Pleural spaces: Bilateral pleural effusions and rounded atelectasis at the right lung base not significantly changed. There is small residual left pneumothorax is smaller than on the previous examination. Heart/Mediastinum: Heart is within normal limits of size. Bones/joints: Unremarkable. XR/XR chest 1V portable [id number] IMPRESSION: 1. Left pneumothorax smaller 2. Pleural effusions and basilar atelectasis and infiltrates not significantly changed.
[2022-03-27] MEDS: metoprolol tartrate 50 mg Tablet PO ×2 (08:43→20:31)
[2022-03-27] MEDS: docusate sodium 100 mg Capsule PO (08:43)
[2022-03-27] MEDS: famotidine 20 mg Tablet PO ×2 (08:44→17:21)
[2022-03-27] MEDS: rifAMPin 300 mg Capsule 600 MG PO (09:43)
[2022-03-27] MEDS: levalbuterol 0.63 mg/3 mL Neb INHALATION ×3 (09:44→21:24)
[2022-03-27] MEDS: budesonide 0.5 mg/2 mL Neb INHALATION ×2 (09:44→21:23)
[2022-03-27] MEDS: cefTRIAXone 1,000 MG in sodium chloride 0.9% (plus) 50 ML 100 MG IV (09:48)
--- NOTE | 2022-03-27 12:00 | P.PN_ITS ---
Subjective Subjective: He states that he doubts he is having tuberculosis, extensive discussion with him regarding concern for high suspicion for tuberculosis, risk of spread of the disease if left untreated, but still pending remaining studies. Discussed with him regarding pneumothorax. Medications: Reviewed: Yes Vitals/I&O/Wt Last Vital Signs Temp 98.6 F 03/27/22 08:00 Pulse 86 03/27/22 09:45 Resp 16 03/27/22 09:45 BP 128/88 03/27/22 08:00 Pulse Ox 93 03/27/22 10:25 O2 Del Method 03/27/22 09:45 O2 Flow Rate 1 03/27/22 09:45 FiO2 2 03/26/22 08:00 03/26/22 03/27/22 03/27/22 22:59 06:59 14:59 Intake Total 360 / 1490 200 / 1690 410 / 410 Output Total 700 / 875 Balance 360 / 1315 -500 / 815 410 / 410 Weight last 48 hrs Weight 87.628 kg Weight 87.628 kg Weight 86.5 kg Physical Exam Const: COMMON NORMALS: patient oriented x3 and alert GENERAL APPEARANCE: cooperative ORIENTATION/CONSCIOUSNESS: Yes awake HENMT: COMMON NORMALS: oropharynx normal Neck/C-Spine: COMMON NORMALS: no JVD Resp: COMMON NORMALS: normal respiratory effort and clear to auscultation bilaterally AUSCULTATION: clear to auscultation bilaterally, rhonchi, diminished lung sounds bilateral in the lower lung restrepo and other (Coarse breath sounds) Cardio: COMMON NORMALS: no JVD, regular rhythm, S1 normal heart sound present, S2 normal heart sound present and No murmurs present (Cardio) RHYTHM: regular rhythm HEART SOUNDS: S1 normal heart sound present and S2 normal heart sound present GI: COMMON NORMALS: Normal to inspection, nondistended, normoactive bowel sounds present, Soft to palpation and non-tender PALPATION: Yes Soft to palpation Extremity: COMMON NORMALS: no joint enlargement and no pedal edema GENERAL: Yes edema (Trace) Neuro: COMMON NORMALS: patient oriented x3 and moves all extremities SENSORIUM/ORIENTATION: Yes alert Skin: COMMON NORMALS: no rashes or lesions noted GENERAL SKIN EXAM: no rashes or lesions noted Urinary Catheter Management: Ardon: Cath Placed During This Visit: yes, but has since been removed by the nurse Reason for Continuing Indwelling Catheter: Decision to DC Catheter Urinary Catheter Date of Insertion: 03/14/22 Urinary Catheter Time of Insertion: 00:35 Date Urinary Catheter Removed: 03/15/22 Time Urinary Catheter Discontinued: 10:15 Data 03/27/22 04:12 03/27/22 04:12 A&P Assessment and plan (1) Community acquired pneumonia: Chest tube removed 03/26. Discussed with him regarding pneumothorax. Residual on x-ray today although improving. Continue to monitor for resolution, will reassess x-ray again on Thursday. He underwent right-sided pleural biopsy 03/24 with additional thoracentesis, small amount 100-150 mL evacuated on the right, but with concern for loculations. Suspected MSSA pneumonia. Sputum culture growing MSSA. Both from 03/17 and 03/18 continue ceftriaxone. Blood cultures have been negative both 03/13 and 03/18. Complicated community-acquired pneumonia with parapneumonic effusions large left and moderate right. 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 AFB smears so far negative, including sample from 03/18. Cultures pending. PCR pending. Fluid studies appreciated from left thoracentesis. Indicating to with exudative. Not empyema. Cultures have been negative. MRSA PCR negative. Right-sided thoracentesis done on 03/17. Fluid studies appreciated. Not consi stent with empyema though patient has been on antibiotics. No growth on fluid cultures. Fluid ADA positive up to 99.5. High concerns for tuberculosis. MTB PCR and AFB culture 2 out of 3 sent and pending. Histoplasma antigen negative, cryptococcal serum antigen negative Appreciate ID recommendations. DEMETRIUS panel positive for scleroderma, DONTA levels elevated at 89. Arrangements for pleural biopsy. No concerns for lymphoma for now as per differentials. Sputum culture today growing coag positive staph. COVID-19 PCR negative. C. difficile negative. Per discussion with CT surgery okay to continue care on CSU, if airborne isolation bed available. (2) Tuberculosis: Per health department recommendation should undergo 10 days of tuberculosis therapy while in negative pressure isolation prior to discharge given he also lives with his mother. We will need to discuss with him again day 10 of therapy will be on Saturday 03/31. Pleural biopsy granulomas seen, special stains ordered and pending. They will be also following up with him with regards to setting up electronic medication monitoring after discharge. Prescriptions have been entered. Discussed with case management will need meds to beds at discharge. Extrapulmonary in nature. Status post pleural biopsy today on the right side, formalin samples for evaluation for caseating granuloma, AFB samples obtained also to be forwarded to state. Further treatment as per ID recommendations. Case was discussed with National tuberculosis board. (3) Pleural effusion: Post 1 L thoracentesis on left side? 03/14, right-sided 500 cc thoracentesis 03/17. Chest tube placed 03/23, 3400 evaluated at time of appointment, additional drainage 310 mL today. Additional thoracentesis attempted on the right side, small amount 100-150 mL obtained. Concern for loculation. Persistent effusion on chest x-ray. As above. Cytology negative for malignancy. (4) Pulmonary embolism: Seen on CTA. Without right sided strain. Continue with anticoagulation. (5) Atrial fibrillation with RVR: Rate controlled. Continue with metoprolol 50 mg twice daily. C/w full dose lovenox. Plan to transition to Eliquis on discharge. Echocardiogram result shows an EF of 60%, thickened aortic valve without regional wall motion normality. (6) Acute respiratory failure with hypoxia: Secondary to above. Slight component of diastolic congestive heart failure as well. Received Lasix, currently on hold. Fluid restriction up to 1500 cc. Strict daily weight check. (7) COPD (chronic obstructive pulmonary disease): (8) Cellulitis: Improved. (9) Acute CHF: Echocardiogram results appreciated. Diastolic in nature. Diuretic on hold. Pleural effusions are parapneumonic. Qualifiers: Heart failure type: diastolic Qualified Code(s): I50.31 - Acute diastolic (congestive) heart failure (10) Colon distention: Improved. Continue with aggressive bowel regimen. Appreciate surgical recommendations. Colace twice daily. (11) Constipation: (12) Blood in stool: Status post colonoscopy. (13) Depression: Patient is a documented allergy to duloxetine and Seroquel. Mirtazapine 30 mg p.o. bedtime. Plan Analgesia: Tylenol as needed Glycemic control: Not needed Nutrition: Cardiac diet, fluid restriction CODE STATUS: Full code Discharge planning: Home with home health. SNF placement discussed multiple times in detail with the patient. Patient did not want to consider SNF and is adamantly asking for home health. Continue with care at [facility]. This documentation was created by [employer] pot operator software. Every effort was made to ensure accuracy of pot operator. Any obvious errors or omissions should be clarified with the author of the document. Attestations Medical Necessity Statement*: Continue admission for reassessment of pneumothorax, airborne isolation, continuation of anti-TB therapy until safe for return home. Coding Level of Care Code Acute Machine Molder Squeeze for [facility] Fwd Diagnoses Community acquired pneumonia J18.9 Tuberculosis A15.9 Pleural effusion J90 Pulmonary embolism I26.99 Atrial fibrillation with RVR I48.91 Acute respiratory failure with hypoxia J96.01 COPD (chronic obstructive pulmonary disease) J44.9 Cellulitis L03.90 Acute CHF I50.31 Heart failure type: diastolic Colon distention K63.89 Constipation K59.00 Blood in stool K92.1 Depression F32.A
[2022-03-27] MEDS: mirtazapine 30 mg Tablet PO (20:30)
[2022-03-27] MEDS: sennosides 8.6 mg Tablet 17.2 MG PO (20:31)
[2022-03-27] MEDS: ipratropium-albuterol 3 mL Neb INHALATION (21:24)
[2022-03-28] VITALS (7 sets, daily range): BP systolic 122–148; BP diastolic 68–89; PULSE 82–97; RESP 15–20; TEMP 36.7–37.2; O2SAT 91–97
[2022-03-28 03:08] LABS: Basophils % 0.4 %; Eosinophils # 0.1 10^3/uL (0.0-0.8); Eosinophils % 1.4 %; Hematocrit 35.2 % (42.0-52.0); Hemoglobin 10.2 g/dL (11.7-16.6); Lymphocytes # 0.8 10^3/uL (0.8-4.8); Lymphocytes % 11.8 %; Mean Corpuscular Hemoglobin 22.2 pg (28.0-34.0); Mean Corpuscular Volume 76.7 fl (80-94); Mean Platelet Volume 11.5 fL (7.4-10.4); Monocytes # 0.8 10^3/uL (0.2-0.9); Monocytes % 10.6 %; Neutrophils # 5.28 10^3/uL (1.8-7.7); Neutrophils % 74.8 %; Nucleated Red Blood Cells % 0 %; Platelet Count 352 10^3/cmm (130-400); Red Blood Count 4.59 10^6/uL (4.1-5.3); Red Cell Distribution Width 18.2 % (12.1-15.1); White Blood Count 7.1 10^3/uL (4.0-10.0)
[2022-03-28] MEDS: levalbuterol 0.63 mg/3 mL Neb INHALATION (03:08)
[2022-03-28 03:36] LABS: Alanine Aminotransferase 32 U/L (0-41); Albumin Level 2.3 g/dL (3.5-5.2); Alkaline Phosphatase 83 U/L (40-130); Anion Gap 13.5 (5-19); Aspartate Amino Transferase 44 U/L (0-40); Blood Urea Nitrogen 5 mg/dL (6-20); Calcium 8.3 mg/dL (8.5-10.5); Carbon Dioxide 26 mmol/L (22-29); Chloride 102 mmol/L (98-107); Globulin 3.8 g/dL (1.3-4.6); Glomerular Filtration Rate 210.5 mL/min (90-130); Glucose 126 mg/dL (65-115); Osmolality Calculated 285 mOsm/kg (285-295); Potassium 3.5 mmol/L (3.5-5.1); Sodium 138 mmol/L (136-145); Total Bilirubin 0.3 mg/dL (0.15-1.2); Total Protein 6.1 g/dL (6.6-8.7)
[2022-03-28] MEDS: famotidine 20 mg Tablet PO ×2 (08:23→17:02)
[2022-03-28] MEDS: metoprolol tartrate 50 mg Tablet PO ×2 (08:23→20:57)
[2022-03-28] MEDS: rifAMPin 300 mg Capsule 600 MG PO (08:26)
[2022-03-28] MEDS: benzonatate 100 mg Capsule PO ×2 (13:00→20:58)
--- NOTE | 2022-03-28 19:50 | P.PN_ITS ---
Subjective Subjective: He tells me that his grandmother had today. She was 87. Tells me otherwise she has been having easier time breathing. He no longer has the panic attacks he used to have when he was trying to ambulate. His oxygenation has been good, currently on room air. He asked to discontinue tel emetry. He states he is having BMs once a day, asks if magnesium can be discontinued. He tells me he does get bloated. Medications: Reviewed: Yes Vitals/I&O/Wt Last Vital Signs Temp 98.3 F 03/28/22 16:00 Pulse 92 03/28/22 16:00 Resp 16 03/28/22 16:00 BP 128/68 03/28/22 16:00 Pulse Ox 97 03/28/22 16:00 O2 Del Method 03/28/22 16:00 O2 Flow Rate 1 03/27/22 09:45 FiO2 2 03/26/22 08:00 03/28/22 03/28/22 03/28/22 06:59 14:59 22:59 Intake Total 480 / 480 240 / 720 Balance 480 / 480 240 / 720 Weight last 48 hrs Weight 87.628 kg Weight 87.628 kg Physical Exam Const: COMMON NORMALS: patient oriented x3 and alert GENERAL APPEARANCE: cooperative ORIENTATION/CONSCIOUSNESS: Yes awake HENMT: COMMON NORMALS: oropharynx normal Neck/C-Spine: COMMON NORMALS: no JVD Resp: COMMON NORMALS: normal respiratory effort and clear to auscultation bilaterally AUSCULTATION: clear to auscultation bilaterally, rhonchi, diminished lung sounds bilateral in the lower lung restrepo and other (Coarse breath sounds) Cardio: COMMON NORMALS: no JVD, regular rhythm, S1 normal heart sound present, S2 normal heart sound present and No murmurs present (Cardio) RHYTHM: regular rhythm HEART SOUNDS: S1 normal heart sound present and S2 normal heart sound present GI: COMMON NORMALS: Normal to inspection, nondistended, normoactive bowel sounds present, Soft to palpation and non-tender PALPATION: Yes Soft to palpation Extremity: COMMON NORMALS: no joint enlargement and no pedal edema GENERAL: Yes edema (Trace) Neuro: COMMON NORMALS: patient oriented x3 and moves all extremities SENSORIUM/ORIENTATION: Yes alert Skin: COMMON NORMALS: no rashes or lesions noted GENERAL SKIN EXAM: no rashes or lesions noted Urinary Catheter Management: Ardon: Cath Placed During This Visit: yes, but has since been removed by the nurse Reason for Continuing Indwelling Catheter: Decision to DC Catheter Urinary Catheter Date of Insertion: 03/14/22 Urinary Catheter Time of Insertion: 00:35 Date Urinary Catheter Removed: 03/15/22 Time Urinary Catheter Discontinued: 10:15 Data 03/28/22 02:51 03/28/22 02:51 A&P Assessment and plan (1) Community acquired pneumonia: Follow-up chest x-ray tomorrow morning for resolution of pneumothorax. Chest tube removed 03/26. Completed ceftriaxone course for complicated pneumonia. Complicated community-acquired pneumonia with parapneumonic effusions large left and moderate right. 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 He underwent right-sided pleural biopsy 03/24 with additional thoracentesis, small amount 100-150 mL evacuated on the right, but with concern for loculations. Special stains are performed on block A1 with appropriate control. ? AFB: Negative. ? Fites AFB: Negative. ? GMS: Inconclusive. ? Gram stain: Negative. MSSA pneumonia. Sputum culture growing MSSA. Both from 03/17 and 03/18 . Blood cultures have been negative both 03/13 and 03/18. AFB smears so far negative, including sample from 03/18. Cultures pending. PCR could not be performed. Fluid studies appreciated from left thoracentesis. Indicating to with exudative. Not empyema. Cultures have been negative. MRSA PCR negative. Right-sided thoracentesis done on 03/17. Fluid studies appreciated. Not consistent with empyema though patient has been on antibiotics. No growth on fluid cultures. Fluid ADA positive up to 99.5. High concerns for tuberculosis. MTB PCR and AFB culture 2 out of 3 sent and pending. Histoplasma antigen negative, cryptococcal serum antigen negative Appreciate ID recommendations. DEMETRIUS panel positive for scleroderma, DONTA levels elevated at 89. Pleural biopsy without granulomas. No concerns for lymphoma for now as per differentials. Sputum culture today growing coag positive staph. COVID-19 PCR negative. C. difficile negative. (2) Tuberculosis: Per health department recommendation should undergo 10 days of tuberculosis therapy while in negative pressure isolation prior to discharge given he also lives with his mother. We will need to discuss with him again day 10 of therapy will be on Saturday 03/31. Pleural biopsy no granulomas seen. Special stains are performed on block A1 with appropriate control. ? AFB: Negative. ? Fites AFB: Negative. ? GMS: Inconclusive. ? Gram stain: Negative. AFB samples obtained also to be forwarded to state. AFB cultures pending. They will be also following up with him with regards to setting up electronic medication monitoring after discharge. Prescriptions have been entered. Discussed with case management will need meds to beds at discharge. Extrapulmonary in nature. Further treatment as per ID recommendations. Case was discussed with National tuberculosis board. (3) Pleural effusion: Post 1 L thoracentesis on left side? 03/14, right-sided 500 cc thoracentesis 03/17. Chest tube placed 03/23, 3400 evaluated at time of appointment removed 03/26. Follow-up chest x-ray for resolution of small pneumothorax. Additional thoracentesis attempted on the right side, small amount 100-150 mL obtained. Concern for loculation. Persistent effusion on chest x-ray. As above. Cytology negative for malignancy. (4) Pulmonary embolism: Seen on CTA. Without right sided strain. Continue with anticoagulation. (5) Atrial fibrillation with RVR: Rate controlled. Continue with metoprolol 50 mg twice daily. C/w full dose lovenox. Plan to transition to Eliquis on discharge. Echocardiogram result shows an EF of 60%, thickened aortic valve without regional wall motion normality. (6) Acute respiratory failure with hypoxia: Secondary to above. Slight component of diastolic congestive heart failure as well. Received Lasix, currently on hold. Fluid restriction up to 1500 cc. Strict daily weight check. (7) COPD (chronic obstructive pulmonary disease): (8) Cellulitis: Improved. (9) Acute CHF: Echocardiogram results appreciated. Diastolic in nature. Diuretic on hold. Pleural effusions are parapneumonic. Qualifiers: Heart failure type: diastolic Qualified Code(s): I50.31 - Acute diastolic (congestive) heart failure (10) Colon distention: Improved. Continue with aggressive bowel regimen. Appreciate surgical recommendations. Colace (11) Constipation: (12) Blood in stool: Status post colonoscopy. (13) Depression: Patient is a documented allergy to duloxetine and Seroquel. Mirtazapine 30 mg p.o. bedtime. Plan Analgesia: Tylenol as needed Glycemic control: Not needed Nutrition: Cardiac diet, fluid restriction CODE STATUS: Full code Discharge planning: Home with home health. SNF placement discussed multiple times in detail with the patient. Patient did not want to consider SNF and is adamantly asking for home health. This documentation was created by [email or web address] software support representative software. Every effort was made to ensure accuracy of software support representative. Any obvious errors or omissions should be clarified with the author of the document. Attestations Medical Necessity Statement*: Continue admission for reassessment of pneumothorax, tuberculosis therapy to complete 10 days in isolation, preparation for post discharge treatment and follow-up. Coding Level of Care Code Acute Rail Technician for g Fwd Diagnoses Community acquired pneumonia J18.9 Tuberculosis A15.9 Pleural effusion J90 Pulmonary embolism I26.99 Atrial fibrillation with RVR I48.91 Acute respiratory failure with hypoxia J96.01 COPD (chronic obstructive pulmonary disease) J44.9 Cellulitis L03.90 Acute CHF I50.31 Heart failure type: diastolic Colon distention K63.89 Constipation K59.00 Blood in stool K92.1 Depression F32.A
[2022-03-28] MEDS: mirtazapine 30 mg Tablet PO (20:57)
[2022-03-29] VITALS (7 sets, daily range): BP systolic 107–154; BP diastolic 71–98; PULSE 92–104; RESP 17–22; TEMP 36.6–37.6; O2SAT 91–98
[2022-03-29 05:28] LABS: Basophils % 0.7 %; Eosinophils # 0.1 10^3/uL (0.0-0.8); Eosinophils % 2.5 %; Hematocrit 35.1 % (42.0-52.0); Lymphocytes # 0.9 10^3/uL (0.8-4.8); Lymphocytes % 15.8 %; Mean Corpuscular HGB Conc 28.5 g/dL (30.0-36.0); Mean Corpuscular Hemoglobin 21.8 pg (28.0-34.0); Mean Corpuscular Volume 76.6 fl (80-94); Mean Platelet Volume 11.4 fL (7.4-10.4); Monocytes # 0.8 10^3/uL (0.2-0.9); Monocytes % 14.7 %; Neutrophils # 3.63 10^3/uL (1.8-7.7); Nucleated Red Blood Cells % 0 %; Platelet Count 362 10^3/cmm (130-400); Red Blood Count 4.58 10^6/uL (4.1-5.3); Red Cell Distribution Width 18.4 % (12.1-15.1); White Blood Count 5.6 10^3/uL (4.0-10.0)
[2022-03-29 05:47] LABS: Alanine Aminotransferase 27 U/L (0-41); Albumin Level 2.4 g/dL (3.5-5.2); Alkaline Phosphatase 81 U/L (40-130); Anion Gap 10.9 (5-19); Aspartate Amino Transferase 31 U/L (0-40); Blood Urea Nitrogen 5 mg/dL (6-20); Calcium 8.4 mg/dL (8.5-10.5); Carbon Dioxide 27 mmol/L (22-29); Chloride 101 mmol/L (98-107); Globulin 3.6 g/dL (1.3-4.6); Glomerular Filtration Rate 210.5 mL/min (90-130); Glucose 160 mg/dL (65-115); Osmolality Calculated 281 mOsm/kg (285-295); Potassium 3.9 mmol/L (3.5-5.1); Sodium 135 mmol/L (136-145); Total Bilirubin 0.2 mg/dL (0.15-1.2)
[2022-03-29] MEDS: famotidine 20 mg Tablet PO ×2 (08:39→17:57)
[2022-03-29] MEDS: docusate sodium 100 mg Capsule PO ×2 (08:39→17:57)
[2022-03-29] MEDS: metoprolol tartrate 50 mg Tablet PO ×2 (08:39→20:58)
[2022-03-29] MEDS: rifAMPin 300 mg Capsule 600 MG PO (08:45)
--- NOTE | 2022-03-29 10:00 | XRR_ITS ---
PROCEDURE INFORMATION: Exam: XR Chest Exam date and time: 03/29/2022 10:04 AM Age: 51 years old Clinical indication: Shortness of breath; Additional info: Hypoxia TECHNIQUE: Imaging protocol: Radiologic exam of the chest. Views: 1 view. COMPARISON: CR XR chest 1V portable [id number] 03/27/2022 6:20 AM FINDINGS: Lungs: Bibasilar consolidation similar to prior exam. Pleural spaces: Moderate right-sided pleural effusion. Small left-sided pleural effusion. Heart/Mediastinum: Heart is enlarged for size. Bones/joints: Unremarkable. XR/XR chest 1V portable [id number] IMPRESSION: Cardiomegaly with bibasilar consolidation and pleural effusions similar to prior exam.
[2022-03-29] MEDS: magnesium hydroxide 30 mL UDC PO (11:18)
--- NOTE | 2022-03-29 20:45 | PM.PN ---
Subjective Subjective: He feels tired. Otherwise no new symptoms. He is still coughing. Not bringing up phlegm. Discussed with adding flutter valve and how to use it. Medications: Reviewed: Yes Vitals/I&O/Wt Last Vital Signs Temp 97.9 F 03/29/22 16:00 Pulse 97 03/29/22 16:00 Resp 17 03/29/22 16:00 BP 154/93 03/29/22 16:00 Pulse Ox 93 03/29/22 16:00 O2 Del Method 03/29/22 16:00 O2 Flow Rate 1 03/27/22 09:45 FiO2 2 03/26/22 08:00 03/29/22 03/29/22 03/29/22 06:59 14:59 22:59 Intake Total 240 / 1080 480 / 480 120 / 600 Balance 240 / 1080 480 / 480 120 / 600 Weight last 48 hrs Weight 87.742 kg Physical Exam Narrative: Sitting upright in the chair. Doing well with BiPAP. Const: COMMON NORMALS: patient oriented x3 and alert GENERAL APPEARANCE: cooperative ORIENTATION/CONSCIOUSNESS: Yes awake HENMT: COMMON NORMALS: oropharynx normal Neck/C-Spine: COMMON NORMALS: no JVD Resp: COMMON NORMALS: normal respiratory effort AUSCULTATION: diminished lung sounds bilateral in the lower lung restrepo Cardio: COMMON NORMALS: no JVD, regular rhythm, S1 normal heart sound present, S2 normal heart sound present and No murmurs present (Cardio) RHYTHM: regular rhythm HEART SOUNDS: S1 normal heart sound present and S2 normal heart sound present GI: COMMON NORMALS: Normal to inspection, nondistended, normoactive bowel sounds present, Soft to palpation and non-tender PALPATION: Yes Soft to palpation Extremity: COMMON NORMALS: no joint enlargement and no pedal edema GENERAL: Yes edema (Trace) Neuro: COMMON NORMALS: patient oriented x3 and moves all extremities SENSORIUM/ORIENTATION: Yes alert Skin: COMMON NORMALS: no rashes or lesions noted GENERAL SKIN EXAM: no rashes or lesions noted Urinary Catheter Management: Ardon: Cath Placed During This Visit: yes, but has since been removed by the nurse Reason for Continuing Indwelling Catheter: Decision to DC Catheter Urinary Catheter Date of Insertion: 03/14/22 Urinary Catheter Time of Insertion: 00:35 Date Urinary Catheter Removed: 03/15/22 Time Urinary Catheter Discontinued: 10:15 Data 03/29/22 04:53 03/29/22 04:53 A&P Assessment and plan (1) Tuberculosis: Continue antituberculosis medications. Per health department recommendation should undergo 10 days of tuberculosis therapy while in negative pressure isolation prior to discharge given he also lives with his mother. We will need to discuss with him again day 10 of therapy will be on Saturday 03/31. Pleural biopsy no granulomas seen. Special stains are performed on block A1 with appropriate control. ? AFB: Negative. ? Fites AFB: Negative. ? GMS: Inconclusive. ? Gram stain: Negative. AFB samples obtained also to be forwarded to state. AFB cultures pending. They will be also following up with him with regards to setting up electronic medication monitoring after discharge. Prescriptions have been entered. Discussed with case management will need meds to beds at discharge. Extrapulmonary in nature. Further treatment as per ID recommendations. Case was discussed with National tuberculosis board. (2) Community acquired pneumonia: X-ray repeated. No reported pneumothorax. Chest tube removed 03/26. Completed ceftriaxone course for complicated pneumonia. Complicated community-acquired pneumonia with parapneumonic effusions large left and moderate right. 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 He underwent right-sided pleural biopsy 03/24 with additional thoracentesis, small amount 100-150 mL evacuated on the right, but with concern for loculations. Special stains are performed on block A1 with appropriate control. ? AFB: Negative. ? Fites AFB: Negative. ? GMS: Inconclusive. ? Gram stain: Negative. MSSA pneumonia. Sputum culture growing MSSA. Both from 03/17 and 03/18 . Blood cultures have been negative both 03/13 and 03/18. AFB smears so far negative, including sample from 03/18. Cultures pending. PCR could not be performed. Fluid studies appreciated from left thoracentesis. Indicating to with exudative. Not empyema. Cultures have been negative. MRSA PCR negative. Right-sided thoracentesis done on 03/17. Fluid studies appreciated. Not consistent with empyema though patient has been on antibiotics. No growth on fluid cultures. Fluid ADA positive up to 99.5. High concerns for tuberculosis. MTB PCR and AFB culture 2 out of 3 sent and pending. Histoplasma antigen negative, cryptococcal serum antigen negative Appreciate ID recommendations. DEMETRIUS panel positive for scleroderma, DONTA levels elevated at 89. Pleural biopsy without granulomas. No concerns for lymphoma for now as per differentials. Sputum culture today growing coag positive staph. COVID-19 PCR negative. C. difficile negative. (3) Pleural effusion: Post 1 L thoracentesis on left side? 03/14, right-sided 500 cc thoracentesis 03/17. Chest tube placed 03/23, 3400 evaluated at time of appointment removed 03/26. Follow-up chest x-ray for resolution of small pneumothorax. Additional thoracentesis attempted on the right side, small amount 100-150 mL obtained. Concern for loculation. Persistent effusion on chest x-ray. As above. Cytology negative for malignancy. (4) Pulmonary embolism: Seen on CTA. Without right sided strain. Continue with anticoagulation. (5) Atrial fibrillation with RVR: Rate controlled. Continue with metoprolol 50 mg twice daily. C/w full dose lovenox. Plan to transition to [facility] on discharge. Echocardiogram result shows an EF of 60%, thickened aortic valve without regional wall motion normality. (6) Acute respiratory failure with hypoxia: Secondary to above. Slight component of diastolic congestive heart failure as well. Received Lasix, currently on hold. Fluid restriction up to 1500 cc. Strict daily weight check. (7) COPD (chronic obstructive pulmonary disease): (8) Cellulitis: Improved. (9) Acute CHF: Echocardiogram results appreciated. Diastolic in nature. Diuretic on hold. Pleural effusions are parapneumonic. Qualifiers: Heart failure type: diastolic Qualified Code(s): I50.31 - Acute diastolic (congestive) heart failure (10) Colon distention: Improved. Continue with aggressive bowel regimen. Appreciate surgical recommendations. Colace (11) Constipation: (12) Blood in stool: Status post colonoscopy. (13) Depression: Patient is a documented allergy to duloxetine and Seroquel. Mirtazapine 30 mg p.o. bedtime. Plan Analgesia: Tylenol as needed Glycemic control: Not needed Nutrition: Cardiac diet, fluid restriction CODE STATUS: Full code Discharge planning: Home with home health. SNF placement discussed multiple times in detail with the patient. Patient did not want to consider SNF and is adamantly asking for home health. This documentation was created by [employer] president + publisher software. Every effort was made to ensure accuracy of president + publisher. Any obvious errors or omissions should be clarified with the author of the document. Attestations Medical Necessity Statement*: Continue admission for continued treatment of suspicion of tuberculosis with extrapulmonary disease, pending completion of 10 days of treatment in negative pressure environment prior to return home, arrangements for continued therapy after discharge. Coding Level of Care Code Acute Pickling Drum Operator for [facility] Fwd Diagnoses Tuberculosis A15.9 Community acquired pneumonia J18.9 Pleural effusion J90 Pulmonary embolism I26.99 Atrial fibrillation with RVR I48.91 Acute respiratory failure with hypoxia J96.01 COPD (chronic obstructive pulmonary disease) J44.9 Cellulitis L03.90 Acute CHF I50.31 Heart failure type: diastolic Colon distention K63.89 Constipation K59.00 Blood in stool K92.1 Depression F32.A
[2022-03-29] MEDS: mirtazapine 30 mg Tablet PO (20:58)
[2022-03-29] MEDS: sennosides 8.6 mg Tablet 17.2 MG PO (20:58)
[2022-03-30] VITALS (7 sets, daily range): BP systolic 126–168; BP diastolic 80–99; PULSE 82–98; RESP 16–26; TEMP 36.7–38.6; O2SAT 91–96
[2022-03-30] MEDS: acetaminophen 500 mg Tablet PO (04:35)
[2022-03-30] MEDS: docusate sodium 100 mg Capsule PO ×2 (10:14→18:33)
[2022-03-30] MEDS: metoprolol tartrate 50 mg Tablet PO ×2 (10:15→20:33)
[2022-03-30] MEDS: magnesium hydroxide 30 mL UDC PO (10:16)
[2022-03-30] MEDS: famotidine 20 mg Tablet PO ×2 (10:17→18:33)
[2022-03-30] MEDS: rifAMPin 300 mg Capsule 600 MG PO (10:21)
[2022-03-30 19:54] LABS: Coccidioides IgG Antibody NEGATIVE; Coccidioides IgM Antibody NEGATIVE
[2022-03-30] MEDS: mirtazapine 30 mg Tablet PO (20:33)
[2022-03-30] MEDS: sennosides 8.6 mg Tablet 17.2 MG PO (20:33)
--- NOTE | 2022-03-30 21:09 | PM.PN ---
Subjective Subjective: States he is trying to be mindful to not lay on the left side with the wound after chest tube. Overall doing better, breathing easier. Medications: Reviewed: Yes Vitals/I&O/Wt Last Vital Signs Temp 98.0 F 03/30/22 12:00 Pulse 93 03/30/22 16:00 Resp 16 03/30/22 16:00 BP 134/96 03/30/22 16:00 Pulse Ox 92 03/30/22 16:00 O2 Del Method 03/30/22 16:00 O2 Flow Rate 1 03/27/22 09:45 FiO2 2 03/26/22 08:00 03/30/22 03/30/22 03/30/22 06:59 14:59 22:59 Intake Total 360 / 360 Balance 360 / 360 Weight last 48 hrs Weight 86.721 kg Weight 87.742 kg Physical Exam Narrative: Sitting upright in bed. Doing well with BiPAP. Const: COMMON NORMALS: patient oriented x3 and alert GENERAL APPEARANCE: cooperative ORIENTATION/CONSCIOUSNESS: Yes awake HENMT: COMMON NORMALS: oropharynx normal Neck/C-Spine: COMMON NORMALS: no JVD Resp: COMMON NORMALS: normal respiratory effort and clear to auscultation bilaterally AUSCULTATION: clear to auscultation bilaterally and diminished lung sounds bilateral in the lower lung restrepo Cardio: COMMON NORMALS: no JVD, regular rhythm, S1 normal heart sound present, S2 normal heart sound present and No murmurs present (Cardio) RHYTHM: regular rhythm HEART SOUNDS: S1 normal heart sound present and S2 normal heart sound present GI: COMMON NORMALS: Normal to inspection, nondistended, normoactive bowel sounds present, Soft to palpation and non-tender PALPATION: Yes Soft to palpation Extremity: COMMON NORMALS: no joint enlargement and no pedal edema GENERAL: Yes edema (Trace) Neuro: COMMON NORMALS: patient oriented x3 and moves all extremities SENSORIUM/ORIENTATION: Yes alert Skin: COMMON NORMALS: no rashes or lesions noted GENERAL SKIN EXAM: no rashes or lesions noted Urinary Catheter Management: Ardon: Cath Placed During This Visit: yes, but has since been removed by the nurse Reason for Continuing Indwelling Catheter: Decision to DC Catheter Urinary Catheter Date of Insertion: 03/14/22 Urinary Catheter Time of Insertion: 00:35 Date Urinary Catheter Removed: 03/15/22 Time Urinary Catheter Discontinued: 10:15 Data 03/29/22 04:53 03/29/22 04:53 A&P Assessment and plan (1) Tuberculosis: Continue antituberculosis medications. Tomorrow should be 10 days from initiation of therapy in negative pressure room, allowing him to return home. Discussed with discharge planning will need meds to beds. Pleural biopsy no granulomas seen. Special stains are performed on block A1 with appropriate control. ? AFB: Negative. ? Fites AFB: Negative. ? GMS: Inconclusive. ? Gram stain: Negative. AFB samples obtained also to be forwarded to [facility] the [facility]. AFB cultures pending. They will be also following up with him with regards to setting up electronic medication monitoring after discharge. Prescriptions have been entered. Discussed with case management will need meds to beds at discharge. Extrapulmonary in nature. Further treatment as per ID recommendations. Case was discussed with National tuberculosis board. (2) Community acquired pneumonia: X-ray repeated. No reported pneumothorax. Chest tube removed 03/26. Completed ceftriaxone course for complicated pneumonia. Complicated community-acquired pneumonia with parapneumonic effusions large left and moderate right. 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 He underwent right-sided pleural biopsy 03/24 with additional thoracentesis, small amount 100-150 mL evacuated on the right, but with concern for loculations. Special stains are performed on block A1 with appropriate control. ? AFB: Negative. ? Fites AFB: Negative. ? GMS: Inconclusive. ? Gram stain: Negative. MSSA pneumonia. Sputum culture growing MSSA. Both from 03/17 and 03/18 . Blood cultures have been negative both 03/13 and 03/18. AFB smears so far negative, including sample from 03/18. Cultures pending. PCR could not be performed. Fluid studies appreciated from left thoracentesis. Indicating to with exudative. Not empyema. Cultures have been negative. MRSA PCR negative. Right-sided thoracentesis done on 03/17. Fluid studies appreciated. Not consistent with empyema though patient has been on antibiotics. No growth on fluid cultures. Fluid ADA positive up to 99.5. High concerns for tuberculosis. MTB PCR and AFB culture 2 out of 3 sent and pending. Histoplasma antigen negative, cryptococcal serum antigen negative Appreciate ID recommendations. DEMETRIUS panel positive for scleroderma, DONTA levels elevated at 89. Pleural biopsy without granulomas. No concerns for lymphoma for now as per differentials. Sputum culture today growing coag positive staph. COVID-19 PCR negative. C. difficile negative. (3) Pleural effusion: Post 1 L thoracentesis on left side? 03/14, right-sided 500 cc thoracentesis 03/17. Chest tube placed 03/23, 3400 evaluated at time of appointment removed 03/26. Follow-up chest x-ray for resolution of small pneumothorax. Additional thoracentesis attempted on the right side, small amount 100-150 mL obtained. Concern for loculation. Persistent effusion on chest x-ray. As above. Cytology negative for malignancy. (4) Pulmonary embolism: Seen on CTA. Without right sided strain. Continue with anticoagulation. (5) Atrial fibrillation with RVR: Rate controlled. Continue with metoprolol 50 mg twice daily. C/w full dose lovenox. Plan to transition to Eliquis on discharge. Echocardiogram result shows an EF of 60%, thickened aortic valve without regional wall motion normality. (6) Acute respiratory failure with hypoxia: Secondary to above. Slight component of diastolic congestive heart failure as well. Received Lasix, currently on hold. Fluid restriction up to 1500 cc. Strict daily weight check. (7) COPD (chronic obstructive pulmonary disease): (8) Cellulitis: Improved. (9) Acute CHF: Echocardiogram results appreciated. Diastolic in nature. Diuretic on hold. Pleural effusions are parapneumonic. Qualifiers: Heart failure type: diastolic Qualified Code(s): I50.31 - Acute diastolic (congestive) heart failure (10) Colon distention: Improved. Continue with aggressive bowel regimen. Appreciate surgical recommendations. Colace (11) Constipation: (12) Blood in stool: Status post colonoscopy. (13) Depression: Patient is a documented allergy to duloxetine and Seroquel. Mirtazapine 30 mg p.o. bedtime. Plan Analgesia: Tylenol as needed Glycemic control: Not needed Nutrition: Cardiac diet, fluid restriction CODE STATUS: Full code Discharge planning: Home with home health. SNF placement discussed multiple times in detail with the patient. Patient did not want to consider SNF and is adamantly asking for home health. This documentation was created by [employer] pile driver operator software. Every effort was made to ensure accuracy of pile driver operator. Any obvious errors or omissions should be clarified with the author of the document. Attestations Medical Necessity Statement*: Continue admission for continued treatment of suspicion of tuberculosis with extrapulmonary disease, pending completion of 10 days of treatment in negative pressure environment prior to return home, arrangements for continued therapy after discharge. Coding Level of Care Code Acute Senior Portfolio Manager for [facility] Fwd Diagnoses Tuberculosis A15.9 Community acquired pneumonia J18.9 Pleural effusion J90 Pulmonary embolism I26.99 Atrial fibrillation with RVR I48.91 Acute respiratory failure with hypoxia J96.01 COPD (chronic obstructive pulmonary disease) J44.9 Cellulitis L03.90 Acute CHF I50.31 Heart failure type: diastolic Colon distention K63.89 Constipation K59.00 Blood in stool K92.1 Depression F32.A
[2022-03-31] VITALS: BP 139/93; PULSE 96; RESP 20; TEMP 37.5; O2SAT 91
[2022-03-31 04:00] VITALS: BP 141/92; PULSE 97; RESP 20; TEMP 36.8
[2022-03-31 06:17] LABS: Alanine Aminotransferase 22 U/L (0-41); Albumin Level 2.4 g/dL (3.5-5.2); Alkaline Phosphatase 77 U/L (40-130); Anion Gap 12.2 (5-19); Aspartate Amino Transferase 23 U/L (0-40); Blood Urea Nitrogen 5 mg/dL (6-20); Calcium 8.4 mg/dL (8.5-10.5); Carbon Dioxide 27 mmol/L (22-29); Chloride 102 mmol/L (98-107); Globulin 3.9 g/dL (1.3-4.6); Glomerular Filtration Rate 210.5 mL/min (90-130); Glucose 95 mg/dL (65-115); Osmolality Calculated 281 mOsm/kg (285-295); Potassium 4.2 mmol/L (3.5-5.1); Sodium 137 mmol/L (136-145); Total Bilirubin 0.3 mg/dL (0.15-1.2); Total Protein 6.3 g/dL (6.6-8.7)
[2022-03-31 08:00] VITALS: BP 139/94; PULSE 83; RESP 16; TEMP 36.8; O2SAT 93
[2022-03-31 08:38] VITALS: PULSE 83; RESP 22; O2SAT 94
[2022-03-31] MEDS: magnesium hydroxide 30 mL UDC PO (08:42)
[2022-03-31] MEDS: docusate sodium 100 mg Capsule PO (08:42)
[2022-03-31] MEDS: famotidine 20 mg Tablet PO ×2 (08:42→18:16)
[2022-03-31] MEDS: rifAMPin 300 mg Capsule 600 MG PO (08:44)
[2022-03-31] MEDS: metoprolol tartrate 50 mg Tablet PO ×2 (08:48→21:41)
[2022-03-31 12:00] VITALS: BP 134/87; PULSE 93; RESP 16; TEMP 36.8; O2SAT 94
--- NOTE | 2022-03-31 16:47 | PM.PN ---
Subjective Subjective: Hospital course appreciated. Examination patient lying comfortably in bed. Continues to remain on room air. A lot more jovial now. Denies any nausea, vomiting, headache. Asking when can he go home. States he is feeling better from breathing point of view. Alert and active. Vitals/I&O/Wt Last Vital Signs Temp 98.3 F 03/31/22 12:00 Pulse 93 03/31/22 12:00 Resp 16 03/31/22 12:00 BP 134/87 03/31/22 12:00 Pulse Ox 94 03/31/22 12:00 O2 Del Method 03/31/22 12:00 O2 Flow Rate 1 03/27/22 09:45 FiO2 2 03/26/22 08:00 03/31/22 03/31/22 03/31/22 06:59 14:59 22:59 Intake Total 480 / 1200 720 / 720 Balance 480 / 1200 720 / 720 Weight last 48 hrs Weight 86.296 kg Weight 86.721 kg Physical Exam Narrative: General: No acute distress, AO x3, NC oxygen supplementation, cachectic, chronically sick appearing, HEENT: PERRLA, pupils bilaterally equal and reactive Chest:Bronchial breath sounds b/l ,decreased air entry, equal good air entry bilaterally, no more fine basal crackles CVS: S1-S2 regular, no murmurs, no tachycardia, no gallops, no rubs Abdomen: Soft, nontender, no organomegaly, bowel sounds present, morbidly obese Neuro: No focal deficits, no facial deformity, AO x3, power 5/5 in all limbs Psych: COMMON NORMALS: mental status grossly normal, Normal thought process present, cooperative and speech normal SPEECH: Yes normal speech MOOD & AFFECT: Yes depressed mood and Yes tearful THOUGHT PROCESS: Normal thought process present Urinary Catheter Management: Ardon: Cath Placed During This Visit: yes, but has since been removed by the nurse Reason for Continuing Indwelling Catheter: Decision to DC Catheter Urinary Catheter Date of Insertion: 03/14/22 Urinary Catheter Time of Insertion: 00:35 Date Urinary Catheter Removed: 03/15/22 Time Urinary Catheter Discontinued: 10:15 Data 03/29/22 04:53 03/31/22 05:16 A&P Assessment and plan (1) Tuberculosis: Continue antituberculosis medications. Finishing 10-day course of treatment today as per healthcare department. Can lift negative pressure restrictions from tomorrow. Will need to have treatment going further for at least for next 2 months. We will try to obtain medications at bedside prior to discharge. Tomorrow should be 10 days from initiation of therapy in negative pressure room, allowing him to return home. Discussed with discharge planning will need meds to beds. Appreciate ID recommendations. Pleural biopsy no granulomas seen. Special stains are performed on block A1 with appropriate control. ? AFB: Negative. ? Fites AFB: Negative. ? GMS: Inconclusive. ? Gram stain: Negative. AFB samples obtained also to be forwarded to [facility]. AFB cultures pending. They will be also following up with him with regards to setting up electronic medication monitoring after discharge. Prescriptions have been entered. Discussed with case management will need meds to beds at discharge. Extrapulmonary in nature. Further treatment as per ID recommendations. Case was discussed with National tuberculosis board. (2) Community acquired pneumonia: X-ray repeated. No reported pneumothorax. Chest tube removed 03/26. Completed ceftriaxone course for complicated pneumonia. Complicated community-acquired pneumonia with parapneumonic effusions large left and moderate right. 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 MSSA pneumonia. Sputum culture growing MSSA. Both from 03/17 and 03/18 . Blood cultures have been negative both 03/13 and 03/18. AFB smears so far negative, including sample from 03/18. Cultures pending. PCR could not be performed. Fluid studies appreciated from left thoracentesis. Indicating to with exudative. Not empyema. Cultures have been negative. MRSA PCR negative. Right-sided thoracentesis done on 03/17. Fluid studies appreciated. Not consistent with empyema though patient has been on antibiotics. No growth on fluid cultures. Fluid ADA positive up to 99.5. High concerns for tuberculosis. MTB PCR and AFB culture 2 out of 3 sent and pending. Histoplasma antigen negative, cryptococcal serum antigen negative. Cocci though antigen negative. Appreciate ID recommendations. DEMETRIUS panel positive for scleroderma, DONTA levels elevated at 89. Pleural biopsy without granulomas. No concerns for lymphoma for now as per differentials. (3) Pleural effusion: (4) Pulmonary embolism: Seen on CTA. Without right sided strain. Continue with anticoagulation. (5) Atrial fibrillation with RVR: Rate controlled. Continue with metoprolol 50 mg twice daily. Restart full dose lovenox. Plan to transition to Eliquis on discharge. Will change rifampin to rifabutin on discharge given interaction Echocardiogram result shows an EF of 60%, thickened aortic valve without regional wall motion normality. (6) Acute respiratory failure with hypoxia: Secondary to above. Slight component of diastolic congestive heart failure as well. Received Lasix, currently on hold. Fluid restriction up to 1500 cc. Strict daily weight check. (7) COPD (chronic obstructive pulmonary disease): (8) Cellulitis: Improved. (9) Acute CHF: Echocardiogram results appreciated. Diastolic in nature. Diuretic on hold. Pleural effusions are parapneumonic. Qualifiers: Heart failure type: diastolic Qualified Code(s): I50.31 - Acute diastolic (congestive) heart failure (10) Colon distention: Improved. Continue with aggressive bowel regimen. Appreciate surgical recommendations. Colace (11) Constipation: (12) Blood in stool: Status post colonoscopy. (13) Depression: Patient is a documented allergy to duloxetine and Seroquel. Mirtazapine 30 mg p.o. bedtime. Plan Analgesia: Tylenol as needed Glycemic control: Not needed Nutrition: Cardiac diet, fluid restriction CODE STATUS: Full code Discharge planning: Plan to discharge in next 24 hours back home after completion of isolation as per health care department. Continue [facility] care. This documentation was created by [email or web address] horser up software. Every effort was made to ensure accuracy of horser up. Any obvious errors or omissions should be clarified with the author of the document. 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 as patient is finishing isolation restriction as per healthcare department while being on oral antitubercular medications, community-acquired pneumonia, bilateral pleural effusion requiring chest tube placement Time Spent in Patient Care: Greater than 35 minutes Coding Level of Care Code Acute Sap Senior Developer for [facility] Fwd Diagnoses Tuberculosis A15.9 Community acquired pneumonia J18.9 Pleural effusion J90 Pulmonary embolism I26.99 Atrial fibrillation with RVR I48.91 Acute respiratory failure with hypoxia J96.01 COPD (chronic obstructive pulmonary disease) J44.9 Cellulitis L03.90 Acute CHF I50.31 Heart failure type: diastolic Colon distention K63.89 Constipation K59.00 Blood in stool K92.1 Depression F32.A
[2022-03-31 20:00] VITALS: BP 124/77; PULSE 98; RESP 20; TEMP 37.2; O2SAT 95
[2022-03-31] MEDS: mirtazapine 30 mg Tablet PO (21:41)
[2022-04-01] VITALS: BP 150/82; PULSE 96; RESP 18; TEMP 37.6; O2SAT 91
[2022-04-01 02:47] LABS: Basophils # 0.1 10^3/uL (0.0-0.1); Basophils % 0.7 %; Eosinophils # 0.2 10^3/uL (0.0-0.8); Eosinophils % 2.2 %; Hematocrit 35.5 % (42.0-52.0); Hemoglobin 10.3 g/dL (11.7-16.6); Lymphocytes # 1.2 10^3/uL (0.8-4.8); Lymphocytes % 17.5 %; Mean Corpuscular Hemoglobin 22.3 pg (28.0-34.0); Mean Platelet Volume 11.8 fL (7.4-10.4); Monocytes # 0.9 10^3/uL (0.2-0.9); Monocytes % 13.3 %; Neutrophils # 4.39 10^3/uL (1.8-7.7); Neutrophils % 64.7 %; Nucleated Red Blood Cells % 0 %; Platelet Count 369 10^3/cmm (130-400); Red Blood Count 4.61 10^6/uL (4.1-5.3); Red Cell Distribution Width 18.2 % (12.1-15.1); White Blood Count 6.8 10^3/uL (4.0-10.0)
[2022-04-01 03:17] LABS: Alanine Aminotransferase 21 U/L (0-41); Albumin Level 2.6 g/dL (3.5-5.2); Alkaline Phosphatase 81 U/L (40-130); Anion Gap 14.7 (5-19); Aspartate Amino Transferase 24 U/L (0-40); Blood Urea Nitrogen 6 mg/dL (6-20); Calcium 8.7 mg/dL (8.5-10.5); Carbon Dioxide 26 mmol/L (22-29); Chloride 105 mmol/L (98-107); Globulin 3.9 g/dL (1.3-4.6); Glomerular Filtration Rate 170.5 mL/min (90-130); Glucose 99 mg/dL (65-115); Osmolality Calculated 290 mOsm/kg (285-295); Potassium 4.7 mmol/L (3.5-5.1); Sodium 141 mmol/L (136-145); Total Bilirubin 0.3 mg/dL (0.15-1.2); Total Protein 6.5 g/dL (6.6-8.7)
[2022-04-01 04:00] VITALS: BP 132/83; PULSE 98; RESP 14; TEMP 37.6; O2SAT 92
[2022-04-01 07:33] VITALS: BP 147/90; PULSE 98; RESP 17; TEMP 36.9; O2SAT 95
[2022-04-01] MEDS: magnesium hydroxide 30 mL UDC PO (08:39)
[2022-04-01] MEDS: metoprolol tartrate 50 mg Tablet PO (08:40)
[2022-04-01] MEDS: famotidine 20 mg Tablet PO (08:40)
[2022-04-01] MEDS: rifAMPin 300 mg Capsule 600 MG PO (08:41)
[2022-04-01 11:05] VITALS: BP 133/85; PULSE 85; RESP 16; TEMP 37.9; O2SAT 93
[2022-04-01 11:09] VITALS: O2SAT 92; O2SAT 94
--- NOTE | 2022-04-01 12:56 | P.DS_ITS ---
Discharge Providers Date of Admission: 03/13/22 23:38 Date of Discharge: April 01, 2022 Attending Provider at Admission: Rupali Syed MD Attending Provider at Discharge: Govind Haile MD Consults: [facility] with Dr. Constantino ID: Dr. Shanks Surgery: Dr. Doss Cardiothoracic surgery: Dr. Caro Primary Care Provider: Leonela Colby Diagnoses at Discharge Discharge Diagnosis (1) Tuberculosis: Status: Acute (2) Community acquired pneumonia: Status: Acute (3) Pleural effusion: Status: Acute (4) Pulmonary embolism: Status: Acute (5) Atrial fibrillation with RVR: Status: Acute (6) Acute respiratory failure with hypoxia: Status: Acute (7) COPD (chronic obstructive pulmonary disease): Status: Acute (8) Cellulitis: Status: Acute (9) Acute CHF: Status: Acute Qualifiers: Heart failure type: diastolic Qualified Code(s): I50.31 - Acute diastolic (congestive) heart failure Permanent problem details: Diastolic in nature (10) Colon distention: Status: Acute (11) Constipation: Status: Acute (12) Blood in stool: Status: Acute (13) Depression: Status: Acute Reason for Visit Reason for Visit: SOB Hospital Course Hospital Course Alessandro Bradshaw is a 51 year old male with a past medical history of asthma and A. fib who presented to the hospital complaining of worsening shortness of breath over the past 4 weeks.? Patient states that he has been experiencing low-grade fever, chills, subjective weight loss and a generalized sense of ill being over the last 4 to 5 months.? He has also been experiencing worsening dyspnea over this time frame.? Initially he states that his dyspnea was brought on by strenuous activity, however more recently over the past 4 weeks he has been dyspneic even with walking to and fro from the bathroom and trying to conduct his daily activities. He presented to the hospital and was diagnosed with bilateral pleural effusions.? He has undergone bilateral thoracentesis.? Pleural is noted to be significantly thickened.? Pleural fluid analysis was suggestive of a lymphocyte predominant exudative effusion.? Gram stain from the left thoracentesis showed some gram-positive cocci in pairs and chains, however culture remained negative eventually.? He has had some cough with expectoration.? Sputum culture is currently came back positive for MSSA.? As part of the pleural fluid analysis adenosine deaminase level returned elevated at 99.5.? 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 Patient states that a PPD was checked on him after an exposure to unknown TB patient in a correctional facility.? PPD was positive as he clearly recalls he was instructed never to have a PPD again as it will always be positive.? He states he took some treatment for 6 months but then discontinued treatment once he left the correctional facility.? He has never been incarcerated since.? He has had no past respiratory symptoms except being diagnosed with asthma for which she takes as needed inhalers over the last 20 years.? He has no known TB contacts.? 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 Denies any past history of IV drug use.? HIV serial status is negative.? He is not currently sexually active. Patient had a waxing and waning stay at the hospital with occasional episodes of worsening hypoxia requiring BiPAP ventilation. Patient eventually had a CTA chest which was concerning for bilateral pulmonary emboli without right heart strain. Echocardiogram was done which ruled out right heart strain and was consistent with normal EF. On admission patient was also found to have atrial fibrillation with rapid ventricular response which was treated with Cardizem drip which was later transitioned to oral metoprolol. He was continued on full dose anticoagulation during hospitalization which was intermittently discontinued or held in between because of requirement of thoracentesis. Eventually because of worsening hypoxia patient required chest tube placement which was discontinued on 03/26. Multiple studies were sent which were reported as follows with some pending. Pleural biopsy no granulomas seen. Special stains are performed on block A1 with appropriate control. ? AFB: Negative. ? Fites AFB: Negative. ? GMS: Inconclusive. ? Gram stain: Negative. QuantiFERON positive. AFB samples obtained also to be forwarded to [facility]. AFB cultures pending. Histoplasma antigen negative, cryptococcal serum antigen negative, coccidial negative DEMETRIUS panel positive for scleroderma, DONTA levels elevated at 89. Given all of the above patient's care was discussed in detail with [facility] from [facility] with Dr. 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 Care was also discussed in detail with [facility] who will be following up with patient as an outpatient. They recommended patient to have inpatient oral therapy for at least 10 days while being under strict negative pressure isolation which finished on 03/31. During hospitalization patient also complained of multiple episodes of bloody bowel movements for which surgery was consulted. Patient's hemoglobin remained stable but given concern for melena while being on anticoagulation he underwent colonoscopy which is consistent only with external hemorrhoids. Patient has been on room air and has been consistently improving over the last 1 week while being on treatment. Patient did have concerns for depression given prolonged hospitalization hence was started on mirtazapine which she has tolerated well. He is been discharged hemodynamically stable condition on antitubercular treatment, antidepression medication along with anticoagulation going forward. He is to follow-up with his primary care provider on set appointment and with ID clinic within next 2 weeks. Physical Exam Narrative: General: No acute distress, AO x3, NC oxygen supplementation, cachectic, chronically sick appearing, HEENT: PERRLA, pupils bilaterally equal and reactive Chest:Bronchial breath sounds b/l ,decreased air entry, equal good air entry bilaterally, no more fine basal crackles CVS: S1-S2 regular, no murmurs, no tachycardia, no gallops, no rubs Abdomen: Soft, nontender, no organomegaly, bowel sounds present, morbidly obese Neuro: No focal deficits, no facial deformity, AO x3, power 5/5 in all limbs Psych: COMMON NORMALS: mental status grossly normal, Normal thought process present, cooperative and speech normal SPEECH: Yes normal speech MOOD & AFFECT: Yes depressed mood and Yes tearful THOUGHT PROCESS: Normal thought process present Urinary Catheter Management: Ardon: Cath Placed During This Visit: yes, but has since been removed by the nurse Reason for Continuing Indwelling Catheter: Decision to DC Catheter Urinary Catheter Date of Insertion: 03/14/22 Urinary Catheter Time of Insertion: 00:35 Date Urinary Catheter Removed: 03/15/22 Time Urinary Catheter Discontinued: 10:15 Discharge Data Studies Completed and Pending Completed Studies During Hospitalization Category Date Time Status CT abdomen pelvis wo con [id number] Stat Cat Scan 03/14/22 01:[address] guided biopsy [id number] Routine Cat Scan 03/24/22 12:20 Completed CTA chest [CT angio chest PE protcl [id number]] Routine Cat Scan 03/17/22 10:33 Completed CTA chest [CT angio chest PE protcl [id number]] Stat Cat Scan 03/13/22 21:07 Completed CXRP [XR chest 1V portable [id number]] Routine Exams 03/24/22 14:32 Completed CXRP [XR chest 1V portable 32651] Routine Exams 03/26/22 20:25 Completed CXRP [XR chest 1V portable 78565] Stat Exams 03/23/22 17:57 Completed XR KUB portable [id number] Urgent Exams 03/14/22 01:12 Completed XR chest 1V portable [id number] Routine Exams 03/23/22 06:00 Completed XR chest 1V portable [id number] Routine Exams 03/24/22 06:00 Completed XR chest 1V portable 66191 Routine Exams 03/25/22 06:00 Completed XR chest 1V portable 60697 Routine Exams 03/26/22 06:00 Completed XR chest 1V portable 30076 Routine Exams 03/27/22 06:00 Completed XR chest 1V portable 36749 Routine Exams 03/29/22 10:00 Completed XR chest 1V portable 59991 Stat Exams 03/13/22 20:10 Completed XR chest 1V portable [id number] Stat Exams 03/14/22 13:29 Completed XR chest 1V portable 21442 Stat Exams 03/17/22 16:23 Completed Cytology [PTH] Routine Pth 03/14/22 01:10 Completed Cytology [PTH] Routine Pth 03/17/22 16:59 Completed CV. echo complete* [id number] Urgent Ultrasound 03/14/22 00:10 Completed US chest 71788 Routine Ultrasound 03/17/22 09:17 Completed US thoracentesis 59430 Routine Ultrasound 03/14/22 01:09 Completed US thoracentesis 98351 Routine Ultrasound 03/17/22 Completed Pending at discharge Category Date Time Status AFB [Mycobacteria, Culture w/Fluor] Q8H Lab 03/17/22 18:10 Results AFB [Mycobacteria, Culture w/Fluor] Q8H Lab 03/18/22 13:33 Results AFB [Mycobacteria, Culture w/Fluor] Q8H Lab 03/18/22 21:00 Received AFB [Mycobacteria, Culture w/Fluor] Q8H Lab 03/20/22 18:00 Uncollected AFB [Mycobacteria, Culture w/Fluor] Q8H Lab 03/20/22 20:15 Received AFB [Mycobacteria, Culture w/Fluor] Q8H Lab 03/21/22 02:00 Uncollected AFB [Mycobacteria, Culture w/Fluor] Q8H Lab 03/21/22 10:00 Uncollected AFB [Mycobacteria, Culture w/Fluor] Q8H Lab 03/21/22 18:00 Uncollected AFB [Mycobacteria, Culture w/Fluor] Q8H Lab 03/21/22 22:12 Received AFB [Mycobacteria, Culture w/Fluor] Routine Lab 03/18/22 04:40 Results Body Fluid Culture & GS Routine Lab 03/17/22 16:15 Received Cryptococcal Antigen w/ Reflex Stat Lab 03/17/22 10:33 Results Fungal Culture not HR/SK/BL Routine Lab 03/17/22 10:41 Results MTB Complex Rifampin PCR Q8H Lab 03/18/22 04:40 Results MTB Complex Rifampin PCR Routine Lab 03/18/22 08:25 Results MTB Complex Rifampin PCR Routine Lab 03/18/22 21:00 Received MTB Complex Rifampin PCR Routine Lab 03/18/22 21:00 Received Miscellaneous Test Routine Lab 03/18/22 21:00 Received Miscellaneous Test Routine Lab 03/21/22 09:38 Received Miscellaneous Test Routine Lab 03/21/22 22:12 Received Miscellaneous Test Routine Lab 03/24/22 14:15 Received Mycobacteria, Culture w/Fluor Routine Lab 03/14/22 13:30 Results Mycobacteria, Culture w/Fluor Routine Lab 03/17/22 16:15 Results Radiology Impressions KUB X-Ray 03/14/22 01:12 IMPRESSION: 1. Dilated colonic loops suspected measuring up to 9.5 cm, perhaps reflecting ileus or [place]'s syndrome, obstruction is also a consideration, CT abdomen and pelvis could further evaluate this. 2. Moderate constipation. 3. Bilateral pleural effusions partially visualized left greater than right. Abdomen/Pelvis CT 03/14/22 01:39 IMPRESSION: 1. Moderate stool is seen within the ascending colon and within the rectal vault with gaseous distension seen within the transverse colon. There are no obstructing colonic masses. Alcides syndrome is a consideration. 2. Bilateral pleural effusions, left larger than right. 3. Strandy and patchy opacities and consolidation superimposes over the pleural effusions likely representing bilateral basilar atelectasis although infiltrates and pneumonia cannot be entirely excluded in the appropriate clinical setting. Thoracentesis Ultrasound 03/17/22 00:00 IMPRESSION: 1. RIGHT thoracentesis yielding 400 cc of fluid. 2. Chest radiograph to follow to evaluate for pneumothorax. 3. RIGHT pleural fluid collected for analysis as requested. Chest Ultrasound 03/17/22 09:17 IMPRESSION: Mildly complex fluid with marked pleural thickening. Insufficient fluid for RIGHT thoracentesis to be performed. The effusion does appear significantly smaller as compared to 03/14/2022. The consolidation seen on the radiograph is probably pleural thickening and atelectasis. Today's ultrasound findings do correspond to the chest CT that was on 03/14/2022. Chest CTA 03/17/22 10:33 IMPRESSION: 1. Multiple filling defects bilaterally segmental and subsegmental pulmonary arteries compatible with pulmonary embolus. 2. Moderate LEFT and small RIGHT pleural effusions with suspected RIGHT empyema or complex effusion unchanged. Diffuse pleural thickening and enhancement RIGHT lower lobe. 3. Compressive atelectasis in the lung bases similar to previous. 4. Small pericardial effusion. Notified Govind Haile MD at 03/17/2022 1:[address] 03/24/22 12:20 IMPRESSION: 1. Multiple 20-gauge core samples were obtained of the RIGHT lung pleura.. No immediate complications. 2. 90 minute chest x-ray demonstrates no significant pneumothorax. 3. In addition, approximately 100 cc of pleural fluid was drained. Pleural fluid was complex and viscous Chest X-Ray 03/29/22 10:00 IMPRESSION: Cardiomegaly with bibasilar consolidation and pleural effusions similar to prior exam. Echocardiogram: CONCLUSIONS ?Normal left ventricular size and systolic function, EF 60 %. No?regional wall motion abnormalities. ?Thickened aortic valve. ?Large left-sided pleural effusion. ?Trace of pericardial effusion. ?Technically difficult study ?Dr Paula Serrato MD LOCATED WITHIN [facility] ?(Electronically Signed) ?Final Date:? ? ? 15 March 2022 ? 10:57 Laboratory Results WBC 6.8 10^3/uL (4.0-10.0) 04/01/22 01:53 RBC 4.61 10^6/uL (4.1-5.3) 04/01/22 01:53 Hgb 10.3 g/dL (11.7-16.6) L 04/01/22 01:53 Hct 35.5 % (42.0-52.0) L 04/01/22 01:53 MCV 77.0 fl (80-94) L 04/01/22 01:53 MCH 22.3 pg (28.0-34.0) L 04/01/22 01:53 MCHC 29.0 g/dL (30.0-36.0) L 04/01/22 01:53 RDW 18.2 % (12.1-15.1) H 04/01/22 01:53 Plt Count 369 10^3/cmm (130-400) 04/01/22 01:53 MPV 11.8 fL (7.4-10.4) H 04/01/22 01:53 Neut % (Auto) 64.7 % 04/01/22 01:53 Lymph % (Auto) 17.5 % 04/01/22 01:53 Dickenson % (Auto) 13.3 % 04/01/22 01:53 Eos % (Auto) 2.2 % 04/01/22 01:53 Baso % (Auto) 0.7 % 04/01/22 01:53 Neut # (Auto) 4.39 10^3/uL (1.8-7.7) 04/01/22 01:53 Lymph # (Auto) 1.2 10^3/uL (0.8-4.8) 04/01/22 01:53 Dickenson # (Auto) 0.9 10^3/uL (0.2-0.9) 04/01/22 01:53 Eos # (Auto) 0.2 10^3/uL (0.0-0.8) 04/01/22 01:53 Baso # (Auto) 0.1 10^3/uL (0.0-0.1) 04/01/22 01:53 Nucleated RBC % (auto) 0 % 04/01/22 01:53 Nucleated RBCs # 0.0 /100WBC 04/01/22 01:53 Differential Comment Yes 03/17/22 16:15 Poikilocytosis 1+ H 03/17/22 04:25 Anisocytosis 1+ H 03/17/22 04:25 Microcytosis Trace 03/17/22 04:25 Ovalocytes 1+ H 03/17/22 04:25 PT 14.30 SECONDS (12.1-14.9) 03/13/22 20:30 INR 1.08 (0.8-1.2) 03/13/22 20:30 Specimen Type Arterial 03/13/22 21:06 Sample Site Radial, left 03/13/22 21:06 ABG pH 7.41 (7.35-7.45) 03/13/22 21:06 ABG pCO2 39.7 mmHg (35-45) 03/13/22 21:06 ABG pO2 41.7 mmHg (80.0-100.0) L 03/13/22 21:06 ABG HCO3 25.2 mmol/L (22-26) 03/13/22 21:06 ABG Base Excess 0.6 mmol/L (-2.0-2.0) 03/13/22 21:06 Glenn Test Pos 03/13/22 21:06 Hematocrit 41.6 % (42-52) L 03/13/22 21:06 Hgb O2 Saturation 70.0 % (95-100) L 03/13/22 21:06 Carboxyhemoglobin 1.4 %THgb (0.4-20.1) 03/13/22 21:06 Methemoglobin 0.4 % (0.4-1.5) 03/13/22 21:06 Total Hemoglobin 13.6 g/dL (14-18) L 03/13/22 21:06 O2 Delivery Device Bipap 03/13/22 21:06 FiO2 50.0 % 03/13/22 21:06 PEEP 8.0 cmH20 03/13/22 21:06 Transition Coach ID [email or web address] 03/13/22 21:06 Sodium 141 mmol/L (136-145) 04/01/22 01:53 Potassium 4.7 mmol/L (3.5-5.1) 04/01/22 01:53 Chloride 105 mmol/L (98-107) 04/01/22 01:53 Carbon Dioxide 26 mmol/L (22-29) 04/01/22 01:53 Anion Gap 14.7 (5-19) 04/01/22 01:53 BUN 6 mg/dL (6-20) 04/01/22 01:53 Creatinine 0.6 mg/dL (0.7-1.2) L 04/01/22 01:53 GFR Calculation 170.5 mL/min (90-130) H 04/01/22 01:53 Glucose 99 mg/dL (65-115) 04/01/22 01:53 Estimat Average Glucose 111 03/14/22 03:10 Hemoglobin A1c 5.5 % (4.0-6.0) 03/14/22 03:10 Calculated Osmolality 290 mOsm/kg (285-295) 04/01/22 01:53 Lactic Acid 2.2 mmol/L (0.5-2.2) 03/14/22 03:10 Lactic Acid (Sepsis) 1.4 mmol/L (0.5-2.2) 03/14/22 08:40 Calcium 8.7 mg/dL (8.5-10.5) 04/01/22 01:53 Magnesium 2.3 mg/dL (1.7-2.3) 03/15/22 03:00 Iron 42 ug/dL (59-158) L 03/15/22 03:00 TIBC 188 mcg/dl 03/15/22 03:00 % Saturation 22.3 % (20-50) 03/15/22 03:00 Unsat Iron Binding 146 ug/dL (112-347) 03/15/22 03:00 Total Bilirubin 0.3 mg/dL (0.15-1.2) 04/01/22 01:53 AST 24 U/L (0-40) 04/01/22 01:53 ALT 21 U/L (0-41) 04/01/22 01:53 Alkaline Phosphatase 81 U/L (40-130) 04/01/22 01:53 Lactate Dehydrogenase 405 U/L (135-225) H 03/17/22 11:10 Troponin T Baseline 17 ng/L (0-15) H 03/13/22 20:30 Troponin T 120 Minute 15.88 ng/L (0-15) H 03/13/22 23:15 Delta Troponin T -1.12 ABS# (0-10) L 03/13/22 23:15 Troponin T Hi Sens 6Hr 14.80 ng/L (0-15) 03/14/22 03:10 Troponin T Hi Sens 6Hr Delta -2.20 ng/L (0-12) L 03/14/22 03:10 C-Reactive Protein 43.8 mg/L (0.0-4.9) H 03/16/22 02:45 NT-Pro-B Natriuret Pep 276 pg/mL (0-125) H 03/13/22 20:30 Total Protein 6.5 g/dL (6.6-8.7) L 04/01/22 01:53 Albumin 2.6 g/dL (3.5-5.2) L 04/01/22 01:53 Globulin 3.9 g/dL (1.3-4.6) 04/01/22 01:53 Triglycerides 130 mg/dL (0-150) 03/14/22 03:10 Cholesterol 190 mg/dL (0-200) 03/14/22 03:10 LDL Cholesterol, Calc 134 mg/dL (50-129) H 03/14/22 03:10 HDL Cholesterol 30 mg/dL (60-100) L 03/14/22 03:10 LDL/HDL Ratio 4.47 RATIO (0.00-3.22) H 03/14/22 03:10 Cholesterol/HDL Ratio 6.33 mg/dL (1.0-5.00) H 03/14/22 03:10 Angiotensin Convert Enz 89 U/L (9-67) H 03/19/22 01:47 Vitamin B12 746 pg/mL (232-1245) 03/16/22 02:45 Folate 2.8 ng/mL (4.5-32.2) L 03/15/22 15:10 Procalcitonin Cancelled 03/15/22 03:00 TSH 0.88 uIU/mL (0.27-4.20) 03/14/22 03:10 Urine Color Yellow (Yellow) 03/14/22 00:45 Urine Appearance Clear (CLEAR) 03/14/22 00:45 Urine pH 5 (5-7) 03/14/22 00:45 Ur Specific [place] 1.005 (1.005-1.030) 03/14/22 00:45 Urine Protein Neg (Negative) 03/14/22 00:45 Urine Glucose (UA) Norm (Normal) 03/14/22 00:45 Urine Ketones 1+ (Negative) H 03/14/22 00:45 Urine Blood Neg (Negative) 03/14/22 00:45 Urine Nitrate Negative (Negative) 03/14/22 00:45 Urine Bilirubin Neg (Negative) 03/14/22 00:45 Urine Urobilinogen Norm mg/dL (Negative) 03/14/22 00:45 Ur Leukocyte Esterase Negative (Negative) 03/14/22 00:45 Fluid Color Cielo 03/17/22 16:15 Fluid Appearance Cloudy 03/17/22 16:15 Fluid WBC 149 /uL 03/17/22 16:15 Fluid RBC 2 10^3/uL 03/17/22 16:15 Fluid Hematocrit Not Reportable 03/17/22 16:15 Fluid Tot Cell Count 153 03/17/22 16:15 Fld Polynuclear WBCs # 9.000 03/17/22 16:15 Fld Polynuclear WBCs % 6.000 % 03/17/22 16:15 Fl Mononucl WBCs #(Auto) 140.000 03/17/22 16:15 Fl Mononuclear % Auto 94.000 % 03/17/22 16:15 Fluid Albumin 1.4 g/dL 03/17/22 16:15 Fluid Creatinine 0.53 (0.7-1.2) L 03/17/22 16:15 Pleural pH 9.00 (6.5-7.5) H 03/17/22 16:15 Pleural Total Protein 2.6 g/dL 03/17/22 16:15 Pleural LDH 201 U/L 03/17/22 16:15 Pleural Glucose 64.0 mg/dL 03/17/22 16:15 Pleural Amylase 31.0 U/L 03/17/22 16:15 Pleural Triglycerides 21 mg/dL 03/17/22 16:15 Pleur Adenosine Deamin 23.0 U/L (<9.2) H 03/17/22 16:15 Vancomycin Trough 13.8 ug/mL (10-15) 03/17/22 11:10 Urine Opiates Screen Negative ng/mL (Negative) 03/14/22 00:45 Ur Barbiturates Screen Negative ng/mL (Negative) 03/14/22 00:45 Ur Phencyclidine Scrn Negative ng/mL (Negative) 03/14/22 00:45 Ur Amphetamines Screen Negative ng/mL (Negative) 03/14/22 00:45 U Benzodiazepines Scrn Negative ng/mL (Negative) 03/14/22 00:45 Urine Cocaine Screen Negative ng/mL (Negative) 03/14/22 00:45 U Marijuana (THC) Screen Negative ng/mL (Negative) 03/14/22 00:45 ALEKS-1 Antibody <1.0 neg AI (<1.0 NEG) 03/19/22 01:47 SS-A/Ro IgG Antibody <1.0 neg AI (<1.0 NEG) 03/19/22 01:47 SS-B/La IgG Antibody <1.0 neg AI (<1.0 NEG) 03/19/22 01:47 Anti-nRNP/Sm IgG Ab <1.0 neg AI (<1.0 NEG) 03/19/22 01:47 Scl-70 Scleroderma Ab 1.1 pos AI (<1.0 NEG) A 03/19/22 01:47 Anti-ds DNA IgG Ab <1 IU/mL 03/19/22 01:47 Coccidioides IgG Ab Negative 03/20/22 04:05 Coccidioides IgM Ab Negative 03/20/22 04:05 Coronavirus 229E (PCR) Not detected (NOT DETECT) 03/18/22 13:30 Cryptococcus Source Serum 03/17/22 10:33 Cryptococcus Ag Screen Not detected 03/17/22 10:33 Hepatitis A IgM Ab Non-reactive (Nonreactive) 03/14/22 03:10 Hep Bs Antigen Non-reactive (Nonreactive) 03/14/22 03:10 Hep Bs Antibody 3.5 (11.5-1000) L 03/14/22 03:10 Hep B Core Total Ab Non-reactive (Nonreactive) 03/14/22 03:10 Hepatitis C Antibody Non-reactive (Nonreactive) 03/14/22 03:10 Histoplasma Antigen Urine 03/17/22 14:40 Histoplasma Ag (Qnt) None detected ng/mL 03/17/22 14:40 Histoplasma Ag Interp Negative 03/17/22 14:40 HIV 1&2 Ab & HIV 1 Ag Non-reactive (Non-Reactiv) 03/15/22 15:10 HIV 1&2 Antibody Non-reactive (Non-Reactiv) 03/15/22 15:10 Influenza Type A Ag negative (Negative) 03/13/22 20:30 Influenza Type B Ag negative (Negative) 03/13/22 20:30 SARS-CoV-2 (PCR) Not detected (NOT DETECT) 03/18/22 13:30 TB (QFT) Gold In Tube Positive (NEGATIVE) A 03/19/22 15:28 TB Test (QFT) Nil 0.14 IU/mL 03/19/22 15:28 TB Test (QFT) Mitogen >10.00 IU/mL 03/19/22 15:28 TB Test Mitogen - Nil 1.36 IU/mL 03/19/22 15:28 TB Test TB -Nil 1.49 IU/mL 03/19/22 15:28 Misc Test Reference see comments 03/19/22 13:35 Vitals Last Vital Signs Temp 100.3 F H 04/01/22 11:05 Pulse 85 04/01/22 11:05 Resp 16 04/01/22 11:05 BP 133/85 04/01/22 11:05 Pulse Ox 92 04/01/22 11:09 O2 Del Method 04/01/22 11:05 O2 Flow Rate 1 03/27/22 09:45 FiO2 2 03/26/22 08:00 Discharge Plan Discharge Patient Disposition: Home Health Service Condition: Stable Prescriptions: New isoniazid 300 mg Tablet 300 mg PO DAILY 60 Days Qty: 60 0RF Myambutol 400 mg Tablet 1,600 mg PO DAILY 60 Days Qty: 240 0RF pyrazinamide 500 mg Tablet 2,000 mg PO DAILY 60 Days Qty: 240 0RF Mycobutin 150 mg capsule 300 mg PO DAILY 60 Days Qty: 120 0RF Rx Instructions: must administer with a meal/food famotidine 20 mg Tablet 20 mg PO BID 30 Days Qty: 60 0RF benzonatate 100 mg Capsule 200 mg PO TID PRN (Reason: Cough) Qty: 14 0RF mirtazapine 30 mg Tablet 30 mg PO BEDTIME Qty: 30 0RF metoprolol tartrate 50 mg Tablet 50 mg PO BID@0900,2100 30 Days Qty: 60 0RF Eliquis 5 mg tablet 5 mg PO BID Qty: 60 0RF ProAir HFA 90 mcg/actuation HFA aerosol inhaler 1 inh inhalation 6XD PRN (Reason: shortness of breath or wheezing) Qty: 8.5 0RF Referrals: [facility] [Provider Group] - 04/10/22 [facility] [Outside] Farideh Shanks MD [Hospitalist] - 04/10/22 Pratik Ferguson MD [Physician] - 04/04/22 2:00 pm (You have a new patient appointment with Dr. Ferguson for ThursdayApril 04 at 2:00pm. If you have any questions or need to reschedule please contact them at [phone].) Discharge Diet: Cardiac Discharge Activity: Resume usual activity and Increase activity as tolerated Patient Instructions: Opioid Safety Activity Restrictions/Additional Instructions: Please continue take your antitubercular medications as directed. He should take antitubercular medications with milk daily. Please do not skip any dose of medications. You will be in constant touch with [facility] regarding medications. Eliquis is a blood thinner which you should take 5 mg morning and evening going forward for the rest of her life. Please follow-up with your new primary care provider within next few days on the set appointment. Sutures will be removed by her primary care provider on the next appointment. Please follow-up with ID clinic on April 10 on set appointment. Discharge Attestations Time Spent in Discharge Care*: greater than 30 min Specific Discharge Activities: educating patient, discussing with pcp/other providers, discussing with upper caser/social workers/dc planners, documenting/other paperwork and evaluating patient/reviewing data Status at Discharge: Cognitive status at discharge: cognitively intact , Behavioral status at discharge: cooperative , Functional status at discharge: independent ambulation , Overall status at discharge: patient is progressing back to baseline Quality Metrics Clinical Quality Measures [ Venous Thromboembolism { Contraindication to Overlap Therapy: None; Overlap threrpy ordered; VTE Discharge Education: Education about anticoagulant therapy/Care Notes given; Deep Vein Thrombosis/Pulmonary Embolism Present on Admission: Yes; Contraindication to Pharm VTE Prophylaxis: None; Pharmacological prophylaxis given; Documentation of Mechanical Device: Intermittent pneumatic compression stockings}] Coding Level of Care Code Acute Chg FW DC note Exam Problem Focused Medical Decision Making High Complexity Diagnoses Tuberculosis A15.9 Community acquired pneumonia J18.9 Pleural effusion J90 Pulmonary embolism I26.99 Atrial fibrillation with RVR I48.91 Acute respiratory failure with hypoxia J96.01 COPD (chronic obstructive pulmonary disease) J44.9 Cellulitis L03.90 Acute CHF I50.31 Heart failure type: diastolic Colon distention K63.89 Constipation K59.00 Blood in stool K92.1 Depression F32.A
--- NOTE | 2022-04-01 12:58 | PC.NURSE ---
Changed dressing to patient's left chest. Cleansed with normal saline and covered with covederm.
--- NOTE | 2022-04-01 17:12 | PM.PN ---
Subjective Subjective: Since last being seen patient has had chest tube placement for his empyema with Dr. Cleaning. Now removed Reports improvement in his breathing. Has also undergone pleural biopsy, results of which are awaited.He is planned for discharge today. Medications: Reviewed: Yes Vitals/I&O/Wt Last Vital Signs Temp 100.3 F H 04/01/22 17:46 Pulse 85 04/01/22 17:46 Resp 16 04/01/22 17:46 BP 133/85 04/01/22 17:46 Pulse Ox 93 04/01/22 17:46 O2 Del Method 04/01/22 11:05 O2 Flow Rate 1 03/27/22 09:45 FiO2 2 03/26/22 08:00 Physical Exam Narrative: General: No acute distress, AO x3 HEENT: PERRLA, pupils bilaterally equal and reactive, pallors not present Chest: Normal vesicular breath sounds, no added sounds, equal good air entry bilaterally CVS: S1-S2 regular, no murmurs, no tachycardia, no gallops, no rubs Abdomen: Soft, nontender, no organomegaly, bowel sounds present Neuro: No focal deficits, no facial deformity, AO x3, power 5/5 in all limbs Urinary Catheter Management: Ardon: Cath Placed During This Visit: yes, but has since been removed by the nurse Reason for Continuing Indwelling Catheter: Decision to DC Catheter Urinary Catheter Date of Insertion: 03/14/22 Urinary Catheter Time of Insertion: 00:35 Date Urinary Catheter Removed: 03/15/22 Time Urinary Catheter Discontinued: 10:15 Data 04/01/22 01:53 04/01/22 01:53 A&P Assessment and plan (1) Tuberculosis: 51-year-old male with a past medical history of LTBI, uncertain treatment history, admitted to the hospital currently with worsening dyspnea over the past 4 weeks with subjective symptoms lasting over the past 3 to 4 months. He has constitutional symptoms including weight loss, persistent low-grade fever, poor appetite, generalized malaise. HIV serostatus is negative. Bilateral pleural effusions upon initial admission.? Exudative by pleural fluid analysis.? Lymphocyte predominant.? Parameters as listed above. Concern for TB given elevated adenosine deaminse levels at 99.5 from left side thoracentesis.? And clinical symptoms compatible with Mycobacterium tuberculosis. Thus far AFB smear negative left and right-sided thoracentesis, sputum AFB smear negative x2.? Pending pleural and sputum AFB culture.? Pending sputum AFB PCR. Pleural fluid MTB PCR declined by reference lab as not currently FDA approved to be performed on pleural fluid. Ideally a diagnosis of tuberculosis requires positive AFB smears and cultures, however from pleural source, cultures are known to be paucilacillary, positivity ranges between 20-50%.? A negative smear and culture would not necessarily rule out tuberculosis.? 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 No other source for pleural effusion is otherwise evident at this time.? Less likely to be an empyema from an alternate bacterial cause as exudate is mostly lymphocyte predominant.? pH is elevated.? Fungal cultures are negative.? Gram stain from pleural fluid showed some gram-positive cocci however had no growth further work-up.? Blood cultures.? Sputum culture is showing coagulase positive cocci, likely to be staph aureus, however I do not expect staff aureus pneumonia to have chronic course such as with this patient lasting over several months. Expert consultation was obtained from [facility] with Dr. Constantino. Based on available clinical data, plan patient to start on anti-TB therapy with RIPE. Started rifampin 600 mg p.o. daily, isoniazid 300 mg daily, pyrazinamide 2000 mg daily, ethambutol 1600 mg daily along with supplemental pyridoxine. At discharge switch rifampin to rifabutin 300mg po daily as he will be on eliquis at discharge. Patient updated regarding natural course of TB infection, benefits and risks of starting medication, potential side effect of all above medications.? He is agreeable to start therapy. will follow up final cx and pleural biopsy as outpatient f/up appt on 04/10/22 (2) Pulmonary embolism: Patient has also been diagnosed with pulmonary embolism.? Currently okay to continue ripe with rifampin has no interaction with Lovenox. At the time of discharge patient will transition likely to Eliquis, which is contraindicated alongside of rifampin.? Therefore as outpatient we will plan to substitute rifampin for rifabutin 300 mg daily.? Attestations Medical Necessity Statement*: per admititng Coding Level of Care Code Acute General [employer] for [facility] Diagnoses Tuberculosis A15.9 Pulmonary embolism I26.99
[2022-04-01 17:46] VITALS: BP 133/85; PULSE 85; RESP 16; TEMP 37.9; O2SAT 93
--- NOTE | 2022-04-01 17:47 | PC.NURSE ---
Discharge Note Patient discharged to home via [facility] transport accompanied by transport personnel. Discharge instructions reviewed with patient and/or sales representative leather [employer]. Mobile pharmacy medications and/or prescriptions provided. Belongings/home medications returned.
--- NOTE | 2022-04-01 18:06 | PC.NURSE ---
Transport arrived to package pick up patient without PPE. I spoke with him and inquired if the patient's infectious disease had been communicated. He stated no. I informed him of patient's TB status. He called and spoke with his organization and stated it would be fine to transport patient. I provided education on PPE to be worn for TB positive patient and he verbalized understanding. I reviewed with Tamara Lopez RN with Case Management and she verbalized approval for him to transport patient. Patient was transported with N95 in place and transport donned N95.
--- NOTE | 2022-04-02 09:21 | PC.NURSE ---
I received a call from Ashish Marte, pharmacist with [facility] and he states that patient was sent home with incorrect dosage of Pyridoxine. He states that patient needs to take 50 mg daily. I called and spoke with patient and he states that he has difficulty reading the labels on the bottles. I called and spoke with Lauren David RN with [facility] and provided her the updated Rx information. She verbalizes understanding and states she is going to see the patient this morning and will correct the bottle in the patient's home. I called back and informed Ashish of this information.
== END 2022-04-01 16:00 | disposition home health service (06) | DRG 177 ==
LOC: ER 23:41 → CSU 23:57 → ICU 03-23 16:29 → CSU 03-24 23:11 → MEDSURG 03-25 23:40
PROVIDERS: Internal Medicine; Radiology Neuroradiology; Student in an Organized Health Care Education/Training Program; Surgery; Admitting Provider Internal Medicine; Emergency Provider Emergency Medicine; PCP Physician Assistant; Visit Provider Student in an Organized Health Care Education/Training Program
PROC: 0DJ08ZZ Inspection of Upper Intestinal Tract, Via Natural or Artificial Opening Endoscopic (ICD-10-PCS; CPT 43235; principal; 2022-03-21 11:30)
PROC: 0DJD8ZZ Inspection of Lower Intestinal Tract, Via Natural or Artificial Opening Endoscopic (ICD-10-PCS; CPT 45378; 2022-03-21 11:30)
DX: A15.9 Respiratory tuberculosis unspecified (principal); I26.99 Other pulmonary embolism without acute cor pulmonale; J96.01 Acute respiratory failure with hypoxia; I50.31 Acute diastolic (congestive) heart failure; J44.0 Chronic obstructive pulmonary disease with (acute) lower respiratory infection; L03.116 Cellulitis of left lower limb; K92.1 Melena; J15.211 Pneumonia due to Methicillin susceptible Staphylococcus aureus; I48.91 Unspecified atrial fibrillation; K63.89 Other specified diseases of intestine; K59.00 Constipation, unspecified; F32.A Depression, unspecified; M34.9 Systemic sclerosis, unspecified; K64.8 Other hemorrhoids; M54.30 Sciatica, unspecified side; M48.00 Spinal stenosis, site unspecified; F41.0 Panic disorder [episodic paroxysmal anxiety]; J90 Pleural effusion, not elsewhere classified; F17.210 Nicotine dependence, cigarettes, uncomplicated; M19.012 Primary osteoarthritis, left shoulder; F10.10 Alcohol abuse, uncomplicated
CPT/HCPCS: 32400; 32555; 36415; 36600; 43235; 45378; 51702; 71045; 71275; 74018; 74176; 76604; 77012; 80048; 80053; 80061; 80202; 80306; 80503; 81003; 82042; 82150; 82164; 82274; 82570; 82607; 82746; 82805; 82945; 83036; 83540; 83550; 83605; 83615; 83630; 83735; 83880; 83986; 84145; 84157; 84311; 84443; 84478; 84484; 85014; 85025; 85610; 86140; 86225; 86235; 86403; 86480; 86635; 86705; 86706; 86709; 86803; 87015; 87040; 87070; 87075; 87077; 87102; 87116; 87186; 87205; 87206; 87340; 87385; 87449; 87493; 87506; 87635; 87641; 87801; 87804; 87806; 88108; 88305; 88342; 89050; 93005; 93306; 94640; 94660; 94760; 96365; 96367; 96372; 96374; 96375; 96376; 97110; 97116; 97162; 97530; 99152; 99153; 99285; C9113; J0456; J0696; J1644; J1650; J1940; J2250; J2270; J2543; J2704; J2930; J3010; J3370; J3490; J7030; J7050; J7614; J7626; J7644; Q9967

== ENCOUNTER 2022-04-10 13:07 | Outpatient (CLI) | payer MEDICAID, SELFPAY ==
--- NOTE | 2022-04-10 13:15 | XR_ITS ---
WS: [id number] Exam: XR chest 2V* [id number] Date/Time of Exam: 04/10/2022 1:15 PM Reason For Exam: TB Comparison 03/29/2022. There is consolidation and atelectasis of the right lower lobe with right basal pleural effusion. Shandra y little change since previous exam. There is also infiltrate in the left lower lobe and small pleura l effusion unchanged. The heart is mildly enlarged. Pulmonary vascularity is increased. Effusion bord ers the left lung. No pneumothorax. The mediastinum is normal in contour. Bony structures are intact. XR/XR chest 2V* [id number] IMPRESSION: 1. Bibasal pulmonary infiltrates and atelectasis with bilateral pleural effusio ns. Very little change since the prior study. 2. Mild cardiac enlargement. The heart appears to be slightly smaller than note d previously.
[2022-04-10 13:45] LABS: Basophils # 0.1 10^3/uL (0.0-0.1); Basophils % 0.5 %; Eosinophils # 0.1 10^3/uL (0.0-0.8); Hematocrit 38.9 % (42.0-52.0); Hemoglobin 11.1 g/dL (11.7-16.6); Lymphocytes # 1.4 10^3/uL (0.8-4.8); Lymphocytes % 14.9 %; Mean Corpuscular HGB Conc 28.5 g/dL (30.0-36.0); Mean Platelet Volume 11.5 fL (7.4-10.4); Monocytes # 1.4 10^3/uL (0.2-0.9); Monocytes % 14.9 %; Neutrophils # 6.01 10^3/uL (1.8-7.7); Neutrophils % 64.3 %; Nucleated Red Blood Cells % 0 %; Platelet Count 433 10^3/cmm (130-400); Red Blood Count 5.05 10^6/uL (4.1-5.3); Red Cell Distribution Width 18.6 % (12.1-15.1); White Blood Count 9.3 10^3/uL (4.0-10.0)
[2022-04-10 14:08] LABS: Alanine Aminotransferase 19 U/L (0-41); Albumin Level 3.1 g/dL (3.5-5.2); Alkaline Phosphatase 88 U/L (40-130); Aspartate Amino Transferase 29 U/L (0-40); Blood Urea Nitrogen 10 mg/dL (6-20); Calcium 8.9 mg/dL (8.5-10.5); Carbon Dioxide 25 mmol/L (22-29); Chloride 97 mmol/L (98-107); Globulin 4.8 g/dL (1.3-4.6); Glomerular Filtration Rate 170.5 mL/min (90-130); Glucose 107 mg/dL (65-115); Osmolality Calculated 278 mOsm/kg (285-295); Sodium 134 mmol/L (136-145); Total Bilirubin 0.3 mg/dL (0.15-1.2); Total Protein 7.9 g/dL (6.6-8.7)
== END 2022-04-10 13:08 | disposition home or self-care (01) ==
LOC: LAB 13:09
PROVIDERS: PCP Family Medicine; Visit Provider Student in an Organized Health Care Education/Training Program
DX: A15.9 Respiratory tuberculosis unspecified (principal); I51.7 Cardiomegaly; J90 Pleural effusion, not elsewhere classified
CPT/HCPCS: 36415; 71046; 80053; 85025; 99205

== ENCOUNTER 2022-04-28 14:16 | Outpatient (CLI) | payer MEDICAID, SELFPAY ==
--- NOTE | 2022-04-28 14:30 | CTR_ITS ---
PROCEDURE INFORMATION: Exam: CT Chest With Contrast; Diagnostic Exam date and time: 04/28/2022 2:44 PM Age: 51 years old Clinical indication: Condition or disease; Lung condition and disease; Pleural effusion; Tuberculous; Additional info: Follow up pulomnary tb, effusion TECHNIQUE: Imaging protocol: Diagnostic computed tomography of the chest with contrast. Radiation optimization: All CT scans at this facility use at least one of these dose optimization techniques: automated exposure control; mA and/or kV adjustment per patient size (includes targeted exams where dose is matched to clinical indication); or iterative reconstruction. Contrast material: OMNI 350; Contrast volume: 95 ml; Contrast route: INTRAVENOUS (IV); COMPARISON: CT angio chest PE protcl [id number] 03/17/2022 12:53 PM RADIATION DOSE METRICS: Total DLP (mGy-cm): 893.67 FINDINGS: Lungs: Atelectasis in the left lower lobe and lung base. Increased dense consolidation in the posterior and superior right lower lobe with intermixed ground-glass opacities. Multiple stable right upper lobe nodules measuring up to 6 mm. Pleural spaces: Right pleural fluid collection measuring 5.0 cm in thickness with circumferential pleural thickening. Left pleural fluid collection measuring 2.5 cm in thickness with circumferential pleural thickening. No pneumothorax. Heart: Mild cardiomegaly. Coronary arteries: Mild coronary artery calcifications. Lymph nodes: Unremarkable. No enlarged lymph nodes. Vasculature: Unremarkable. No aortic aneurysm. Bones/joints: Degenerative changes and scoliosis of the thoracic spine. No fracture or bone destruction identified. Soft tissues: Unremarkable. CT/CT chest w con* [id number] IMPRESSION: 1. Worsened consolidation in the right lower lobe, most likely a combination of atelectasis and pneumonia. 2. Bilateral pleural fluid collections with circumferential pleural thickening, right greater than left. These most likely represent empyemas. 3. Stable right pulmonary nodules measuring up to 6 mm. For patients at low risk (minimal or absent history of smoking and of other known risk factors), no routine follow-up is indicated. For patients at high risk (history of smoking or of other known risk factors), consider optional CT Chest at 12 months. (Reference: Polo) References: Polo Johnson et al. Guidelines for Management of Incidental Pulmonary Nodules Detected on CT Images: From the Fleischner Society 2017. Radiology. 2017;284(1):228-243.
[2022-04-28] MEDS: iohexol 350 mg/mL 100 mL Btl IV (15:22)
== END 2022-04-28 14:17 | disposition home or self-care (01) ==
LOC: RAD 14:17
PROVIDERS: PCP Family Medicine; Visit Provider Student in an Organized Health Care Education/Training Program
DX: A18.89 Tuberculosis of other sites (principal)
CPT/HCPCS: 71260; Q9967

== ENCOUNTER → 2022-04-29 13:27 | Outpatient (BNVA) | payer MEDICAID, SELFPAY | PROVIDERS: PCP Family Medicine; Visit Provider Internal Medicine Pulmonary Disease | DX: A18.89 Tuberculosis of other sites (principal); J44.9 Chronic obstructive pulmonary disease, unspecified; J90 Pleural effusion, not elsewhere classified; R91.8 Other nonspecific abnormal finding of lung field; Z87.891 Personal history of nicotine dependence | CPT/HCPCS: 99204 ==

== ENCOUNTER 2022-05-06 13:08 | Outpatient (CLI) | payer MEDICAID, SELFPAY ==
[2022-05-06 13:43] LABS: Basophils # 0.1 10^3/uL (0.0-0.1); Basophils % 0.8 %; Eosinophils # 0.1 10^3/uL (0.0-0.8); Eosinophils % 1.3 %; Hematocrit 38.1 % (42.0-52.0); Hemoglobin 10.7 g/dL (11.7-16.6); Lymphocytes # 1.3 10^3/uL (0.8-4.8); Lymphocytes % 16.1 %; Mean Corpuscular HGB Conc 28.1 g/dL (30.0-36.0); Mean Corpuscular Hemoglobin 22.7 pg (28.0-34.0); Mean Corpuscular Volume 80.9 fl (80-94); Mean Platelet Volume 11.4 fL (7.4-10.4); Monocytes % 12.5 %; Neutrophils # 5.54 10^3/uL (1.8-7.7); Neutrophils % 66.7 %; Nucleated Red Blood Cells % 0 %; Platelet Count 472 10^3/cmm (130-400); Red Blood Count 4.71 10^6/uL (4.1-5.3); Red Cell Distribution Width 18.6 % (12.1-15.1); White Blood Count 8.3 10^3/uL (4.0-10.0)
[2022-05-06 14:01] LABS: Alanine Aminotransferase 19 U/L (0-41); Albumin Level 3.3 g/dL (3.5-5.2); Alkaline Phosphatase 93 U/L (40-130); Anion Gap 13.1 (5-19); Aspartate Amino Transferase 23 U/L (0-40); Blood Urea Nitrogen 8 mg/dL (6-20); Carbon Dioxide 30 mmol/L (22-29); Chloride 100 mmol/L (98-107); Globulin 4.2 g/dL (1.3-4.6); Glomerular Filtration Rate 210.5 mL/min (90-130); Glucose 87 mg/dL (65-115); Osmolality Calculated 286 mOsm/kg (285-295); Potassium 4.1 mmol/L (3.5-5.1); Sodium 139 mmol/L (136-145); Total Bilirubin 0.2 mg/dL (0.15-1.2); Total Protein 7.5 g/dL (6.6-8.7)
[2022-05-06 15:30] LABS: Adenovirus Not Detected (NOT DETECT); Chlamydia Pneumoniae Not Detected (NOT DETECT); Coronavirus 229E,HKU1,NL63,OC4 Not Detected (NOT DETECT); Human Metapneumovirus Not Detected (NOT DETECT); Human Rhinovirus/Enterovirus Not Detected (NOT DETECT); Influenza A Not Detected (NOT DETECT); Influenza A H1 Not Detected (NOT DETECT); Influenza A H1-2009 Not Detected (NOT DETECT); Influenza A H3 Not Detected (NOT DETECT); Influenza B Not Detected (NOT DETECT); Mycoplasma Pneumoniae Not Detected (NOT DETECT); Parainfluenza Virus Type 1 Not Detected (NOT DETECT); Parainfluenza Virus Type 2 Not Detected (NOT DETECT); Parainfluenza Virus Type 3 Not Detected (NOT DETECT); Parainfluenza Virus Type 4 Not Detected (NOT DETECT); Respiratory Syncytial Virus A Not Detected (NOT DETECT); Respiratory Syncytial Virus B Not Detected (NOT DETECT); SARS-COV-2 Not Detected (NOT DETECT)
[2022-05-09 14:14] LABS: NT Pro B Type Natriuretic Pept 1221 pg/mL (0-125); Uric Acid 13.8 mg/dL (3.4-7.0)
== END 2022-05-06 13:09 | disposition home or self-care (01) ==
LOC: LAB 13:10
PROVIDERS: PCP Family Medicine; Visit Provider Student in an Organized Health Care Education/Training Program
DX: A18.89 Tuberculosis of other sites (principal)
CPT/HCPCS: 36415; 80053; 83880; 84550; 85025; 87486; 87581; 87633

== ENCOUNTER → 2022-05-22 09:44 | Outpatient (BNVA) | payer MEDICAID, SELFPAY | PROVIDERS: PCP Family Medicine; Visit Provider Student in an Organized Health Care Education/Training Program | DX: J90 Pleural effusion, not elsewhere classified (principal); A18.89 Tuberculosis of other sites; Z51.81 Encounter for therapeutic drug level monitoring | CPT/HCPCS: 99214; 99215 ==

== ENCOUNTER 2022-05-23 12:47 | Outpatient (CLI) | payer MEDICAID, SELFPAY ==
[2022-05-23] MEDS: iohexol 350 mg/mL 500 mL Btl (per mL) IV (13:36)
--- NOTE | 2022-05-23 16:30 | CT_ITS ---
WS: [id number] CT CHEST ANGIOGRAPHY WITH REFORMATS HISTORY: follow up PE, follow up tuberculous pleural effusion TECHNIQUE: Contiguous axial images are obtained through the chest during arterial injection of intrav enous contrast. Images are reconstructed to evaluate the pulmonary arteries. MIP imaging also reviewe d. All CT scans at [facility] use at least one of these dose optimization techniques: automat ed exposure control; mA and/or kV adjustment per patient size (includes targeted exams where dose is matched to clinical indication); or iterative reconstruction. CONTRAST: Omnipaque 350; 95 mL IV. DLP: 430.17 mGy.cm COMPARISON: 04/28/2022 Limited opacification of the pulmonary arteries beyond the lobar branches. There is mixing of arteria l contrast suggesting poor bolus. No central pulmonary embolism. The upper lobe pulmonary arteries ar e well-visualized and clear. There are a few small eccentric defects in the LEFT lower lobe segmental branches. May be incomplete opacification or chronic emboli. Thoracic aorta is mildly ectatic. No an eurysm. Mild pulmonary congestion. There are a few scattered peripheral opacifications. Again noted are bilat eral empyemas. Thickening of the visceral and parietal pleura with minimal enhancement. Pleural fluid extends along the RIGHT major fissure. Compressive atelectasis at the lung bases but greatest on the RIGHT. RIGHT pleural effusion is also larger. No progression since the prior study. Heart is enlarged. No pericardial effusion. Mildly prominent reactive mediastinal and hilar lymph nod es are similar to the prior study. CT/CT angio chest PE protcl [id number] IMPRESSION: 1. No central large pulmonary embolism. Opacification becomes limited beyond t he lobar branches. 2. Age indeterminate and possibly chronic nonocclusive filling defects in the LEFT lower lobe segmental branches. 3. Bilateral empyemas, RIGHT greater than LEFT. Very similar to the most recen t studies of 04/28/2022. The LEFT empyema has significantly improved since 2021. 4. Compressive atelectasis at the LEFT lung base.
== END 2022-05-23 12:48 | disposition home or self-care (01) ==
LOC: RAD 12:52
PROVIDERS: PCP Family Medicine; Visit Provider Student in an Organized Health Care Education/Training Program
DX: J90 Pleural effusion, not elsewhere classified (principal); A18.89 Tuberculosis of other sites; J98.11 Atelectasis; J86.9 Pyothorax without fistula
CPT/HCPCS: 71275; Q9967

== ENCOUNTER 2022-05-28 12:33 | Outpatient (CLI) | payer MEDICAID, SELFPAY ==
[2022-05-28 13:32] LABS: Alanine Aminotransferase 28 U/L (0-41); Alkaline Phosphatase 104 U/L (40-130); Anion Gap 14.4 (5-19); Aspartate Amino Transferase 36 U/L (0-40); Blood Urea Nitrogen 12 mg/dL (6-20); Calcium 9.6 mg/dL (8.5-10.5); Carbon Dioxide 30 mmol/L (22-29); Chloride 103 mmol/L (98-107); Globulin 4.2 g/dL (1.3-4.6); Glomerular Filtration Rate 142.7 mL/min (90-130); Glucose 100 mg/dL (65-115); Osmolality Calculated 296 mOsm/kg (285-295); Potassium 4.4 mmol/L (3.5-5.1); Sodium 143 mmol/L (136-145); Total Bilirubin 0.3 mg/dL (0.15-1.2); Total Protein 8.2 g/dL (6.6-8.7)
== END 2022-05-28 12:34 | disposition home or self-care (01) ==
LOC: LAB 12:35
PROVIDERS: PCP Family Medicine; Visit Provider Family Medicine
DX: Z01.89 Encounter for other specified special examinations (principal)
CPT/HCPCS: 36415; 80053

== ENCOUNTER → 2022-06-03 08:33 | Outpatient (BNVA) | payer MEDICAID, SELFPAY | PROVIDERS: PCP Family Medicine; Visit Provider Podiatrist Foot & Ankle Surgery | DX: B35.3 Tinea pedis (principal); L60.3 Nail dystrophy | CPT/HCPCS: 73630; 99204 ==

== ENCOUNTER → 2022-06-04 13:02 | Outpatient (BNVA) | payer MEDICAID, SELFPAY | PROVIDERS: PCP Family Medicine; Visit Provider Internal Medicine Cardiovascular Disease | DX: I48.91 Unspecified atrial fibrillation (principal); Z87.891 Personal history of nicotine dependence; Z79.01 Long term (current) use of anticoagulants; I50.31 Acute diastolic (congestive) heart failure; I26.99 Other pulmonary embolism without acute cor pulmonale; A18.89 Tuberculosis of other sites | CPT/HCPCS: 99204; Q3014 ==

== ENCOUNTER 2022-06-11 12:43 | Outpatient (CLI) | payer MEDICAID, SELFPAY ==
[2022-06-11 13:04] VITALS: PULSE 80; RESP 18; O2SAT 95
[2022-06-11] MEDS: albuterol 2.5 mg/3 mL Neb INHALATION (13:04)
[2022-06-11 13:09] VITALS: PULSE 86
== END 2022-06-11 12:44 | disposition home or self-care (01) ==
LOC: RT 12:44
PROVIDERS: PCP Family Medicine; Visit Provider Internal Medicine Pulmonary Disease
DX: J44.9 Chronic obstructive pulmonary disease, unspecified (principal)
CPT/HCPCS: 94060; 94618; 94726; 94729; J7613

== ENCOUNTER 2022-06-13 12:22 | Outpatient (CLI) | payer MEDICAID, SELFPAY ==
[2022-06-13 12:53] LABS: Basophils # 0.1 10^3/uL (0.0-0.1); Basophils % 1.1 %; Eosinophils # 0.1 10^3/uL (0.0-0.8); Eosinophils % 1.6 %; Hematocrit 40.3 % (42.0-52.0); Hemoglobin 11.7 g/dL (11.7-16.6); Lymphocytes # 1.2 10^3/uL (0.8-4.8); Lymphocytes % 26.4 %; Mean Corpuscular Hemoglobin 23.3 pg (28.0-34.0); Mean Corpuscular Volume 80.3 fl (80-94); Mean Platelet Volume 12.5 fL (7.4-10.4); Monocytes # 0.6 10^3/uL (0.2-0.9); Monocytes % 14.2 %; Neutrophils # 2.53 10^3/uL (1.8-7.7); Neutrophils % 56.3 %; Nucleated Red Blood Cells % 0 %; Platelet Count 260 10^3/cmm (130-400); Red Blood Count 5.02 10^6/uL (4.1-5.3); Red Cell Distribution Width 17.2 % (12.1-15.1); White Blood Count 4.5 10^3/uL (4.0-10.0)
[2022-06-13 13:20] LABS: Uric Acid 9.3 mg/dL (3.4-7.0)
[2022-06-13 13:23] LABS: Erythrocyte Sedimentation Rate 99 mm/hr (0-10)
[2022-06-13 13:36] LABS: Hepatitis A Antibody IgM Non-Reactive (Nonreactive); Hepatitis B Core AB, Total Non-Reactive (Nonreactive); Hepatitis B Surface AB 3.5 (11.5-1000); Hepatitis B Surface Antigen Non-Reactive (Nonreactive); Hepatitis C Virus Antibody Non-Reactive (Nonreactive)
== END 2022-06-13 12:23 | disposition home or self-care (01) ==
LOC: LAB 12:25
PROVIDERS: PCP Family Medicine; Visit Provider Student in an Organized Health Care Education/Training Program
DX: Z51.81 Encounter for therapeutic drug level monitoring (principal); A18.89 Tuberculosis of other sites
CPT/HCPCS: 36415; 84207; 84550; 85025; 85651; 86705; 86706; 86709; 86803; 87340

== ENCOUNTER 2022-06-19 12:46 | Outpatient (CLI) | payer MEDICAID, SELFPAY | END 2022-06-19 12:47 | disposition home or self-care (01) | LOC: LAB 12:50 | PROVIDERS: PCP Family Medicine; Visit Provider Student in an Organized Health Care Education/Training Program | DX: A15.6 Tuberculous pleurisy (principal); A18.89 Tuberculosis of other sites | CPT/HCPCS: 99215 ==

== ENCOUNTER → 2022-07-09 12:56 | Outpatient (BNVA) | payer MEDICAID, SELFPAY | PROVIDERS: PCP Family Medicine; Visit Provider Nurse Practitioner Family | DX: I48.91 Unspecified atrial fibrillation (principal); I50.31 Acute diastolic (congestive) heart failure; Z87.891 Personal history of nicotine dependence; Z79.01 Long term (current) use of anticoagulants | CPT/HCPCS: 93005; 99214 ==

== ENCOUNTER 2022-07-30 11:39 | Outpatient (CLI) | payer MEDICAID, SELFPAY | END 2022-07-30 11:40 | disposition home or self-care (01) | LOC: RAD 11:44 | PROVIDERS: PCP Family Medicine; Visit Provider Internal Medicine Pulmonary Disease | DX: A15.0 Tuberculosis of lung (principal); J91.8 Pleural effusion in other conditions classified elsewhere; J44.9 Chronic obstructive pulmonary disease, unspecified; R91.8 Other nonspecific abnormal finding of lung field; Z87.891 Personal history of nicotine dependence | CPT/HCPCS: 71046; 99214 ==

== ENCOUNTER → 2022-07-31 13:19 | Outpatient (BNVA) | payer MEDICAID, SELFPAY | PROVIDERS: PCP Family Medicine; Visit Provider Student in an Organized Health Care Education/Training Program | DX: A18.89 Tuberculosis of other sites (principal); Z51.81 Encounter for therapeutic drug level monitoring; A15.6 Tuberculous pleurisy | CPT/HCPCS: 99215 ==

== ENCOUNTER → 2022-08-05 12:48 | Outpatient (BNVA) | payer MEDICAID, SELFPAY | PROVIDERS: PCP Family Medicine; Visit Provider Podiatrist Foot & Ankle Surgery | DX: B35.3 Tinea pedis (principal); L60.3 Nail dystrophy | CPT/HCPCS: 99213 ==

== ENCOUNTER 2022-08-15 10:57 | Outpatient (CLI) | payer MEDICAID, SELFPAY ==
--- NOTE | 2022-08-15 10:30 | CT_ITS ---
WS: [id number] CT chest wo con [id number] HISTORY: follow up pleural TB TECHNIQUE: Axial imaging performed through the thorax. Coronal and sagittal reformats are submitted. All CT scans at [facility] use at least one of these dose optimization techniques: automated exposure control; mA and/or kV adjustment per patient size (includes targeted exams where dose is mat ched to clinical indication); or iterative reconstruction. CONTRAST: None DLP: 587.14 mGy.cm COMPARISON: 05/23/2022 and 04/28/2022 Lungs and central airway: Breathing motion artifact. Compressive atelectasis RIGHT lower lobe. No foc al areas of pneumonia. Pleura: Significant improvement in the bilateral empyemas since the prior study. The LEFT empyema has essentially resolved. There is mild pleural thickening at the LEFT lung base is the residual. Modera te decrease in size of the RIGHT empyema now extending over a length of 7.9 cm x 3.[address] eural thickening. Heart and pericardium: Mild enlargement of the heart. Mediastinum and adriana: No adenopathy identified on this unenhanced exam. Vessels: Mild prominence of the pulmonary artery to 4.0 cm. Normal size aorta. Chest wall and lower neck: No soft tissue masses. Upper abdomen: Moderate-sized hiatal hernia. No adrenal mass. Osseous structures: Mild thoracic scoliosis. CT/CT chest wo con [id number] IMPRESSION: 1. Significant improvement in the bilateral empyemas. 2. Essentially resolved LEFT empyema with only mild pleural thickening remaini ng. 3. Moderate decrease in size of the RIGHT empyema. 4. Compressive atelectasis RIGHT lower lobe. 5. Mild cardiomegaly.
== END 2022-08-15 10:58 | disposition home or self-care (01) ==
LOC: RAD 10:59
PROVIDERS: PCP Family Medicine; Visit Provider Student in an Organized Health Care Education/Training Program
DX: A18.89 Tuberculosis of other sites (principal); I51.7 Cardiomegaly; J86.9 Pyothorax without fistula
CPT/HCPCS: 71250; 99215

== ENCOUNTER → 2022-10-09 13:58 | Outpatient (BNVA) | payer MEDICAID, SELFPAY | PROVIDERS: PCP Family Medicine; Visit Provider Student in an Organized Health Care Education/Training Program | DX: A18.89 Tuberculosis of other sites (principal); A15.6 Tuberculous pleurisy | CPT/HCPCS: 99215 ==

== ENCOUNTER 2022-10-15 13:17 | Outpatient (CLI) | payer MEDICAID, SELFPAY ==
--- NOTE | 2022-10-15 13:35 | MR_ITS ---
WS: [id number] MRI LUMBAR SPINE NONCONTRAST TECHNIQUE: Sagittal T1, T2 and STIR imaging. Axial T1 and T2 imaging. CLINICAL INFORMATION: VERTEBRAL DISK DISORDER WITH RADICULOPATHY COMPARISON: None. FINDINGS: Some images degraded by patient motion. Counting performed from the craniocervical junction. S1 is transitional and partially lumbarized. Rec ommend plain film correlation prior to surgical intervention. Mild lumbar curve. No acute compression . Mild congenital spinal canal narrowing contributes to stenosis L1-L2: Normal. L2-L3: Mild annular bulging. Slight effacement of ventral thecal sac. Mild facet arthropathy. LEFT fo raminal protrusion with mild LEFT foraminal narrowing. Contact of the exiting LEFT L2 nerve root. L3-L4: No significant disc bulging. Mild facet arthropathy. Spinal canal and foramen are patent. L4-L5: Mild annular bulging with mild central canal stenosis. Mild facet arthropathy. Foramen are pat ent. L5-S1: Mild disc bulging in combination with facet arthropathy ligamentum flavum hypertrophy res ults in moderate to severe central canal stenosis. Impingement subarticular recess and traversing S1 nerve roots. Mild to moderate LEFT foraminal narrowing. Small facet effusions. S1-S2: S1 is partially lumbarized. Spinal canal is patent. Mild to moderate LEFT foraminal narrowing with LEFT eccentric bony ridging laterally. This encroaches on the far exiting LEFT S2 nerve root. Visualized pelvic bony structures: Normal. Paravertebral soft tissues: Normal. MR/MR lumbar spine wo con* [id number] IMPRESSION: 1. Counting performed from the craniocervical junction. S1 is transitional and partially lumbarized. Recommend plain film correlation prior to surgical inter vention. 2. Moderate to severe central canal stenosis L5-S1 due to disc bulging with f acet arthropathy ligamentum flavum hypertrophy. 3. Mild to moderate LEFT L5-S1 foraminal narrowing. 4. Mild to moderate LEFT S1-S2 bony foraminal narrowing. 5. Small LEFT foraminal protrusion L2-L3 with mild LEFT foraminal narrowing an d slight contact of the exiting LEFT L2 nerve root. 6. Moderate facet arthropathy L4-L5 and L5-S1. Small facet effusions at L5-S1.
== END 2022-10-15 13:18 | disposition home or self-care (01) ==
LOC: RAD 13:18
PROVIDERS: PCP Family Medicine; Visit Provider Nurse Practitioner Psychiatric/Mental Health
DX: M48.07 Spinal stenosis, lumbosacral region (principal); M47.817 Spondylosis without myelopathy or radiculopathy, lumbosacral region
CPT/HCPCS: 72148